=== PATIENT | female | born 1945 | race Caucasian/White ===

== ENCOUNTER 2017-11-19 12:15 | Outpatient (RCR) | payer MEDICARE, MEDICAID, SELFPAY ==
--- NOTE | 2017-08-05 11:47 | PT.OTN ---
Current Diagnoses Lumbago with sciatica, right side (08/05/17) Lumbago with sciatica, left side (08/05/17) Difficulty in walking, not elsewhere classified (08/05/17) Abnormal posture (08/05/17) Weakness (08/05/17) Transition note: On August 03, 2017 our therapy services consisting of Speech, Occupational, and Physical Therapy transitioned from the [employer] electronic documentation system to a new [employer] electronic documentation system.?? All documentation prior to August 03 can be found under [employer] saved data. From August 03 forward all medical record documentation will be in [employer] 6.1.
--- NOTE | 2017-08-05 16:24 | PT.OTN ---
Current Diagnoses Lumbago with sciatica, right side (08/05/17) Lumbago with sciatica, left side (08/05/17) Difficulty in walking, not elsewhere classified (08/05/17) Abnormal posture (08/05/17) Weakness (08/05/17) Physical Therapy Treatment Note PT-OP-A Visit Information Start: 08/05/17 08:12 Freq: Status: Active Protocol: Activity Type Activity Date Activity User E-Sign Co-Sign Detail Recorded Client Recorded Date Recorded By Document 08/05/17 13:52 [facility] [id number] 08/05/17 14:35 [facility] 08/05/17 13:52 Out-Patient Physical Therapy Visit Information [Visit Information] -Visit Note POC due 09/27/17 -Visit Start Time 13:45 -Visit Stop Time 14:30 -Total Visit Minutes 45 -Visit Number 3 PT-OP-C Subjective Start: 08/05/17 08:12 Freq: Status: Active Protocol: Activity Type Activity Date Activity User E-Sign Co-Sign Detail Recorded Client Recorded Date Recorded By Document 08/05/17 13:52 [facility] [id number] 08/05/17 14:35 [facility] 08/05/17 13:52 OP-PT Subjective [Patient Comments] -Patient Comments Pt reports felt pretty good after last session. R arm was the sorest. A little twinge in back. PT-OP-Q Treatments Start: 08/05/17 08:12 Freq: Status: Active Protocol: Activity Type Activity Date Activity User E-Sign Co-Sign Detail Recorded Client Recorded Date Recorded By Document 08/05/17 13:52 [facility] [id number] 08/05/17 14:35 [facility] 08/05/17 13:52 Gym Equipment [Shuttle Balance] 1 -Details red clips -Comments fwd & side NBOS & WBOS Therapeutic Exercises [Supine Exercises] 2 -Supine Exercise Name scissors -Reps/Minutes 30 1 -Supine Exercise Name bridge -Reps/Minutes 20 [Sidelying Exercises] 3 -Sidelying Exercise Name reverse clamshell -Resistance L1 -Reps/Minutes 20 2 -Sidelying Exercise Name clamshell -Resistance L1 -Reps/Minutes 20 1 -Sidelying Exercise Name s/l abd -Reps/Minutes 20 B Manual Therapy Treatment [Soft Tissue Mobilization] 1 -Body Location QL & glutes/ piriformis R -Mobilization Type Rolling -Intensity/Depth Moderate -Body Position Sidelying PT-OP-T Assessment and Plan Start: 08/05/17 08:12 Freq: Status: Active Protocol: Activity Type Activity Date Activity User E-Sign Co-Sign Detail Recorded Client Recorded Date Recorded By Document 08/05/17 13:52 [facility] [id number] 08/05/17 14:35 [facility] 08/05/17 13:52 Physical Therapy Assessment [Assessment Summary] -Assessment Pt had difficulty with NBOS on uneven surface. Pt did require cueing for exercises for core, neutral pelvis & form. Physical Therapy Plan [Next Visit Focus/Plan] -Next Visit Plan standing abd & ext with tband; fwd/back resisted walking
--- NOTE | 2017-08-09 14:31 | PT.OTN ---
Current Diagnoses Lumbago with sciatica, right side (08/09/17) Lumbago with sciatica, left side (08/09/17) Difficulty in walking, not elsewhere classified (08/09/17) Abnormal posture (08/09/17) Weakness (08/09/17) Physical Therapy Treatment Note PT-OP-A Visit Information Start: 08/05/17 08:12 Freq: Status: Active Protocol: Activity Type Activity Date Activity User E-Sign Co-Sign Detail Recorded Client Recorded Date Recorded By Document 08/09/17 13:53 [facility] [id number] 08/09/17 14:17 [facility] 08/09/17 13:53 Out-Patient Physical Therapy Visit Information [Visit Information] -Visit Type Treatment Note -Visit Note POC due 09/27/17 -Visit Start Time 13:45 -Visit Stop Time 14:30 -Total Visit Minutes 45 -Visit Number 4 -Number of TUBE STATION ATTENDANT Visits 0 PT-OP-C Subjective Start: 08/05/17 08:12 Freq: Status: Active Protocol: Activity Type Activity Date Activity User E-Sign Co-Sign Detail Recorded Client Recorded Date Recorded By Document 08/09/17 13:53 [facility] [id number] 08/09/17 14:17 [facility] 08/09/17 13:53 OP-PT Subjective [Patient Comments] -Patient Comments Pt reports she did some yard work, but only minor twinges PT-OP-Q Treatments Start: 08/05/17 08:12 Freq: Status: Active Protocol: Activity Type Activity Date Activity User E-Sign Co-Sign Detail Recorded Client Recorded Date Recorded By Document 08/09/17 13:53 [facility] [id number] 08/09/17 14:17 [facility] 08/09/17 13:53 Cardio Equipment [Recumbent Elliptical (Biodex)] -Duration (Minutes) 5 -Resistance 4 -Seat Position 6 Gym Equipment [Shuttle Balance] 1 -Details red clips -Comments fwd & side NBOS & WBOS & staggered stance Therapeutic Exercises [Standing Exercises] 3 -Standing Exercise Name hip abd w/lvl 1 band -Reps/Minutes 2x10 2 -Standing Exercise Name standing hip ext w/l1 band -Reps/Minutes 2x10 1 -Standing Exercise Name wall squat -Reps/Minutes 2x10 Manual Therapy Treatment [Soft Tissue Mobilization] 1 -Body Location QL & glutes/ piriformis R -Mobilization Type Rolling -Intensity/Depth Moderate -Body Position Sidelying PT-OP-T Assessment and Plan Start: 08/05/17 08:12 Freq: Status: Active Protocol: Activity Type Activity Date Activity User E-Sign Co-Sign Detail Recorded Client Recorded Date Recorded By Document 08/09/17 13:53 [facility] [id number] 08/09/17 14:17 [facility] 08/09/17 13:53 Physical Therapy Assessment [Assessment Summary] -Assessment Improved balance on balance board today. Difficulty reported with standing exercises. Physical Therapy Plan [Frequency and Duration] -Frequency of Treatment 2x/Week -Plan of Care End Date 09/28/17 [Next Visit Focus/Plan] -Next Visit Plan resisted fwd/ back & side walking
--- NOTE | 2017-08-12 14:30 | PT.OTN ---
Current Diagnoses Lumbago with sciatica, right side (08/12/17) Lumbago with sciatica, left side (08/12/17) Difficulty in walking, not elsewhere classified (08/12/17) Abnormal posture (08/12/17) Weakness (08/12/17) Physical Therapy Treatment Note PT-OP-A Visit Information Start: 08/05/17 08:12 Freq: Status: Active Protocol: Document 08/12/17 13:53 [facility] (Rec: 08/12/17 14:30 [facility] [id number]) Out-Patient Physical Therapy Visit Information Visit Information Visit Type Treatment Note Visit Note POC due 09/27/17 Visit Start Time 13:45 Visit Stop Time 14:30 Total Visit Minutes 45 Visit Number 5 Number of CUSTOM DRESSMAKER Visits 0 PT-OP-C Subjective Start: 08/05/17 08:12 Freq: Status: Active Protocol: Document 08/12/17 13:53 [facility] (Rec: 08/12/17 14:30 [facility] [id number]) OP-PT Subjective Patient Comments Patient Comments Compliance with HEP & reports she is more aware of her core. PT-OP-Q Treatments Start: 08/05/17 08:12 Freq: Status: Active Protocol: Document 08/12/17 13:53 [facility] (Rec: 08/12/17 14:30 [facility] [id number]) Cardio Equipment Recumbent Elliptical (Biodex) Duration (Minutes) 5 Resistance 4 Seat Position 6 Gym Equipment Shuttle Balance 1 Details red clips Comments fwd & side NBOS & WBOS & staggered stance Therapeutic Exercises Standing Exercises 1 Standing Exercise Name wall squat Reps/Minutes 2x10 Manual Therapy Treatment Soft Tissue Mobilization 1 Body Location QL & glutes/piriformis R Mobilization Type Rolling Intensity/Depth Moderate Body Position Sidelying Neuro Re-Education Treatment Balance Activities 4 Details tandem stance Reps/Duration bilat 3 Details sidestep Equipment yellow tband Reps/Duration 2x20 ft 2 Details fwd/back walk Equipment yellow band Reps/Duration 2x20 ft 1 Details tandem walk Reps/Duration 4x20 ft PT-OP-T Assessment and Plan Start: 08/05/17 08:12 Freq: Status: Active Protocol: Document 08/12/17 13:53 [facility] (Rec: 08/12/17 14:30 [facility] [id number]) Physical Therapy Assessment Assessment Summary Assessment Cont improvement on balance board. Challenge w/ side stepping. Physical Therapy Plan Frequency and Duration Frequency of Treatment 2x/Week Plan of Care End Date 09/28/17 Next Visit Focus/Plan Next Visit Plan Cont to advance glute strength & balance
--- NOTE | 2017-08-20 14:41 | PT.OTN ---
Current Diagnoses Lumbago with sciatica, right side (08/20/17) Lumbago with sciatica, left side (08/20/17) Difficulty in walking, not elsewhere classified (08/20/17) Abnormal posture (08/20/17) Weakness (08/20/17) Physical Therapy Treatment Note PT-OP-A Visit Information Start: 08/05/17 08:12 Freq: Status: Active Protocol: Document 08/20/17 13:52 [facility] (Rec: 08/20/17 14:40 [facility] [id number]) Out-Patient Physical Therapy Visit Information Visit Information Visit Type Treatment Note Visit Note POC due 09/27/17 Visit Start Time 13:45 Visit Stop Time 14:30 Total Visit Minutes 45 Visit Number 6 Number of INVISIBLE BRACES ORTHODONTIST Visits 0 PT-OP-C Subjective Start: 08/05/17 08:12 Freq: Status: Active Protocol: Document 08/20/17 13:52 [facility] (Rec: 08/20/17 14:40 [facility] [id number]) OP-PT Subjective Patient Comments Patient Comments Reports she had the stomach bug on mothers day. Reports she has been using cane less in home. PT-OP-Q Treatments Start: 08/05/17 08:12 Freq: Status: Active Protocol: Document 08/20/17 13:52 [facility] (Rec: 08/20/17 14:40 [facility] [id number]) Cardio Equipment Recumbent Elliptical (Biodex) Duration (Minutes) 5 Resistance 4 Seat Position 6 Gym Equipment Shuttle Balance 1 Details red clips Comments fwd & side NBOS & WBOS & staggered stance Therapeutic Exercises Supine Exercises 2 Supine Exercise Name scissors Reps/Minutes 10 Sidelying Exercises 3 Sidelying Exercise Name reverse clamshell Resistance L2 Reps/Minutes 12 2 Sidelying Exercise Name clamshell Resistance L2 Reps/Minutes 15 1 Sidelying Exercise Name s/l abd Reps/Minutes 20 B Gait Training Gait Activity 1 Description in mirror Device Used none Level of Assistance cueing Treatment Focus dec lat lean Neuro Re-Education Treatment Balance Activities 5 Details SLS Comments w/ neutral pelvis, counter prn 4 Details tandem stance Reps/Duration bilat 3 Details sidestep Equipment yellow tband Reps/Duration 2x20 ft 2 Details fwd/back walk Equipment yellow band Reps/Duration 2x20 ft 1 Details tandem walk Reps/Duration 4x20 ft PT-OP-T Assessment and Plan Start: 08/05/17 08:12 Freq: Status: Active Protocol: Document 08/20/17 13:52 [facility] (Rec: 08/20/17 14:40 [facility] [id number]) Physical Therapy Assessment Assessment Summary Assessment Improvement on balance board with less difficulty. Cont to have lat lean with gait and side stepping difficulty. Min adjustment and cueing required for HEP. Physical Therapy Plan Frequency and Duration Frequency of Treatment 2x/Week Plan of Care End Date 09/28/17 Next Visit Focus/Plan Next Visit Plan Cont to advance glute strength & balance
--- NOTE | 2017-08-23 14:32 | PT.OTN ---
Current Diagnoses Lumbago with sciatica, right side (08/23/17) Lumbago with sciatica, left side (08/23/17) Difficulty in walking, not elsewhere classified (08/23/17) Abnormal posture (08/23/17) Weakness (08/23/17) Physical Therapy Treatment Note PT-OP-A Visit Information Start: 08/05/17 08:12 Freq: Status: Active Protocol: Document 08/23/17 13:52 [facility] (Rec: 08/23/17 14:32 [facility] [id number]) Out-Patient Physical Therapy Visit Information Visit Information Visit Type Treatment Note Visit Note POC due 09/27/17 Visit Start Time 13:45 Visit Stop Time 14:30 Total Visit Minutes 45 Visit Number 7 Number of SAS ANALYST Visits 0 PT-OP-C Subjective Start: 08/05/17 08:12 Freq: Status: Active Protocol: Document 08/23/17 13:52 [facility] (Rec: 08/23/17 14:32 [facility] [id number]) OP-PT Subjective Patient Comments Patient Comments Reports she is using her cane less. PT-OP-Q Treatments Start: 08/05/17 08:12 Freq: Status: Active Protocol: Document 08/23/17 13:52 [facility] (Rec: 08/23/17 14:32 [facility] [id number]) Cardio Equipment Recumbent Elliptical (Biodex) Duration (Minutes) 5 Resistance 5 Seat Position 6 Gym Equipment Shuttle Balance 1 Details red clips Comments fwd & side NBOS & WBOS & staggered stance Therapeutic Exercises Standing Exercises 1 Standing Exercise Name wall squat Reps/Minutes 2x10 Manual Therapy Treatment Soft Tissue Mobilization 1 Body Location QL & glutes/piriformis R Mobilization Type Rolling Intensity/Depth Moderate Body Position Sidelying Joint Mobilizations 3 Joint innominate Direction caudal L FM 2 Joint sacrum Direction caudal FM Body Position Prone 1 Joint hip Direction Hip on axis ER Grade III Body Position Prone Neuro Re-Education Treatment Balance Activities 3 Details sidestep Equipment yellow tband Reps/Duration 2x20 ft 2 Details fwd/back walk Equipment yellow band Reps/Duration 2x20 ft 1 Details tandem walk Reps/Duration 4x20 ft PT-OP-T Assessment and Plan Start: 08/05/17 08:12 Freq: Status: Active Protocol: Document 08/23/17 13:52 [facility] (Rec: 08/23/17 14:32 [facility] [id number]) Physical Therapy Assessment Assessment Summary Assessment Improved gait at end of session. Some soft tissue tightness present on R side today. Physical Therapy Plan Frequency and Duration Frequency of Treatment 2x/Week Plan of Care End Date 09/28/17 Next Visit Focus/Plan Next Visit Plan Cont to advance glute strength & balance Please Sign and Return: I have reviewed this Plan of Care and certify that the skilled therapy services above are required to meet the patient???s needs. Physician Signature Date Printed Name and Credentials Clinical Instructor Signature Printed Name and Credentials
--- NOTE | 2017-08-26 14:31 | PT.OTN ---
Current Diagnoses Lumbago with sciatica, right side (08/26/17) Lumbago with sciatica, left side (08/26/17) Difficulty in walking, not elsewhere classified (08/26/17) Abnormal posture (08/26/17) Weakness (08/26/17) Physical Therapy Treatment Note PT-OP-A Visit Information Start: 08/05/17 08:12 Freq: Status: Active Protocol: Document 08/26/17 13:55 [facility] (Rec: 08/26/17 14:31 [facility] [id number]) Out-Patient Physical Therapy Visit Information Visit Information Visit Type Treatment Note Visit Note POC due 09/27/17 Visit Start Time 13:45 Visit Stop Time 14:30 Total Visit Minutes 45 Visit Number 8 Number of PAPER TESTING SUPERVISOR Visits 0 PT-OP-C Subjective Start: 08/05/17 08:12 Freq: Status: Active Protocol: Document 08/26/17 13:55 [facility] (Rec: 08/26/17 14:31 [facility] [id number]) OP-PT Subjective Patient Comments Patient Comments Notes did not have to take tylenol after last session. PT-OP-Q Treatments Start: 08/05/17 08:12 Freq: Status: Active Protocol: Document 08/26/17 13:55 [facility] (Rec: 08/26/17 14:31 [facility] [id number]) Gym Equipment Shuttle Balance 1 Details red clips Comments fwd & side NBOS & WBOS & staggered stance Manual Therapy Treatment Soft Tissue Mobilization 1 Body Location QL & glutes/piriformis R Mobilization Type Rolling Intensity/Depth Moderate Body Position Sidelying Joint Mobilizations 3 Joint innominate Direction caudal L FM 2 Joint sacrum Direction caudal FM Body Position Prone 1 Joint hip Direction Hip on axis ER Grade III Body Position Prone Neuro Re-Education Treatment Balance Activities 3 Details sidestep Equipment yellow tband Reps/Duration 2x20 ft 2 Details fwd/back walk Equipment yellow band Reps/Duration 2x20 ft 1 Details tandem walk Reps/Duration 5x20 ft PT-OP-T Assessment and Plan Start: 08/05/17 08:12 Freq: Status: Active Protocol: Document 08/26/17 13:55 [facility] (Rec: 08/26/17 14:31 [facility] [id number]) Physical Therapy Assessment Assessment Summary Assessment Improved balance on board & improving sidedtep to R, difficulty to L. Physical Therapy Plan Frequency and Duration Frequency of Treatment 2x/Week Plan of Care End Date 09/28/17 Next Visit Focus/Plan Next Visit Plan Cont to advance glute strength & balance Please Sign and Return: I have reviewed this Plan of Care and certify that the skilled therapy services above are required to meet the patient???s needs. Physician Signature Date Printed Name and Credentials Clinical Instructor Signature Printed Name and Credentials
--- NOTE | 2017-08-31 11:27 | PT.OTN ---
Current Diagnoses Lumbago with sciatica, right side (08/31/17) Lumbago with sciatica, left side (08/31/17) Difficulty in walking, not elsewhere classified (08/31/17) Abnormal posture (08/31/17) Weakness (08/31/17) Physical Therapy Treatment Note PT-OP-A Visit Information Start: 08/05/17 08:12 Freq: Status: Active Protocol: Document 08/31/17 10:40 [facility] (Rec: 08/31/17 11:27 [facility] [id number]) Out-Patient Physical Therapy Visit Information Visit Information Visit Type Treatment Note Visit Note POC due 09/27/17 Visit Start Time 10:35 Visit Stop Time 11:15 Total Visit Minutes 40 Visit Number 9 Number of INSPECTOR MACHINED PARTS Visits 0 PT-OP-C Subjective Start: 08/05/17 08:12 Freq: Status: Active Protocol: Document 08/31/17 10:40 [facility] (Rec: 08/31/17 11:27 [facility] [id number]) OP-PT Subjective Patient Comments Patient Comments Reports compliance w/ HEP. Reports R arm is bothering her . PT-OP-Q Treatments Start: 08/05/17 08:12 Freq: Status: Active Protocol: Document 08/31/17 10:40 [facility] (Rec: 08/31/17 11:27 [facility] [id number]) Cardio Equipment Recumbent Elliptical (Biodex) Duration (Minutes) 6 Resistance 5 Seat Position 6 Manual Therapy Treatment Soft Tissue Mobilization 1 Body Location QL & glutes/piriformis R Mobilization Type Rolling Intensity/Depth Moderate Body Position Sidelying Joint Mobilizations 3 Joint innominate Direction caudal L FM 2 Joint sacrum Direction caudal FM Body Position Prone Neuro Re-Education Treatment Balance Activities 5 Details SLS Comments w/ neutral pelvis, counter prn 3 Details sidestep Equipment yellow tband Reps/Duration 2x20 ft 2 Details fwd/back walk Equipment yellow band Reps/Duration 2x20 ft 1 Details tandem walk Reps/Duration 5x20 ft PT-OP-T Assessment and Plan Start: 08/05/17 08:12 Freq: Status: Active Protocol: Document 08/31/17 10:40 [facility] (Rec: 08/31/17 11:27 [facility] [id number]) Physical Therapy Assessment Assessment Summary Assessment Able to tolerate tossing balloon back and forth with aide. Improving with soft tissue mobility. Physical Therapy Plan Next Visit Focus/Plan Next Note Type Progress Note Next Visit Plan Cont to advance glute strength & balance Please Sign and Return: I have reviewed this Plan of Care and certify that the skilled therapy services above are required to meet the patient???s needs. Physician Signature Date Printed Name and Credentials Clinical Instructor Signature Printed Name and Credentials
--- NOTE | 2017-09-02 15:13 | PT.OTN ---
Current Diagnoses Lumbago with sciatica, right side (09/02/17) Lumbago with sciatica, left side (09/02/17) Difficulty in walking, not elsewhere classified (09/02/17) Abnormal posture (09/02/17) Weakness (09/02/17) Physical Therapy Treatment Note PT-OP-A Visit Information Start: 08/05/17 08:12 Freq: Status: Active Protocol: Document 09/02/17 13:50 [facility] (Rec: 09/02/17 15:13 [facility] [id number]) Out-Patient Physical Therapy Visit Information Visit Information Visit Type Progress Note Visit Note POC due total 10 visits Visit Start Time 13:50 Visit Stop Time 14:30 Total Visit Minutes 40 Visit Number 1 Number of GAS STATION SERVICE ATTENDANT Visits 0 PT-OP-C Subjective Start: 08/05/17 08:12 Freq: Status: Active Protocol: Document 09/02/17 13:50 [facility] (Rec: 09/02/17 15:13 [facility] [id number]) OP-PT Subjective Patient Comments Patient Comments She is still avoiding walking long distances. Patient Questionnaires Oswestry Low Back Index Oswestry Score 7 Oswestry Impairment 1 to 19% Impaired (Score 1-19) PT-OP-M Strength Start: 09/02/17 13:50 Freq: Status: Active Protocol: Document 09/02/17 13:50 [facility] (Rec: 09/02/17 15:13 [facility] [id number]) Hip Strength Hip Manual Muscle Testing Right Flexion (L2) 4+ Good+ Extension (S1) 4 Good Abduction 4- Good- External Rotation 4 Good Internal Rotation 4- Good- Left Flexion (L2) 4+ Good+ Extension (S1) 4 Good Abduction 4 Good External Rotation 4+ Good+ Internal Rotation 5 Normal Knee Strength Knee Manual Muscle Testing Right Flexion (S2) 5 Normal Extension (L3) 5 Normal Left Flexion (S2) 5 Normal Extension (L3) 5 Normal Ankle/Foot Strength Ankle and Foot Manual Muscle Testing Right Dorsiflexion (L4) 4 Good Plantarflexion (S1) 5 Normal Left Dorsiflexion (L4) 5 Normal Plantarflexion (S1) 5 Normal PT-OP-Q Treatments Start: 08/05/17 08:12 Freq: Status: Active Protocol: Document 09/02/17 13:50 [facility] (Rec: 09/02/17 15:13 [facility] [id number]) Cardio Equipment Recumbent Elliptical (Biodex) Duration (Minutes) 6 Resistance 5 Seat Position 6 Gym Equipment Shuttle Balance 1 Details red clips Comments fwd & side NBOS & WBOS & staggered stance w/head turns Therapeutic Exercises Sidelying Exercises 3 Sidelying Exercise Name s/l abd Reps/Minutes 10 Neuro Re-Education Treatment Balance Activities 5 Details SLS Comments w/ neutral pelvis, counter prn 4 Details over hurdles Reps/Duration 6 laps 3 Details sidestep Equipment yellow tband Reps/Duration 2x20 ft 2 Details fwd/back walk Equipment yellow band Reps/Duration 2x20 ft 1 Details tandem walk Reps/Duration 5x20 ft PT-OP-T Assessment and Plan Start: 08/05/17 08:12 Freq: Status: Active Protocol: Document 09/02/17 13:50 [facility] (Rec: 09/02/17 15:13 [facility] [id number]) Physical Therapy Assessment Impairments Impairments Balance Gait Pain Posture ROM Soft Tissue Mobility Strength Goals Five Impairment household activities Short Term Goal (STG) able to perform all household activities STG Duration achieved Group Home Goal (LTG) Able to walk typical distances LTG Duration 09/28/17 Four Impairment MICHAEL Short Term Goal (STG) 8 STG Duration achieved Group Home Goal (LTG) 0 LTG Duration 09/28/17 Three Impairment pain Short Term Goal (STG) 2/10 STG Duration by 09/12/17 Planning Intern Goal (LTG) 0/10 LTG Duration by 09/28/17 Two Impairment gait Group Home Goal (LTG) pattern abnormality to normal LTG Duration by 09/28/17 One Impairment MMT Group Home Goal (LTG) 5/5 LTG Duration by 09/28/17 Assessment Summary Assessment Pt is improving well with strength & overall with gait, but cont to be limited. She is making progress with balance & functional ability. Physical Therapy Plan Frequency and Duration Frequency of Treatment 2x/Week Plan of Care End Date 09/28/17 Therapeutic Interventions Therapeutic Interventions Balance Training Gait Training Home Exercise Program Joint Mobilizations Manual Therapy Self-Care/Home Management Soft Tissue Mobilization Taping Therapeutic Exercises Next Visit Focus/Plan Next Note Type Treatment Note Next Visit Plan Cont to advance glute strength & balance Please Sign and Return: I have reviewed this Plan of Care and certify that the skilled therapy services above are required to meet the patient?s needs. Physician Signature Date Printed Name and Credentials Clinical Instructor Signature Printed Name and Credentials
--- NOTE | 2017-09-07 14:27 | PT.OTN ---
Current Diagnoses Lumbago with sciatica, right side (09/07/17) Lumbago with sciatica, left side (09/07/17) Difficulty in walking, not elsewhere classified (09/07/17) Abnormal posture (09/07/17) Weakness (09/07/17) Physical Therapy Treatment Note PT-OP-A Visit Information Start: 08/05/17 08:12 Freq: Status: Active Protocol: Document 09/07/17 13:45 [facility] (Rec: 09/07/17 14:26 [facility] [id number]) Out-Patient Physical Therapy Visit Information Visit Information Visit Type Treatment Note Visit Note POC due 09/27/17 11 total visits Visit Start Time 10:35 Visit Stop Time 11:15 Total Visit Minutes 40 Visit Number 2 Number of MANAGER TRADE MARKETING Visits 0 PT-OP-C Subjective Start: 08/05/17 08:12 Freq: Status: Active Protocol: Document 09/07/17 13:45 [facility] (Rec: 09/07/17 14:26 [facility] [id number]) OP-PT Subjective Patient Comments Patient Comments Reports she did some yard work and chopped some wood and took some breaks for pain. PT-OP-M Strength Start: 09/02/17 13:50 Freq: Status: Active Protocol: Document 09/02/17 13:50 [facility] (Rec: 09/02/17 15:13 [facility] [id number]) Hip Strength Hip Manual Muscle Testing Right Flexion (L2) 4+ Good+ Extension (S1) 4 Good Abduction 4- Good- External Rotation 4 Good Internal Rotation 4- Good- Left Flexion (L2) 4+ Good+ Extension (S1) 4 Good Abduction 4 Good External Rotation 4+ Good+ Internal Rotation 5 Normal Knee Strength Knee Manual Muscle Testing Right Flexion (S2) 5 Normal Extension (L3) 5 Normal Left Flexion (S2) 5 Normal Extension (L3) 5 Normal Ankle/Foot Strength Ankle and Foot Manual Muscle Testing Right Dorsiflexion (L4) 4 Good Plantarflexion (S1) 5 Normal Left Dorsiflexion (L4) 5 Normal Plantarflexion (S1) 5 Normal PT-OP-Q Treatments Start: 08/05/17 08:12 Freq: Status: Active Protocol: Document 09/07/17 13:45 [facility] (Rec: 09/07/17 14:26 [facility] [id number]) Cardio Equipment Recumbent Elliptical (Biodex) Duration (Minutes) 6 Resistance 5 Seat Position 6 Gym Equipment Shuttle Balance 1 Details red clips Comments fwd & side NBOS & WBOS & staggered stance w/head turns Therapeutic Exercises Sidelying Exercises 3 Sidelying Exercise Name s/l abd Reps/Minutes 10 Manual Therapy Treatment Soft Tissue Mobilization 1 Body Location QL & glutes/piriformis R Mobilization Type Rolling Intensity/Depth Moderate Body Position Sidelying Neuro Re-Education Treatment Balance Activities 4 Details over hurdles Reps/Duration 6 laps 3 Details sidestep Equipment yellow tband Reps/Duration 2x20 ft 2 Details fwd/back walk Equipment yellow band Reps/Duration 2x20 ft 1 Details tandem walk Reps/Duration 5x20 ft PT-OP-T Assessment and Plan Start: 08/05/17 08:12 Freq: Status: Active Protocol: Document 09/07/17 13:45 [facility] (Rec: 09/07/17 14:26 [facility] [id number]) Physical Therapy Assessment Assessment Summary Assessment Pt did well with hudles & had inc endurance & form w/ side steps. Physical Therapy Plan Frequency and Duration Frequency of Treatment 2x/Week Plan of Care End Date 09/28/17 Next Visit Focus/Plan Next Note Type Treatment Note Next Visit Plan Cont to advance glute strength & balance Please Sign and Return: I have reviewed this Plan of Care and certify that the skilled therapy services above are required to meet the patient?s needs. Physician Signature Date Printed Name and Credentials Clinical Instructor Signature Printed Name and Credentials
--- NOTE | 2017-09-09 14:28 | PT.OTN ---
Current Diagnoses Lumbago with sciatica, right side (09/09/17) Lumbago with sciatica, left side (09/09/17) Difficulty in walking, not elsewhere classified (09/09/17) Abnormal posture (09/09/17) Weakness (09/09/17) Physical Therapy Treatment Note PT-OP-A Visit Information Start: 08/05/17 08:12 Freq: Status: Active Protocol: Document 09/09/17 13:49 [facility] (Rec: 09/09/17 14:28 [facility] [id number]) Out-Patient Physical Therapy Visit Information Visit Information Visit Type Treatment Note Visit Note POC due 09/27/17 11 total visits Visit Start Time 13:45 Visit Stop Time 14:25 Total Visit Minutes 40 Visit Number 3 Number of OVENS SUPERVISOR Visits 0 PT-OP-C Subjective Start: 08/05/17 08:12 Freq: Status: Active Protocol: Document 09/09/17 13:49 [facility] (Rec: 09/09/17 14:28 [facility] [id number]) OP-PT Subjective Patient Comments Patient Comments Pt reports she was sore after last session in [place] and it was gone after the next day. PT-OP-M Strength Start: 09/02/17 13:50 Freq: Status: Active Protocol: Document 09/02/17 13:50 [facility] (Rec: 09/02/17 15:13 [facility] [id number]) Hip Strength Hip Manual Muscle Testing Right Flexion (L2) 4+ Good+ Extension (S1) 4 Good Abduction 4- Good- External Rotation 4 Good Internal Rotation 4- Good- Left Flexion (L2) 4+ Good+ Extension (S1) 4 Good Abduction 4 Good External Rotation 4+ Good+ Internal Rotation 5 Normal Knee Strength Knee Manual Muscle Testing Right Flexion (S2) 5 Normal Extension (L3) 5 Normal Left Flexion (S2) 5 Normal Extension (L3) 5 Normal Ankle/Foot Strength Ankle and Foot Manual Muscle Testing Right Dorsiflexion (L4) 4 Good Plantarflexion (S1) 5 Normal Left Dorsiflexion (L4) 5 Normal Plantarflexion (S1) 5 Normal PT-OP-Q Treatments Start: 08/05/17 08:12 Freq: Status: Active Protocol: Document 09/09/17 13:49 [facility] (Rec: 09/09/17 14:28 [facility] [id number]) Cardio Equipment Recumbent Elliptical (Biodex) Duration (Minutes) 7 Resistance 5 Seat Position 6 Gym Equipment Shuttle Balance 1 Details red clips Comments fwd & side NBOS & WBOS & staggered stance w/head turns Manual Therapy Treatment Soft Tissue Mobilization 1 Body Location QL & glutes/piriformis R Mobilization Type Rolling Intensity/Depth Moderate Body Position Sidelying Joint Mobilizations 3 Joint innominate Direction caudal L FM 2 Joint sacrum Direction caudal FM Body Position Prone Neuro Re-Education Treatment Balance Activities 4 Details over hurdles Reps/Duration 6 laps 3 Details sidestep Equipment yellow tband Reps/Duration 2x20 ft 2 Details fwd/back walk Equipment yellow band Reps/Duration 2x20 ft 1 Details tandem walk Reps/Duration 4x20 ft PT-OP-T Assessment and Plan Start: 08/05/17 08:12 Freq: Status: Active Protocol: Document 09/09/17 13:49 [facility] (Rec: 09/09/17 14:28 [facility] [id number]) Physical Therapy Assessment Goals Five Impairment household activities Short Term Goal (STG) able to perform all household activities STG Duration achieved Data Compiler Goal (LTG) Able to walk typical distances LTG Duration 09/28/17 Four Impairment MICHAEL Short Term Goal (STG) 8 STG Duration achieved Data Compiler Goal (LTG) 0 LTG Duration 09/28/17 Three Impairment pain Short Term Goal (STG) 2/10 STG Duration by 09/12/17 Nursing Home Goal (LTG) 0/10 LTG Duration by 09/28/17 Two Impairment gait Data Compiler Goal (LTG) pattern abnormality to normal LTG Duration by 09/28/17 One Impairment MMT Data Compiler Goal (LTG) 5/5 LTG Duration by 09/28/17 Assessment Summary Assessment Pt cont to improve with her gait mechanics and is overall feeling like she can use her cane less. Physical Therapy Plan Frequency and Duration Frequency of Treatment 2x/Week Plan of Care End Date 09/28/17 Next Visit Focus/Plan Next Note Type Treatment Note Next Visit Plan Cont to advance glute strength & balance w/head turns Please Sign and Return: I have reviewed this Plan of Care and certify that the skilled therapy services above are required to meet the patient?s needs. Physician Signature Date Printed Name and Credentials Clinical Instructor Signature Printed Name and Credentials
--- NOTE | 2017-09-17 13:01 | PT.OTN ---
Current Diagnoses Lumbago with sciatica, right side (09/17/17) Lumbago with sciatica, left side (09/17/17) Difficulty in walking, not elsewhere classified (09/17/17) Abnormal posture (09/17/17) Weakness (09/17/17) Physical Therapy Treatment Note PT-OP-A Visit Information Start: 08/05/17 08:12 Freq: Status: Active Protocol: Document 09/17/17 12:19 [facility] (Rec: 09/17/17 13:01 [facility] [id number]) Out-Patient Physical Therapy Visit Information Visit Information Visit Type Treatment Note Visit Note POC due 09/27/17 11 total visits Visit Start Time 12:20 Visit Stop Time 12:58 Total Visit Minutes 38 Visit Number 4 Number of FOREIGN EXCHANGE POSITION CLERK Visits 0 PT-OP-C Subjective Start: 08/05/17 08:12 Freq: Status: Active Protocol: Document 09/17/17 12:19 [facility] (Rec: 09/17/17 13:01 [facility] [id number]) OP-PT Subjective Patient Comments Patient Comments Reports RLE has been hurting and glute has been sore since this weekend. Pt reports she was not been able to exercises sun, mon or tue d/t being sick. PT-OP-M Strength Start: 09/02/17 13:50 Freq: Status: Active Protocol: Document 09/02/17 13:50 [facility] (Rec: 09/02/17 15:13 [facility] [id number]) Hip Strength Hip Manual Muscle Testing Right Flexion (L2) 4+ Good+ Extension (S1) 4 Good Abduction 4- Good- External Rotation 4 Good Internal Rotation 4- Good- Left Flexion (L2) 4+ Good+ Extension (S1) 4 Good Abduction 4 Good External Rotation 4+ Good+ Internal Rotation 5 Normal Knee Strength Knee Manual Muscle Testing Right Flexion (S2) 5 Normal Extension (L3) 5 Normal Left Flexion (S2) 5 Normal Extension (L3) 5 Normal Ankle/Foot Strength Ankle and Foot Manual Muscle Testing Right Dorsiflexion (L4) 4 Good Plantarflexion (S1) 5 Normal Left Dorsiflexion (L4) 5 Normal Plantarflexion (S1) 5 Normal PT-OP-Q Treatments Start: 08/05/17 08:12 Freq: Status: Active Protocol: Document 09/17/17 12:19 [facility] (Rec: 09/17/17 13:01 [facility] [id number]) Cardio Equipment Recumbent Elliptical (Biodex) Duration (Minutes) 7 Resistance 5 Seat Position 6 Gym Equipment Shuttle Balance 1 Details red clips Comments fwd & side NBOS & WBOS & staggered stance w/head turns Therapeutic Exercises Standing Exercises 3 Standing Exercise Name squat Comments abd w/yellow tband Manual Therapy Treatment Soft Tissue Mobilization 1 Body Location QL & glutes/piriformis R Mobilization Type Rolling Intensity/Depth Moderate Body Position Sidelying Joint Mobilizations 2 Joint sacrum Direction caudal & PA FM Body Position Prone Neuro Re-Education Treatment Balance Activities 3 Details sidestep Equipment yellow tband Reps/Duration 2x20 ft 2 Details fwd/back walk Equipment yellow band Reps/Duration 2x20 ft 1 Details tandem walk Reps/Duration 4x20 ft PT-OP-T Assessment and Plan Start: 08/05/17 08:12 Freq: Status: Active Protocol: Document 09/17/17 12:19 [facility] (Rec: 09/17/17 13:01 [facility] [id number]) Physical Therapy Assessment Goals Five Impairment household activities Short Term Goal (STG) able to perform all household activities STG Duration achieved Director Emergency Services Goal (LTG) Able to walk typical distances LTG Duration 09/28/17 Four Impairment MICHAEL Short Term Goal (STG) 8 STG Duration achieved Fdc Goal (LTG) 0 LTG Duration 09/28/17 Three Impairment pain Short Term Goal (STG) 2/10 STG Duration by 09/12/17 Director Emergency Services Goal (LTG) 0/10 LTG Duration by 09/28/17 Two Impairment gait Director Emergency Services Goal (LTG) pattern abnormality to normal LTG Duration by 09/28/17 One Impairment MMT Director Emergency Services Goal (LTG) 5/5 LTG Duration by 09/28/17 Assessment Summary Assessment Pt is improving with overall balance. Difficulty with staggered stance on balance board. Pt had improved soft tissue mobility of glutes with STM Physical Therapy Plan Frequency and Duration Frequency of Treatment 2x/Week Plan of Care End Date 09/28/17 Next Visit Focus/Plan Next Note Type Treatment Note Next Visit Plan Cont to advance glute strength & balance w/head turns Please Sign and Return: I have reviewed this Plan of Care and certify that the skilled therapy services above are required to meet the patient?s needs. Physician Signature Date Printed Name and Credentials Clinical Instructor Signature Printed Name and Credentials
--- NOTE | 2017-09-20 14:36 | PT.OTN ---
Current Diagnoses Lumbago with sciatica, right side (09/20/17) Lumbago with sciatica, left side (09/20/17) Difficulty in walking, not elsewhere classified (09/20/17) Abnormal posture (09/20/17) Weakness (09/20/17) Physical Therapy Treatment Note PT-OP-A Visit Information Start: 08/05/17 08:12 Freq: Status: Active Protocol: Document 09/20/17 13:49 [facility] (Rec: 09/20/17 14:35 [facility] [id number]) Out-Patient Physical Therapy Visit Information Visit Information Visit Type Treatment Note Visit Note POC due 09/27/17 12 total visits Visit Start Time 13:45 Visit Stop Time 14:30 Total Visit Minutes 45 Visit Number 5 Number of SWITCHBOX ASSEMBLER Visits 0 PT-OP-C Subjective Start: 08/05/17 08:12 Freq: Status: Active Protocol: Document 09/20/17 13:49 [facility] (Rec: 09/20/17 14:35 [facility] [id number]) OP-PT Subjective Patient Comments Patient Comments She is inc in activity tolerance PT-OP-M Strength Start: 09/02/17 13:50 Freq: Status: Active Protocol: Document 09/02/17 13:50 [facility] (Rec: 09/02/17 15:13 [facility] [id number]) Hip Strength Hip Manual Muscle Testing Right Flexion (L2) 4+ Good+ Extension (S1) 4 Good Abduction 4- Good- External Rotation 4 Good Internal Rotation 4- Good- Left Flexion (L2) 4+ Good+ Extension (S1) 4 Good Abduction 4 Good External Rotation 4+ Good+ Internal Rotation 5 Normal Knee Strength Knee Manual Muscle Testing Right Flexion (S2) 5 Normal Extension (L3) 5 Normal Left Flexion (S2) 5 Normal Extension (L3) 5 Normal Ankle/Foot Strength Ankle and Foot Manual Muscle Testing Right Dorsiflexion (L4) 4 Good Plantarflexion (S1) 5 Normal Left Dorsiflexion (L4) 5 Normal Plantarflexion (S1) 5 Normal PT-OP-Q Treatments Start: 08/05/17 08:12 Freq: Status: Active Protocol: Document 09/20/17 13:49 [facility] (Rec: 09/20/17 14:35 [facility] [id number]) Cardio Equipment Recumbent Elliptical (LifeVantage) Duration (Minutes) 6 Resistance 6 Seat Position 6 Manual Therapy Treatment Soft Tissue Mobilization 1 Body Location QL & glutes/piriformis R Mobilization Type Rolling Intensity/Depth Moderate Body Position Sidelying Joint Mobilizations 3 Joint innominate Direction caudal L FM 2 Joint sacrum Direction caudal & PA FM Body Position Prone Neuro Re-Education Treatment Balance Activities 4 Details over hurdles Reps/Duration 6 laps 3 Details sidestep Equipment yellow tband Reps/Duration 2x20 ft 2 Details fwd/back walk Equipment yellow band Reps/Duration 2x20 ft 1 Details tandem walk Reps/Duration 4x20 ft PT-OP-T Assessment and Plan Start: 08/05/17 08:12 Freq: Status: Active Protocol: Document 09/20/17 13:49 [facility] (Rec: 09/20/17 14:35 [facility] [id number]) Physical Therapy Assessment Goals Five Impairment household activities Short Term Goal (STG) able to perform all household activities STG Duration achieved Group Home Goal (LTG) Able to walk typical distances LTG Duration 09/28/17 Four Impairment MICHAEL Short Term Goal (STG) 8 STG Duration achieved Group Home Goal (LTG) 0 LTG Duration 09/28/17 Three Impairment pain Short Term Goal (STG) 2/10 STG Duration by 09/12/17 Group Home Goal (LTG) 0/10 LTG Duration by 09/28/17 Two Impairment gait Youth Director Goal (LTG) pattern abnormality to normal LTG Duration by 09/28/17 One Impairment MMT Youth Director Goal (LTG) 5/5 LTG Duration by 09/28/17 Assessment Summary Assessment Pt was educated on how to set up side stepping at home with safety of use of counter & chair to sit in to set up. Pt improving with soft tissue mobility Physical Therapy Plan Frequency and Duration Frequency of Treatment 2x/Week Plan of Care End Date 09/28/17 Next Visit Focus/Plan Next Note Type Treatment Note Next Visit Plan Cont to advance glute strength & balance w/head turns
--- NOTE | 2017-09-23 14:32 | PT.OTN ---
Current Diagnoses Lumbago with sciatica, right side (09/23/17) Lumbago with sciatica, left side (09/23/17) Difficulty in walking, not elsewhere classified (09/23/17) Abnormal posture (09/23/17) Weakness (09/23/17) Physical Therapy Treatment Note PT-OP-A Visit Information Start: 08/05/17 08:12 Freq: Status: Active Protocol: Document 09/23/17 13:49 [facility] (Rec: 09/23/17 14:31 [facility] [id number]) Out-Patient Physical Therapy Visit Information Visit Information Visit Type Treatment Note Visit Note POC due 09/27/17 12 total visits Visit Start Time 13:45 Visit Stop Time 14:25 Total Visit Minutes 40 Visit Number 6 Number of FURNACE COMBUSTION ANALYST Visits 0 PT-OP-C Subjective Start: 08/05/17 08:12 Freq: Status: Active Protocol: Document 09/23/17 13:49 [facility] (Rec: 09/23/17 14:31 [facility] [id number]) OP-PT Subjective Patient Comments Patient Comments No distance walking yet. Today is the first day out of the house without the cane ( intentially) PT-OP-M Strength Start: 09/02/17 13:50 Freq: Status: Active Protocol: Document 09/02/17 13:50 [facility] (Rec: 09/02/17 15:13 [facility] [id number]) Hip Strength Hip Manual Muscle Testing Right Flexion (L2) 4+ Good+ Extension (S1) 4 Good Abduction 4- Good- External Rotation 4 Good Internal Rotation 4- Good- Left Flexion (L2) 4+ Good+ Extension (S1) 4 Good Abduction 4 Good External Rotation 4+ Good+ Internal Rotation 5 Normal Knee Strength Knee Manual Muscle Testing Right Flexion (S2) 5 Normal Extension (L3) 5 Normal Left Flexion (S2) 5 Normal Extension (L3) 5 Normal Ankle/Foot Strength Ankle and Foot Manual Muscle Testing Right Dorsiflexion (L4) 4 Good Plantarflexion (S1) 5 Normal Left Dorsiflexion (L4) 5 Normal Plantarflexion (S1) 5 Normal PT-OP-Q Treatments Start: 08/05/17 08:12 Freq: Status: Active Protocol: Document 09/23/17 13:49 [facility] (Rec: 09/23/17 14:31 [facility] [id number]) Cardio Equipment Recumbent Elliptical (Biodex) Duration (Minutes) 6 Resistance 6 Seat Position 6 Gym Equipment Shuttle Balance 1 Details red clips Comments fwd & side NBOS & WBOS & staggered stance w/head turns Manual Therapy Treatment Soft Tissue Mobilization 1 Body Location QL & glutes/piriformis R Mobilization Type Rolling Intensity/Depth Moderate Body Position Sidelying Joint Mobilizations 2 Joint sacrum Direction caudal & PA FM Body Position Prone 1 Joint hip on axis ER FM Neuro Re-Education Treatment Balance Activities 6 Details step ups onto bosu Reps/Duration 10 B Comments 1 rail 3 Details sidestep Equipment yellow tband Reps/Duration 2x20 ft 2 Details fwd/back walk Equipment yellow band Reps/Duration 2x20 ft 1 Details tandem walk Reps/Duration 4x20 ft PT-OP-T Assessment and Plan Start: 08/05/17 08:12 Freq: Status: Active Protocol: Document 09/23/17 13:49 [facility] (Rec: 09/23/17 14:31 [facility] [id number]) Physical Therapy Assessment Goals Five Impairment household activities Short Term Goal (STG) able to perform all household activities STG Duration achieved Potline Monitor Goal (LTG) Able to walk typical distances LTG Duration 09/28/17 Four Impairment MICHAEL Short Term Goal (STG) 8 STG Duration achieved Snf Goal (LTG) 0 LTG Duration 09/28/17 Three Impairment pain Short Term Goal (STG) 2/10 STG Duration by 09/12/17 Snf Goal (LTG) 0/10 LTG Duration by 09/28/17 One Impairment MMT Potline Monitor Goal (LTG) 5/5 LTG Duration by 09/28/17 Assessment Summary Assessment Pt is improving continually with gait mechanics without SPC. Pt able to do step ups onto bosu with 1 rail Physical Therapy Plan Frequency and Duration Frequency of Treatment 2x/Week Plan of Care End Date 09/28/17 Next Visit Focus/Plan Next Note Type Progress Note Next Visit Plan Cont to advance glute strength & balance w/head turns
--- NOTE | 2017-09-27 15:20 | PT.OTN ---
Current Diagnoses Lumbago with sciatica, right side (09/27/17) Lumbago with sciatica, left side (09/27/17) Difficulty in walking, not elsewhere classified (09/27/17) Abnormal posture (09/27/17) Weakness (09/27/17) Physical Therapy Treatment Note PT-OP-A Visit Information Start: 08/05/17 08:12 Freq: Status: Active Protocol: Document 09/27/17 15:11 [facility] (Rec: 09/27/17 15:20 [facility] [id number]) Out-Patient Physical Therapy Visit Information Visit Information Visit Type Treatment Note Visit Note POC due 09/27/17 14 total visits Visit Start Time 13:45 Visit Stop Time 14:25 Total Visit Minutes 40 Visit Number 7 Number of BUSINESS PARTNER Visits 0 PT-OP-C Subjective Start: 08/05/17 08:12 Freq: Status: Active Protocol: Document 09/27/17 15:11 [facility] (Rec: 09/27/17 15:20 [facility] [id number]) OP-PT Subjective Patient Comments Patient Comments Pt reports she was able to do gardening this weekend and has been trying to walk more without cane. PT-OP-M Strength Start: 09/02/17 13:50 Freq: Status: Active Protocol: Document 09/02/17 13:50 [facility] (Rec: 09/02/17 15:13 [facility] [id number]) Hip Strength Hip Manual Muscle Testing Right Flexion (L2) 4+ Good+ Extension (S1) 4 Good Abduction 4- Good- External Rotation 4 Good Internal Rotation 4- Good- Left Flexion (L2) 4+ Good+ Extension (S1) 4 Good Abduction 4 Good External Rotation 4+ Good+ Internal Rotation 5 Normal Knee Strength Knee Manual Muscle Testing Right Flexion (S2) 5 Normal Extension (L3) 5 Normal Left Flexion (S2) 5 Normal Extension (L3) 5 Normal Ankle/Foot Strength Ankle and Foot Manual Muscle Testing Right Dorsiflexion (L4) 4 Good Plantarflexion (S1) 5 Normal Left Dorsiflexion (L4) 5 Normal Plantarflexion (S1) 5 Normal PT-OP-Q Treatments Start: 08/05/17 08:12 Freq: Status: Active Protocol: Document 09/27/17 15:11 [facility] (Rec: 09/27/17 15:20 [facility] [id number]) Cardio Equipment Recumbent Elliptical (Biodex) Duration (Minutes) 6 Resistance 6 Seat Position 6 Gym Equipment Shuttle Balance 1 Details red clips Comments fwd & side NBOS & WBOS & staggered stance w/head turns Manual Therapy Treatment Soft Tissue Mobilization 1 Body Location QL & glutes/piriformis R Mobilization Type Rolling Intensity/Depth Moderate Body Position Sidelying Joint Mobilizations 3 Joint innominate Direction caudal L FM 2 Joint sacrum Direction caudal & PA FM Body Position Prone Neuro Re-Education Treatment Balance Activities 3 Details sidestep Equipment yellow tband Reps/Duration 2x20 ft 2 Details fwd/back walk Equipment yellow band Reps/Duration 2x20 ft PT-OP-T Assessment and Plan Start: 08/05/17 08:12 Freq: Status: Active Protocol: Document 09/27/17 15:11 [facility] (Rec: 09/27/17 15:20 [facility] [id number]) Physical Therapy Assessment Goals Five Impairment household activities Short Term Goal (STG) able to perform all household activities STG Duration achieved Fern Gatherer Goal (LTG) Able to walk typical distances LTG Duration 09/28/17 Four Impairment MICHAEL Short Term Goal (STG) 8 STG Duration achieved Fern Gatherer Goal (LTG) 0 LTG Duration 09/28/17 Three Impairment pain Short Term Goal (STG) 2/10 STG Duration by 09/12/17 Fern Gatherer Goal (LTG) 0/10 LTG Duration by 09/28/17 Two Impairment gait Jail Goal (LTG) pattern abnormality to normal LTG Duration by 09/28/17 One Impairment MMT Fern Gatherer Goal (LTG) 5/5 LTG Duration by 09/28/17 Assessment Summary Assessment Pt cont to improve with mechanics. She cont to have dec balance with single leg stance on RLE. SLowed down motions today to focus on balance during stepping motions & maintaining upright position. Physical Therapy Plan Frequency and Duration Frequency of Treatment 2x/Week Plan of Care End Date 09/28/17 Next Visit Focus/Plan Next Note Type Progress Note Next Visit Plan Cont to advance glute strength & balance w/head turns
--- NOTE | 2017-09-29 14:45 | PT.OTN ---
Current Diagnoses Lumbago with sciatica, right side (09/29/17) Lumbago with sciatica, left side (09/29/17) Difficulty in walking, not elsewhere classified (09/29/17) Abnormal posture (09/29/17) Weakness (09/29/17) Physical Therapy Treatment Note PT-OP-A Visit Information Start: 08/05/17 08:12 Freq: Status: Active Protocol: Document 09/29/17 13:51 [facility] (Rec: 09/29/17 14:42 [facility] [id number]) Out-Patient Physical Therapy Visit Information Visit Information Visit Type Progress Note Visit Note 15 total visits Visit Start Time 13:45 Visit Stop Time 14:25 Total Visit Minutes 40 Visit Number 1 Number of TICK INSPECTOR Visits 0 PT-OP-C Subjective Start: 08/05/17 08:12 Freq: Status: Active Protocol: Document 09/29/17 13:51 [facility] (Rec: 09/29/17 14:42 [facility] [id number]) OP-PT Subjective Patient Comments Patient Comments Pt reports she hasn't tried walking any distance yet. Patient Questionnaires Oswestry Low Back Index Oswestry Score 6 Oswestry Impairment 1 to 19% Impaired (Score 1-19) PT-OP-M Strength Start: 09/02/17 13:50 Freq: Status: Active Protocol: Document 09/29/17 13:51 [facility] (Rec: 09/29/17 14:45 [facility] [id number]) Hip Strength Hip Manual Muscle Testing Right Flexion (L2) 5 Normal Extension (S1) 4 Good Abduction 4 Good External Rotation 4+ Good+ Internal Rotation 5 Normal Left Flexion (L2) 5 Normal Extension (S1) 5 Normal Abduction 4 Good External Rotation 5 Normal Internal Rotation 5 Normal PT-OP-Q Treatments Start: 08/05/17 08:12 Freq: Status: Active Protocol: Document 09/29/17 13:51 [facility] (Rec: 09/29/17 14:42 [facility] [id number]) Cardio Equipment Recumbent Elliptical (Biodex) Duration (Minutes) 7 Resistance 6 Seat Position 6 Gym Equipment Shuttle Balance 1 Details red clips Comments fwd & side NBOS & WBOS & staggered stance w/head turns Manual Therapy Treatment Soft Tissue Mobilization 1 Body Location QL & glutes/piriformis R Mobilization Type Rolling Intensity/Depth Moderate Body Position Sidelying Joint Mobilizations 3 Joint innominate Direction caudal L FM 2 Joint sacrum Direction caudal & PA FM Body Position Prone 1 Joint hip on axis ER FM Neuro Re-Education Treatment Balance Activities 4 Details over hurdles Reps/Duration 6 laps 3 Details sidestep Equipment yellow tband Reps/Duration 2x20 ft 2 Details fwd/back walk Equipment yellow band Reps/Duration 2x20 ft PT-OP-T Assessment and Plan Start: 08/05/17 08:12 Freq: Status: Active Protocol: Document 09/29/17 13:51 [facility] (Rec: 09/29/17 14:42 [facility] [id number]) Physical Therapy Assessment Impairments Impairments Balance Gait ROM Soft Tissue Mobility Strength Goals Five Impairment household activities Short Term Goal (STG) able to perform all household activities STG Duration achieved Assisted Goal (LTG) Able to walk typical distances LTG Duration 10/28/17-hasn't done any long walking Four Impairment MICHAEL Short Term Goal (STG) 8 STG Duration achieved Longwall Foreman Goal (LTG) 0 LTG Duration 10/28/17 Three Impairment pain Short Term Goal (STG) 2/10 STG Duration by 09/12/17 Longwall Foreman Goal (LTG) 0/10 LTG Duration by 09/28/17 Two Impairment gait Longwall Foreman Goal (LTG) pattern abnormality to normal LTG Duration by 10/28/17- improving One Impairment MMT Longwall Foreman Goal (LTG) 5/5 LTG Duration by 10/28/17-improving Progress Towards Goals Progress Towards Goals Progressing Toward Goals Physical Therapy Plan Frequency and Duration Frequency of Treatment 1x/Week Duration of Treatment 1 month Plan of Care Start Date 09/29/17 Plan of Care End Date 10/29/17 Therapeutic Interventions Therapeutic Interventions Balance Training Gait Training Home Exercise Program Joint Mobilizations Manual Therapy Soft Tissue Mobilization Therapeutic Activities Therapeutic Exercises Next Visit Focus/Plan Next Note Type Progress Note Next Visit Plan Cont to advance glute strength & balance w/head turns
--- NOTE | 2017-09-29 14:45 | PT.OPPOC ---
Current Diagnoses Lumbago with sciatica, right side (09/29/17) Lumbago with sciatica, left side (09/29/17) Difficulty in walking, not elsewhere classified (09/29/17) Abnormal posture (09/29/17) Weakness (09/29/17) Provider Visit Care Team Role Provider Type Cristian Peña ND Family Provider Non-Staff Primary Care Provider Specialty: Naturopathy Address: [address] [place] [address], [id number] Email: Ishan Elliott DO Attending Provider Physician Specialty: Physiatry Pain Management Address: [address] [place] [address], [address] Email: Plan Of Care PT-OP-T Assessment and Plan Start: 08/05/17 08:12 Freq: Status: Active Protocol: Document 09/29/17 13:51 [facility] (Rec: 09/29/17 14:42 [facility] [id number]) Physical Therapy Assessment Impairments Impairments Balance Gait ROM Soft Tissue Mobility Strength Goals Five Impairment household activities Short Term Goal (STG) able to perform all household activities STG Duration achieved Supervisor Partial Denture Department Goal (LTG) Able to walk typical distances LTG Duration 10/28/17-hasn't done any long walking Four Impairment MICHAEL Short Term Goal (STG) 8 STG Duration achieved Supervisor Partial Denture Department Goal (LTG) 0 LTG Duration 10/28/17 Three Impairment pain Short Term Goal (STG) 2/10 STG Duration by 09/12/17 Assisted Goal (LTG) 0/10 LTG Duration by 09/28/17 Two Impairment gait Supervisor Partial Denture Department Goal (LTG) pattern abnormality to normal LTG Duration by 10/28/17- improving One Impairment MMT Assisted Goal (LTG) 5/5 LTG Duration by 10/28/17-improving Progress Towards Goals Progress Towards Goals Progressing Toward Goals Physical Therapy Plan Frequency and Duration Frequency of Treatment 1x/Week Duration of Treatment 1 month Plan of Care Start Date 09/29/17 Plan of Care End Date 10/29/17 Therapeutic Interventions Therapeutic Interventions Balance Training Gait Training Home Exercise Program Joint Mobilizations Manual Therapy Soft Tissue Mobilization Therapeutic Activities Therapeutic Exercises Next Visit Focus/Plan Next Note Type Progress Note Next Visit Plan Cont to advance glute strength & balance w/head turns Plan of Care Dates Plan of Care Start Date 09/29/17 Plan of Care End Date 10/29/17 Please Sign and Return: I have reviewed this Plan of Care and certify that the skilled therapy services above are required to meet the patient?s needs. Physician Signature Date Printed Name and Credentials Clinical Instructor Signature Printed Name and Credentials
--- NOTE | 2017-10-07 13:43 | PT.OTN ---
Current Diagnoses Lumbago with sciatica, right side (10/07/17) Lumbago with sciatica, left side (10/07/17) Difficulty in walking, not elsewhere classified (10/07/17) Abnormal posture (10/07/17) Weakness (10/07/17) Physical Therapy Treatment Note PT-OP-A Visit Information Start: 08/05/17 08:12 Freq: Status: Active Protocol: Document 10/07/17 13:02 [facility] (Rec: 10/07/17 13:40 [facility] [id number]) Out-Patient Physical Therapy Visit Information Visit Information Visit Type Progress Note Visit Note 16 total visits Visit Start Time 13:00 Visit Stop Time 13:40 Total Visit Minutes 40 Visit Number 2/10 Number of REFRIGERATOR CABINETMAKER Visits 0 PT-OP-C Subjective Start: 08/05/17 08:12 Freq: Status: Active Protocol: Document 10/07/17 13:02 [facility] (Rec: 10/07/17 13:40 [facility] [id number]) OP-PT Subjective Patient Comments Patient Comments Reports she did a good amount of walking for [place] yesterday and did well. PT-OP-M Strength Start: 09/02/17 13:50 Freq: Status: Active Protocol: Document 09/29/17 13:51 [facility] (Rec: 09/29/17 14:45 [facility] [id number]) Hip Strength Hip Manual Muscle Testing Right Flexion (L2) 5 Normal Extension (S1) 4 Good Abduction 4 Good External Rotation 4+ Good+ Internal Rotation 5 Normal Left Flexion (L2) 5 Normal Extension (S1) 5 Normal Abduction 4 Good External Rotation 5 Normal Internal Rotation 5 Normal PT-OP-Q Treatments Start: 08/05/17 08:12 Freq: Status: Active Protocol: Document 10/07/17 13:02 [facility] (Rec: 10/07/17 13:40 [facility] [id number]) Cardio Equipment Recumbent Elliptical (Biodex) Duration (Minutes) 7 Resistance 6 Seat Position 6 Gym Equipment Cable Column (Body Solid) Hip Adduction Resistance 30 Reps/Time 20 Hip Abduction Resistance 30# Reps/Time 20 Shuttle Recovery Bilateral Heel Raises Resistance 50 Shuttle Recovery Platform Stable Reps/Time 30 Bilateral Squats Resistance 100 Shuttle Recovery Platform Stable Reps/Time 30 Shuttle Balance 1 Details red clips Comments fwd & side NBOS & WBOS & staggered stance w/head turns Therapeutic Exercises Sidelying Exercises 3 Sidelying Exercise Name s/l abd Reps/Minutes 12 Neuro Re-Education Treatment Balance Activities 7 Details walking w/vertical & horizontal turns of head Reps/Duration 4 laps PT-OP-T Assessment and Plan Start: 08/05/17 08:12 Freq: Status: Active Protocol: Document 10/07/17 13:02 [facility] (Rec: 10/07/17 13:40 [facility] [id number]) Physical Therapy Assessment Goals Five Impairment household activities Short Term Goal (STG) able to perform all household activities STG Duration achieved Latin Dance Instructor Goal (LTG) Able to walk typical distances LTG Duration 10/28/17-hasn't done any long walking Four Impairment MICHAEL Short Term Goal (STG) 8 STG Duration achieved Fpc Goal (LTG) 0 LTG Duration 10/28/17 Three Impairment pain Short Term Goal (STG) 2/10 STG Duration by 09/12/17 Fpc Goal (LTG) 0/10 LTG Duration by 09/28/17 Two Impairment gait Latin Dance Instructor Goal (LTG) pattern abnormality to normal LTG Duration by 10/28/17- improving One Impairment MMT Latin Dance Instructor Goal (LTG) 5/5 LTG Duration by 10/28/17-improving Assessment Summary Assessment Pt able to tolerate new weights without inc pain. Cueing required for set up and form. Physical Therapy Plan Frequency and Duration Frequency of Treatment 1x/Week Duration of Treatment 1 month Plan of Care Start Date 09/29/17 Plan of Care End Date 10/29/17 Next Visit Focus/Plan Next Note Type Treatment Note Next Visit Plan Cont to advance glute strength & balance w/head turns
--- NOTE | 2017-10-20 14:34 | PT.OTN ---
Current Diagnoses Lumbago with sciatica, right side (10/20/17) Lumbago with sciatica, left side (10/20/17) Difficulty in walking, not elsewhere classified (10/20/17) Abnormal posture (10/20/17) Weakness (10/20/17) Physical Therapy Treatment Note PT-OP-A Visit Information Start: 08/05/17 08:12 Freq: Status: Active Protocol: Document 10/20/17 14:03 [facility] (Rec: 10/20/17 14:33 [facility] [id number]) Out-Patient Physical Therapy Visit Information Visit Information Visit Type Treatment Note Visit Note 17 total Visit Start Time 13:52 Visit Stop Time 14:00 Total Visit Minutes 38 Visit Number 3/ Number of USABILITY ARCHITECT Visits 0 PT-OP-C Subjective Start: 08/05/17 08:12 Freq: Status: Active Protocol: Document 10/20/17 14:03 [facility] (Rec: 10/20/17 14:33 [facility] [id number]) OP-PT Subjective Patient Comments Patient Comments Cramping in L calf last week. unsure why. PT-OP-M Strength Start: 09/02/17 13:50 Freq: Status: Active Protocol: Document 09/29/17 13:51 [facility] (Rec: 09/29/17 14:45 [facility] [id number]) Hip Strength Hip Manual Muscle Testing Right Flexion (L2) 5 Normal Extension (S1) 4 Good Abduction 4 Good External Rotation 4+ Good+ Internal Rotation 5 Normal Left Flexion (L2) 5 Normal Extension (S1) 5 Normal Abduction 4 Good External Rotation 5 Normal Internal Rotation 5 Normal PT-OP-Q Treatments Start: 08/05/17 08:12 Freq: Status: Active Protocol: Document 10/20/17 14:03 [facility] (Rec: 10/20/17 14:33 [facility] [id number]) Cardio Equipment Recumbent Elliptical (Biodex) Duration (Minutes) 7 Resistance 6 Seat Position 6 Gym Equipment Cable Column (Body Solid) Hip Abduction Resistance 30# Reps/Time 30 Shuttle Recovery Bilateral Heel Raises Resistance 50 Shuttle Recovery Platform Stable Reps/Time 30 Bilateral Squats Resistance 125 Shuttle Recovery Platform Stable Reps/Time 30 Shuttle Balance 1 Details red clips Comments fwd & side NBOS & WBOS & staggered stance w/head turns Manual Therapy Treatment Soft Tissue Mobilization 1 Body Location QL & glutes/piriformis R Mobilization Type Rolling Intensity/Depth Moderate Body Position Prone Joint Mobilizations 2 Joint sacrum Direction caudal & PA FM Body Position Prone Neuro Re-Education Treatment Balance Activities 3 Details sidestep Equipment yellow tband Reps/Duration 2x20 ft 2 Details fwd/back walk Equipment yellow band Reps/Duration 2x20 ft 1 Details tandem walk Reps/Duration 4x20 ft PT-OP-T Assessment and Plan Start: 08/05/17 08:12 Freq: Status: Active Protocol: Document 10/20/17 14:03 [facility] (Rec: 10/20/17 14:33 [facility] [id number]) Physical Therapy Assessment Goals Five Impairment household activities Short Term Goal (STG) able to perform all household activities STG Duration achieved Jail Goal (LTG) Able to walk typical distances LTG Duration 10/28/17-hasn't done any long walking Four Impairment MICHAEL Short Term Goal (STG) 8 STG Duration achieved Principal Clerk Goal (LTG) 0 LTG Duration 10/28/17 Three Impairment pain Short Term Goal (STG) 2/10 STG Duration by 09/12/17 Principal Clerk Goal (LTG) 0/10 LTG Duration by 09/28/17 Two Impairment gait Jail Goal (LTG) pattern abnormality to normal LTG Duration by 10/28/17- improving One Impairment MMT Jail Goal (LTG) 5/5 LTG Duration by 10/28/17-improving Assessment Summary Assessment Pt is improving with ability to set up weights with min cueing & is improving with balance on balance board & tandem. Improving gait pattern . Physical Therapy Plan Frequency and Duration Frequency of Treatment 1x/Week Duration of Treatment 1 month Plan of Care Start Date 09/29/17 Plan of Care End Date 10/29/17 Next Visit Focus/Plan Next Note Type Treatment Note Next Visit Plan Cont to advance glute strength & balance w/head turns
--- NOTE | 2017-10-27 14:48 | PT.OTN ---
Current Diagnoses Lumbago with sciatica, right side (10/27/17) Lumbago with sciatica, left side (10/27/17) Difficulty in walking, not elsewhere classified (10/27/17) Abnormal posture (10/27/17) Weakness (10/27/17) Physical Therapy Treatment Note PT-OP-A Visit Information Start: 08/05/17 08:12 Freq: Status: Active Protocol: Document 10/27/17 13:58 [facility] (Rec: 10/27/17 14:48 [facility] [id number]) Out-Patient Physical Therapy Visit Information Visit Information Visit Type Progress Note Visit Note 18 total Visit Start Time 13:55 Visit Stop Time 14:35 Total Visit Minutes 40 Visit Number 04/14 Number of RN INVASIVE Visits 0 PT-OP-C Subjective Start: 08/05/17 08:12 Freq: Status: Active Protocol: Document 10/27/17 13:58 [facility] (Rec: 10/27/17 14:48 [facility] [id number]) OP-PT Subjective Patient Comments Patient Comments Pt reports she was sitting with legs ext doing APs one night and next AM woke with pain down R leg she was able to resolve with tennis ball. PT-OP-M Strength Start: 09/02/17 13:50 Freq: Status: Active Protocol: Document 10/27/17 13:58 [facility] (Rec: 10/27/17 14:48 [facility] [id number]) Hip Strength Hip Manual Muscle Testing Right Flexion (L2) 5 Normal Extension (S1) 4+ Good+ Abduction 4 Good External Rotation 4+ Good+ Internal Rotation 5 Normal Comments 5/5 knee & ankle strength (B) Left Flexion (L2) 5 Normal Extension (S1) 5 Normal Abduction 4+ Good+ External Rotation 4+ Good+ Internal Rotation 4+ Good+ PT-OP-Q Treatments Start: 08/05/17 08:12 Freq: Status: Active Protocol: Document 10/27/17 13:58 [facility] (Rec: 10/27/17 14:48 [facility] [id number]) Cardio Equipment Recumbent Elliptical (Biodex) Duration (Minutes) 6 Resistance 6 Seat Position 6 Gym Equipment Cable Column (Body Solid) Leg Curl Resistance 3 Reps/Time 30 Leg Extension Resistance 3 Reps/Time 30 Hip Adduction Resistance 30 Reps/Time 30 Hip Abduction Resistance 30# Reps/Time 30 Shuttle Recovery Bilateral Heel Raises Resistance 75 Shuttle Recovery Platform Stable Reps/Time 30 Bilateral Squats Resistance 125 Shuttle Recovery Platform Stable Reps/Time 30 PT-OP-T Assessment and Plan Start: 08/05/17 08:12 Freq: Status: Active Protocol: Document 10/27/17 13:58 [facility] (Rec: 10/27/17 14:48 [facility] [id number]) Physical Therapy Assessment Impairments Impairments Balance Gait ROM Soft Tissue Mobility Strength Goals Five Impairment household activities Short Term Goal (STG) able to perform all household activities STG Duration achieved Tool Engineer Goal (LTG) Able to walk typical distances LTG Duration achieved Four Impairment MICHAEL Short Term Goal (STG) 8 STG Duration achieved Detention Goal (LTG) 0 LTG Duration 11/27/17 () Three Impairment pain Short Term Goal (STG) 2/10 STG Duration achieved Detention Goal (LTG) 0/10 LTG Duration by 11/27/17 Two Impairment gait Tool Engineer Goal (LTG) pattern abnormality to normal LTG Duration achieved One Impairment MMT Tool Engineer Goal (LTG) 5/5 LTG Duration by 11/28/27 improving Assessment Summary Assessment Pt cont to improve with gait and strength with minor cont limits. Plan to follow up again in order to assess pt's progress with gym & home programs. Physical Therapy Plan Frequency and Duration Frequency of Treatment 1x/Week Duration of Treatment 1 month Plan of Care Start Date 10/27/17 Plan of Care End Date 11/27/17 Therapeutic Interventions Therapeutic Interventions Balance Training Gait Training Home Exercise Program Joint Mobilizations Manual Therapy Soft Tissue Mobilization Therapeutic Activities Therapeutic Exercises Next Visit Focus/Plan Next Note Type Treatment Note Next Visit Plan Assess program for gym and home and adjust as needed
--- NOTE | 2017-10-27 14:49 | PT.OPPOC ---
Current Diagnoses Lumbago with sciatica, right side (10/27/17) Lumbago with sciatica, left side (10/27/17) Difficulty in walking, not elsewhere classified (10/27/17) Abnormal posture (10/27/17) Weakness (10/27/17) Provider Visit Care Team Role Provider Type Cristian Peña ND Family Provider Non-Staff Primary Care Provider Specialty: Naturopathy Address: [address] [place] [address], [id number] Email: Ishan Elliott DO Attending Provider Physician Specialty: Physiatry Pain Management Address: [address] [place] [address], [address] Email: Plan Of Care PT-OP-T Assessment and Plan Start: 08/05/17 08:12 Freq: Status: Active Protocol: Document 10/27/17 13:58 [facility] (Rec: 10/27/17 14:48 [facility] [id number]) Physical Therapy Assessment Impairments Impairments Balance Gait ROM Soft Tissue Mobility Strength Goals Five Impairment household activities Short Term Goal (STG) able to perform all household activities STG Duration achieved Jet Dyeing Machine Tender Goal (LTG) Able to walk typical distances LTG Duration achieved Four Impairment MICHAEL Short Term Goal (STG) 8 STG Duration achieved Care Home Goal (LTG) 0 LTG Duration 11/27/17 (150) Three Impairment pain Short Term Goal (STG) 2/10 STG Duration achieved Jet Dyeing Machine Tender Goal (LTG) 0/10 LTG Duration by 11/27/17 Two Impairment gait Care Home Goal (LTG) pattern abnormality to normal LTG Duration achieved One Impairment MMT Care Home Goal (LTG) 5/5 LTG Duration by 11/28/27 improving Assessment Summary Assessment Pt cont to improve with gait and strength with minor cont limits. Plan to follow up again in order to assess pt's progress with gym & home programs. Physical Therapy Plan Frequency and Duration Frequency of Treatment 1x/Week Duration of Treatment 1 month Plan of Care Start Date 10/27/17 Plan of Care End Date 11/27/17 Therapeutic Interventions Therapeutic Interventions Balance Training Gait Training Home Exercise Program Joint Mobilizations Manual Therapy Soft Tissue Mobilization Therapeutic Activities Therapeutic Exercises Next Visit Focus/Plan Next Note Type Treatment Note Next Visit Plan Assess program for gym and home and adjust as needed Plan of Care Dates Plan of Care Start Date 10/27/17 Plan of Care End Date 11/27/17 Please Sign and Return: I have reviewed this Plan of Care and certify that the skilled therapy services above are required to meet the patient?s needs. Physician Signature Date Printed Name and Credentials Clinical Instructor Signature Printed Name and Credentials
--- NOTE | 2017-11-19 12:56 | PT.OTN ---
Current Diagnoses Lumbago with sciatica, right side (11/19/17) Lumbago with sciatica, left side (11/19/17) Difficulty in walking, not elsewhere classified (11/19/17) Abnormal posture (11/19/17) Weakness (11/19/17) Physical Therapy Treatment Note PT-OP-A Visit Information Start: 08/05/17 08:12 Freq: Status: Active Protocol: Document 11/19/17 12:14 [facility] (Rec: 11/19/17 12:55 [facility] [id number]) Out-Patient Physical Therapy Visit Information Visit Information Visit Type Treatment Note Visit Note 19 total Visit Start Time 12:15 Visit Stop Time 13:00 Total Visit Minutes 45 Visit Number 4/10 Number of EDGING CATCHER Visits 0 PT-OP-C Subjective Start: 08/05/17 08:12 Freq: Status: Active Protocol: Document 11/19/17 12:14 [facility] (Rec: 11/19/17 12:55 [facility] [id number]) OP-PT Subjective Patient Comments Patient Comments Reports she sawed down a few saplings. Reports sometimes in the AM she is sometimes sore but most of the time once she gets going, she feels better. PT-OP-M Strength Start: 09/02/17 13:50 Freq: Status: Active Protocol: Document 11/19/17 12:14 [facility] (Rec: 11/19/17 12:55 [facility] [id number]) Hip Strength Hip Manual Muscle Testing Right Flexion (L2) 5 Normal Extension (S1) 5 Normal Abduction 4+ Good+ External Rotation 4+ Good+ Internal Rotation 5 Normal Left Flexion (L2) 5 Normal Extension (S1) 5 Normal Abduction 5 Normal External Rotation 5 Normal Internal Rotation 5 Normal PT-OP-Q Treatments Start: 08/05/17 08:12 Freq: Status: Active Protocol: Document 11/19/17 12:14 [facility] (Rec: 11/19/17 12:55 [facility] [id number]) Cardio Equipment Recumbent Elliptical (Biodex) Duration (Minutes) 6 Resistance 6 Seat Position 6 Gym Equipment Cable Column (Body Solid) Leg Curl Resistance 4 Reps/Time 30 Leg Extension Resistance 3 Reps/Time 30 Shuttle Balance 1 Details red clips Comments fwd & side NBOS & WBOS & staggered stance w/head turns Neuro Re-Education Treatment Balance Activities 3 Details sidestep Equipment yellow tband Reps/Duration 2x20 ft Self-Care/Home Management Treatment Activities Self-Care/Home Management Activities Review HEP PT-OP-T Assessment and Plan Start: 08/05/17 08:12 Freq: Status: Active Protocol: Document 11/19/17 12:14 [facility] (Rec: 11/19/17 12:55 [facility] [id number]) Physical Therapy Assessment Goals Four Impairment MICHAEL Short Term Goal (STG) 8 STG Duration achieved Detail Maker And Fitter Goal (LTG) 0 LTG Duration 11/27/17 excellent progress Three Impairment pain Short Term Goal (STG) 2/10 STG Duration achieved Detail Maker And Fitter Goal (LTG) 0/10 LTG Duration by 11/27/17-painfree most of day except first thing in AM Two Impairment gait Detail Maker And Fitter Goal (LTG) pattern abnormality to normal LTG Duration achieved One Impairment MMT Detention Goal (LTG) 5/5 LTG Duration by 11/28/27 improving- cont HEP Assessment Summary Assessment Pt is cont to improve with gait, strength and balance, but is still limited. She is going to cont to HEP, gym program and start gym classes. Physical Therapy Plan Discharge Physical Therapy Discharge Reasons Goals Met Discharge Comments Most goals met and plateau in progress. Pt is indep with HEP & gym program and has started doing classes at gym.
--- NOTE | 2017-11-19 12:56 | PT.OPDS ---
Current Diagnoses Lumbago with sciatica, right side (11/19/17) Lumbago with sciatica, left side (11/19/17) Difficulty in walking, not elsewhere classified (11/19/17) Abnormal posture (11/19/17) Weakness (11/19/17) Provider Visit Care Team Role Provider Type Cristian Peña ND Family Provider Non-Staff Primary Care Provider Specialty: Naturopathy Address: [address] [place] [address], [id number] Email: Ishan Elliott DO Attending Provider Physician Specialty: Physiatry Pain Management Address: [address] [place] [address], [id number] Email: Visit Number Visit Number 07/13 Discharge Summary PT-OP-C Subjective Start: 08/05/17 08:12 Freq: Status: Active Protocol: Document 11/19/17 12:14 [facility] (Rec: 11/19/17 12:55 [facility] [id number]) OP-PT Subjective Patient Comments Patient Comments Reports she sawed down a few saplings. Reports sometimes in the AM she is sometimes sore but most of the time once she gets going, she feels better. PT-OP-M Strength Start: 09/02/17 13:50 Freq: Status: Active Protocol: Document 11/19/17 12:14 [facility] (Rec: 11/19/17 12:55 [facility] [id number]) Hip Strength Hip Manual Muscle Testing Right Flexion (L2) 5 Normal Extension (S1) 5 Normal Abduction 4+ Good+ External Rotation 4+ Good+ Internal Rotation 5 Normal Left Flexion (L2) 5 Normal Extension (S1) 5 Normal Abduction 5 Normal External Rotation 5 Normal Internal Rotation 5 Normal PT-OP-T Assessment and Plan Start: 08/05/17 08:12 Freq: Status: Active Protocol: Document 11/19/17 12:14 [facility] (Rec: 11/19/17 12:55 [facility] [id number]) Physical Therapy Assessment Goals Four Impairment MICHAEL Short Term Goal (STG) 8 STG Duration achieved Alf Goal (LTG) 0 LTG Duration 11/27/17 excellent progress Three Impairment pain Short Term Goal (STG) 2/10 STG Duration achieved Alf Goal (LTG) 0/10 LTG Duration by 11/27/17-painfree most of day except first thing in AM Two Impairment gait Web Engineer Goal (LTG) pattern abnormality to normal LTG Duration achieved One Impairment MMT Alf Goal (LTG) 5/5 LTG Duration by 11/28/27 improving- cont HEP Assessment Summary Assessment Pt is cont to improve with gait, strength and balance, but is still limited. She is going to cont to HEP, gym program and start gym classes. Physical Therapy Plan Discharge Physical Therapy Discharge Reasons Goals Met Discharge Comments Most goals met and plateau in progress. Pt is indep with HEP & gym program and has started doing classes at gym.
== END 2017-12-22 13:02 ==
LOC: PHYS 12:15
PROVIDERS: Family Provider Registered Nurse; PCP Registered Nurse; Visit Provider Physical Medicine & Rehabilitation
DX: M54.41 Lumbago with sciatica, right side (principal); R29.3 Abnormal posture; M54.42 Lumbago with sciatica, left side; R53.1 Weakness; R26.2 Difficulty in walking, not elsewhere classified
CPT/HCPCS: 97110; 97112; 97140

== ENCOUNTER 2020-02-13 14:15 | Outpatient (RCR) | payer MEDICARE, MEDICAID, SELFPAY ==
--- NOTE | 2019-11-28 17:46 | PT.OIE ---
Current Diagnoses Other intervertebral disc disorders, lumbosacral region (11/28/19) Sciatica, unspecified side (11/28/19) Muscle weakness (generalized) (11/28/19) Pain in right arm (11/28/19) Visit Care Team Role Provider Type CADEN Lyon Attending Provider Non-Staff Family Provider Primary Care Provider Referring Provider Specialty: Naturopathy Address: [address] [place] [address], [id number] Email: Physical Therapy Initial Evaluation PT-OP-A Visit Information Start: 11/27/19 18:03 Freq: Status: Active Protocol: Document 11/28/19 13:30 [facility] (Rec: 11/28/19 14:22 [facility] [id number]) Out-Patient Physical Therapy Visit Information Visit Information Visit Type Initial Evaluation Visit Start Time 13:30 Visit Stop Time 14:21 Total Visit Minutes 51 Visit Number 1 Evaluation Information Evaluation Date 11/28/19 Precautions Precautions Arthritis most notable in R knee, Diabetes type II controlled by medication, umbilical hernia rpr 10 yrs ago. 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 PT-OP-B Current Condition Start: 11/27/19 18:03 Freq: Status: Active Protocol: Document 11/28/19 13:30 [facility] (Rec: 11/28/19 14:22 [facility] [id number]) Current Condition History of Current Condition Onset Date June 2019 Current Complaints Bilateral LBP and R brachium pain History of Current Condition Stopped going to the gym due to COVID 19; therefore the back started to slowly hurt again. The gyms now are getting ready to start up so she wants to be able to get into shape to go back to strengthening at [employer]. 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 Prior Treatments and Tests 1 yr ago was seen for Hemal Sciatic Pain with resolution and transferred onto an exercise gym. Treatment Goals Patient/Caregiver Goals Strengthen enough to go back to gym to be able to work her wood pile, and be able to walk to her neighbors (1 block away) without back pain. Prior Functional Status Baseline Function- ADL's Independent Baseline Function- Mobility Independent Baseline Function- Gait Was able to walk to her neighbors without onset of back pain. Baseline Function- Recreation/Hobbies Exercising in a gym 3x/week. ( Nustep, Leg press, hip AB/AD, knee ext/flex, lat pull down, row, fly was stopped because of R arm pain). Baseline Function- Other Was able to load and unload wood into wheel barrel, wheel it to back porch, and carry it into the house in a sling bag . Current Functional Impairments (Reported) Functional Limitations- Mobility/Gait LBP after walking to neighbors 1 block away. Functional Limitations- Recreation/ No longer exercising in a gym. Hobbies Sept will start moving wood again. Functional Limitations- Other Less mobility with walking due to a limping gait. 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 PT-OP-C Subjective Start: 11/27/19 18:03 Freq: Status: Active Protocol: Document 11/28/19 13:30 [facility] (Rec: 11/28/19 14:22 [facility] [id number]) Patient Questionnaires Oswestry Low Back Index Oswestry Score 38 Oswestry Impairment 20 to 39% Impaired (Score 20- 39) OP-PT Pain Assessment Pain Assessment Grid Paper Pain Assessment Grid Completed Yes Location R brachium Pain Location Details R Anterolateral Brachium Intensity 4 Scale Used Numeric (0 - 10) Description Aching,Sharp Frequency Intermittent Pain Aggravating Factors Changing Position,Lifting Pain Alleviating Factors Heat Other Pain Alleviating Factors Arnica Gel & Lidocaine Gel. LB Pain Location Details Across low back at sacral level & R anterolateral brachium Intensity 4 Scale Used Numeric (0 - 10) Description Aching,Dull Description- Other Toothache Frequency Intermittent Pain Aggravating Factors Activity Pain Alleviating Factors Cold,Heat Other Pain Alleviating Factors Arnica Gel & Lidocaine Gel. Comments Pain Comments L handed. PT-OP-E Functional Tests Start: 11/27/19 18:03 Freq: Status: Active Protocol: Document 11/28/19 13:30 [facility] (Rec: 11/28/19 17:00 [facility] [id number]) Functional Tests Apley's Scratch Test Action 1- Left Behind shoulders Action 1- Right Behind shoulders Action 2- Left T2 Action 2- Right T2 Action 3- Left T8 Action 3- Right T8 PT-OP-H Neuro Start: 11/27/19 18:03 Freq: Status: Active Protocol: Document 11/28/19 13:30 [facility] (Rec: 11/28/19 17:00 [facility] [id number]) Sensation Evaluation Comments Summary Comments Pt reports feeling of tightness and decreased sensation around the feet, bilaterally. PT-OP-J Posture/Palpation/Skin Start: 11/27/19 18:03 Freq: Status: Active Protocol: Document 11/28/19 13:30 [facility] (Rec: 11/28/19 17:00 [facility] [id number]) Posture Evaluation Position Standing Head/C-Spine Posture Forward Head T-Spine Posture Flattened L-Spine Posture Decreased Lordosis Comments Posture Comments Sway back with protruding abdomen. PT-OP-K Range of Motion Start: 11/27/19 18:03 Freq: Status: Active Protocol: Document 11/28/19 13:30 [facility] (Rec: 11/28/19 17:00 [facility] [id number]) Lumbar Spine Range of Motion Lumbar Spine Active Degrees Testing Position Standing Flexion 100 Extension 15 Rotation Left 30 Rotation Right 30 Lateral Flexion Left 10 Lateral Flexion Right 10 ROM Limitations Soft Tissue Tightness Shoulder Goniometric Range of Motion Shoulder Right Active Testing Position Sitting Flexion 150 Abduction 163 External Rotation at 0 degrees Abduction 50 Internal Rotation Behind Back (text) T8 Left Active Testing Position Sitting Flexion 150 Abduction 158 External Rotation at 0 degrees Abduction 55 Internal Rotation Behind Back (text) T8 PT-OP-L Special Tests Start: 11/27/19 18:03 Freq: Status: Active Protocol: Document 11/28/19 13:30 [facility] (Rec: 11/28/19 17:00 [facility] [id number]) Special Tests Lumbar Spine Special Tests Straight Leg Raise Test Results negative bilaterally Comments 90+ mobility PT-OP-M Strength Start: 11/27/19 18:03 Freq: Status: Active Protocol: Document 11/28/19 13:30 [facility] (Rec: 11/28/19 17:00 [facility] [id number]) Trunk Strength Trunk Manual Muscle Testing Testing Position Supine Core Stabilization Trunk ext - stable Trunk flex - unstable Pt unable to maintain stability when rotational stress applied during MMT. Shoulder Strength Shoulder Manual Muscle Testing Right Flexion 4 Good Extension 5 Normal Abduction (C5) 4 Good External Rotation 3- Fair- Internal Rotation 4+ Good+ Left Flexion 4 Good Extension 5 Normal Abduction (C5) 5 Normal External Rotation 3 Fair Internal Rotation 4+ Good+ Elbow/Forearm Strength Elbow and Forearm Manual Muscle Testing Right Flexion (C6) 5 Normal Extension (C7) 5 Normal Left Flexion (C6) 5 Normal Extension (C7) 5 Normal Hip Strength Hip Manual Muscle Testing Left Flexion (L2) 4 Good Extension (S1) 4- Good- Abduction 3 Fair Adduction 5 Normal External Rotation 4- Good- Internal Rotation 4 Good Right Flexion (L2) 4 Good Extension (S1) 4- Good- Abduction 3 Fair Adduction 5 Normal External Rotation 4 Good Internal Rotation 3 Fair PT-OP-Q Treatments Start: 11/27/19 18:03 Freq: Status: Active Protocol: Document 11/28/19 13:30 [facility] (Rec: 11/28/19 14:22 [facility] [id number]) Cardio Equipment Recumbent Elliptical (Biodex) Duration (Minutes) 6 Neuro Re-Education Treatment Balance Activities 2 Details fwd/back walk Equipment yellow band Reps/Duration 2x20 ft PT-OP-T Assessment and Plan Start: 11/27/19 18:03 Freq: Status: Active Protocol: Document 11/28/19 13:30 [facility] (Rec: 11/28/19 14:22 [facility] [id number]) Physical Therapy Assessment Rehab Potential Rehabilitation Potential Good Evaluation Complexity Number of Personal Factors/Comorbidities 1-2 Number of Body Systems Impaired 4 or More Clinical Presentation at Evaluation Stable Impairments Impairments Gait,Pain,Posture,Strength Goals Five Impairment Pt not on a self care ex program of gym exercises. Short Term Goal (STG) Pt will be independent in a self care HEP to address strength deficits of core, hips, and shoulders. STG Duration 12/19/19 Alf Goal (LTG) Return to exer prior function on ex machines. LTG Duration 02/26/20 Four Impairment MICHAEL score of 38 (20-39% impairment) Operations Support Analyst Goal (LTG) Improve function per MICHAEL score 19 or less (1-19% impairment) . LTG Duration 01/27/20 Three Impairment Pain due to poor posturing Short Term Goal (STG) Improve pt awareness of proper posturing with pt able to self assess and correct with visual assist. STG Duration 12/12/19 Two Impairment Low back pain with prolonged gait (pain after 1 block to neighbor's house) Operations Support Analyst Goal (LTG) Pt will be able to walk > a block without back pain. LTG Duration 01/27/20 One Impairment MMT (hip strength AB bilaterally & IR right is 3/5; shoulder ER 3/5 hemal) Short Term Goal (STG) Improve hip AB & shoulder ER strength no less than 1/2 grade STG Duration 01/12/20 Operations Support Analyst Goal (LTG) Pt will be able to tolerate ex on gym equipment for hip AB/ AD and rotator cuff (primarily ER) strengthening without pain. LTG Duration 01/27/20 Assessment Summary Assessment Pt presents with low back pain resulting from poor posture and decreased strength of her core and hips. She has chronic intermittent pain in her R shoulder for the past 25 yrs that has recently become more noticeable. She demonstrates rotator cuff dysfunction most notable with her external rotators and general weakness in all other muscle groups except extension . The pt's primary focus is to be able to return to an exercise program when the gyms open up from Covid-19 shutdown, which she is anticipating happening soon. Her poor posturing may hinder her somewhat in returning her to her prior function as well. The pt will benefit from skilled physical therapy to return her to her prior level of exercise tolerance, but she will need to be careful to not further injure her rotator cuff muscles with a return to exercise. Physical Therapy Plan Frequency and Duration Frequency of Treatment 2x/Week Plan of Care Start Date 11/28/19 Plan of Care End Date 02/26/20 Therapeutic Interventions Therapeutic Interventions Gait Training,Home Exercise Program,Joint Mobilizations, Manual Therapy,Neuromuscular Re-education,Patient/Caregiver Education,Self-Care/Home Management,Soft Tissue Mobilization,Therapeutic Exercises Modalities Cold Pack/Ice Massage,Electric Stimulation,Hot Packs Next Visit Focus/Plan Next Note Type Treatment Note Next Visit Plan Postural education training, exercise warm up (recumbent stepper) f/b progression onto a HEP of trunk, hip, shoulder strengthening ex's, and end with cryotherapy is needed. Gait training with proper posturing and eventual progression onto an exercise machine work out routine for discharge.
--- NOTE | 2019-11-28 17:46 | PT.OPPOC ---
Physical, Occupational & Speech Therapy At [facility] Current Diagnoses Other intervertebral disc disorders, lumbosacral region (11/28/19) Sciatica, unspecified side (11/28/19) Muscle weakness (generalized) (11/28/19) Pain in right arm (11/28/19) Visit Care Team Role Provider Type CADEN Lyon Attending Provider Non-Staff Family Provider Primary Care Provider Referring Provider Specialty: Naturopathy Address: [address] [place] [address], [phone] Email: Plan Of Care PT-OP-T Assessment and Plan Start: 11/27/19 18:03 Freq: Status: Active Protocol: Document 11/28/19 13:30 [facility] (Rec: 11/28/19 14:22 [facility] [id number]) Physical Therapy Assessment Rehab Potential Rehabilitation Potential Good Evaluation Complexity Number of Personal Factors/Comorbidities 1-2 Number of Body Systems Impaired 4 or More Clinical Presentation at Evaluation Stable Impairments Impairments Gait,Pain,Posture,Strength Goals Five Impairment Pt not on a self care ex program of gym exercises. Short Term Goal (STG) Pt will be independent in a self care HEP to address strength deficits of core, hips, and shoulders. STG Duration 12/19/19 Alf Goal (LTG) Return to exer prior function on ex machines. LTG Duration 02/26/20 Four Impairment MICHAEL score of 38 (20-39% impairment) Alf Goal (LTG) Improve function per MICHAEL score 19 or less (1-19% impairment) . LTG Duration 01/27/20 Three Impairment Pain due to poor posturing Short Term Goal (STG) Improve pt awareness of proper posturing with pt able to self assess and correct with visual assist. STG Duration 12/12/19 Two Impairment Low back pain with prolonged gait (pain after 1 block to neighbor's house) Alf Goal (LTG) Pt will be able to walk > a block without back pain. LTG Duration 01/27/20 One Impairment MMT (hip strength AB bilaterally & IR right is 3/5; shoulder ER 3/5 isaac) Short Term Goal (STG) Improve hip AB & shoulder ER strength no less than 1/2 grade STG Duration 01/12/20 Alf Goal (LTG) Pt will be able to tolerate ex on gym equipment for hip AB/ AD and rotator cuff (primarily ER) strengthening without pain. LTG Duration 01/27/20 Assessment Summary Assessment Pt presents with low back pain resulting from poor posture and decreased strength of her core and hips. She has chronic intermittent pain in her R shoulder for the past 25 yrs that has recently become more noticeable. She demonstrates rotator cuff dysfunction most notable with her external rotators and general weakness in all other muscle groups except extension . The pt's primary focus is to be able to return to an exercise program when the gyms open up from Covid-19 shutdown, which she is anticipating happening soon. Her poor posturing may hinder her somewhat in returning her to her prior function as well. The pt will benefit from skilled physical therapy to return her to her prior level of exercise tolerance, but she will need to be careful to not further injure her rotator cuff muscles with a return to exercise. Physical Therapy Plan Frequency and Duration Frequency of Treatment 2x/Week Plan of Care Start Date 11/28/19 Plan of Care End Date 02/26/20 Therapeutic Interventions Therapeutic Interventions Gait Training,Home Exercise Program,Joint Mobilizations, Manual Therapy,Neuromuscular Re-education,Patient/Caregiver Education,Self-Care/Home Management,Soft Tissue Mobilization,Therapeutic Exercises Modalities Cold Pack/Ice Massage,Electric Stimulation,Hot Packs Next Visit Focus/Plan Next Note Type Treatment Note Next Visit Plan Postural education training, exercise warm up (recumbent stepper) f/b progression onto a HEP of trunk, hip, shoulder strengthening ex's, and end with cryotherapy is needed. Gait training with proper posturing and eventual progression onto an exercise machine work out routine for discharge. Plan of Care Dates Plan of Care Start Date 11/28/19 Plan of Care End Date 02/26/20 Electronically Signed by: Maira Anthony, PT 11/28/19 [id number] Please Sign and Return: I have reviewed this Plan of Care and certify that the skilled therapy services above are required to meet the patient?s needs. Physician Signature Date Printed Name and Credentials Clinical Instructor Signature Printed Name and Credentials
--- NOTE | 2019-11-30 14:35 | PT.OTN ---
Current Diagnoses Other intervertebral disc disorders, lumbosacral region (11/30/19) Sciatica, unspecified side (11/30/19) Muscle weakness (generalized) (11/30/19) Pain in right arm (11/30/19) Physical Therapy Treatment Note PT-OP-A Visit Information Start: 11/27/19 18:03 Freq: Status: Active Protocol: Document 11/30/19 13:38 LRN (Rec: 11/30/19 14:20 LRN [id number]) Out-Patient Physical Therapy Visit Information Visit Information Visit Type Treatment Note Visit Start Time 13:38 Visit Stop Time 14:18 Total Visit Minutes 40 Visit Number 1 Evaluation Information Evaluation Date 11/28/19 Precautions Precautions Arthritis most notable in R knee, Diabetes type II controlled by medication, umbilical hernia rpr 10 yrs ago. 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 PT-OP-B Current Condition Start: 11/27/19 18:03 Freq: Status: Active Protocol: Document 11/28/19 13:30 LRN (Rec: 11/28/19 14:22 LRN [id number]) Current Condition History of Current Condition Onset Date June 2019 Current Complaints Bilateral LBP and R brachium pain History of Current Condition Stopped going to the gym due to COVID 19; therefore the back started to slowly hurt again. The gyms now are getting ready to start up so she wants to be able to get into shape to go back to strengthening at [employer]. 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 Prior Treatments and Tests 1 yr ago was seen for Hemal Sciatic Pain with resolution and transferred onto an exercise gym. Treatment Goals Patient/Caregiver Goals Strengthen enough to go back to gym to be able to work her wood pile, and be able to walk to her neighbors (1 block away) without back pain. Prior Functional Status Baseline Function- ADL's Independent Baseline Function- Mobility Independent Baseline Function- Gait Was able to walk to her neighbors without onset of back pain. Baseline Function- Recreation/Hobbies Exercising in a gym 3x/week. ( Nustep, Leg press, hip AB/AD, knee ext/flex, lat pull down, row, fly was stopped because of R arm pain). Baseline Function- Other Was able to load and unload wood into wheel barrel, wheel it to back porch, and carry it into the house in a sling bag . Current Functional Impairments (Reported) Functional Limitations- Mobility/Gait LBP after walking to neighbors 1 block away. Functional Limitations- Recreation/ No longer exercising in a gym. Hobbies Sept will start moving wood again. Functional Limitations- Other Less mobility with walking due to a limping gait. 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 PT-OP-C Subjective Start: 11/27/19 18:03 Freq: Status: Active Protocol: Document 11/30/19 13:38 LRN (Rec: 11/30/19 14:20 LRN [id number]) OP-PT Subjective Patient Comments Patient Comments States no change. Having ms spasms in legs and arms. States the Nustep at the gym is easier to move with the same resistance. PT-OP-E Functional Tests Start: 11/27/19 18:03 Freq: Status: Active Protocol: Document 11/28/19 13:30 LRN (Rec: 11/28/19 17:00 LRN [id number]) Functional Tests Apley's Scratch Test Action 1- Left Behind shoulders Action 1- Right Behind shoulders Action 2- Left T2 Action 2- Right T2 Action 3- Left T8 Action 3- Right T8 PT-OP-H Neuro Start: 11/27/19 18:03 Freq: Status: Active Protocol: Document 11/28/19 13:30 LRN (Rec: 11/28/19 17:00 LRN [id number]) Sensation Evaluation Comments Summary Comments Pt reports feeling of tightness and decreased sensation around the feet, bilaterally. PT-OP-J Posture/Palpation/Skin Start: 11/27/19 18:03 Freq: Status: Active Protocol: Document 11/28/19 13:30 LRN (Rec: 11/28/19 17:00 LRN [id number]) Posture Evaluation Position Standing Head/C-Spine Posture Forward Head T-Spine Posture Flattened L-Spine Posture Decreased Lordosis Comments Posture Comments Sway back with protruding abdomen. PT-OP-K Range of Motion Start: 11/27/19 18:03 Freq: Status: Active Protocol: Document 11/28/19 13:30 LRN (Rec: 11/28/19 17:00 LRN [id number]) Lumbar Spine Range of Motion Lumbar Spine Active Degrees Testing Position Standing Flexion 100 Extension 15 Rotation Left 30 Rotation Right 30 Lateral Flexion Left 10 Lateral Flexion Right 10 ROM Limitations Soft Tissue Tightness Shoulder Goniometric Range of Motion Shoulder Right Active Testing Position Sitting Flexion 150 Abduction 163 External Rotation at 0 degrees Abduction 50 Internal Rotation Behind Back (text) T8 Left Active Testing Position Sitting Flexion 150 Abduction 158 External Rotation at 0 degrees Abduction 55 Internal Rotation Behind Back (text) T8 PT-OP-L Special Tests Start: 11/27/19 18:03 Freq: Status: Active Protocol: Document 11/28/19 13:30 LRN (Rec: 11/28/19 17:00 LRN [id number]) Special Tests Lumbar Spine Special Tests Straight Leg Raise Test Results negative bilaterally Comments 90+ mobility PT-OP-M Strength Start: 11/27/19 18:03 Freq: Status: Active Protocol: Document 11/28/19 13:30 LRN (Rec: 11/28/19 17:00 LRN [id number]) Trunk Strength Trunk Manual Muscle Testing Testing Position Supine Core Stabilization Trunk ext - stable Trunk flex - unstable Pt unable to maintain stability when rotational stress applied during MMT. Shoulder Strength Shoulder Manual Muscle Testing Right Flexion 4 Good Extension 5 Normal Abduction (C5) 4 Good External Rotation 3- Fair- Internal Rotation 4+ Good+ Left Flexion 4 Good Extension 5 Normal Abduction (C5) 5 Normal External Rotation 3 Fair Internal Rotation 4+ Good+ Elbow/Forearm Strength Elbow and Forearm Manual Muscle Testing Right Flexion (C6) 5 Normal Extension (C7) 5 Normal Left Flexion (C6) 5 Normal Extension (C7) 5 Normal Hip Strength Hip Manual Muscle Testing Left Flexion (L2) 4 Good Extension (S1) 4- Good- Abduction 3 Fair Adduction 5 Normal External Rotation 4- Good- Internal Rotation 4 Good Right Flexion (L2) 4 Good Extension (S1) 4- Good- Abduction 3 Fair Adduction 5 Normal External Rotation 4 Good Internal Rotation 3 Fair PT-OP-Q Treatments Start: 11/27/19 18:03 Freq: Status: Active Protocol: Document 11/30/19 13:38 LRN (Rec: 11/30/19 14:20 LRN [id number]) Cardio Equipment Recumbent Elliptical ([employer]) Duration (Minutes) 6 Resistance 3 Seat Position 7 Therapeutic Exercises Supine Exercises Bridging w/TA Supine Exercise Name Bridging w/TA Reps/Minutes 10 x 2 Comments Phys & much v. cuing and training to maintain TA with bridge Sidelying Exercises Clamshell w/TA Sidelying Exercise Name Clamshell w/TA Side bilateral Comments Much phy & v cuing and trainig to lift leg w/o rolling backwards. TA tightening Sidelying Exercise Name TA tightening Side bilateral Reps/Minutes 8 hold x 10 hemal Comments Pt needed much phys & v cuing for proper contraction w/o holding breath Self-Care/Home Management Treatment Education Patient Education Posture Other Education Pt educated in proper standing and walking posture. Needed several repositioning ex's of shoulders to not elevate and to keep shoulders retracted. Pt education in proper log roll transfer sit<->supine<-> sit. Activities Self-Care/Home Management Activities Issued & reviewed HEP: TA tightening, Bridge & Clamshell w/TA tightening. PT-OP-T Assessment and Plan Start: 11/27/19 18:03 Freq: Status: Active Protocol: Document 11/30/19 13:38 LRN (Rec: 11/30/19 14:20 LRN [id number]) Physical Therapy Assessment Goals Five Impairment Pt not on a self care ex program of gym exercises. Short Term Goal (STG) Pt will be independent in a self care HEP to address strength deficits of core, hips, and shoulders. STG Duration 12/19/19 (11/30/19: Progressing ) Jail Goal (LTG) Return to exer prior function on ex machines. LTG Duration 02/26/20 Four Impairment MICHAEL score of 38 (20-39% impairment) Jail Goal (LTG) Improve function per MICHAEL score 19 or less (1-19% impairment) . LTG Duration 01/27/20 Three Impairment Pain due to poor posturing Short Term Goal (STG) Improve pt awareness of proper posturing with pt able to self assess and correct with visual assist. (11/30/19: Initiated awareness training) STG Duration 12/12/19 (11/30/19: Initiated training) Two Impairment Low back pain with prolonged gait (pain after 1 block to neighbor's house) Jail Goal (LTG) Pt will be able to walk > a block without back pain. LTG Duration 01/27/20 One Impairment MMT (hip strength AB bilaterally & IR right is 3/5; shoulder ER 3/5 hemal) Short Term Goal (STG) Improve hip AB & shoulder ER strength no less than 1/2 grade STG Duration 01/12/20 Jail Goal (LTG) Pt will be able to tolerate ex on gym equipment for hip AB/ AD and rotator cuff (primarily ER) strengthening without pain. LTG Duration 01/27/20 Assessment Summary Assessment Pt appears to have strong trunk extensors with bridge ex but displays instability due to no TA activation with bridging. Pt needs much abdominal strengthening. Pt did not need cryotherapy to end. Physical Therapy Plan Frequency and Duration Frequency of Treatment 2x/Week Plan of Care Start Date 11/28/19 Plan of Care End Date 02/26/20 Next Visit Focus/Plan Next Note Type Treatment Note Next Visit Plan Review Postural awareness training, exercise warm up ( recumbent stepper) f/b cont'd progression onto a HEP of trunk, hip, shoulder strengthening ex's, and end with cryotherapy as needed. Gait training with proper posturing and eventual progression onto an exercise machine work-out routine for discharge.
--- NOTE | 2019-12-05 16:01 | PT.OTN ---
Current Diagnoses Other intervertebral disc disorders, lumbosacral region (12/05/19) Sciatica, unspecified side (12/05/19) Muscle weakness (generalized) (12/05/19) Pain in right arm (12/05/19) Physical Therapy Treatment Note PT-OP-A Visit Information Start: 11/27/19 18:03 Freq: Status: Active Protocol: Document 12/05/19 13:34 LRN (Rec: 12/05/19 14:23 LRN [id number]) Out-Patient Physical Therapy Visit Information Visit Information Visit Type Treatment Note Visit Start Time 13:34 Visit Stop Time 14:13 Total Visit Minutes 39 Visit Number 3 Evaluation Information Evaluation Date 11/28/19 Precautions Precautions Arthritis most notable in R knee, Diabetes type II controlled by medication, umbilical hernia rpr 10 yrs ago. 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 PT-OP-B Current Condition Start: 11/27/19 18:03 Freq: Status: Active Protocol: Document 11/28/19 13:30 LRN (Rec: 11/28/19 14:22 LRN [id number]) Current Condition History of Current Condition Onset Date June 2019 Current Complaints Bilateral LBP and R brachium pain History of Current Condition Stopped going to the gym due to COVID 19; therefore the back started to slowly hurt again. The gyms now are getting ready to start up so she wants to be able to get into shape to go back to strengthening at [employer]. 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 Prior Treatments and Tests 1 yr ago was seen for Hemal Sciatic Pain with resolution and transferred onto an exercise gym. Treatment Goals Patient/Caregiver Goals Strengthen enough to go back to gym to be able to work her wood pile, and be able to walk to her neighbors (1 block away) without back pain. Prior Functional Status Baseline Function- ADL's Independent Baseline Function- Mobility Independent Baseline Function- Gait Was able to walk to her neighbors without onset of back pain. Baseline Function- Recreation/Hobbies Exercising in a gym 3x/week. ( Nustep, Leg press, hip AB/AD, knee ext/flex, lat pull down, row, fly was stopped because of R arm pain). Baseline Function- Other Was able to load and unload wood into wheel barrel, wheel it to back porch, and carry it into the house in a sling bag . Current Functional Impairments (Reported) Functional Limitations- Mobility/Gait LBP after walking to neighbors 1 block away. Functional Limitations- Recreation/ No longer exercising in a gym. Hobbies Sept will start moving wood again. Functional Limitations- Other Less mobility with walking due to a limping gait. 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 PT-OP-C Subjective Start: 11/27/19 18:03 Freq: Status: Active Protocol: Document 12/05/19 13:34 LRN (Rec: 12/05/19 14:23 LRN [id number]) OP-PT Subjective Patient Comments Patient Comments States she has her old HEP from therapy and from the Center. PT-OP-E Functional Tests Start: 11/27/19 18:03 Freq: Status: Active Protocol: Document 11/28/19 13:30 LRN (Rec: 11/28/19 17:00 LRN [id number]) Functional Tests Apley's Scratch Test Action 1- Left Behind shoulders Action 1- Right Behind shoulders Action 2- Left T2 Action 2- Right T2 Action 3- Left T8 Action 3- Right T8 PT-OP-H Neuro Start: 11/27/19 18:03 Freq: Status: Active Protocol: Document 11/28/19 13:30 LRN (Rec: 11/28/19 17:00 LRN [id number]) Sensation Evaluation Comments Summary Comments Pt reports feeling of tightness and decreased sensation around the feet, bilaterally. PT-OP-J Posture/Palpation/Skin Start: 11/27/19 18:03 Freq: Status: Active Protocol: Document 11/28/19 13:30 LRN (Rec: 11/28/19 17:00 LRN [id number]) Posture Evaluation Position Standing Head/C-Spine Posture Forward Head T-Spine Posture Flattened L-Spine Posture Decreased Lordosis Comments Posture Comments Sway back with protruding abdomen. PT-OP-K Range of Motion Start: 11/27/19 18:03 Freq: Status: Active Protocol: Document 11/28/19 13:30 LRN (Rec: 11/28/19 17:00 LRN [id number]) Lumbar Spine Range of Motion Lumbar Spine Active Degrees Testing Position Standing Flexion 100 Extension 15 Rotation Left 30 Rotation Right 30 Lateral Flexion Left 10 Lateral Flexion Right 10 ROM Limitations Soft Tissue Tightness Shoulder Goniometric Range of Motion Shoulder Right Active Testing Position Sitting Flexion 150 Abduction 163 External Rotation at 0 degrees Abduction 50 Internal Rotation Behind Back (text) T8 Left Active Testing Position Sitting Flexion 150 Abduction 158 External Rotation at 0 degrees Abduction 55 Internal Rotation Behind Back (text) T8 PT-OP-L Special Tests Start: 11/27/19 18:03 Freq: Status: Active Protocol: Document 11/28/19 13:30 LRN (Rec: 11/28/19 17:00 LRN [id number]) Special Tests Lumbar Spine Special Tests Straight Leg Raise Test Results negative bilaterally Comments 90+ mobility PT-OP-M Strength Start: 11/27/19 18:03 Freq: Status: Active Protocol: Document 11/28/19 13:30 LRN (Rec: 11/28/19 17:00 LRN [id number]) Trunk Strength Trunk Manual Muscle Testing Testing Position Supine Core Stabilization Trunk ext - stable Trunk flex - unstable Pt unable to maintain stability when rotational stress applied during MMT. Shoulder Strength Shoulder Manual Muscle Testing Right Flexion 4 Good Extension 5 Normal Abduction (C5) 4 Good External Rotation 3- Fair- Internal Rotation 4+ Good+ Left Flexion 4 Good Extension 5 Normal Abduction (C5) 5 Normal External Rotation 3 Fair Internal Rotation 4+ Good+ Elbow/Forearm Strength Elbow and Forearm Manual Muscle Testing Right Flexion (C6) 5 Normal Extension (C7) 5 Normal Left Flexion (C6) 5 Normal Extension (C7) 5 Normal Hip Strength Hip Manual Muscle Testing Left Flexion (L2) 4 Good Extension (S1) 4- Good- Abduction 3 Fair Adduction 5 Normal External Rotation 4- Good- Internal Rotation 4 Good Right Flexion (L2) 4 Good Extension (S1) 4- Good- Abduction 3 Fair Adduction 5 Normal External Rotation 4 Good Internal Rotation 3 Fair PT-OP-Q Treatments Start: 11/27/19 18:03 Freq: Status: Active Protocol: Document 12/05/19 13:34 LRN (Rec: 12/05/19 14:23 LRN [id number]) Cardio Equipment Recumbent Elliptical ([employer]) Duration (Minutes) 8 Resistance 3 Seat Position 7 Therapeutic Exercises Sidelying Exercises Clamshell w/TA Sidelying Exercise Name Clamshell w/TA Side bilateral Reps/Minutes 20' Comments Major extensive training bilaterally to lift leg w/o rolling backwards. TA tightening Sidelying Exercise Name TA tightening Side bilateral Reps/Minutes 10 hold x 10 hemal Comments Pt needed some phys & v cuing for proper contraction w/o holding breath Self-Care/Home Management Treatment Education Patient Education Posture Other Education Reviewed proper sitting, standing posture. Pt needed physical cuing at adomen and top of head. Activities Self-Care/Home Management Activities Reviewed pt's previously existing HEP and I/S pt to continue ex's that are duplicates of current HEP but to focus on core stability with clamshell, and contraction of abdominals with bridge. Pt to increase hold of TA to 10 secs. PT-OP-T Assessment and Plan Start: 11/27/19 18:03 Freq: Status: Active Protocol: Document 12/05/19 13:34 LRN (Rec: 12/05/19 14:23 LRN [id number]) Physical Therapy Assessment Goals Five Impairment Pt not on a self care ex program of gym exercises. Short Term Goal (STG) Pt will be independent in a self care HEP to address strength deficits of core, hips, and shoulders. STG Duration 12/19/19 (11/30/19: Progressing ) Senior Care Goal (LTG) Return to exer prior function on ex machines. LTG Duration 02/26/20 Four Impairment MICHAEL score of 38 (20-39% impairment) Legal File Clerk Goal (LTG) Improve function per MICHAEL score 19 or less (1-19% impairment) . LTG Duration 01/27/20 Three Impairment Pain due to poor posturing Short Term Goal (STG) Improve pt awareness of proper posturing with pt able to self assess and correct with visual assist. (11/30/19: Initiated awareness training) STG Duration 12/12/19 (11/30/19: Initiated training) Two Impairment Low back pain with prolonged gait (pain after 1 block to neighbor's house) Senior Care Goal (LTG) Pt will be able to walk > a block without back pain. LTG Duration 01/27/20 One Impairment MMT (hip strength AB bilaterally & IR right is 3/5; shoulder ER 3/5 hemal) Short Term Goal (STG) Improve hip AB & shoulder ER strength no less than 1/2 grade STG Duration 01/12/20 Senior Care Goal (LTG) Pt will be able to tolerate ex on gym equipment for hip AB/ AD and rotator cuff (primarily ER) strengthening without pain. LTG Duration 01/27/20 Progress Towards Goals Progress Comments Improved awareness of TA by end of session. Pt had no complaints of LBP with transfers during therapy, and when leaving. Assessment Summary Assessment Pt needed extensive training to gain awareness of using her trunk rotators and TA to maintain core stability with movement of hips into rotation . By end of treatment pt appeared to have a much better understanding of core stabilization with clamshell, and was able to maintain stability with physical cuing. Pt was having no pain with transfers. Physical Therapy Plan Frequency and Duration Frequency of Treatment 2x/Week Plan of Care Start Date 11/28/19 Plan of Care End Date 02/26/20 Next Visit Focus/Plan Next Note Type Treatment Note Next Visit Plan Review core stabilization with clamshell, exercise warm up ( recumbent stepper) f/b addition of previous original home ex's that are now appropriate, and cont'd progression onto a HEP of trunk (flexors & rotators), hip (ER's & Flexors, and L AB) , shoulder strengthening ex's (rot, & RC ex's), and end with cryotherapy as needed. Gait training with proper posturing and eventual progression onto an exercise machine work-out routine for discharge.
--- NOTE | 2019-12-08 19:19 | PT.OTN ---
Current Diagnoses Other intervertebral disc disorders, lumbosacral region (12/08/19) Sciatica, unspecified side (12/08/19) Muscle weakness (generalized) (12/08/19) Pain in right arm (12/08/19) Physical Therapy Treatment Note PT-OP-A Visit Information Start: 11/27/19 18:03 Freq: Status: Active Protocol: Document 12/08/19 13:35 LRN (Rec: 12/08/19 14:22 LRN [id number]) Out-Patient Physical Therapy Visit Information Visit Information Visit Type Treatment Note Visit Start Time 13:35 Visit Stop Time 14:22 Total Visit Minutes 47 Visit Number 4 Evaluation Information Evaluation Date 11/28/19 Precautions Precautions Arthritis most notable in R knee, Diabetes type II controlled by medication, umbilical hernia rpr 10 yrs ago. 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 PT-OP-B Current Condition Start: 11/27/19 18:03 Freq: Status: Active Protocol: Document 11/28/19 13:30 LRN (Rec: 11/28/19 14:22 LRN [id number]) Current Condition History of Current Condition Onset Date June 2019 Current Complaints Bilateral LBP and R brachium pain History of Current Condition Stopped going to the gym due to COVID 19; therefore the back started to slowly hurt again. The gyms now are getting ready to start up so she wants to be able to get into shape to go back to strengthening at [employer]. 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 Prior Treatments and Tests 1 yr ago was seen for Hemal Sciatic Pain with resolution and transferred onto an exercise gym. Treatment Goals Patient/Caregiver Goals Strengthen enough to go back to gym to be able to work her wood pile, and be able to walk to her neighbors (1 block away) without back pain. Prior Functional Status Baseline Function- ADL's Independent Baseline Function- Mobility Independent Baseline Function- Gait Was able to walk to her neighbors without onset of back pain. Baseline Function- Recreation/Hobbies Exercising in a gym 3x/week. ( Nustep, Leg press, hip AB/AD, knee ext/flex, lat pull down, row, fly was stopped because of R arm pain). Baseline Function- Other Was able to load and unload wood into wheel barrel, wheel it to back porch, and carry it into the house in a sling bag . Current Functional Impairments (Reported) Functional Limitations- Mobility/Gait LBP after walking to neighbors 1 block away. Functional Limitations- Recreation/ No longer exercising in a gym. Hobbies Sept will start moving wood again. Functional Limitations- Other Less mobility with walking due to a limping gait. 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 PT-OP-C Subjective Start: 11/27/19 18:03 Freq: Status: Active Protocol: Document 12/08/19 13:35 LRN (Rec: 12/08/19 19:05 LRN [id number]) OP-PT Subjective Patient Comments Patient Comments Better overall. PT-OP-E Functional Tests Start: 11/27/19 18:03 Freq: Status: Active Protocol: Document 11/28/19 13:30 LRN (Rec: 11/28/19 17:00 LRN [id number]) Functional Tests Apley's Scratch Test Action 1- Left Behind shoulders Action 1- Right Behind shoulders Action 2- Left T2 Action 2- Right T2 Action 3- Left T8 Action 3- Right T8 PT-OP-H Neuro Start: 11/27/19 18:03 Freq: Status: Active Protocol: Document 11/28/19 13:30 LRN (Rec: 11/28/19 17:00 LRN [id number]) Sensation Evaluation Comments Summary Comments Pt reports feeling of tightness and decreased sensation around the feet, bilaterally. PT-OP-J Posture/Palpation/Skin Start: 11/27/19 18:03 Freq: Status: Active Protocol: Document 11/28/19 13:30 LRN (Rec: 11/28/19 17:00 LRN [id number]) Posture Evaluation Position Standing Head/C-Spine Posture Forward Head T-Spine Posture Flattened L-Spine Posture Decreased Lordosis Comments Posture Comments Sway back with protruding abdomen. PT-OP-K Range of Motion Start: 11/27/19 18:03 Freq: Status: Active Protocol: Document 11/28/19 13:30 LRN (Rec: 11/28/19 17:00 LRN [id number]) Lumbar Spine Range of Motion Lumbar Spine Active Degrees Testing Position Standing Flexion 100 Extension 15 Rotation Left 30 Rotation Right 30 Lateral Flexion Left 10 Lateral Flexion Right 10 ROM Limitations Soft Tissue Tightness Shoulder Goniometric Range of Motion Shoulder Right Active Testing Position Sitting Flexion 150 Abduction 163 External Rotation at 0 degrees Abduction 50 Internal Rotation Behind Back (text) T8 Left Active Testing Position Sitting Flexion 150 Abduction 158 External Rotation at 0 degrees Abduction 55 Internal Rotation Behind Back (text) T8 PT-OP-L Special Tests Start: 11/27/19 18:03 Freq: Status: Active Protocol: Document 11/28/19 13:30 LRN (Rec: 11/28/19 17:00 LRN [id number]) Special Tests Lumbar Spine Special Tests Straight Leg Raise Test Results negative bilaterally Comments 90+ mobility PT-OP-M Strength Start: 11/27/19 18:03 Freq: Status: Active Protocol: Document 11/28/19 13:30 LRN (Rec: 11/28/19 17:00 LRN [id number]) Trunk Strength Trunk Manual Muscle Testing Testing Position Supine Core Stabilization Trunk ext - stable Trunk flex - unstable Pt unable to maintain stability when rotational stress applied during MMT. Shoulder Strength Shoulder Manual Muscle Testing Right Flexion 4 Good Extension 5 Normal Abduction (C5) 4 Good External Rotation 3- Fair- Internal Rotation 4+ Good+ Left Flexion 4 Good Extension 5 Normal Abduction (C5) 5 Normal External Rotation 3 Fair Internal Rotation 4+ Good+ Elbow/Forearm Strength Elbow and Forearm Manual Muscle Testing Right Flexion (C6) 5 Normal Extension (C7) 5 Normal Left Flexion (C6) 5 Normal Extension (C7) 5 Normal Hip Strength Hip Manual Muscle Testing Left Flexion (L2) 4 Good Extension (S1) 4- Good- Abduction 3 Fair Adduction 5 Normal External Rotation 4- Good- Internal Rotation 4 Good Right Flexion (L2) 4 Good Extension (S1) 4- Good- Abduction 3 Fair Adduction 5 Normal External Rotation 4 Good Internal Rotation 3 Fair PT-OP-Q Treatments Start: 11/27/19 18:03 Freq: Status: Active Protocol: Document 12/08/19 13:35 LRN (Rec: 12/08/19 14:22 LRN [id number]) Cardio Equipment Recumbent Elliptical ([employer]) Duration (Minutes) 9 Resistance 3 Seat Position 7 Therapeutic Exercises Supine Exercises Hip AB Supine Exercise Name Hip AB Side left Reps/Minutes 15x Comments Foot sliding on pillowcase Sidelying Exercises Clamshell w/TA Sidelying Exercise Name Clamshell w/TA Side bilateral Reps/Minutes 15' Comments Extensive training bilaterally to lift leg w/o rolling backwards. TA tightening Sidelying Exercise Name TA tightening Side bilateral Reps/Minutes 10 hold x 10 hemal Comments Pt needed phys & v cuing to get tummy lift with TA contraction Standing Exercises Shoulder ER Standing Exercise Name ER strengthening Side bilateral Equipment Used Lev 1 T-Band Reps/Minutes 10 x 2 Comments Training needed for keeping elbows at sides Shoulder IR Standing Exercise Name IR Strengthening Side bilateral Equipment Used Lev 1 T-Band Reps/Minutes 10x 2 Comments Training needed for keeping elbows at sides Self-Care/Home Management Treatment Education Patient Education Home Exercise Program Other Education Discussed progressive increase in a walking program. Pt to begin walking 50-100' daily. Activities Self-Care/Home Management Activities Issued & reviewed HEP of shoulder ER/IR stengthening with issuance of Lev 1 TBand; and supine/standing hip AB strengthening to start with LLE only. PT-OP-T Assessment and Plan Start: 11/27/19 18:03 Freq: Status: Active Protocol: Document 12/08/19 13:35 LRN (Rec: 12/08/19 14:22 LRN [id number]) Physical Therapy Assessment Goals Five Impairment Pt not on a self care ex program of gym exercises. Short Term Goal (STG) Pt will be independent in a self care HEP to address strength deficits of core, hips, and shoulders. STG Duration 12/19/19 (12/08/19: Progressing) [facility] Goal (LTG) Return to exer prior function on ex machines. LTG Duration 02/26/20 Four Impairment MICHAEL score of 38 (20-39% impairment) [facility] Goal (LTG) Improve function per MICHAEL score 19 or less (1-19% impairment) . LTG Duration 01/27/20 Three Impairment Pain due to poor posturing Short Term Goal (STG) Improve pt awareness of proper posturing with pt able to self assess and correct with visual assist. (11/30/19: Initiated awareness training) STG Duration 12/12/19 (11/30/19: Initiated training) Two Impairment Low back pain with prolonged gait (pain after 1 block to neighbor's house) [employer] Goal (LTG) Pt will be able to walk > a block without back pain. LTG Duration 01/27/20 (12/08/19: Initiated walk program) One Impairment MMT (hip strength AB bilaterally & IR right is 3/5; shoulder ER 3/5 hemal) Short Term Goal (STG) Improve hip AB & shoulder ER strength no less than 1/2 grade STG Duration 01/12/20 [employer] Goal (LTG) Pt will be able to tolerate ex on gym equipment for hip AB/ AD and rotator cuff (primarily ER) strengthening without pain. LTG Duration 01/27/20 Progress Towards Goals Progress Comments Pt increased her aerobic tolerance on recumbent stepper to 9' at a level of fairly light to somewhat hard. Assessment Summary Assessment Pt needs further training for core stab with clamshell, she is not able to maintain stability with ex. Shoulder strengthening for rotators was without complaints of pain. Physical Therapy Plan Frequency and Duration Frequency of Treatment 2x/Week Plan of Care Start Date 11/28/19 Plan of Care End Date 02/26/20 Next Visit Focus/Plan Next Note Type Treatment Note Next Visit Plan Review again core stabilization with clamshell, exercise warm up (recumbent stepper), progression onto a HEP of trunk (flexors & rotators), hip (hemal Flexors), shoulder strengthening ex's ( RC ex's), and end with cryotherapy as needed. Gait training with proper posturing , progress onto exercise machine work-out routine for discharge.
--- NOTE | 2019-12-12 16:51 | PT.OTN ---
Current Diagnoses Other intervertebral disc disorders, lumbosacral region (12/12/19) Sciatica, unspecified side (12/12/19) Muscle weakness (generalized) (12/12/19) Pain in right arm (12/12/19) Physical Therapy Treatment Note PT-OP-A Visit Information Start: 11/27/19 18:03 Freq: Status: Active Protocol: Document 12/12/19 13:44 LRN (Rec: 12/12/19 14:20 LRN [id number]) Out-Patient Physical Therapy Visit Information Visit Information Visit Type Treatment Note Visit Start Time 13:44 Visit Stop Time 14:28 Total Visit Minutes 44 Visit Number 5 Evaluation Information Evaluation Date 11/28/19 Precautions Precautions Arthritis most notable in R knee, Diabetes type II controlled by medication, umbilical hernia rpr 10 yrs ago. 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 PT-OP-B Current Condition Start: 11/27/19 18:03 Freq: Status: Active Protocol: Document 11/28/19 13:30 LRN (Rec: 11/28/19 14:22 LRN [id number]) Current Condition History of Current Condition Onset Date June 2019 Current Complaints Bilateral LBP and R brachium pain History of Current Condition Stopped going to the gym due to COVID 19; therefore the back started to slowly hurt again. The gyms now are getting ready to start up so she wants to be able to get into shape to go back to strengthening at [employer]. 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 Prior Treatments and Tests 1 yr ago was seen for Hemal Sciatic Pain with resolution and transferred onto an exercise gym. Treatment Goals Patient/Caregiver Goals Strengthen enough to go back to gym to be able to work her wood pile, and be able to walk to her neighbors (1 block away) without back pain. Prior Functional Status Baseline Function- ADL's Independent Baseline Function- Mobility Independent Baseline Function- Gait Was able to walk to her neighbors without onset of back pain. Baseline Function- Recreation/Hobbies Exercising in a gym 3x/week. ( Nustep, Leg press, hip AB/AD, knee ext/flex, lat pull down, row, fly was stopped because of R arm pain). Baseline Function- Other Was able to load and unload wood into wheel barrel, wheel it to back porch, and carry it into the house in a sling bag . Current Functional Impairments (Reported) Functional Limitations- Mobility/Gait LBP after walking to neighbors 1 block away. Functional Limitations- Recreation/ No longer exercising in a gym. Hobbies Sept will start moving wood again. Functional Limitations- Other Less mobility with walking due to a limping gait. 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 PT-OP-C Subjective Start: 11/27/19 18:03 Freq: Status: Active Protocol: Document 12/12/19 13:44 LRN (Rec: 12/12/19 14:20 LRN [id number]) OP-PT Subjective Patient Comments Patient Comments Pain in R arm is now and ache vs sharp pain. PT-OP-E Functional Tests Start: 11/27/19 18:03 Freq: Status: Active Protocol: Document 11/28/19 13:30 LRN (Rec: 11/28/19 17:00 LRN [id number]) Functional Tests Apley's Scratch Test Action 1- Left Behind shoulders Action 1- Right Behind shoulders Action 2- Left T2 Action 2- Right T2 Action 3- Left T8 Action 3- Right T8 PT-OP-H Neuro Start: 11/27/19 18:03 Freq: Status: Active Protocol: Document 11/28/19 13:30 LRN (Rec: 11/28/19 17:00 LRN [id number]) Sensation Evaluation Comments Summary Comments Pt reports feeling of tightness and decreased sensation around the feet, bilaterally. PT-OP-J Posture/Palpation/Skin Start: 11/27/19 18:03 Freq: Status: Active Protocol: Document 11/28/19 13:30 LRN (Rec: 11/28/19 17:00 LRN [id number]) Posture Evaluation Position Standing Head/C-Spine Posture Forward Head T-Spine Posture Flattened L-Spine Posture Decreased Lordosis Comments Posture Comments Sway back with protruding abdomen. PT-OP-K Range of Motion Start: 11/27/19 18:03 Freq: Status: Active Protocol: Document 11/28/19 13:30 LRN (Rec: 11/28/19 17:00 LRN [id number]) Lumbar Spine Range of Motion Lumbar Spine Active Degrees Testing Position Standing Flexion 100 Extension 15 Rotation Left 30 Rotation Right 30 Lateral Flexion Left 10 Lateral Flexion Right 10 ROM Limitations Soft Tissue Tightness Shoulder Goniometric Range of Motion Shoulder Right Active Testing Position Sitting Flexion 150 Abduction 163 External Rotation at 0 degrees Abduction 50 Internal Rotation Behind Back (text) T8 Left Active Testing Position Sitting Flexion 150 Abduction 158 External Rotation at 0 degrees Abduction 55 Internal Rotation Behind Back (text) T8 PT-OP-L Special Tests Start: 11/27/19 18:03 Freq: Status: Active Protocol: Document 11/28/19 13:30 LRN (Rec: 11/28/19 17:00 LRN [id number]) Special Tests Lumbar Spine Special Tests Straight Leg Raise Test Results negative bilaterally Comments 90+ mobility PT-OP-M Strength Start: 11/27/19 18:03 Freq: Status: Active Protocol: Document 11/28/19 13:30 LRN (Rec: 11/28/19 17:00 LRN [id number]) Trunk Strength Trunk Manual Muscle Testing Testing Position Supine Core Stabilization Trunk ext - stable Trunk flex - unstable Pt unable to maintain stability when rotational stress applied during MMT. Shoulder Strength Shoulder Manual Muscle Testing Right Flexion 4 Good Extension 5 Normal Abduction (C5) 4 Good External Rotation 3- Fair- Internal Rotation 4+ Good+ Left Flexion 4 Good Extension 5 Normal Abduction (C5) 5 Normal External Rotation 3 Fair Internal Rotation 4+ Good+ Elbow/Forearm Strength Elbow and Forearm Manual Muscle Testing Right Flexion (C6) 5 Normal Extension (C7) 5 Normal Left Flexion (C6) 5 Normal Extension (C7) 5 Normal Hip Strength Hip Manual Muscle Testing Left Flexion (L2) 4 Good Extension (S1) 4- Good- Abduction 3 Fair Adduction 5 Normal External Rotation 4- Good- Internal Rotation 4 Good Right Flexion (L2) 4 Good Extension (S1) 4- Good- Abduction 3 Fair Adduction 5 Normal External Rotation 4 Good Internal Rotation 3 Fair PT-OP-Q Treatments Start: 11/27/19 18:03 Freq: Status: Active Protocol: Document 12/12/19 13:44 LRN (Rec: 12/12/19 14:20 LRN [id number]) Cardio Equipment Recumbent Elliptical ([employer]) Duration (Minutes) 10 Resistance 3 Seat Position 7 Therapeutic Exercises Supine Exercises Hip AB Supine Exercise Name Hip AB Side bilateral Reps/Minutes 15x Comments Foot sliding on pillowcase Bridging w/TA Supine Exercise Name Bridging w/TA Reps/Minutes 10 x 2 Comments Extra time for training and determining max movement position Sidelying Exercises Clamshell w/TA Sidelying Exercise Name Clamshell w/TA Side bilateral Reps/Minutes 15' Comments More training bilaterally to lift leg w/o rolling backwards . TA tightening Sidelying Exercise Name TA tightening Side bilateral Reps/Minutes 10 hold Comments Pt needed phys & v cuing to get tummy lift with TA contraction Sitting Exercises Hip AB Sitting Exercise Name Hip AB Reps/Minutes 10x Comments Assist and phy/v. cuing to keep core stable. PT-OP-T Assessment and Plan Start: 11/27/19 18:03 Freq: Status: Active Protocol: Document 12/12/19 13:44 LRN (Rec: 12/12/19 14:20 LRN [id number]) Physical Therapy Assessment Goals Five Impairment Pt not on a self care ex program of gym exercises. Short Term Goal (STG) Pt will be independent in a self care HEP to address strength deficits of core, hips, and shoulders. STG Duration 12/19/19 (12/08/19: Progressing) [employer] Goal (LTG) Return to exer prior function on ex machines. LTG Duration 02/26/20 Four Impairment MICHAEL score of 38 (20-39% impairment) [facility] Goal (LTG) Improve function per MICHAEL score 19 or less (1-19% impairment) . LTG Duration 01/27/20 Three Impairment Pain due to poor posturing Short Term Goal (STG) Improve pt awareness of proper posturing with pt able to self assess and correct with visual assist. (11/30/19: Initiated awareness training) STG Duration 12/12/19 (11/30/19: Initiated training) Two Impairment Low back pain with prolonged gait (pain after 1 block to neighbor's house) [facility] Goal (LTG) Pt will be able to walk > a block without back pain. LTG Duration 01/27/20 (12/08/19: Initiated walk program) One Impairment MMT (hip strength AB bilaterally & IR right is 3/5; shoulder ER 3/5 hemal) Short Term Goal (STG) Improve hip AB & shoulder ER strength no less than 1/2 grade STG Duration 01/12/20 [facility] Goal (LTG) Pt will be able to tolerate ex on gym equipment for hip AB/ AD and rotator cuff (primarily ER) strengthening without pain. LTG Duration 01/27/20 Progress Towards Goals Progress Comments L hip AB mobility appears equal to R; therefore strength appears to be becoming more symmetrical, able to perform sidelie hip AB with cuing and assist to maintain core stability. Pt able to tolerate 10' on recumbent stepper. Assessment Summary Assessment Pt did not try walking towards neighbors house over the holiday due to hot weather. Pt improved, but still having some trouble with core stability during clamshells and needs further training. Today she shows improved awareness of the involvement of her trunk rotators to help maintain stability. Physical Therapy Plan Frequency and Duration Frequency of Treatment 2x/Week Plan of Care Start Date 11/28/19 Plan of Care End Date 02/26/20 Next Visit Focus/Plan Next Note Type Treatment Note Next Visit Plan Assess progress towards goal 3 . Review again core stabilization with clamshell, progress onto exercise machine work-out routine for discharge, exercise warm up ( recumbent stepper), progression onto a HEP of trunk (flexors & rotators), hip (hemal Flexors), shoulder strengthening ex's (RC ex's), and end with cryotherapy as needed. Gait training with proper posturing.
--- NOTE | 2019-12-15 14:20 | PT.OTN ---
Current Diagnoses Other intervertebral disc disorders, lumbosacral region (12/15/19) Sciatica, unspecified side (12/15/19) Muscle weakness (generalized) (12/15/19) Pain in right arm (12/15/19) Physical Therapy Treatment Note PT-OP-A Visit Information Start: 11/27/19 18:03 Freq: Status: Active Protocol: Document 12/15/19 13:40 LRN (Rec: 12/15/19 14:20 LRN [id number]) Out-Patient Physical Therapy Visit Information Visit Information Visit Type Treatment Note Visit Start Time 13:40 Visit Stop Time 14:23 Total Visit Minutes 43 Visit Number 6 Evaluation Information Evaluation Date 11/28/19 Precautions Precautions Arthritis most notable in R knee, Diabetes type II controlled by medication, umbilical hernia rpr 10 yrs ago. 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 PT-OP-B Current Condition Start: 11/27/19 18:03 Freq: Status: Active Protocol: Document 11/28/19 13:30 LRN (Rec: 11/28/19 14:22 LRN [id number]) Current Condition History of Current Condition Onset Date June 2019 Current Complaints Bilateral LBP and R brachium pain History of Current Condition Stopped going to the gym due to COVID 19; therefore the back started to slowly hurt again. The gyms now are getting ready to start up so she wants to be able to get into shape to go back to strengthening at [employer]. 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 Prior Treatments and Tests 1 yr ago was seen for Isaac Sciatic Pain with resolution and transferred onto an exercise gym. Treatment Goals Patient/Caregiver Goals Strengthen enough to go back to gym to be able to work her wood pile, and be able to walk to her neighbors (1 block away) without back pain. Prior Functional Status Baseline Function- ADL's Independent Baseline Function- Mobility Independent Baseline Function- Gait Was able to walk to her neighbors without onset of back pain. Baseline Function- Recreation/Hobbies Exercising in a gym 3x/week. ( Nustep, Leg press, hip AB/AD, knee ext/flex, lat pull down, row, fly was stopped because of R arm pain). Baseline Function- Other Was able to load and unload wood into wheel barrel, wheel it to back porch, and carry it into the house in a sling bag . Current Functional Impairments (Reported) Functional Limitations- Mobility/Gait LBP after walking to neighbors 1 block away. Functional Limitations- Recreation/ No longer exercising in a gym. Hobbies Sept will start moving wood again. Functional Limitations- Other Less mobility with walking due to a limping gait. 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 PT-OP-C Subjective Start: 11/27/19 18:03 Freq: Status: Active Protocol: Document 12/15/19 13:40 LRN (Rec: 12/15/19 14:20 LRN [id number]) OP-PT Subjective Patient Comments Patient Comments States she walked to neighbor' s house (2 days in a row), with walking stick. No back pain PT-OP-E Functional Tests Start: 11/27/19 18:03 Freq: Status: Active Protocol: Document 11/28/19 13:30 LRN (Rec: 11/28/19 17:00 LRN [id number]) Functional Tests Apley's Scratch Test Action 1- Left Behind shoulders Action 1- Right Behind shoulders Action 2- Left T2 Action 2- Right T2 Action 3- Left T8 Action 3- Right T8 PT-OP-H Neuro Start: 11/27/19 18:03 Freq: Status: Active Protocol: Document 11/28/19 13:30 LRN (Rec: 11/28/19 17:00 LRN [id number]) Sensation Evaluation Comments Summary Comments Pt reports feeling of tightness and decreased sensation around the feet, bilaterally. PT-OP-J Posture/Palpation/Skin Start: 11/27/19 18:03 Freq: Status: Active Protocol: Document 11/28/19 13:30 LRN (Rec: 11/28/19 17:00 LRN [id number]) Posture Evaluation Position Standing Head/C-Spine Posture Forward Head T-Spine Posture Flattened L-Spine Posture Decreased Lordosis Comments Posture Comments Sway back with protruding abdomen. PT-OP-K Range of Motion Start: 11/27/19 18:03 Freq: Status: Active Protocol: Document 11/28/19 13:30 LRN (Rec: 11/28/19 17:00 LRN [id number]) Lumbar Spine Range of Motion Lumbar Spine Active Degrees Testing Position Standing Flexion 100 Extension 15 Rotation Left 30 Rotation Right 30 Lateral Flexion Left 10 Lateral Flexion Right 10 ROM Limitations Soft Tissue Tightness Shoulder Goniometric Range of Motion Shoulder Right Active Testing Position Sitting Flexion 150 Abduction 163 External Rotation at 0 degrees Abduction 50 Internal Rotation Behind Back (text) T8 Left Active Testing Position Sitting Flexion 150 Abduction 158 External Rotation at 0 degrees Abduction 55 Internal Rotation Behind Back (text) T8 PT-OP-L Special Tests Start: 11/27/19 18:03 Freq: Status: Active Protocol: Document 11/28/19 13:30 LRN (Rec: 11/28/19 17:00 LRN [id number]) Special Tests Lumbar Spine Special Tests Straight Leg Raise Test Results negative bilaterally Comments 90+ mobility PT-OP-M Strength Start: 11/27/19 18:03 Freq: Status: Active Protocol: Document 11/28/19 13:30 LRN (Rec: 11/28/19 17:00 LRN [id number]) Trunk Strength Trunk Manual Muscle Testing Testing Position Supine Core Stabilization Trunk ext - stable Trunk flex - unstable Pt unable to maintain stability when rotational stress applied during MMT. Shoulder Strength Shoulder Manual Muscle Testing Right Flexion 4 Good Extension 5 Normal Abduction (C5) 4 Good External Rotation 3- Fair- Internal Rotation 4+ Good+ Left Flexion 4 Good Extension 5 Normal Abduction (C5) 5 Normal External Rotation 3 Fair Internal Rotation 4+ Good+ Elbow/Forearm Strength Elbow and Forearm Manual Muscle Testing Right Flexion (C6) 5 Normal Extension (C7) 5 Normal Left Flexion (C6) 5 Normal Extension (C7) 5 Normal Hip Strength Hip Manual Muscle Testing Left Flexion (L2) 4 Good Extension (S1) 4- Good- Abduction 3 Fair Adduction 5 Normal External Rotation 4- Good- Internal Rotation 4 Good Right Flexion (L2) 4 Good Extension (S1) 4- Good- Abduction 3 Fair Adduction 5 Normal External Rotation 4 Good Internal Rotation 3 Fair PT-OP-Q Treatments Start: 11/27/19 18:03 Freq: Status: Active Protocol: Document 12/15/19 13:40 LRN (Rec: 12/15/19 14:20 LRN [id number]) Cardio Equipment Recumbent Elliptical ([employer]) Duration (Minutes) 10 Resistance 3 Seat Position 7 Other Working somewhat hard on FILIPE scale Gym Equipment Cable Column (Body Solid) Hip Adduction Details Hip AD w/TA tight Resistance 10 Hip Abduction Details Hip AB w/TA tight Resistance 10 Reps/Time 10x Therapeutic Exercises Supine Exercises Bridging w/TA Supine Exercise Name Bridging w/TA Reps/Minutes 10 x 2 Comments Extra time for training and determining max movement position Sidelying Exercises Clamshell w/TA Sidelying Exercise Name Clamshell w/TA Side bilateral Reps/Minutes 10' (10x each) Comments More training bilaterally to lift leg w/o rolling backwards . TA tightening Sidelying Exercise Name TA tightening and with SAN Reps/Minutes 5 holds and 10x SAN Comments Extra time for training to pull in TA vs bulging out Sitting Exercises Hip AB Sitting Exercise Name Hip AB Resistance Lev 1 TBand Reps/Minutes 10x Comments Assist and phy/v. cuing to keep core stable. Standing Exercises Shoulder ER Standing Exercise Name ER strengthening Side bilateral Equipment Used Lev 1 T-Band Reps/Minutes 10 x 2 Comments Assist needed for R side Shoulder IR Standing Exercise Name IR Strengthening Side bilateral Equipment Used Lev 1 T-Band Reps/Minutes 10x 2 Comments Training needed for keeping elbows at sides PT-OP-T Assessment and Plan Start: 11/27/19 18:03 Freq: Status: Active Protocol: Document 12/15/19 13:40 LRN (Rec: 12/15/19 14:20 LRN [id number]) Physical Therapy Assessment Goals Five Impairment Pt not on a self care ex program of gym exercises. Short Term Goal (STG) Pt will be independent in a self care HEP to address strength deficits of core, hips, and shoulders. STG Duration 12/19/19 (12/08/19: Progressing) Group Home Goal (LTG) Return to exer prior function on ex machines. LTG Duration 02/26/20 Four Impairment MICHAEL score of 38 (20-39% impairment) Price Analyst Goal (LTG) Improve function per MICHAEL score 19 or less (1-19% impairment) . LTG Duration 01/27/20 Three Impairment Pain due to poor posturing Short Term Goal (STG) Improve pt awareness of proper posturing with pt able to self assess and correct with visual assist. (12/15/19: 30% aware of posture) STG Duration 12/12/19 (12/15/19: Aware 30% of time) Two Impairment Low back pain with prolonged gait (pain after 1 block to neighbor's house) Price Analyst Goal (LTG) Pt will be able to walk > a block without back pain. LTG Duration 01/27/20 (12/15/19: MET GOAL) One Impairment MMT (hip strength AB bilaterally & IR right is 3/5; shoulder ER 3/5 isaac) Short Term Goal (STG) Improve hip AB & shoulder ER strength no less than 1/2 grade STG Duration 01/12/20 Price Analyst Goal (LTG) Pt will be able to tolerate ex on gym equipment for hip AB/ AD and rotator cuff (primarily ER) strengthening without pain. LTG Duration 01/27/20 Progress Towards Goals Progress Comments Goal #2 MET. Pt monitoring proper posture ~ 30%. Assessment Summary Assessment Pt demonstrates greater awareness of core stabilization with tightening of TA with SAN and on command tightening. She is able to maintain core stability with Clamshell 90% of time. Physical Therapy Plan Frequency and Duration Frequency of Treatment 2x/Week Plan of Care Start Date 11/28/19 Plan of Care End Date 02/26/20 Next Visit Focus/Plan Next Note Type Treatment Note Next Visit Plan Monitor progress towards goal 3. Add hands/knees push for Abdominal strengthening. Progress onto exercise machine work-out routine for discharge, exercise warm up ( recumbent stepper), progression onto a HEP of trunk (flexors & rotators), hip (isaac Flexors), shoulder strengthening ex's (RC ex's), and end with cryotherapy as needed. Gait training with proper posturing.
--- NOTE | 2019-12-25 14:30 | PT.OTN ---
Current Diagnoses Other intervertebral disc disorders, lumbosacral region (12/25/19) Sciatica, unspecified side (12/25/19) Muscle weakness (generalized) (12/25/19) Pain in right arm (12/25/19) Physical Therapy Treatment Note PT-OP-A Visit Information Start: 11/27/19 18:03 Freq: Status: Active Protocol: Document 12/25/19 13:49 SP (Rec: 12/25/19 15:54 SP [id number]) Out-Patient Physical Therapy Visit Information Visit Information Visit Type Treatment Note Visit Start Time 13:49 Visit Stop Time 14:30 Total Visit Minutes 41 Visit Number 7 Number of DATA SECURITY ANALYST Visits 1 PT-OP-B Current Condition Start: 11/27/19 18:03 Freq: Status: Active Protocol: Document 11/28/19 13:30 LRN (Rec: 11/28/19 14:22 LRN [id number]) Current Condition History of Current Condition Onset Date June 2019 Current Complaints Bilateral LBP and R brachium pain History of Current Condition Stopped going to the gym due to COVID 19; therefore the back started to slowly hurt again. The gyms now are getting ready to start up so she wants to be able to get into shape to go back to strengthening at [employer]. 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 Prior Treatments and Tests 1 yr ago was seen for Hemal Sciatic Pain with resolution and transferred onto an exercise gym. Treatment Goals Patient/Caregiver Goals Strengthen enough to go back to gym to be able to work her wood pile, and be able to walk to her neighbors (1 block away) without back pain. Prior Functional Status Baseline Function- ADL's Independent Baseline Function- Mobility Independent Baseline Function- Gait Was able to walk to her neighbors without onset of back pain. Baseline Function- Recreation/Hobbies Exercising in a gym 3x/week. ( Nustep, Leg press, hip AB/AD, knee ext/flex, lat pull down, row, fly was stopped because of R arm pain). Baseline Function- Other Was able to load and unload wood into wheel barrel, wheel it to back porch, and carry it into the house in a sling bag . Current Functional Impairments (Reported) Functional Limitations- Mobility/Gait LBP after walking to neighbors 1 block away. Functional Limitations- Recreation/ No longer exercising in a gym. Hobbies Sept will start moving wood again. Functional Limitations- Other Less mobility with walking due to a limping gait. 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 PT-OP-C Subjective Start: 11/27/19 18:03 Freq: Status: Active Protocol: Document 12/25/19 13:49 SP (Rec: 12/25/19 15:54 SP [id number]) OP-PT Subjective Patient Comments Patient Comments Pt stated has been little doing of every exercises since last visit can remember. I believe I am being more aware as can. PT-OP-E Functional Tests Start: 11/27/19 18:03 Freq: Status: Active Protocol: Document 11/28/19 13:30 LRN (Rec: 11/28/19 17:00 LRN [id number]) Functional Tests Apley's Scratch Test Action 1- Left Behind shoulders Action 1- Right Behind shoulders Action 2- Left T2 Action 2- Right T2 Action 3- Left T8 Action 3- Right T8 PT-OP-H Neuro Start: 11/27/19 18:03 Freq: Status: Active Protocol: Document 11/28/19 13:30 LRN (Rec: 11/28/19 17:00 LRN [id number]) Sensation Evaluation Comments Summary Comments Pt reports feeling of tightness and decreased sensation around the feet, bilaterally. PT-OP-J Posture/Palpation/Skin Start: 11/27/19 18:03 Freq: Status: Active Protocol: Document 11/28/19 13:30 LRN (Rec: 11/28/19 17:00 LRN [id number]) Posture Evaluation Position Standing Head/C-Spine Posture Forward Head T-Spine Posture Flattened L-Spine Posture Decreased Lordosis Comments Posture Comments Sway back with protruding abdomen. PT-OP-K Range of Motion Start: 11/27/19 18:03 Freq: Status: Active Protocol: Document 11/28/19 13:30 LRN (Rec: 11/28/19 17:00 LRN [id number]) Lumbar Spine Range of Motion Lumbar Spine Active Degrees Testing Position Standing Flexion 100 Extension 15 Rotation Left 30 Rotation Right 30 Lateral Flexion Left 10 Lateral Flexion Right 10 ROM Limitations Soft Tissue Tightness Shoulder Goniometric Range of Motion Shoulder Right Active Testing Position Sitting Flexion 150 Abduction 163 External Rotation at 0 degrees Abduction 50 Internal Rotation Behind Back (text) T8 Left Active Testing Position Sitting Flexion 150 Abduction 158 External Rotation at 0 degrees Abduction 55 Internal Rotation Behind Back (text) T8 PT-OP-L Special Tests Start: 11/27/19 18:03 Freq: Status: Active Protocol: Document 11/28/19 13:30 LRN (Rec: 11/28/19 17:00 LRN [id number]) Special Tests Lumbar Spine Special Tests Straight Leg Raise Test Results negative bilaterally Comments 90+ mobility PT-OP-M Strength Start: 11/27/19 18:03 Freq: Status: Active Protocol: Document 11/28/19 13:30 LRN (Rec: 11/28/19 17:00 LRN [id number]) Trunk Strength Trunk Manual Muscle Testing Testing Position Supine Core Stabilization Trunk ext - stable Trunk flex - unstable Pt unable to maintain stability when rotational stress applied during MMT. Shoulder Strength Shoulder Manual Muscle Testing Right Flexion 4 Good Extension 5 Normal Abduction (C5) 4 Good External Rotation 3- Fair- Internal Rotation 4+ Good+ Left Flexion 4 Good Extension 5 Normal Abduction (C5) 5 Normal External Rotation 3 Fair Internal Rotation 4+ Good+ Elbow/Forearm Strength Elbow and Forearm Manual Muscle Testing Right Flexion (C6) 5 Normal Extension (C7) 5 Normal Left Flexion (C6) 5 Normal Extension (C7) 5 Normal Hip Strength Hip Manual Muscle Testing Left Flexion (L2) 4 Good Extension (S1) 4- Good- Abduction 3 Fair Adduction 5 Normal External Rotation 4- Good- Internal Rotation 4 Good Right Flexion (L2) 4 Good Extension (S1) 4- Good- Abduction 3 Fair Adduction 5 Normal External Rotation 4 Good Internal Rotation 3 Fair PT-OP-Q Treatments Start: 11/27/19 18:03 Freq: Status: Active Protocol: Document 12/25/19 13:49 SP (Rec: 12/25/19 15:54 SP [id number]) Cardio Equipment Recumbent Elliptical ([employer]) Duration (Minutes) 6 Resistance 3 Seat Position 7 Other Working somewhat hard on FILIPE scale Recumbent Stepper ([employer]) Duration (Minutes) 4 Resistance 3>4 Seat Position 8 Gym Equipment Cable Column (Body Solid) Leg Curl Details Pins: #3 thigh, #14 lower leg, #5 back Resistance 20 Reps/Time x15 Leg Extension Details Pins: #1 thighs, #3 ankles, #5 back Resistance 20 Reps/Time x10 Hip Adduction Details Hip AD w/TA tight (leg pin #3, back see 3 holes) Resistance 20 Reps/Time 2x10 Hip Abduction Details Hip AB w/TA tight (leg pin #5 , back see 3 holes ) Resistance 20 Reps/Time 10x Therapeutic Exercises Sidelying Exercises Clamshell w/TA Sidelying Exercise Name Clamshell w/TA Side bilateral Reps/Minutes 5' (x10 each LE review) Comments improvement in TA facilitation , no roll back and slow eccentric control TA tightening Sidelying Exercise Name TA tightening and with SAN Reps/Minutes 5 holds and 2x SAN review Comments Extra time for training to pull in TA vs bulging out PT-OP-T Assessment and Plan Start: 11/27/19 18:03 Freq: Status: Active Protocol: Document 12/25/19 13:49 SP (Rec: 12/25/19 15:54 SP [id number]) Physical Therapy Assessment Goals Five Impairment Pt not on a self care ex program of gym exercises. Short Term Goal (STG) Pt will be independent in a self care HEP to address strength deficits of core, hips, and shoulders. STG Duration 12/19/19 (12/08/19: Progressing) Skilled Nursing Goal (LTG) Return to exer prior function on ex machines. LTG Duration 02/26/20 Four Impairment MICHAEL score of 38 (20-39% impairment) Skilled Nursing Goal (LTG) Improve function per MICHAEL score 19 or less (1-19% impairment) . LTG Duration 01/27/20 Three Impairment Pain due to poor posturing Short Term Goal (STG) Improve pt awareness of proper posturing with pt able to self assess and correct with visual assist. (12/15/19: 30% aware of posture) STG Duration 12/12/19 (12/15/19: Aware 30% of time) Two Impairment Low back pain with prolonged gait (pain after 1 block to neighbor's house) Skilled Nursing Goal (LTG) Pt will be able to walk > a block without back pain. LTG Duration 01/27/20 (12/15/19: MET GOAL) One Impairment MMT (hip strength AB bilaterally & IR right is 3/5; shoulder ER 3/5 hemal) Short Term Goal (STG) Improve hip AB & shoulder ER strength no less than 1/2 grade STG Duration 01/12/20 Skilled Nursing Goal (LTG) Pt will be able to tolerate ex on gym equipment for hip AB/ AD and rotator cuff (primarily ER) strengthening without pain. LTG Duration 01/27/20 Assessment Summary Assessment Pt able to increase resistance on AB/ADD machine with TA facilitation. Initiated LE curl/ext today with no adverse affect. Pt improving on proper form and TA facilitation with neurtral pelvis during clamshell and HAHA for 7 sec. Next tx focus TA and shld ER strengthening and see plan suggestions. Physical Therapy Plan Frequency and Duration Frequency of Treatment 2x/Week Plan of Care Start Date 11/28/19 Plan of Care End Date 02/26/20 Therapeutic Interventions Therapeutic Interventions Gait Training,Home Exercise Program,Joint Mobilizations, Manual Therapy,Neuromuscular Re-education,Patient/Caregiver Education,Self-Care/Home Management,Soft Tissue Mobilization,Therapeutic Exercises Modalities Cold Pack/Ice Massage,Electric Stimulation,Hot Packs Next Visit Focus/Plan Next Note Type Treatment Note Next Visit Plan Monitor progress towards goal 3. Next tx Add hands/knees push for Abdominal strengthening. Progress onto exercise machine work-out routine for discharge, exercise warm up (recumbent stepper), progression onto a HEP of trunk (flexors & rotators), hip (hemal Flexors), shoulder strengthening ex's ( RC ex's), and end with cryotherapy as needed. Gait training with proper posturing .
--- NOTE | 2019-12-29 14:37 | PT.OTN ---
Addendum entered and electronically signed by Rena Wood, REGULATORY PRODUCT MANAGER 12/29/19 15:48: Assessed stair mgt and patient stated did so well along time ago when left rehab. Her children want her to live in their basement appt but there are stairs to get down to that level and doesn't feel confident. Stair mgt LOB Min A recover no rail, SBA 1 rail. Gave step ups with 1 rail contact for HEP to assist progress COG over LORI and strengthening with good safe demonstration to add at home. Response to tx: I feel so much better about lifting and doing stairs with what worked on today. Original Note: Current Diagnoses Other intervertebral disc disorders, lumbosacral region (12/29/19) Sciatica, unspecified side (12/29/19) Muscle weakness (generalized) (12/29/19) Pain in right arm (12/29/19) Physical Therapy Treatment Note PT-OP-A Visit Information Start: 11/27/19 18:03 Freq: Status: Active Protocol: Document 12/29/19 13:50 SP (Rec: 12/29/19 15:47 SP [id number]) Out-Patient Physical Therapy Visit Information Visit Information Visit Type Treatment Note Visit Start Time 13:50 Visit Stop Time 14:37 Total Visit Minutes 47 Visit Number 8 Number of REGULATORY PRODUCT MANAGER Visits 1 PT-OP-B Current Condition Start: 11/27/19 18:03 Freq: Status: Active Protocol: Document 11/28/19 13:30 LRN (Rec: 11/28/19 14:22 LRN [id number]) Current Condition History of Current Condition Onset Date June 2019 Current Complaints Bilateral LBP and R brachium pain History of Current Condition Stopped going to the gym due to COVID 19; therefore the back started to slowly hurt again. The gyms now are getting ready to start up so she wants to be able to get into shape to go back to strengthening at [employer]. 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 Prior Treatments and Tests 1 yr ago was seen for Isaac Sciatic Pain with resolution and transferred onto an exercise gym. Treatment Goals Patient/Caregiver Goals Strengthen enough to go back to gym to be able to work her wood pile, and be able to walk to her neighbors (1 block away) without back pain. Prior Functional Status Baseline Function- ADL's Independent Baseline Function- Mobility Independent Baseline Function- Gait Was able to walk to her neighbors without onset of back pain. Baseline Function- Recreation/Hobbies Exercising in a gym 3x/week. ( Nustep, Leg press, hip AB/AD, knee ext/flex, lat pull down, row, fly was stopped because of R arm pain). Baseline Function- Other Was able to load and unload wood into wheel barrel, wheel it to back porch, and carry it into the house in a sling bag . Current Functional Impairments (Reported) Functional Limitations- Mobility/Gait LBP after walking to neighbors 1 block away. Functional Limitations- Recreation/ No longer exercising in a gym. Hobbies Sept will start moving wood again. Functional Limitations- Other Less mobility with walking due to a limping gait. 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 PT-OP-C Subjective Start: 11/27/19 18:03 Freq: Status: Active Protocol: Document 12/29/19 13:50 SP (Rec: 12/29/19 15:47 SP [id number]) OP-PT Subjective Patient Comments Patient Comments Pt reported her low back very tight and going to be restacking her wood pile this weekend and hoping her back holds up. Pt stated feels therapy is helping. Patient Reported Progress Improving PT-OP-E Functional Tests Start: 11/27/19 18:03 Freq: Status: Active Protocol: Document 11/28/19 13:30 LRN (Rec: 11/28/19 17:00 LRN [id number]) Functional Tests Apley's Scratch Test Action 1- Left Behind shoulders Action 1- Right Behind shoulders Action 2- Left T2 Action 2- Right T2 Action 3- Left T8 Action 3- Right T8 PT-OP-H Neuro Start: 11/27/19 18:03 Freq: Status: Active Protocol: Document 11/28/19 13:30 LRN (Rec: 11/28/19 17:00 LRN [id number]) Sensation Evaluation Comments Summary Comments Pt reports feeling of tightness and decreased sensation around the feet, bilaterally. PT-OP-J Posture/Palpation/Skin Start: 11/27/19 18:03 Freq: Status: Active Protocol: Document 11/28/19 13:30 LRN (Rec: 11/28/19 17:00 LRN [id number]) Posture Evaluation Position Standing Head/C-Spine Posture Forward Head T-Spine Posture Flattened L-Spine Posture Decreased Lordosis Comments Posture Comments Sway back with protruding abdomen. PT-OP-K Range of Motion Start: 11/27/19 18:03 Freq: Status: Active Protocol: Document 11/28/19 13:30 LRN (Rec: 11/28/19 17:00 LRN [id number]) Lumbar Spine Range of Motion Lumbar Spine Active Degrees Testing Position Standing Flexion 100 Extension 15 Rotation Left 30 Rotation Right 30 Lateral Flexion Left 10 Lateral Flexion Right 10 ROM Limitations Soft Tissue Tightness Shoulder Goniometric Range of Motion Shoulder Right Active Testing Position Sitting Flexion 150 Abduction 163 External Rotation at 0 degrees Abduction 50 Internal Rotation Behind Back (text) T8 Left Active Testing Position Sitting Flexion 150 Abduction 158 External Rotation at 0 degrees Abduction 55 Internal Rotation Behind Back (text) T8 PT-OP-L Special Tests Start: 11/27/19 18:03 Freq: Status: Active Protocol: Document 11/28/19 13:30 LRN (Rec: 11/28/19 17:00 LRN [id number]) Special Tests Lumbar Spine Special Tests Straight Leg Raise Test Results negative bilaterally Comments 90+ mobility PT-OP-M Strength Start: 11/27/19 18:03 Freq: Status: Active Protocol: Document 11/28/19 13:30 LRN (Rec: 11/28/19 17:00 LRN [id number]) Trunk Strength Trunk Manual Muscle Testing Testing Position Supine Core Stabilization Trunk ext - stable Trunk flex - unstable Pt unable to maintain stability when rotational stress applied during MMT. Shoulder Strength Shoulder Manual Muscle Testing Right Flexion 4 Good Extension 5 Normal Abduction (C5) 4 Good External Rotation 3- Fair- Internal Rotation 4+ Good+ Left Flexion 4 Good Extension 5 Normal Abduction (C5) 5 Normal External Rotation 3 Fair Internal Rotation 4+ Good+ Elbow/Forearm Strength Elbow and Forearm Manual Muscle Testing Right Flexion (C6) 5 Normal Extension (C7) 5 Normal Left Flexion (C6) 5 Normal Extension (C7) 5 Normal Hip Strength Hip Manual Muscle Testing Left Flexion (L2) 4 Good Extension (S1) 4- Good- Abduction 3 Fair Adduction 5 Normal External Rotation 4- Good- Internal Rotation 4 Good Right Flexion (L2) 4 Good Extension (S1) 4- Good- Abduction 3 Fair Adduction 5 Normal External Rotation 4 Good Internal Rotation 3 Fair PT-OP-Q Treatments Start: 11/27/19 18:03 Freq: Status: Active Protocol: Document 12/29/19 13:50 SP (Rec: 12/29/19 15:47 SP [id number]) Cardio Equipment Recumbent Elliptical (Biodex) Duration (Minutes) 6 Resistance 3 Seat Position 7 Other Working somewhat hard on FILIPE scale Gym Equipment Cable Column (Body Solid) Leg Curl Details Pins: #3 thigh, #14 lower leg, #4 back Resistance 40 Reps/Time 2 x15 Leg Extension Details Pins: #1 thighs, #3 ankles, #5 back Resistance 20 Reps/Time 2x15 Hip Adduction Details Hip AD w/TA tight (leg pin #3, back see 3 holes) Resistance 20 Reps/Time 2x15 Hip Abduction Details Hip AB w/TA tight (leg pin #5 , back see 3 holes ) Resistance 20 Reps/Time 2x15 Therapeutic Exercises Sitting Exercises sit to stands Resistance arom Equipment Used 18 step Reps/Minutes 2x5 Comments hip hinge to assist squat for restacking wood pile Standing Exercises step up/down Standing Exercise Name focus COG over LORI mechanics Equipment Used 6 step Reps/Minutes x5 Lead R and L each Comments cued light contact rail for balance safety. lifting body mechanics Resistance 5-10# Reps/Minutes 3 min Comments off floor, bench, pivot turn lifting to assimultate restacking wook pile PT-OP-T Assessment and Plan Start: 11/27/19 18:03 Freq: Status: Active Protocol: Document 12/29/19 13:50 SP (Rec: 12/29/19 15:47 SP [id number]) Physical Therapy Assessment Rehab Potential Rehabilitation Potential Good Evaluation Complexity Number of Personal Factors/Comorbidities 1-2 Number of Body Systems Impaired 4 or More Clinical Presentation at Evaluation Stable Impairments Impairments Gait,Pain,Posture,Strength Goals Five Impairment Pt not on a self care ex program of gym exercises. Short Term Goal (STG) Pt will be independent in a self care HEP to address strength deficits of core, hips, and shoulders. STG Duration 12/19/19 (12/08/19: Progressing) Care Home Goal (LTG) Return to exer prior function on ex machines. LTG Duration 02/26/20 Four Impairment MICHAEL score of 38 (20-39% impairment) Deputy Sheriff K9 Handler Goal (LTG) Improve function per MICHAEL score 19 or less (1-19% impairment) . LTG Duration 01/27/20 Three Impairment Pain due to poor posturing Short Term Goal (STG) Improve pt awareness of proper posturing with pt able to self assess and correct with visual assist. (12/15/19: 30% aware of posture) STG Duration 12/12/19 (12/15/19: Aware 30% of time) Two Impairment Low back pain with prolonged gait (pain after 1 block to neighbor's house) Deputy Sheriff K9 Handler Goal (LTG) Pt will be able to walk > a block without back pain. LTG Duration 01/27/20 (12/15/19: MET GOAL) One Impairment MMT (hip strength AB bilaterally & IR right is 3/5; shoulder ER 3/5 isaac) Short Term Goal (STG) Improve hip AB & shoulder ER strength no less than 1/2 grade STG Duration 01/12/20 Care Home Goal (LTG) Pt will be able to tolerate ex on gym equipment for hip AB/ AD and rotator cuff (primarily ER) strengthening without pain. LTG Duration 01/27/20 Progress Towards Goals Progress Comments Goal #2 MET. Pt monitoring proper posture ~ 30%. Assessment Summary Assessment Pt able to tolerated increase resistance with HS curl body column today, cued slow muscular control. Rest of tx focused on hip hinge squat and lifting body mechanics to support restacking her wood pile this weekend and back safety, to progress goal #3. Pt improved in decreased knee and back discomfort with education today. It is easier , doesn't hurt. Pt is feeling more confident in machine program last 3 treatments. next tx work toward other suggestions in plan. Physical Therapy Plan Frequency and Duration Frequency of Treatment 2x/Week Plan of Care Start Date 11/28/19 Plan of Care End Date 02/26/20 Therapeutic Interventions Therapeutic Interventions Gait Training,Home Exercise Program,Joint Mobilizations, Manual Therapy,Neuromuscular Re-education,Patient/Caregiver Education,Self-Care/Home Management,Soft Tissue Mobilization,Therapeutic Exercises Modalities Cold Pack/Ice Massage,Electric Stimulation,Hot Packs Next Visit Focus/Plan Next Note Type Treatment Note Next Visit Plan Monitor progress towards goal 3. Didn't add-Next tx: Add hands/knees push for Abdominal strengthening. Progress exercise warm up (recumbent stepper), progression onto a HEP of trunk (flexors & rotators), hip (isaca Flexors), shoulder strengthening ex's ( RC ex's), and end with cryotherapy as needed. Gait training with proper posturing .
--- NOTE | 2020-01-01 14:38 | PT.OTN ---
Current Diagnoses Other intervertebral disc disorders, lumbosacral region (01/01/20) Sciatica, unspecified side (01/01/20) Muscle weakness (generalized) (01/01/20) Pain in right arm (01/01/20) Physical Therapy Treatment Note PT-OP-A Visit Information Start: 11/27/19 18:03 Freq: Status: Active Protocol: Document 01/01/20 13:53 SP (Rec: 01/01/20 16:30 SP [id number]) Out-Patient Physical Therapy Visit Information Visit Information Visit Type Treatment Note Visit Start Time 13:53 Visit Stop Time 14:38 Total Visit Minutes 45 Visit Number 9 Number of BRANCH OFFICE MANAGER Visits 2 PT-OP-B Current Condition Start: 11/27/19 18:03 Freq: Status: Active Protocol: Document 11/28/19 13:30 LRN (Rec: 11/28/19 14:22 LRN [id number]) Current Condition History of Current Condition Onset Date June 2019 Current Complaints Bilateral LBP and R brachium pain History of Current Condition Stopped going to the gym due to COVID 19; therefore the back started to slowly hurt again. The gyms now are getting ready to start up so she wants to be able to get into shape to go back to strengthening at [employer]. 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 Prior Treatments and Tests 1 yr ago was seen for Hemal Sciatic Pain with resolution and transferred onto an exercise gym. Treatment Goals Patient/Caregiver Goals Strengthen enough to go back to gym to be able to work her wood pile, and be able to walk to her neighbors (1 block away) without back pain. Prior Functional Status Baseline Function- ADL's Independent Baseline Function- Mobility Independent Baseline Function- Gait Was able to walk to her neighbors without onset of back pain. Baseline Function- Recreation/Hobbies Exercising in a gym 3x/week. ( Nustep, Leg press, hip AB/AD, knee ext/flex, lat pull down, row, fly was stopped because of R arm pain). Baseline Function- Other Was able to load and unload wood into wheel barrel, wheel it to back porch, and carry it into the house in a sling bag . Current Functional Impairments (Reported) Functional Limitations- Mobility/Gait LBP after walking to neighbors 1 block away. Functional Limitations- Recreation/ No longer exercising in a gym. Hobbies Sept will start moving wood again. Functional Limitations- Other Less mobility with walking due to a limping gait. 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 PT-OP-C Subjective Start: 11/27/19 18:03 Freq: Status: Active Protocol: Document 01/01/20 13:53 SP (Rec: 01/01/20 16:30 SP [id number]) OP-PT Subjective Patient Comments Patient Comments Pt reported restacked wood pile and didn't have much pain in LB with all the helpful squat and lifting did last tx. Pt demonstrated lateral and retro wt shift deviations during conversation walking into clinic today, provided SBA for safety. Pt reported doing clamshells exercises at home. PT-OP-E Functional Tests Start: 11/27/19 18:03 Freq: Status: Active Protocol: Document 11/28/19 13:30 LRN (Rec: 11/28/19 17:00 LRN [id number]) Functional Tests Apley's Scratch Test Action 1- Left Behind shoulders Action 1- Right Behind shoulders Action 2- Left T2 Action 2- Right T2 Action 3- Left T8 Action 3- Right T8 PT-OP-H Neuro Start: 11/27/19 18:03 Freq: Status: Active Protocol: Document 11/28/19 13:30 LRN (Rec: 11/28/19 17:00 LRN [id number]) Sensation Evaluation Comments Summary Comments Pt reports feeling of tightness and decreased sensation around the feet, bilaterally. PT-OP-J Posture/Palpation/Skin Start: 11/27/19 18:03 Freq: Status: Active Protocol: Document 11/28/19 13:30 LRN (Rec: 11/28/19 17:00 LRN [id number]) Posture Evaluation Position Standing Head/C-Spine Posture Forward Head T-Spine Posture Flattened L-Spine Posture Decreased Lordosis Comments Posture Comments Sway back with protruding abdomen. PT-OP-K Range of Motion Start: 11/27/19 18:03 Freq: Status: Active Protocol: Document 11/28/19 13:30 LRN (Rec: 11/28/19 17:00 LRN [id number]) Lumbar Spine Range of Motion Lumbar Spine Active Degrees Testing Position Standing Flexion 100 Extension 15 Rotation Left 30 Rotation Right 30 Lateral Flexion Left 10 Lateral Flexion Right 10 ROM Limitations Soft Tissue Tightness Shoulder Goniometric Range of Motion Shoulder Right Active Testing Position Sitting Flexion 150 Abduction 163 External Rotation at 0 degrees Abduction 50 Internal Rotation Behind Back (text) T8 Left Active Testing Position Sitting Flexion 150 Abduction 158 External Rotation at 0 degrees Abduction 55 Internal Rotation Behind Back (text) T8 PT-OP-L Special Tests Start: 11/27/19 18:03 Freq: Status: Active Protocol: Document 11/28/19 13:30 LRN (Rec: 11/28/19 17:00 LRN [id number]) Special Tests Lumbar Spine Special Tests Straight Leg Raise Test Results negative bilaterally Comments 90+ mobility PT-OP-M Strength Start: 11/27/19 18:03 Freq: Status: Active Protocol: Document 11/28/19 13:30 LRN (Rec: 11/28/19 17:00 LRN [id number]) Trunk Strength Trunk Manual Muscle Testing Testing Position Supine Core Stabilization Trunk ext - stable Trunk flex - unstable Pt unable to maintain stability when rotational stress applied during MMT. Shoulder Strength Shoulder Manual Muscle Testing Right Flexion 4 Good Extension 5 Normal Abduction (C5) 4 Good External Rotation 3- Fair- Internal Rotation 4+ Good+ Left Flexion 4 Good Extension 5 Normal Abduction (C5) 5 Normal External Rotation 3 Fair Internal Rotation 4+ Good+ Elbow/Forearm Strength Elbow and Forearm Manual Muscle Testing Right Flexion (C6) 5 Normal Extension (C7) 5 Normal Left Flexion (C6) 5 Normal Extension (C7) 5 Normal Hip Strength Hip Manual Muscle Testing Left Flexion (L2) 4 Good Extension (S1) 4- Good- Abduction 3 Fair Adduction 5 Normal External Rotation 4- Good- Internal Rotation 4 Good Right Flexion (L2) 4 Good Extension (S1) 4- Good- Abduction 3 Fair Adduction 5 Normal External Rotation 4 Good Internal Rotation 3 Fair PT-OP-Q Treatments Start: 11/27/19 18:03 Freq: Status: Active Protocol: Document 01/01/20 13:53 SP (Rec: 01/01/20 16:30 SP [id number]) Cardio Equipment Recumbent Stepper (Sci-Fit) Duration (Minutes) 6 Resistance 3 Seat Position 9 Other 1.2 miles RPM 23-53 Gym Equipment Cable Column (Body Solid) Leg Curl Details Pins: #3 thigh, #14 lower leg, #4 back Resistance 40 Reps/Time 2 x20 Leg Extension Details Pins: #1 thighs, #3 ankles, #5 back Resistance 20 Reps/Time 2x20 Therapeutic Exercises Supine Exercises LTR Side bilateral Reps/Minutes 30 SKTC Side bilateral Reps/Minutes 30 x2 Bridging w/TA Supine Exercise Name Bridging w/TA Reps/Minutes X10 HEP revie Comments cued PPT core stabilization Sidelying Exercises TA tightening Sidelying Exercise Name TA tightening and with SAN Reps/Minutes 5 holds and 2x SAN review Comments Extra time for training to pull in TA vs bulging out Sitting Exercises piriformis Side bilateral Reps/Minutes 30 x2 PT-OP-T Assessment and Plan Start: 11/27/19 18:03 Freq: Status: Active Protocol: Document 01/01/20 13:53 SP (Rec: 01/01/20 16:30 SP [id number]) Physical Therapy Assessment Goals Five Impairment Pt not on a self care ex program of gym exercises. Short Term Goal (STG) Pt will be independent in a self care HEP to address strength deficits of core, hips, and shoulders. STG Duration 12/19/19 (12/08/19: Progressing) Bead Trimmer Goal (LTG) Return to exer prior function on ex machines. LTG Duration 02/26/20 Four Impairment MICHAEL score of 38 (20-39% impairment) Nursing Home Goal (LTG) Improve function per MICHAEL score 19 or less (1-19% impairment) . LTG Duration 01/27/20 Three Impairment Pain due to poor posturing Short Term Goal (STG) Improve pt awareness of proper posturing with pt able to self assess and correct with visual assist. (12/15/19: 30% aware of posture) STG Duration 12/12/19 (12/15/19: Aware 30% of time) Two Impairment Low back pain with prolonged gait (pain after 1 block to neighbor's house) Nursing Home Goal (LTG) Pt will be able to walk > a block without back pain. LTG Duration 01/27/20 (12/15/19: MET GOAL) One Impairment MMT (hip strength AB bilaterally & IR right is 3/5; shoulder ER 3/5 hemal) Short Term Goal (STG) Improve hip AB & shoulder ER strength no less than 1/2 grade STG Duration 01/12/20 Nursing Home Goal (LTG) Pt will be able to tolerate ex on gym equipment for hip AB/ AD and rotator cuff (primarily ER) strengthening without pain. LTG Duration 01/27/20 Assessment Summary Assessment Pt unsteady upon arrival today , unusual compared to last tx durign conversation and walking to gym area, provided close SBA for safety and educated focus on balance to task where going to decrease risk for falling, verbal agreement. Tx focused on LB stretching / flexibility due to tightness reported when arrived. Reviewed TA and continues cuing for set up and proper performance. Will progress TA standing and eventually balance when safe. Pt improved balance and steady gait when leaving and stated my back feels alot looser, very helpful. Physical Therapy Plan Frequency and Duration Frequency of Treatment 2x/Week Plan of Care Start Date 11/28/19 Plan of Care End Date 02/26/20 Therapeutic Interventions Therapeutic Interventions Gait Training,Home Exercise Program,Joint Mobilizations, Manual Therapy,Neuromuscular Re-education,Patient/Caregiver Education,Self-Care/Home Management,Soft Tissue Mobilization,Therapeutic Exercises Modalities Cold Pack/Ice Massage,Electric Stimulation,Hot Packs Next Visit Focus/Plan Next Note Type Treatment Note Next Visit Plan Assess walking balance upon arrival due to unsteady last tx. Monitor progress towards goal 3. Didn't add-Next tx: Add hands/knees push for Abdominal strengthening!! Progress exercise warm up ( recumbent stepper), progression onto a HEP of trunk (flexors & rotators), hip (hemal Flexors), shoulder strengthening ex's (RC ex's), and end with cryotherapy as needed. Gait training with proper posturing.
--- NOTE | 2020-01-05 14:30 | PT.OTN ---
Current Diagnoses Other intervertebral disc disorders, lumbosacral region (01/05/20) Sciatica, unspecified side (01/05/20) Muscle weakness (generalized) (01/05/20) Pain in right arm (01/05/20) Physical Therapy Treatment Note PT-OP-A Visit Information Start: 11/27/19 18:03 Freq: Status: Active Protocol: Document 01/05/20 13:45 DCW (Rec: 01/05/20 14:30 DCW [id number]) Out-Patient Physical Therapy Visit Information Visit Information Visit Type Treatment Note Visit Start Time 13:45 Visit Stop Time 14:30 Total Visit Minutes 45 Visit Number 10 Number of KNOT TIER Visits 0 PT-OP-B Current Condition Start: 11/27/19 18:03 Freq: Status: Active Protocol: Document 11/28/19 13:30 LRN (Rec: 11/28/19 14:22 LRN [id number]) Current Condition History of Current Condition Onset Date June 2019 Current Complaints Bilateral LBP and R brachium pain History of Current Condition Stopped going to the gym due to COVID 19; therefore the back started to slowly hurt again. The gyms now are getting ready to start up so she wants to be able to get into shape to go back to strengthening at [employer]. 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 Prior Treatments and Tests 1 yr ago was seen for Hemal Sciatic Pain with resolution and transferred onto an exercise gym. Treatment Goals Patient/Caregiver Goals Strengthen enough to go back to gym to be able to work her wood pile, and be able to walk to her neighbors (1 block away) without back pain. Prior Functional Status Baseline Function- ADL's Independent Baseline Function- Mobility Independent Baseline Function- Gait Was able to walk to her neighbors without onset of back pain. Baseline Function- Recreation/Hobbies Exercising in a gym 3x/week. ( Nustep, Leg press, hip AB/AD, knee ext/flex, lat pull down, row, fly was stopped because of R arm pain). Baseline Function- Other Was able to load and unload wood into wheel barrel, wheel it to back porch, and carry it into the house in a sling bag . Current Functional Impairments (Reported) Functional Limitations- Mobility/Gait LBP after walking to neighbors 1 block away. Functional Limitations- Recreation/ No longer exercising in a gym. Hobbies Sept will start moving wood again. Functional Limitations- Other Less mobility with walking due to a limping gait. 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 PT-OP-C Subjective Start: 11/27/19 18:03 Freq: Status: Active Protocol: Document 01/05/20 13:45 DCW (Rec: 01/05/20 14:30 DCW [id number]) OP-PT Subjective Patient Comments Patient Comments Pt notes she is feeling pretty good today. PT-OP-E Functional Tests Start: 11/27/19 18:03 Freq: Status: Active Protocol: Document 11/28/19 13:30 LRN (Rec: 11/28/19 17:00 LRN [id number]) Functional Tests Apley's Scratch Test Action 1- Left Behind shoulders Action 1- Right Behind shoulders Action 2- Left T2 Action 2- Right T2 Action 3- Left T8 Action 3- Right T8 PT-OP-H Neuro Start: 11/27/19 18:03 Freq: Status: Active Protocol: Document 11/28/19 13:30 LRN (Rec: 11/28/19 17:00 LRN [id number]) Sensation Evaluation Comments Summary Comments Pt reports feeling of tightness and decreased sensation around the feet, bilaterally. PT-OP-J Posture/Palpation/Skin Start: 11/27/19 18:03 Freq: Status: Active Protocol: Document 11/28/19 13:30 LRN (Rec: 11/28/19 17:00 LRN [id number]) Posture Evaluation Position Standing Head/C-Spine Posture Forward Head T-Spine Posture Flattened L-Spine Posture Decreased Lordosis Comments Posture Comments Sway back with protruding abdomen. PT-OP-K Range of Motion Start: 11/27/19 18:03 Freq: Status: Active Protocol: Document 11/28/19 13:30 LRN (Rec: 11/28/19 17:00 LRN [id number]) Lumbar Spine Range of Motion Lumbar Spine Active Degrees Testing Position Standing Flexion 100 Extension 15 Rotation Left 30 Rotation Right 30 Lateral Flexion Left 10 Lateral Flexion Right 10 ROM Limitations Soft Tissue Tightness Shoulder Goniometric Range of Motion Shoulder Right Active Testing Position Sitting Flexion 150 Abduction 163 External Rotation at 0 degrees Abduction 50 Internal Rotation Behind Back (text) T8 Left Active Testing Position Sitting Flexion 150 Abduction 158 External Rotation at 0 degrees Abduction 55 Internal Rotation Behind Back (text) T8 PT-OP-L Special Tests Start: 11/27/19 18:03 Freq: Status: Active Protocol: Document 11/28/19 13:30 LRN (Rec: 11/28/19 17:00 LRN [id number]) Special Tests Lumbar Spine Special Tests Straight Leg Raise Test Results negative bilaterally Comments 90+ mobility PT-OP-M Strength Start: 11/27/19 18:03 Freq: Status: Active Protocol: Document 11/28/19 13:30 LRN (Rec: 11/28/19 17:00 LRN [id number]) Trunk Strength Trunk Manual Muscle Testing Testing Position Supine Core Stabilization Trunk ext - stable Trunk flex - unstable Pt unable to maintain stability when rotational stress applied during MMT. Shoulder Strength Shoulder Manual Muscle Testing Right Flexion 4 Good Extension 5 Normal Abduction (C5) 4 Good External Rotation 3- Fair- Internal Rotation 4+ Good+ Left Flexion 4 Good Extension 5 Normal Abduction (C5) 5 Normal External Rotation 3 Fair Internal Rotation 4+ Good+ Elbow/Forearm Strength Elbow and Forearm Manual Muscle Testing Right Flexion (C6) 5 Normal Extension (C7) 5 Normal Left Flexion (C6) 5 Normal Extension (C7) 5 Normal Hip Strength Hip Manual Muscle Testing Left Flexion (L2) 4 Good Extension (S1) 4- Good- Abduction 3 Fair Adduction 5 Normal External Rotation 4- Good- Internal Rotation 4 Good Right Flexion (L2) 4 Good Extension (S1) 4- Good- Abduction 3 Fair Adduction 5 Normal External Rotation 4 Good Internal Rotation 3 Fair PT-OP-Q Treatments Start: 11/27/19 18:03 Freq: Status: Active Protocol: Document 01/05/20 13:45 DCW (Rec: 01/05/20 14:30 DCW [id number]) Cardio Equipment Recumbent Elliptical (Biodex) Duration (Minutes) 6 Resistance 4 Seat Position 7 Other Working somewhat hard on FILIPE scale Gym Equipment Cable Column (Body Solid) Leg Curl Details Pins: #3 thigh, #14 lower leg, #4 back Resistance 40 Reps/Time 2 x15 Leg Extension Details Pins: #1 thighs, #3 ankles, #5 back Resistance 20 Reps/Time 2x15 Hip Adduction Details Hip AD w/TA tight (leg pin #3, back see 3 holes) Resistance 20 Reps/Time 2x15 Hip Abduction Details Hip AB w/TA tight (leg pin #5 , back see 3 holes ) Resistance 20 Reps/Time 2x15 Therapeutic Exercises Supine Exercises Piriformis stretch Supine Exercise Name Figure-4 LTR Side bilateral Reps/Minutes 30 SKTC Side bilateral Reps/Minutes 30 x2 Sitting Exercises Retro lean Sitting Exercise Name Retro fall into wall PT-OP-T Assessment and Plan Start: 11/27/19 18:03 Freq: Status: Active Protocol: Document 01/05/20 13:45 DCW (Rec: 01/05/20 14:30 DCW [id number]) Physical Therapy Assessment Impairments Impairments Gait,Pain,Posture,Strength Goals Five Impairment Pt not on a self care ex program of gym exercises. Short Term Goal (STG) Pt will be independent in a self care HEP to address strength deficits of core, hips, and shoulders. STG Duration 12/19/19 (12/08/19: Progressing) Ad Copy Writer Goal (LTG) Return to exer prior function on ex machines. LTG Duration 02/26/20 Four Impairment MICHAEL score of 38 (20-39% impairment) Ad Copy Writer Goal (LTG) Improve function per MICHAEL score 19 or less (1-19% impairment) . LTG Duration 01/27/20 Three Impairment Pain due to poor posturing Short Term Goal (STG) Improve pt awareness of proper posturing with pt able to self assess and correct with visual assist. (12/15/19: 30% aware of posture) STG Duration 12/12/19 (12/15/19: Aware 30% of time) Two Impairment Low back pain with prolonged gait (pain after 1 block to neighbor's house) Ad Copy Writer Goal (LTG) Pt will be able to walk > a block without back pain. LTG Duration 01/27/20 (12/15/19: MET GOAL) One Impairment MMT (hip strength AB bilaterally & IR right is 3/5; shoulder ER 3/5 hemal) Short Term Goal (STG) Improve hip AB & shoulder ER strength no less than 1/2 grade STG Duration 01/12/20 Ad Copy Writer Goal (LTG) Pt will be able to tolerate ex on gym equipment for hip AB/ AD and rotator cuff (primarily ER) strengthening without pain. LTG Duration 01/27/20 Assessment Summary Assessment Pt walking better today, tolerated new core exercise and piriformis stretch very well. Pt feeling like she has improved overall since starting therapy, less feeling of tightness through back and hips. Physical Therapy Plan Frequency and Duration Frequency of Treatment 2x/Week Plan of Care Start Date 11/28/19 Plan of Care End Date 02/26/20 Therapeutic Interventions Therapeutic Interventions Gait Training,Home Exercise Program,Joint Mobilizations, Manual Therapy,Neuromuscular Re-education,Patient/Caregiver Education,Self-Care/Home Management,Soft Tissue Mobilization,Therapeutic Exercises Modalities Cold Pack/Ice Massage,Electric Stimulation,Hot Packs Next Visit Focus/Plan Next Note Type Treatment Note Next Visit Plan Monitor progress towards goal 3. Didn't add-Next tx: Add hands/knees push for Abdominal strengthening!! Progress exercise warm up (recumbent stepper), progression onto a HEP of trunk (flexors & rotators), hip (hemal Flexors), shoulder strengthening ex's ( RC ex's), and end with cryotherapy as needed. Gait training with proper posturing .
--- NOTE | 2020-01-09 17:10 | PT.OTN ---
Current Diagnoses Other intervertebral disc disorders, lumbosacral region (01/09/20) Sciatica, unspecified side (01/09/20) Muscle weakness (generalized) (01/09/20) Pain in right arm (01/09/20) Physical Therapy Treatment Note PT-OP-A Visit Information Start: 11/27/19 18:03 Freq: Status: Active Protocol: Document 01/09/20 12:50 LRN (Rec: 01/09/20 13:34 LRN [id number]) Out-Patient Physical Therapy Visit Information Visit Information Visit Type Treatment Note Visit Start Time 12:50 Visit Stop Time 13:32 Total Visit Minutes 42 Visit Number 11 PT-OP-B Current Condition Start: 11/27/19 18:03 Freq: Status: Active Protocol: Document 11/28/19 13:30 LRN (Rec: 11/28/19 14:22 LRN [id number]) Current Condition History of Current Condition Onset Date June 2019 Current Complaints Bilateral LBP and R brachium pain History of Current Condition Stopped going to the gym due to COVID 19; therefore the back started to slowly hurt again. The gyms now are getting ready to start up so she wants to be able to get into shape to go back to strengthening at [employer]. 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 Prior Treatments and Tests 1 yr ago was seen for Hemal Sciatic Pain with resolution and transferred onto an exercise gym. Treatment Goals Patient/Caregiver Goals Strengthen enough to go back to gym to be able to work her wood pile, and be able to walk to her neighbors (1 block away) without back pain. Prior Functional Status Baseline Function- ADL's Independent Baseline Function- Mobility Independent Baseline Function- Gait Was able to walk to her neighbors without onset of back pain. Baseline Function- Recreation/Hobbies Exercising in a gym 3x/week. ( Nustep, Leg press, hip AB/AD, knee ext/flex, lat pull down, row, fly was stopped because of R arm pain). Baseline Function- Other Was able to load and unload wood into wheel barrel, wheel it to back porch, and carry it into the house in a sling bag . Current Functional Impairments (Reported) Functional Limitations- Mobility/Gait LBP after walking to neighbors 1 block away. Functional Limitations- Recreation/ No longer exercising in a gym. Hobbies Sept will start moving wood again. Functional Limitations- Other Less mobility with walking due to a limping gait. 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 PT-OP-C Subjective Start: 11/27/19 18:03 Freq: Status: Active Protocol: Document 01/09/20 12:50 LRN (Rec: 01/09/20 13:34 LRN [id number]) OP-PT Subjective Patient Comments Patient Comments States therapy is working and she worked her wood pile and got some sciatic pain and did the stretches (lateral hip, pirifromis, KTC, trunk rot). States she is not consistent with HEP but is happy because she could work the woodpile and do the home stretches to manage the back pain. PT-OP-E Functional Tests Start: 11/27/19 18:03 Freq: Status: Active Protocol: Document 11/28/19 13:30 LRN (Rec: 11/28/19 17:00 LRN [id number]) Functional Tests Apley's Scratch Test Action 1- Left Behind shoulders Action 1- Right Behind shoulders Action 2- Left T2 Action 2- Right T2 Action 3- Left T8 Action 3- Right T8 PT-OP-H Neuro Start: 11/27/19 18:03 Freq: Status: Active Protocol: Document 11/28/19 13:30 LRN (Rec: 11/28/19 17:00 LRN [id number]) Sensation Evaluation Comments Summary Comments Pt reports feeling of tightness and decreased sensation around the feet, bilaterally. PT-OP-J Posture/Palpation/Skin Start: 11/27/19 18:03 Freq: Status: Active Protocol: Document 11/28/19 13:30 LRN (Rec: 11/28/19 17:00 LRN [id number]) Posture Evaluation Position Standing Head/C-Spine Posture Forward Head T-Spine Posture Flattened L-Spine Posture Decreased Lordosis Comments Posture Comments Sway back with protruding abdomen. PT-OP-K Range of Motion Start: 11/27/19 18:03 Freq: Status: Active Protocol: Document 11/28/19 13:30 LRN (Rec: 11/28/19 17:00 LRN [id number]) Lumbar Spine Range of Motion Lumbar Spine Active Degrees Testing Position Standing Flexion 100 Extension 15 Rotation Left 30 Rotation Right 30 Lateral Flexion Left 10 Lateral Flexion Right 10 ROM Limitations Soft Tissue Tightness Shoulder Goniometric Range of Motion Shoulder Right Active Testing Position Sitting Flexion 150 Abduction 163 External Rotation at 0 degrees Abduction 50 Internal Rotation Behind Back (text) T8 Left Active Testing Position Sitting Flexion 150 Abduction 158 External Rotation at 0 degrees Abduction 55 Internal Rotation Behind Back (text) T8 PT-OP-L Special Tests Start: 11/27/19 18:03 Freq: Status: Active Protocol: Document 11/28/19 13:30 LRN (Rec: 11/28/19 17:00 LRN [id number]) Special Tests Lumbar Spine Special Tests Straight Leg Raise Test Results negative bilaterally Comments 90+ mobility PT-OP-M Strength Start: 11/27/19 18:03 Freq: Status: Active Protocol: Document 01/09/20 12:50 LRN (Rec: 01/09/20 17:08 LRN [id number]) Shoulder Strength Shoulder Manual Muscle Testing Right Flexion 3- Fair- Abduction (C5) 3- Fair- External Rotation 3 Fair Internal Rotation 3 Fair Left Flexion 3 Fair Abduction (C5) 3+ Fair+ External Rotation 3+ Fair+ Internal Rotation 3 Fair Hip Strength Hip Manual Muscle Testing Left Abduction 4 Good Adduction 3+ Fair+ Right Abduction 3 Fair Adduction 2+ Poor+ PT-OP-Q Treatments Start: 11/27/19 18:03 Freq: Status: Active Protocol: Document 01/09/20 12:50 LRN (Rec: 01/09/20 13:34 LRN [id number]) Therapeutic Exercises Supine Exercises Piriformis stretch Supine Exercise Name Figure-4 LTR Side bilateral Reps/Minutes 30 SKTC Side bilateral Reps/Minutes 30 x2 Sidelying Exercises Hip AD w/TA Sidelying Exercise Name Hip AB w/TA tightening Hip AB w/TA Sidelying Exercise Name Hip AB w/TA tightening Side bilateral Clamshell w/TA Sidelying Exercise Name Clamshell w/TA Side bilateral Comments Training needed to prevent roll back Sitting Exercises Horiz AB/AD Sitting Exercise Name Elbows 90 deg's flex Side bilateral Reps/Minutes 4' Shoulder horz AB/AD Sitting Exercise Name Shoulder ER 90/elbow 90/90 for horiz AB/AD Side bilateral Reps/Minutes 7' Comments With and without support Standing Exercises Shoulder ER Standing Exercise Name ER strengthening Side bilateral Equipment Used Lev 1 T-Band Reps/Minutes 10 x 2 Comments Assist needed for R side Shoulder IR Standing Exercise Name IR Strengthening Side bilateral Equipment Used Lev 1 T-Band Reps/Minutes 10x 2 Comments Training needed for keeping elbows at sides Self-Care/Home Management Treatment Education Patient Education Home Exercise Program Activities Self-Care/Home Management Activities Reissued and reviewed HEP: Shoulder ER/IR strengthening with T-Band, R>L. PT-OP-T Assessment and Plan Start: 11/27/19 18:03 Freq: Status: Active Protocol: Document 01/09/20 12:50 LRN (Rec: 01/09/20 13:34 LRN [id number]) Physical Therapy Assessment Rehab Potential Rehabilitation Potential Good Evaluation Complexity Number of Personal Factors/Comorbidities 1-2 Number of Body Systems Impaired 4 or More Clinical Presentation at Evaluation Stable Impairments Impairments Gait,Pain,Posture,Strength Goals Five Impairment Pt not on a self care ex program of gym exercises. Short Term Goal (STG) Pt will be independent in a self care HEP to address strength deficits of core, hips, and shoulders. STG Duration 02/02/20 (12/08/19: Progressing ) Senior Living Goal (LTG) Return to exer prior function on ex machines. LTG Duration 02/26/20 (01/09/20: On LE ex's) Four Impairment MICHAEL score of 38 (20-39% impairment) Senior Living Goal (LTG) Improve function per MICHAEL score 19 or less (1-19% impairment) . (01/09/20: Improved, MICHAEL score is 28) LTG Duration 02/26/20 (01/09/20: Improving) Three Impairment Pain due to poor posturing Short Term Goal (STG) Improve pt awareness of proper posturing with pt able to self assess and correct with visual assist. (01/09/20: Pt feels she is able to self correct posture if she see's herself) STG Duration 12/12/19 (01/09/20: MET GOAL) Two Impairment Low back pain with prolonged gait (pain after 1 block to neighbor's house) Senior Living Goal (LTG) Pt will be able to walk > a block without back pain. LTG Duration 01/27/20 (12/15/19: MET GOAL) One Impairment MMT (hip strength AB bilaterally & IR right is 3/5; shoulder ER 3/5 hemal) Short Term Goal (STG) Improve hip AB & shoulder ER strength no less than 1/2 grade. (01/09/20: Hip AB and Shoulder ER: Met Goal on left, no change right - 3/5; Shoulder ER no change right - 3/5). STG Duration 02/02/20 (01/09/20: Progressing, met for L side) Brazing Furnace Operator Goal (LTG) Pt will be able to tolerate ex on gym equipment for hip AB/ AD and rotator cuff (primarily ER) strengthening without pain. LTG Duration 02/26/20 (01/09/20: Progressing, needs progression onto RC strengthening) Assessment Summary Assessment Pt has made good improvement in strength and function with strengthening of her core, hips and shoulders (see goals) . Her function has improved per subjective report and per MICHAEL score (from 38 to 28) although rating is the same at 20-39% impairment. The pt will benefit from continuation of therapy to improve her R shoulder/hip strength and further core strengthening and to progress her back to an exercise program at the local [employer]. Physical Therapy Plan Frequency and Duration Frequency of Treatment 2x/Week Plan of Care Start Date 11/28/19 Plan of Care End Date 02/26/20 Therapeutic Interventions Therapeutic Interventions Gait Training,Home Exercise Program,Joint Mobilizations, Manual Therapy,Neuromuscular Re-education,Patient/Caregiver Education,Self-Care/Home Management,Soft Tissue Mobilization,Therapeutic Exercises Modalities Cold Pack/Ice Massage,Electric Stimulation,Hot Packs Next Visit Focus/Plan Next Note Type Treatment Note Next Visit Plan Next tx: Add UE ex equipment equivalent strengthening for progression onto [employer] ex program. Add: hands/knees push for Abdominal strengthening!! Progress exercise warm up ( recumbent stepper), Progression onto a HEP of trunk (flexors & rotators), hip (hemal Flexors), shoulder strengthening ex's (RC ex's), Gait training with proper posturing, End with cryotherapy as needed .
--- NOTE | 2020-01-09 17:11 | PT.OPPOC ---
Physical, Occupational & Speech Therapy At [facility] Current Diagnoses Other intervertebral disc disorders, lumbosacral region (01/09/20) Sciatica, unspecified side (01/09/20) Muscle weakness (generalized) (01/09/20) Pain in right arm (01/09/20) Visit Care Team Role Provider Type CADEN Lyon Attending Provider Non-Staff Family Provider Primary Care Provider Referring Provider Specialty: Naturopathy Address: [address] [place] [address], [id number] Email: Plan Of Care PT-OP-T Assessment and Plan Start: 11/27/19 18:03 Freq: Status: Active Protocol: Document 01/09/20 12:50 LRN (Rec: 01/09/20 13:34 LRN [id number]) Physical Therapy Assessment Rehab Potential Rehabilitation Potential Good Evaluation Complexity Number of Personal Factors/Comorbidities 1-2 Number of Body Systems Impaired 4 or More Clinical Presentation at Evaluation Stable Impairments Impairments Gait,Pain,Posture,Strength Goals Five Impairment Pt not on a self care ex program of gym exercises. Short Term Goal (STG) Pt will be independent in a self care HEP to address strength deficits of core, hips, and shoulders. STG Duration 02/02/20 (12/08/19: Progressing ) Retirement Goal (LTG) Return to exer prior function on ex machines. LTG Duration 02/26/20 (01/09/20: On LE ex's) Four Impairment MICHAEL score of 38 (20-39% impairment) Stonecutter Goal (LTG) Improve function per MICHAEL score 19 or less (1-19% impairment) . (01/09/20: Improved, MICHAEL score is 28) LTG Duration 02/26/20 (01/09/20: Improving) Three Impairment Pain due to poor posturing Short Term Goal (STG) Improve pt awareness of proper posturing with pt able to self assess and correct with visual assist. (01/09/20: Pt feels she is able to self correct posture if she see's herself) STG Duration 12/12/19 (01/09/20: MET GOAL) Two Impairment Low back pain with prolonged gait (pain after 1 block to neighbor's house) Retirement Goal (LTG) Pt will be able to walk > a block without back pain. LTG Duration 01/27/20 (12/15/19: MET GOAL) One Impairment MMT (hip strength AB bilaterally & IR right is 3/5; shoulder ER 3/5 isaac) Short Term Goal (STG) Improve hip AB & shoulder ER strength no less than 1/2 grade. (01/09/20: Hip AB and Shoulder ER: Met Goal on left, no change right - 3/5; Shoulder ER no change right - 3/5). STG Duration 02/02/20 (01/09/20: Progressing, met for L side) Retirement Goal (LTG) Pt will be able to tolerate ex on gym equipment for hip AB/ AD and rotator cuff (primarily ER) strengthening without pain. LTG Duration 02/26/20 (01/09/20: Progressing, needs progression onto RC strengthening) Assessment Summary Assessment Pt has made good improvement in strength and function with strengthening of her core, hips and shoulders (see goals) . Her function has improved per subjective report and per MICHAEL score (from 38 to 28) although rating is the same at 20-39% impairment. The pt will benefit from continuation of therapy to improve her R shoulder/hip strength and further core strengthening and to progress her back to an exercise program at the local [facility]. Physical Therapy Plan Frequency and Duration Frequency of Treatment 2x/Week Plan of Care Start Date 11/28/19 Plan of Care End Date 02/26/20 Therapeutic Interventions Therapeutic Interventions Gait Training,Home Exercise Program,Joint Mobilizations, Manual Therapy,Neuromuscular Re-education,Patient/Caregiver Education,Self-Care/Home Management,Soft Tissue Mobilization,Therapeutic Exercises Modalities Cold Pack/Ice Massage,Electric Stimulation,Hot Packs Next Visit Focus/Plan Next Note Type Treatment Note Next Visit Plan Next tx: Add UE ex equipment equivalent strengthening for progression onto [employer] [facility] ex program. Add: hands/knees push for Abdominal strengthening!! Progress exercise warm up ( recumbent stepper), Progression onto a HEP of trunk (flexors & rotators), hip (isaac Flexors), shoulder strengthening ex's (RC ex's), Gait training with proper posturing, End with cryotherapy as needed . Plan of Care Dates Plan of Care Start Date 11/28/19 Plan of Care End Date 02/26/20 Electronically Signed by: Maira Anthony, PT 01/09/20 2322 Please Sign and Return: I have reviewed this Plan of Care and certify that the skilled therapy services above are required to meet the patient?s needs. Physician Signature Date Printed Name and Credentials Clinical Instructor Signature Printed Name and Credentials
--- NOTE | 2020-01-11 17:16 | PT.OTN ---
Current Diagnoses Other intervertebral disc disorders, lumbosacral region (01/11/20) Sciatica, unspecified side (01/11/20) Muscle weakness (generalized) (01/11/20) Pain in right arm (01/11/20) Physical Therapy Treatment Note PT-OP-A Visit Information Start: 11/27/19 18:03 Freq: Status: Active Protocol: Document 01/11/20 12:48 LRN (Rec: 01/11/20 13:33 LRN [id number]) Out-Patient Physical Therapy Visit Information Visit Information Visit Type Treatment Note Visit Start Time 12:48 Visit Stop Time 13:30 Total Visit Minutes 42 Visit Number 12 Evaluation Information Evaluation Date 11/28/19 Precautions Precautions Arthritis most notable in R knee, Diabetes type II controlled by medication, umbilical hernia rpr 10 yrs ago. 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 PT-OP-B Current Condition Start: 11/27/19 18:03 Freq: Status: Active Protocol: Document 11/28/19 13:30 LRN (Rec: 11/28/19 14:22 LRN [id number]) Current Condition History of Current Condition Onset Date June 2019 Current Complaints Bilateral LBP and R brachium pain History of Current Condition Stopped going to the gym due to COVID 19; therefore the back started to slowly hurt again. The gyms now are getting ready to start up so she wants to be able to get into shape to go back to strengthening at [facility]. 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 Prior Treatments and Tests 1 yr ago was seen for Isaac Sciatic Pain with resolution and transferred onto an exercise gym. Treatment Goals Patient/Caregiver Goals Strengthen enough to go back to gym to be able to work her wood pile, and be able to walk to her neighbors (1 block away) without back pain. Prior Functional Status Baseline Function- ADL's Independent Baseline Function- Mobility Independent Baseline Function- Gait Was able to walk to her neighbors without onset of back pain. Baseline Function- Recreation/Hobbies Exercising in a gym 3x/week. ( Nustep, Leg press, hip AB/AD, knee ext/flex, lat pull down, row, fly was stopped because of R arm pain). Baseline Function- Other Was able to load and unload wood into wheel barrel, wheel it to back porch, and carry it into the house in a sling bag . Current Functional Impairments (Reported) Functional Limitations- Mobility/Gait LBP after walking to neighbors 1 block away. Functional Limitations- Recreation/ No longer exercising in a gym. Hobbies Sept will start moving wood again. Functional Limitations- Other Less mobility with walking due to a limping gait. 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 PT-OP-C Subjective Start: 11/27/19 18:03 Freq: Status: Active Protocol: Document 01/11/20 12:48 LRN (Rec: 01/11/20 13:33 LRN [id number]) OP-PT Subjective Patient Comments Patient Comments States she went to the ex gym and has pictures that she would like to review to try and transition onto. Patient Questionnaires Oswestry Low Back Index Oswestry Score 28 (Late entry, completed 01/08) Oswestry Impairment 20 to 39% Impaired (Score 20- 39) OP-PT Pain Assessment Pain Assessment Grid Paper Pain Assessment Grid Completed Yes: Late entry, completed 01/09/20 Location R brachium Pain Location Details R Anterolateral Brachium Intensity 4 Scale Used Numeric (0 - 10) LB Pain Location Details Low back Intensity 6 Scale Used Numeric (0 - 10) PT-OP-E Functional Tests Start: 11/27/19 18:03 Freq: Status: Active Protocol: Document 11/28/19 13:30 LRN (Rec: 11/28/19 17:00 LRN [id number]) Functional Tests Apley's Scratch Test Action 1- Left Behind shoulders Action 1- Right Behind shoulders Action 2- Left T2 Action 2- Right T2 Action 3- Left T8 Action 3- Right T8 PT-OP-H Neuro Start: 11/27/19 18:03 Freq: Status: Active Protocol: Document 11/28/19 13:30 LRN (Rec: 11/28/19 17:00 LRN [id number]) Sensation Evaluation Comments Summary Comments Pt reports feeling of tightness and decreased sensation around the feet, bilaterally. PT-OP-J Posture/Palpation/Skin Start: 11/27/19 18:03 Freq: Status: Active Protocol: Document 11/28/19 13:30 LRN (Rec: 11/28/19 17:00 LRN [id number]) Posture Evaluation Position Standing Head/C-Spine Posture Forward Head T-Spine Posture Flattened L-Spine Posture Decreased Lordosis Comments Posture Comments Sway back with protruding abdomen. PT-OP-K Range of Motion Start: 11/27/19 18:03 Freq: Status: Active Protocol: Document 11/28/19 13:30 LRN (Rec: 11/28/19 17:00 LRN [id number]) Lumbar Spine Range of Motion Lumbar Spine Active Degrees Testing Position Standing Flexion 100 Extension 15 Rotation Left 30 Rotation Right 30 Lateral Flexion Left 10 Lateral Flexion Right 10 ROM Limitations Soft Tissue Tightness Shoulder Goniometric Range of Motion Shoulder Right Active Testing Position Sitting Flexion 150 Abduction 163 External Rotation at 0 degrees Abduction 50 Internal Rotation Behind Back (text) T8 Left Active Testing Position Sitting Flexion 150 Abduction 158 External Rotation at 0 degrees Abduction 55 Internal Rotation Behind Back (text) T8 PT-OP-L Special Tests Start: 11/27/19 18:03 Freq: Status: Active Protocol: Document 11/28/19 13:30 LRN (Rec: 11/28/19 17:00 LRN [id number]) Special Tests Lumbar Spine Special Tests Straight Leg Raise Test Results negative bilaterally Comments 90+ mobility PT-OP-M Strength Start: 11/27/19 18:03 Freq: Status: Active Protocol: Document 01/09/20 12:50 LRN (Rec: 01/09/20 17:08 LRN [id number]) Shoulder Strength Shoulder Manual Muscle Testing Right Flexion 3- Fair- Abduction (C5) 3- Fair- External Rotation 3 Fair Internal Rotation 3 Fair Left Flexion 3 Fair Abduction (C5) 3+ Fair+ External Rotation 3+ Fair+ Internal Rotation 3 Fair Hip Strength Hip Manual Muscle Testing Left Abduction 4 Good Adduction 3+ Fair+ Right Abduction 3 Fair Adduction 2+ Poor+ PT-OP-Q Treatments Start: 11/27/19 18:03 Freq: Status: Active Protocol: Document 01/11/20 12:48 LRN (Rec: 01/11/20 13:33 LRN [id number]) Cardio Equipment Recumbent Elliptical ([employer]) Duration (Minutes) 7 Resistance 4 Seat Position 7 Other Working somewhat hard on FILIPE scale Gym Equipment Cable Column (Body Solid) Lat Pull Down Details Lat Pull Down Resistance 10# 10x 3 Leg Curl Details Wheel Pin #14, Seat 4 holes showing Resistance 40# Reps/Time 10x Leg Extension Details Wheel Pin #2, Seat 4 holes showing Resistance 20# Reps/Time 8x Hip Adduction Details Hip AD w/TA tight (leg pin #3, back see 3 holes) Resistance 30# Reps/Time 10x 3 Hip Abduction Details Hip AB w/TA tight (leg pin #5 , back see 3 holes ) Resistance 20#, 30# Reps/Time 10x 2, 10x respectively Shuttle Recovery Bilateral Squats Details Isaac squats Resistance 50# Shuttle Recovery Platform Stable Reps/Time 10x 3 Therapeutic Exercises Standing Exercises Shoulder Horiz AB Standing Exercise Name Horiz AB w/arm resting on table Side bilateral Resistance Lev 1 Tband Self-Care/Home Management Treatment Education Patient Education Home Exercise Program Other Education Reviewed pt's pictures of the ex gym equipment she will be going to s/p therapy. Discussed appropriateness of the exercise. PT-OP-T Assessment and Plan Start: 11/27/19 18:03 Freq: Status: Active Protocol: Document 01/11/20 12:48 LRN (Rec: 01/11/20 13:33 LRN [id number]) Physical Therapy Assessment Goals Five Impairment Pt not on a self care ex program of gym exercises. Short Term Goal (STG) Pt will be independent in a self care HEP to address strength deficits of core, hips, and shoulders. STG Duration 02/02/20 (12/08/19: Progressing ) Showroom Executive Director Goal (LTG) Return to exer prior function on ex machines. LTG Duration 02/26/20 (01/09/20: On LE ex's) Four Impairment MICHAEL score of 38 (20-39% impairment) Assisted Goal (LTG) Improve function per MICHAEL score 19 or less (1-19% impairment) . (01/09/20: Improved, MICHAEL score is 28) LTG Duration 02/26/20 (01/09/20: Improving) Three Impairment Pain due to poor posturing Short Term Goal (STG) Improve pt awareness of proper posturing with pt able to self assess and correct with visual assist. (01/09/20: Pt feels she is able to self correct posture if she see's herself) STG Duration 12/12/19 (01/09/20: MET GOAL) Two Impairment Low back pain with prolonged gait (pain after 1 block to neighbor's house) Assisted Goal (LTG) Pt will be able to walk > a block without back pain. LTG Duration 01/27/20 (12/15/19: MET GOAL) One Impairment MMT (hip strength AB bilaterally & IR right is 3/5; shoulder ER 3/5 isaac) Short Term Goal (STG) Improve hip AB & shoulder ER strength no less than 1/2 grade. (01/09/20: Hip AB and Shoulder ER: Met Goal on left, no change right - 3/5; Shoulder ER no change right - 3/5). STG Duration 02/02/20 (01/09/20: Progressing, met for L side) Showroom Executive Director Goal (LTG) Pt will be able to tolerate ex on gym equipment for hip AB/ AD and rotator cuff (primarily ER) strengthening without pain. LTG Duration 02/26/20 (01/09/20: Progressing, needs progression onto RC strengthening) Progress Towards Goals Progress Comments Goal #5: Progressing onto exercise equipment. Assessment Summary Assessment Pt was able to progress onto a LE and partial UE ex program similiar to her prior program without complaints of back pain. Pt has poor core awareness and needs phys & verbal cuing during the exercises today. Physical Therapy Plan Frequency and Duration Frequency of Treatment 2x/Week Plan of Care Start Date 11/28/19 Plan of Care End Date 02/26/20 Next Visit Focus/Plan Next Note Type Treatment Note Next Visit Plan Next tx: Progress aerobic conditioning & complete adding UE ex equipment equivalent strengthening for progression onto [facility] [facility] ex program. Add: hands/knees push for Abdominal strengthening!! Progression onto a HEP of trunk (flexors & rotators), hip (isaac Flexors), shoulder strengthening ex's (RC ex's), Gait training with proper posturing, End with cryotherapy as needed .
--- NOTE | 2020-01-16 13:39 | PT.OTN ---
Current Diagnoses Other intervertebral disc disorders, lumbosacral region (01/16/20) Sciatica, unspecified side (01/16/20) Muscle weakness (generalized) (01/16/20) Pain in right arm (01/16/20) Physical Therapy Treatment Note PT-OP-A Visit Information Start: 11/27/19 18:03 Freq: Status: Active Protocol: Document 01/16/20 12:52 LRN (Rec: 01/16/20 13:35 LRN [id number]) Out-Patient Physical Therapy Visit Information Visit Information Visit Type Treatment Note Visit Start Time 12:52 Visit Stop Time 13:32 Total Visit Minutes 40 Visit Number 13 Evaluation Information Evaluation Date 11/28/19 Precautions Precautions Arthritis most notable in R knee, Diabetes type II controlled by medication, umbilical hernia rpr 10 yrs ago. 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 PT-OP-B Current Condition Start: 11/27/19 18:03 Freq: Status: Active Protocol: Document 11/28/19 13:30 LRN (Rec: 11/28/19 14:22 LRN [id number]) Current Condition History of Current Condition Onset Date June 2019 Current Complaints Bilateral LBP and R brachium pain History of Current Condition Stopped going to the gym due to COVID 19; therefore the back started to slowly hurt again. The gyms now are getting ready to start up so she wants to be able to get into shape to go back to strengthening at [facility]. 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 Prior Treatments and Tests 1 yr ago was seen for Isaac Sciatic Pain with resolution and transferred onto an exercise gym. Treatment Goals Patient/Caregiver Goals Strengthen enough to go back to gym to be able to work her wood pile, and be able to walk to her neighbors (1 block away) without back pain. Prior Functional Status Baseline Function- ADL's Independent Baseline Function- Mobility Independent Baseline Function- Gait Was able to walk to her neighbors without onset of back pain. Baseline Function- Recreation/Hobbies Exercising in a gym 3x/week. ( Nustep, Leg press, hip AB/AD, knee ext/flex, lat pull down, row, fly was stopped because of R arm pain). Baseline Function- Other Was able to load and unload wood into wheel barrel, wheel it to back porch, and carry it into the house in a sling bag . Current Functional Impairments (Reported) Functional Limitations- Mobility/Gait LBP after walking to neighbors 1 block away. Functional Limitations- Recreation/ No longer exercising in a gym. Hobbies Sept will start moving wood again. Functional Limitations- Other Less mobility with walking due to a limping gait. 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 PT-OP-C Subjective Start: 11/27/19 18:03 Freq: Status: Active Protocol: Document 01/16/20 12:52 LRN (Rec: 01/16/20 13:35 LRN [id number]) OP-PT Subjective Patient Comments Patient Comments Twinges of pain in the back. Limiting yardwork based on when back starts to bother her . PT-OP-E Functional Tests Start: 11/27/19 18:03 Freq: Status: Active Protocol: Document 11/28/19 13:30 LRN (Rec: 11/28/19 17:00 LRN [id number]) Functional Tests Apley's Scratch Test Action 1- Left Behind shoulders Action 1- Right Behind shoulders Action 2- Left T2 Action 2- Right T2 Action 3- Left T8 Action 3- Right T8 PT-OP-H Neuro Start: 11/27/19 18:03 Freq: Status: Active Protocol: Document 11/28/19 13:30 LRN (Rec: 11/28/19 17:00 LRN [id number]) Sensation Evaluation Comments Summary Comments Pt reports feeling of tightness and decreased sensation around the feet, bilaterally. PT-OP-J Posture/Palpation/Skin Start: 11/27/19 18:03 Freq: Status: Active Protocol: Document 11/28/19 13:30 LRN (Rec: 11/28/19 17:00 LRN [id number]) Posture Evaluation Position Standing Head/C-Spine Posture Forward Head T-Spine Posture Flattened L-Spine Posture Decreased Lordosis Comments Posture Comments Sway back with protruding abdomen. PT-OP-K Range of Motion Start: 11/27/19 18:03 Freq: Status: Active Protocol: Document 11/28/19 13:30 LRN (Rec: 11/28/19 17:00 LRN [id number]) Lumbar Spine Range of Motion Lumbar Spine Active Degrees Testing Position Standing Flexion 100 Extension 15 Rotation Left 30 Rotation Right 30 Lateral Flexion Left 10 Lateral Flexion Right 10 ROM Limitations Soft Tissue Tightness Shoulder Goniometric Range of Motion Shoulder Right Active Testing Position Sitting Flexion 150 Abduction 163 External Rotation at 0 degrees Abduction 50 Internal Rotation Behind Back (text) T8 Left Active Testing Position Sitting Flexion 150 Abduction 158 External Rotation at 0 degrees Abduction 55 Internal Rotation Behind Back (text) T8 PT-OP-L Special Tests Start: 11/27/19 18:03 Freq: Status: Active Protocol: Document 11/28/19 13:30 LRN (Rec: 11/28/19 17:00 LRN [id number]) Special Tests Lumbar Spine Special Tests Straight Leg Raise Test Results negative bilaterally Comments 90+ mobility PT-OP-M Strength Start: 11/27/19 18:03 Freq: Status: Active Protocol: Document 01/09/20 12:50 LRN (Rec: 01/09/20 17:08 LRN [id number]) Shoulder Strength Shoulder Manual Muscle Testing Right Flexion 3- Fair- Abduction (C5) 3- Fair- External Rotation 3 Fair Internal Rotation 3 Fair Left Flexion 3 Fair Abduction (C5) 3+ Fair+ External Rotation 3+ Fair+ Internal Rotation 3 Fair Hip Strength Hip Manual Muscle Testing Left Abduction 4 Good Adduction 3+ Fair+ Right Abduction 3 Fair Adduction 2+ Poor+ PT-OP-Q Treatments Start: 11/27/19 18:03 Freq: Status: Active Protocol: Document 01/16/20 12:52 LRN (Rec: 01/16/20 13:35 LRN [id number]) Cardio Equipment Recumbent Elliptical ([employer]) Duration (Minutes) 8 Resistance 4 Seat Position 7 Other Working somewhat hard on FILIPE scale Gym Equipment Cable Column (Body Solid) Rows Details Biceps row Resistance 15# Reps/Time 10x Lat Pull Down Details Lat Pull Down Resistance 15# Reps/Time 10x Leg Curl Details Wheel Pin #14, Seat 4 holes showing Resistance 40# Reps/Time 20x, 5x Leg Extension Details Wheel Pin #2, Seat 4 holes showing Resistance 20# Reps/Time 10x, 5x Hip Adduction Details Hip AD w/TA tight (leg pin #2, back see 3 holes) Resistance 30# Reps/Time 10x 3 Hip Abduction Details Hip AB w/TA tight (leg pin #5 , back see 3 holes ) Resistance 20#, 30# Reps/Time 10x 1, 10x and 8x respectively Shuttle Recovery Bilateral Squats Details Isaac squats Resistance 62# Shuttle Recovery Platform Stable Reps/Time 10x 3 Self-Care/Home Management Treatment Activities Self-Care/Home Management Activities Reviewed pt's gym program and discussed other ex's of UE for her to do as HEP vs at the gym (shoulder horiz AB/AD). Reviewed shoulder ER/IR with T -Band verbally. PT-OP-T Assessment and Plan Start: 11/27/19 18:03 Freq: Status: Active Protocol: Document 01/16/20 12:52 LRN (Rec: 01/16/20 13:35 LRN [id number]) Physical Therapy Assessment Goals Five Impairment Pt not on a self care ex program of gym exercises. Short Term Goal (STG) Pt will be independent in a self care HEP to address strength deficits of core, hips, and shoulders. STG Duration 02/02/20 (12/08/19: Progressing ) Acid Recovery Operator Goal (LTG) Return to exer prior function on ex machines. LTG Duration 02/26/20 (01/09/20: On LE ex's) Four Impairment MICHAEL score of 38 (20-39% impairment) Acid Recovery Operator Goal (LTG) Improve function per MICHAEL score 19 or less (1-19% impairment) . (01/09/20: Improved, MICHAEL score is 28) LTG Duration 02/26/20 (01/09/20: Improving) Three Impairment Pain due to poor posturing Short Term Goal (STG) Improve pt awareness of proper posturing with pt able to self assess and correct with visual assist. (01/09/20: Pt feels she is able to self correct posture if she see's herself) STG Duration 12/12/19 (01/09/20: MET GOAL) Two Impairment Low back pain with prolonged gait (pain after 1 block to neighbor's house) Prison Goal (LTG) Pt will be able to walk > a block without back pain. LTG Duration 01/27/20 (12/15/19: MET GOAL) One Impairment MMT (hip strength AB bilaterally & IR right is 3/5; shoulder ER 3/5 isaac) Short Term Goal (STG) Improve hip AB & shoulder ER strength no less than 1/2 grade. (01/09/20: Hip AB and Shoulder ER: Met Goal on left, no change right - 3/5; Shoulder ER no change right - 3/5). STG Duration 02/02/20 (01/09/20: Progressing, met for L side) Acid Recovery Operator Goal (LTG) Pt will be able to tolerate ex on gym equipment for hip AB/ AD and rotator cuff (primarily ER) strengthening without pain. LTG Duration 02/26/20 (01/09/20: Progressing, needs progression onto RC strengthening) Assessment Summary Assessment Pt has no complaints of discomfort with increased resistance. R Lateral arm discomfort with new wgt (15#) with Lat Pull Down; therefore hold wgt at 10#. Physical Therapy Plan Frequency and Duration Frequency of Treatment 2x/Week Plan of Care Start Date 11/28/19 Plan of Care End Date 02/26/20 Next Visit Focus/Plan Next Note Type Treatment Note Next Visit Plan Next tx: Progress aerobic conditioning to 9' & add to HEP T-Band UE chest press and review ER/IR. Progress pt onto strengthening for progression onto [employer] ex program. Review: hands/knees push for Abdominal strengthening. Progression onto a HEP of trunk (flexors & rotators), hip (isaac Flexors). Gait training with proper posturing, End with cryotherapy as needed .
--- NOTE | 2020-01-19 15:42 | PT.OTN ---
Current Diagnoses Other intervertebral disc disorders, lumbosacral region (01/19/20) Sciatica, unspecified side (01/19/20) Muscle weakness (generalized) (01/19/20) Pain in right arm (01/19/20) Physical Therapy Treatment Note PT-OP-A Visit Information Start: 11/27/19 18:03 Freq: Status: Active Protocol: Document 01/19/20 12:46 LRN (Rec: 01/19/20 13:36 LRN [id number]) Out-Patient Physical Therapy Visit Information Visit Information Visit Type Treatment Note Visit Start Time 10:46 Visit Stop Time 13:36 Total Visit Minutes 50 Visit Number 14 Evaluation Information Evaluation Date 11/28/19 Precautions Precautions Arthritis most notable in R knee, Diabetes type II controlled by medication, umbilical hernia rpr 10 yrs ago. 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 PT-OP-B Current Condition Start: 11/27/19 18:03 Freq: Status: Active Protocol: Document 11/28/19 13:30 LRN (Rec: 11/28/19 14:22 LRN [id number]) Current Condition History of Current Condition Onset Date June 2019 Current Complaints Bilateral LBP and R brachium pain History of Current Condition Stopped going to the gym due to COVID 19; therefore the back started to slowly hurt again. The gyms now are getting ready to start up so she wants to be able to get into shape to go back to strengthening at [employer]. 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 Prior Treatments and Tests 1 yr ago was seen for Isaac Sciatic Pain with resolution and transferred onto an exercise gym. Treatment Goals Patient/Caregiver Goals Strengthen enough to go back to gym to be able to work her wood pile, and be able to walk to her neighbors (1 block away) without back pain. Prior Functional Status Baseline Function- ADL's Independent Baseline Function- Mobility Independent Baseline Function- Gait Was able to walk to her neighbors without onset of back pain. Baseline Function- Recreation/Hobbies Exercising in a gym 3x/week. ( Nustep, Leg press, hip AB/AD, knee ext/flex, lat pull down, row, fly was stopped because of R arm pain). Baseline Function- Other Was able to load and unload wood into wheel barrel, wheel it to back porch, and carry it into the house in a sling bag . Current Functional Impairments (Reported) Functional Limitations- Mobility/Gait LBP after walking to neighbors 1 block away. Functional Limitations- Recreation/ No longer exercising in a gym. Hobbies Sept will start moving wood again. Functional Limitations- Other Less mobility with walking due to a limping gait. 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 PT-OP-C Subjective Start: 11/27/19 18:03 Freq: Status: Active Protocol: Document 01/19/20 12:46 LRN (Rec: 01/19/20 13:36 LRN [id number]) OP-PT Subjective Patient Comments Patient Comments No significant complaints. PT-OP-E Functional Tests Start: 11/27/19 18:03 Freq: Status: Active Protocol: Document 11/28/19 13:30 LRN (Rec: 11/28/19 17:00 LRN [id number]) Functional Tests Apley's Scratch Test Action 1- Left Behind shoulders Action 1- Right Behind shoulders Action 2- Left T2 Action 2- Right T2 Action 3- Left T8 Action 3- Right T8 PT-OP-H Neuro Start: 11/27/19 18:03 Freq: Status: Active Protocol: Document 11/28/19 13:30 LRN (Rec: 11/28/19 17:00 LRN [id number]) Sensation Evaluation Comments Summary Comments Pt reports feeling of tightness and decreased sensation around the feet, bilaterally. PT-OP-J Posture/Palpation/Skin Start: 11/27/19 18:03 Freq: Status: Active Protocol: Document 11/28/19 13:30 LRN (Rec: 11/28/19 17:00 LRN [id number]) Posture Evaluation Position Standing Head/C-Spine Posture Forward Head T-Spine Posture Flattened L-Spine Posture Decreased Lordosis Comments Posture Comments Sway back with protruding abdomen. PT-OP-K Range of Motion Start: 11/27/19 18:03 Freq: Status: Active Protocol: Document 11/28/19 13:30 LRN (Rec: 11/28/19 17:00 LRN [id number]) Lumbar Spine Range of Motion Lumbar Spine Active Degrees Testing Position Standing Flexion 100 Extension 15 Rotation Left 30 Rotation Right 30 Lateral Flexion Left 10 Lateral Flexion Right 10 ROM Limitations Soft Tissue Tightness Shoulder Goniometric Range of Motion Shoulder Right Active Testing Position Sitting Flexion 150 Abduction 163 External Rotation at 0 degrees Abduction 50 Internal Rotation Behind Back (text) T8 Left Active Testing Position Sitting Flexion 150 Abduction 158 External Rotation at 0 degrees Abduction 55 Internal Rotation Behind Back (text) T8 PT-OP-L Special Tests Start: 11/27/19 18:03 Freq: Status: Active Protocol: Document 11/28/19 13:30 LRN (Rec: 11/28/19 17:00 LRN [id number]) Special Tests Lumbar Spine Special Tests Straight Leg Raise Test Results negative bilaterally Comments 90+ mobility PT-OP-M Strength Start: 11/27/19 18:03 Freq: Status: Active Protocol: Document 01/09/20 12:50 LRN (Rec: 01/09/20 17:08 LRN [id number]) Shoulder Strength Shoulder Manual Muscle Testing Right Flexion 3- Fair- Abduction (C5) 3- Fair- External Rotation 3 Fair Internal Rotation 3 Fair Left Flexion 3 Fair Abduction (C5) 3+ Fair+ External Rotation 3+ Fair+ Internal Rotation 3 Fair Hip Strength Hip Manual Muscle Testing Left Abduction 4 Good Adduction 3+ Fair+ Right Abduction 3 Fair Adduction 2+ Poor+ PT-OP-Q Treatments Start: 11/27/19 18:03 Freq: Status: Active Protocol: Document 01/19/20 12:46 LRN (Rec: 01/19/20 13:36 LRN [id number]) Cardio Equipment Recumbent Elliptical (B[employer]) Duration (Minutes) 9 Resistance 4 Seat Position 7 Other Working somewhat hard on FILIPE scale Gym Equipment Cable Column (Body Solid) Leg Curl Details Wheel Pin #14, Seat 4 holes showing Resistance 40# Reps/Time 20x, 5x Leg Extension Details Wheel Pin #2, Seat 4 holes showing Resistance 20# Reps/Time 10x, 5x Hip Adduction Details Hip AD w/TA tight (leg pin #2, back see 3 holes) Resistance 30# Reps/Time 10x 3 Hip Abduction Details Hip AB w/TA tight (leg pin #5 , back see 3 holes ) Resistance 20#, 30# Reps/Time 10x 1, 10x and 8x respectively Shuttle Recovery Bilateral Squats Details Isaac squats Resistance 62# Shuttle Recovery Platform Stable Reps/Time 10x 3 PT-OP-T Assessment and Plan Start: 11/27/19 18:03 Freq: Status: Active Protocol: Document 01/19/20 12:46 LRN (Rec: 01/19/20 13:36 LRN [id number]) Physical Therapy Assessment Goals Five Impairment Pt not on a self care ex program of gym exercises. Short Term Goal (STG) Pt will be independent in a self care HEP to address strength deficits of core, hips, and shoulders. STG Duration 02/02/20 (12/08/19: Progressing ) Pre Sales Network Engineer Goal (LTG) Return to exer prior function on ex machines. LTG Duration 02/26/20 (01/09/20: On LE ex's) Four Impairment MICHAEL score of 38 (20-39% impairment) Care Home Goal (LTG) Improve function per MICHAEL score 19 or less (1-19% impairment) . (01/09/20: Improved, MICHAEL score is 28) LTG Duration 02/26/20 (01/09/20: Improving) Three Impairment Pain due to poor posturing Short Term Goal (STG) Improve pt awareness of proper posturing with pt able to self assess and correct with visual assist. (01/09/20: Pt feels she is able to self correct posture if she see's herself) STG Duration 12/12/19 (01/09/20: MET GOAL) Two Impairment Low back pain with prolonged gait (pain after 1 block to neighbor's house) Pre Sales Network Engineer Goal (LTG) Pt will be able to walk > a block without back pain. LTG Duration 01/27/20 (12/15/19: MET GOAL) One Impairment MMT (hip strength AB bilaterally & IR right is 3/5; shoulder ER 3/5 isaac) Short Term Goal (STG) Improve hip AB & shoulder ER strength no less than 1/2 grade. (01/09/20: Hip AB and Shoulder ER: Met Goal on left, no change right - 3/5; Shoulder ER no change right - 3/5). STG Duration 02/02/20 (01/09/20: Progressing, met for L side) Care Home Goal (LTG) Pt will be able to tolerate ex on gym equipment for hip AB/ AD and rotator cuff (primarily ER) strengthening without pain. LTG Duration 02/26/20 (01/09/20: Progressing, needs progression onto RC strengthening) Assessment Summary Assessment Pt able to increase LE strengthening, appears to have a good understanding of LE ex 's. More review is needed for UE and core strengthening for transition to HEP. Physical Therapy Plan Frequency and Duration Frequency of Treatment 2x/Week Plan of Care Start Date 11/28/19 Plan of Care End Date 02/26/20 Next Visit Focus/Plan Next Note Type Treatment Note Next Visit Plan Progress R shoulder T-Band ER strengthening. Progress aerobic conditioning to 10' & add to HEP T-Band UE chest press & core progression program, and review ER>IR strengthening. Progress pt onto [employer] ex program. Review: hands/knees push for Abdominal strengthening. Progression onto a HEP of trunk (flexors & rotators), hip (isaac Flexors). Gait training with proper posturing, End with cryotherapy as needed .
--- NOTE | 2020-01-23 13:51 | PT.OTN ---
Current Diagnoses Other intervertebral disc disorders, lumbosacral region (01/23/20) Sciatica, unspecified side (01/23/20) Muscle weakness (generalized) (01/23/20) Pain in right arm (01/23/20) Physical Therapy Treatment Note PT-OP-A Visit Information Start: 11/27/19 18:03 Freq: Status: Active Protocol: Document 01/23/20 12:47 LRN (Rec: 01/23/20 13:37 LRN [id number]) Out-Patient Physical Therapy Visit Information Visit Information Visit Type Treatment Note Visit Start Time 12:47 Visit Stop Time 13:35 Total Visit Minutes 48 Visit Number 15 Evaluation Information Evaluation Date 11/28/19 Precautions Precautions Arthritis most notable in R knee, Diabetes type II controlled by medication, umbilical hernia rpr 10 yrs ago. 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 PT-OP-B Current Condition Start: 11/27/19 18:03 Freq: Status: Active Protocol: Document 11/28/19 13:30 LRN (Rec: 11/28/19 14:22 LRN [id number]) Current Condition History of Current Condition Onset Date June 2019 Current Complaints Bilateral LBP and R brachium pain History of Current Condition Stopped going to the gym due to COVID 19; therefore the back started to slowly hurt again. The gyms now are getting ready to start up so she wants to be able to get into shape to go back to strengthening at [employer]. 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 Prior Treatments and Tests 1 yr ago was seen for Isaac Sciatic Pain with resolution and transferred onto an exercise gym. Treatment Goals Patient/Caregiver Goals Strengthen enough to go back to gym to be able to work her wood pile, and be able to walk to her neighbors (1 block away) without back pain. Prior Functional Status Baseline Function- ADL's Independent Baseline Function- Mobility Independent Baseline Function- Gait Was able to walk to her neighbors without onset of back pain. Baseline Function- Recreation/Hobbies Exercising in a gym 3x/week. ( Nustep, Leg press, hip AB/AD, knee ext/flex, lat pull down, row, fly was stopped because of R arm pain). Baseline Function- Other Was able to load and unload wood into wheel barrel, wheel it to back porch, and carry it into the house in a sling bag . Current Functional Impairments (Reported) Functional Limitations- Mobility/Gait LBP after walking to neighbors 1 block away. Functional Limitations- Recreation/ No longer exercising in a gym. Hobbies Sept will start moving wood again. Functional Limitations- Other Less mobility with walking due to a limping gait. 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 PT-OP-C Subjective Start: 11/27/19 18:03 Freq: Status: Active Protocol: Document 01/23/20 12:47 LRN (Rec: 01/23/20 13:37 LRN [id number]) OP-PT Subjective Patient Comments Patient Comments No complaints, back is fine. PT-OP-E Functional Tests Start: 11/27/19 18:03 Freq: Status: Active Protocol: Document 11/28/19 13:30 LRN (Rec: 11/28/19 17:00 LRN [id number]) Functional Tests Apley's Scratch Test Action 1- Left Behind shoulders Action 1- Right Behind shoulders Action 2- Left T2 Action 2- Right T2 Action 3- Left T8 Action 3- Right T8 PT-OP-H Neuro Start: 11/27/19 18:03 Freq: Status: Active Protocol: Document 11/28/19 13:30 LRN (Rec: 11/28/19 17:00 LRN [id number]) Sensation Evaluation Comments Summary Comments Pt reports feeling of tightness and decreased sensation around the feet, bilaterally. PT-OP-J Posture/Palpation/Skin Start: 11/27/19 18:03 Freq: Status: Active Protocol: Document 11/28/19 13:30 LRN (Rec: 11/28/19 17:00 LRN [id number]) Posture Evaluation Position Standing Head/C-Spine Posture Forward Head T-Spine Posture Flattened L-Spine Posture Decreased Lordosis Comments Posture Comments Sway back with protruding abdomen. PT-OP-K Range of Motion Start: 11/27/19 18:03 Freq: Status: Active Protocol: Document 11/28/19 13:30 LRN (Rec: 11/28/19 17:00 LRN [id number]) Lumbar Spine Range of Motion Lumbar Spine Active Degrees Testing Position Standing Flexion 100 Extension 15 Rotation Left 30 Rotation Right 30 Lateral Flexion Left 10 Lateral Flexion Right 10 ROM Limitations Soft Tissue Tightness Shoulder Goniometric Range of Motion Shoulder Right Active Testing Position Sitting Flexion 150 Abduction 163 External Rotation at 0 degrees Abduction 50 Internal Rotation Behind Back (text) T8 Left Active Testing Position Sitting Flexion 150 Abduction 158 External Rotation at 0 degrees Abduction 55 Internal Rotation Behind Back (text) T8 PT-OP-L Special Tests Start: 11/27/19 18:03 Freq: Status: Active Protocol: Document 11/28/19 13:30 LRN (Rec: 11/28/19 17:00 LRN [id number]) Special Tests Lumbar Spine Special Tests Straight Leg Raise Test Results negative bilaterally Comments 90+ mobility PT-OP-M Strength Start: 11/27/19 18:03 Freq: Status: Active Protocol: Document 01/09/20 12:50 LRN (Rec: 01/09/20 17:08 LRN [id number]) Shoulder Strength Shoulder Manual Muscle Testing Right Flexion 3- Fair- Abduction (C5) 3- Fair- External Rotation 3 Fair Internal Rotation 3 Fair Left Flexion 3 Fair Abduction (C5) 3+ Fair+ External Rotation 3+ Fair+ Internal Rotation 3 Fair Hip Strength Hip Manual Muscle Testing Left Abduction 4 Good Adduction 3+ Fair+ Right Abduction 3 Fair Adduction 2+ Poor+ PT-OP-Q Treatments Start: 11/27/19 18:03 Freq: Status: Active Protocol: Document 01/23/20 12:47 LRN (Rec: 01/23/20 13:37 LRN [id number]) Cardio Equipment Recumbent Elliptical (BiodGravity) Duration (Minutes) 10 Resistance 4 Seat Position 7 Other Working somewhat hard on FILIPE scale Gym Equipment Cable Column (Body Solid) Leg Curl Details Wheel Pin #14, Seat 4 holes showing Resistance 40# Reps/Time 10x 3 Leg Extension Details Wheel Pin #2, Seat 4 holes showing Resistance 20# Reps/Time 10x 2 Hip Adduction Details Hip AD w/TA tight (leg pin #2, back see 3 holes) Resistance 30# Reps/Time 10x 3 Hip Abduction Details Hip AB w/TA tight (leg pin #5 , back see 3 holes ) Resistance 30# Reps/Time 10x 3 Shuttle Recovery Bilateral Squats Details Isaac squats Resistance 62# Shuttle Recovery Platform Stable Reps/Time 10x 3 Therapeutic Exercises Standing Exercises Chest press Standing Exercise Name Single side Chest Press Side bilateral Equipment Used Lev 1 TB Reps/Minutes 10x Comments Extra time for proper performance of exercise. Shoulder ER Standing Exercise Name ER strengthening Side bilateral Equipment Used Lev 1 TB Reps/Minutes 10 x 2 Comments Extra time to determine proper positioning and max movement Shoulder IR Standing Exercise Name IR strengthening Side bilateral Equipment Used Lev 1 TB Reps/Minutes 10x 2 Self-Care/Home Management Treatment Education Patient Education Home Exercise Program Activities Self-Care/Home Management Activities Issued & reviewed HEP of T- Band exercises: Elbow curls, shoulder ER/IR, chest press ( stand/supine). PT-OP-T Assessment and Plan Start: 11/27/19 18:03 Freq: Status: Active Protocol: Document 01/23/20 12:47 LRN (Rec: 01/23/20 13:37 LRN [id number]) Physical Therapy Assessment Goals Five Impairment Pt not on a self care ex program of gym exercises. Short Term Goal (STG) Pt will be independent in a self care HEP to address strength deficits of core, hips, and shoulders. STG Duration 02/02/20 (12/08/19: Progressing ) Administration Professional Goal (LTG) Return to exer prior function on ex machines. LTG Duration 02/26/20 (01/09/20: On LE ex's) Four Impairment MICHAEL score of 38 (20-39% impairment) Care Home Goal (LTG) Improve function per MICHAEL score 19 or less (1-19% impairment) . (01/09/20: Improved, MICHAEL score is 28) LTG Duration 02/26/20 (01/09/20: Improving) Three Impairment Pain due to poor posturing Short Term Goal (STG) Improve pt awareness of proper posturing with pt able to self assess and correct with visual assist. (01/09/20: Pt feels she is able to self correct posture if she see's herself) STG Duration 12/12/19 (01/09/20: MET GOAL) Two Impairment Low back pain with prolonged gait (pain after 1 block to neighbor's house) Administration Professional Goal (LTG) Pt will be able to walk > a block without back pain. LTG Duration 01/27/20 (12/15/19: MET GOAL) One Impairment MMT (hip strength AB bilaterally & IR right is 3/5; shoulder ER 3/5 isaac) Short Term Goal (STG) Improve hip AB & shoulder ER strength no less than 1/2 grade. (01/09/20: Hip AB and Shoulder ER: Met Goal on left, no change right - 3/5; Shoulder ER no change right - 3/5). STG Duration 02/02/20 (01/09/20: Progressing, met for L side) Administration Professional Goal (LTG) Pt will be able to tolerate ex on gym equipment for hip AB/ AD and rotator cuff (primarily ER) strengthening without pain. LTG Duration 02/26/20 (01/09/20: Progressing, needs progression onto RC strengthening) Assessment Summary Assessment Pt's R shoulder ER is weak compared to L side. She is able to ER ~25 deg's with elbows in without resistance, with resistance ROM is ~0 deg' s. Physical Therapy Plan Frequency and Duration Frequency of Treatment 2x/Week Plan of Care Start Date 11/28/19 Plan of Care End Date 02/26/20 Next Visit Focus/Plan Next Note Type Treatment Note Next Visit Plan Review T-Band ex's and reinforce R>L ER strengthening . ADD HEP: core progressive strengthening. Advance aerobic conditioning to working somewhat hard during entire ex 10' & add to HEP core progression program. Progress pt onto [employer] [facility] ex program. Review: hands/knees push for Abdominal strengthening. Progression onto a HEP of trunk (flexors & rotators), hip (isaac Flexors). Gait training with proper posturing, End with cryotherapy as needed .
--- NOTE | 2020-01-30 16:15 | PT.OTN ---
Current Diagnoses Other intervertebral disc disorders, lumbosacral region (01/30/20) Sciatica, unspecified side (01/30/20) Muscle weakness (generalized) (01/30/20) Pain in right arm (01/30/20) Physical Therapy Treatment Note PT-OP-A Visit Information Start: 11/27/19 18:03 Freq: Status: Active Protocol: Document 01/30/20 12:48 LRN (Rec: 01/30/20 13:34 LRN [id number]) Out-Patient Physical Therapy Visit Information Visit Information Visit Type Treatment Note Visit Start Time 12:48 Visit Stop Time 13:33 Total Visit Minutes 45 Visit Number 16 Evaluation Information Evaluation Date 11/28/19 Precautions Precautions Arthritis most notable in R knee, Diabetes type II controlled by medication, umbilical hernia rpr 10 yrs ago. 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 PT-OP-B Current Condition Start: 11/27/19 18:03 Freq: Status: Active Protocol: Document 11/28/19 13:30 LRN (Rec: 11/28/19 14:22 LRN [id number]) Current Condition History of Current Condition Onset Date June 2019 Current Complaints Bilateral LBP and R brachium pain History of Current Condition Stopped going to the gym due to COVID 19; therefore the back started to slowly hurt again. The gyms now are getting ready to start up so she wants to be able to get into shape to go back to strengthening at [employer]. 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 Prior Treatments and Tests 1 yr ago was seen for Isaac Sciatic Pain with resolution and transferred onto an exercise gym. Treatment Goals Patient/Caregiver Goals Strengthen enough to go back to gym to be able to work her wood pile, and be able to walk to her neighbors (1 block away) without back pain. Prior Functional Status Baseline Function- ADL's Independent Baseline Function- Mobility Independent Baseline Function- Gait Was able to walk to her neighbors without onset of back pain. Baseline Function- Recreation/Hobbies Exercising in a gym 3x/week. ( Nustep, Leg press, hip AB/AD, knee ext/flex, lat pull down, row, fly was stopped because of R arm pain). Baseline Function- Other Was able to load and unload wood into wheel barrel, wheel it to back porch, and carry it into the house in a sling bag . Current Functional Impairments (Reported) Functional Limitations- Mobility/Gait LBP after walking to neighbors 1 block away. Functional Limitations- Recreation/ No longer exercising in a gym. Hobbies Sept will start moving wood again. Functional Limitations- Other Less mobility with walking due to a limping gait. 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 PT-OP-C Subjective Start: 11/27/19 18:03 Freq: Status: Active Protocol: Document 01/30/20 12:48 LRN (Rec: 01/30/20 13:34 LRN [id number]) OP-PT Subjective Patient Comments Patient Comments Worked the woodpile and was only sore in neck/shouders/ arms but no back pain. PT-OP-E Functional Tests Start: 11/27/19 18:03 Freq: Status: Active Protocol: Document 11/28/19 13:30 LRN (Rec: 11/28/19 17:00 LRN [id number]) Functional Tests Apley's Scratch Test Action 1- Left Behind shoulders Action 1- Right Behind shoulders Action 2- Left T2 Action 2- Right T2 Action 3- Left T8 Action 3- Right T8 PT-OP-H Neuro Start: 11/27/19 18:03 Freq: Status: Active Protocol: Document 11/28/19 13:30 LRN (Rec: 11/28/19 17:00 LRN [id number]) Sensation Evaluation Comments Summary Comments Pt reports feeling of tightness and decreased sensation around the feet, bilaterally. PT-OP-J Posture/Palpation/Skin Start: 11/27/19 18:03 Freq: Status: Active Protocol: Document 11/28/19 13:30 LRN (Rec: 11/28/19 17:00 LRN [id number]) Posture Evaluation Position Standing Head/C-Spine Posture Forward Head T-Spine Posture Flattened L-Spine Posture Decreased Lordosis Comments Posture Comments Sway back with protruding abdomen. PT-OP-K Range of Motion Start: 11/27/19 18:03 Freq: Status: Active Protocol: Document 11/28/19 13:30 LRN (Rec: 11/28/19 17:00 LRN [id number]) Lumbar Spine Range of Motion Lumbar Spine Active Degrees Testing Position Standing Flexion 100 Extension 15 Rotation Left 30 Rotation Right 30 Lateral Flexion Left 10 Lateral Flexion Right 10 ROM Limitations Soft Tissue Tightness Shoulder Goniometric Range of Motion Shoulder Right Active Testing Position Sitting Flexion 150 Abduction 163 External Rotation at 0 degrees Abduction 50 Internal Rotation Behind Back (text) T8 Left Active Testing Position Sitting Flexion 150 Abduction 158 External Rotation at 0 degrees Abduction 55 Internal Rotation Behind Back (text) T8 PT-OP-L Special Tests Start: 11/27/19 18:03 Freq: Status: Active Protocol: Document 11/28/19 13:30 LRN (Rec: 11/28/19 17:00 LRN [id number]) Special Tests Lumbar Spine Special Tests Straight Leg Raise Test Results negative bilaterally Comments 90+ mobility PT-OP-M Strength Start: 11/27/19 18:03 Freq: Status: Active Protocol: Document 01/09/20 12:50 LRN (Rec: 01/09/20 17:08 LRN [id number]) Shoulder Strength Shoulder Manual Muscle Testing Right Flexion 3- Fair- Abduction (C5) 3- Fair- External Rotation 3 Fair Internal Rotation 3 Fair Left Flexion 3 Fair Abduction (C5) 3+ Fair+ External Rotation 3+ Fair+ Internal Rotation 3 Fair Hip Strength Hip Manual Muscle Testing Left Abduction 4 Good Adduction 3+ Fair+ Right Abduction 3 Fair Adduction 2+ Poor+ PT-OP-Q Treatments Start: 11/27/19 18:03 Freq: Status: Active Protocol: Document 01/30/20 12:48 LRN (Rec: 01/30/20 13:34 LRN [id number]) Cardio Equipment Recumbent Elliptical (Biodex) Duration (Minutes) 10 Resistance 4 Seat Position 7 Other Working somewhat hard on FILIPE scale Gym Equipment Cable Column (Body Solid) Rows Details Biceps Row Resistance 15# Reps/Time 10x 2, plus 5x Lat Pull Down Details Lat Pull Down Resistance 15# Reps/Time 10x 2 Leg Curl Details Wheel Pin #14, Seat 4 holes showing Resistance 40# Reps/Time 10x 3 Leg Extension Details Wheel Pin #2, Seat 4 holes showing Resistance 20# Reps/Time 10x 3 Hip Adduction Details Hip AD w/TA tight (leg pin #2, back see 3 holes) Resistance 30# Reps/Time 10x 3 Hip Abduction Details Hip AB w/TA tight (leg pin #5 , back see 3 holes ) Resistance 25# Reps/Time 10x 3 Shuttle Recovery Bilateral Squats Details Isaac squats Resistance 62# Shuttle Recovery Platform Stable Reps/Time 10x 3 PT-OP-T Assessment and Plan Start: 11/27/19 18:03 Freq: Status: Active Protocol: Document 01/30/20 12:48 LRN (Rec: 01/30/20 13:34 LRN [id number]) Physical Therapy Assessment Goals Five Impairment Pt not on a self care ex program of gym exercises. Short Term Goal (STG) Pt will be independent in a self care HEP to address strength deficits of core, hips, and shoulders. STG Duration 02/02/20 (12/08/19: Progressing ) Care Home Goal (LTG) Return to exer prior function on ex machines. LTG Duration 02/26/20 (01/30/20: MET GOAL) Four Impairment MICHAEL score of 38 (20-39% impairment) Intermediate Card Tender Goal (LTG) Improve function per MICHAEL score 19 or less (1-19% impairment) . (01/09/20: Improved, MICHAEL score is 28) LTG Duration 02/26/20 (01/09/20: Improving) Three Impairment Pain due to poor posturing Short Term Goal (STG) Improve pt awareness of proper posturing with pt able to self assess and correct with visual assist. (01/09/20: Pt feels she is able to self correct posture if she see's herself) STG Duration 12/12/19 (01/09/20: MET GOAL) Two Impairment Low back pain with prolonged gait (pain after 1 block to neighbor's house) Care Home Goal (LTG) Pt will be able to walk > a block without back pain. LTG Duration 01/27/20 (12/15/19: MET GOAL) One Impairment MMT (hip strength AB bilaterally & IR right is 3/5; shoulder ER 3/5 isaac) Short Term Goal (STG) Improve hip AB & shoulder ER strength no less than 1/2 grade. (01/09/20: Hip AB and Shoulder ER: Met Goal on left, no change right - 3/5; Shoulder ER no change right - 3/5). STG Duration 02/02/20 (01/09/20: Progressing, met for L side) Care Home Goal (LTG) Pt will be able to tolerate ex on gym equipment for hip AB/ AD and rotator cuff (primarily ER) strengthening without pain. LTG Duration 02/26/20 (01/09/20: Progressing, needs progression onto RC strengthening) Progress Towards Goals Progress Comments LTG #5 MET for LE strengthening. Assessment Summary Assessment Pt is now comfortable on ex equipment as compared to previous program except for rotator cuff (primarily ER) strengthening. She needs progression onto a core and shoulder strengthening program . Physical Therapy Plan Frequency and Duration Frequency of Treatment 2x/Week Plan of Care Start Date 11/28/19 Plan of Care End Date 02/26/20 Next Visit Focus/Plan Next Note Type Treatment Note Next Visit Plan Review T-Band ex's and reinforce R>L ER strengthening . Review: hands/knees push for Abdominal strengthening. ADD HEP: core progressive strengthening (trunk flexors & rotators), shoulder strengthening and hip (isaac Flexors). Pt awareness training for gait with proper posturing. Advance aerobic conditioning to working somewhat hard during entire ex 10'. Progress pt onto [employer] ex program.
--- NOTE | 2020-02-05 16:44 | PT.OTN ---
Current Diagnoses Other intervertebral disc disorders, lumbosacral region (02/05/20) Sciatica, unspecified side (02/05/20) Muscle weakness (generalized) (02/05/20) Pain in right arm (02/05/20) Physical Therapy Treatment Note PT-OP-A Visit Information Start: 11/27/19 18:03 Freq: Status: Active Protocol: Document 02/05/20 11:19 LRN (Rec: 02/05/20 12:07 LRN [id number]) Out-Patient Physical Therapy Visit Information Visit Information Visit Type Treatment Note Visit Start Time 11: Visit Stop Time 12:05 Total Visit Minutes 46 Visit Number 17 Evaluation Information Evaluation Date 11/28/19 Precautions Precautions Arthritis most notable in R knee, Diabetes type II controlled by medication, umbilical hernia rpr 10 yrs ago. 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 PT-OP-B Current Condition Start: 11/27/19 18:03 Freq: Status: Active Protocol: Document 11/28/19 13:30 LRN (Rec: 11/28/19 14:22 LRN [id number]) Current Condition History of Current Condition Onset Date June 2019 Current Complaints Bilateral LBP and R brachium pain History of Current Condition Stopped going to the gym due to COVID 19; therefore the back started to slowly hurt again. The gyms now are getting ready to start up so she wants to be able to get into shape to go back to strengthening at [facility]. 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 Prior Treatments and Tests 1 yr ago was seen for Isaac Sciatic Pain with resolution and transferred onto an exercise gym. Treatment Goals Patient/Caregiver Goals Strengthen enough to go back to gym to be able to work her wood pile, and be able to walk to her neighbors (1 block away) without back pain. Prior Functional Status Baseline Function- ADL's Independent Baseline Function- Mobility Independent Baseline Function- Gait Was able to walk to her neighbors without onset of back pain. Baseline Function- Recreation/Hobbies Exercising in a gym 3x/week. ( Nustep, Leg press, hip AB/AD, knee ext/flex, lat pull down, row, fly was stopped because of R arm pain). Baseline Function- Other Was able to load and unload wood into wheel barrel, wheel it to back porch, and carry it into the house in a sling bag . Current Functional Impairments (Reported) Functional Limitations- Mobility/Gait LBP after walking to neighbors 1 block away. Functional Limitations- Recreation/ No longer exercising in a gym. Hobbies Sept will start moving wood again. Functional Limitations- Other Less mobility with walking due to a limping gait. 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 PT-OP-C Subjective Start: 11/27/19 18:03 Freq: Status: Active Protocol: Document 02/05/20 11:19 LRN (Rec: 02/05/20 12:07 LRN [id number]) OP-PT Subjective Patient Comments Patient Comments States she worked the [employer], no back pain. States today her R shoulder is a little sore. PT-OP-E Functional Tests Start: 11/27/19 18:03 Freq: Status: Active Protocol: Document 11/28/19 13:30 LRN (Rec: 11/28/19 17:00 LRN [id number]) Functional Tests Apley's Scratch Test Action 1- Left Behind shoulders Action 1- Right Behind shoulders Action 2- Left T2 Action 2- Right T2 Action 3- Left T8 Action 3- Right T8 PT-OP-H Neuro Start: 11/27/19 18:03 Freq: Status: Active Protocol: Document 11/28/19 13:30 LRN (Rec: 11/28/19 17:00 LRN [id number]) Sensation Evaluation Comments Summary Comments Pt reports feeling of tightness and decreased sensation around the feet, bilaterally. PT-OP-J Posture/Palpation/Skin Start: 11/27/19 18:03 Freq: Status: Active Protocol: Document 11/28/19 13:30 LRN (Rec: 11/28/19 17:00 LRN [id number]) Posture Evaluation Position Standing Head/C-Spine Posture Forward Head T-Spine Posture Flattened L-Spine Posture Decreased Lordosis Comments Posture Comments Sway back with protruding abdomen. PT-OP-K Range of Motion Start: 11/27/19 18:03 Freq: Status: Active Protocol: Document 11/28/19 13:30 LRN (Rec: 11/28/19 17:00 LRN [id number]) Lumbar Spine Range of Motion Lumbar Spine Active Degrees Testing Position Standing Flexion 100 Extension 15 Rotation Left 30 Rotation Right 30 Lateral Flexion Left 10 Lateral Flexion Right 10 ROM Limitations Soft Tissue Tightness Shoulder Goniometric Range of Motion Shoulder Right Active Testing Position Sitting Flexion 150 Abduction 163 External Rotation at 0 degrees Abduction 50 Internal Rotation Behind Back (text) T8 Left Active Testing Position Sitting Flexion 150 Abduction 158 External Rotation at 0 degrees Abduction 55 Internal Rotation Behind Back (text) T8 PT-OP-L Special Tests Start: 11/27/19 18:03 Freq: Status: Active Protocol: Document 11/28/19 13:30 LRN (Rec: 11/28/19 17:00 LRN [id number]) Special Tests Lumbar Spine Special Tests Straight Leg Raise Test Results negative bilaterally Comments 90+ mobility PT-OP-M Strength Start: 11/27/19 18:03 Freq: Status: Active Protocol: Document 01/09/20 12:50 LRN (Rec: 01/09/20 17:08 LRN [id number]) Shoulder Strength Shoulder Manual Muscle Testing Right Flexion 3- Fair- Abduction (C5) 3- Fair- External Rotation 3 Fair Internal Rotation 3 Fair Left Flexion 3 Fair Abduction (C5) 3+ Fair+ External Rotation 3+ Fair+ Internal Rotation 3 Fair Hip Strength Hip Manual Muscle Testing Left Abduction 4 Good Adduction 3+ Fair+ Right Abduction 3 Fair Adduction 2+ Poor+ PT-OP-Q Treatments Start: 11/27/19 18:03 Freq: Status: Active Protocol: Document 02/05/20 11:19 LRN (Rec: 02/05/20 12:07 LRN [id number]) Cardio Equipment Recumbent Elliptical (Biodex) Duration (Minutes) 10 Resistance 4 Seat Position 7 Other Last 3' working somewhat hard on FILIPE scale Gym Equipment Cable Column (Body Solid) Rows Details Biceps Row Resistance 15# Reps/Time 15x Lat Pull Down Details Lat Pull Down Resistance 15# Reps/Time 15x Leg Curl Details Wheel Pin #14, Seat 4 holes showing Resistance 40# Reps/Time 15x Leg Extension Details Wheel Pin #2, Seat 4 holes showing Resistance 20# Reps/Time 15x Hip Adduction Details Hip AD w/TA tight (leg pin #2, back see 3 holes) Resistance 30# Reps/Time 15x Hip Abduction Details Hip AB w/TA tight (leg pin #5 , back see 3 holes ) Resistance 25# Reps/Time 15x Therapeutic Exercises Sitting Exercises Trunk rotation strengthening Sitting Exercise Name Trunk rot Side bilateral Equipment Used Lev 2 TB Reps/Minutes 15x each Standing Exercises Hip Flex strengthening Standing Exercise Name Marching Side bilateral Reps/Minutes 15x each Trunk Flex strengthening Standing Exercise Name Trunk Flex Equipment Used Lev2 TB Reps/Minutes 15x Comments Extra time for teaching proper mechanics to avoid hip flex Chest press Standing Exercise Name Chest press Side bilateral Equipment Used Lev1 Reps/Minutes 15x Shoulder ER Standing Exercise Name Shoulder ER Side bilateral Reps/Minutes 15x Comments Hold max ER 2 seconds Shoulder IR Standing Exercise Name Shoulder IR Side bilateral Reps/Minutes 15x PT-OP-T Assessment and Plan Start: 11/27/19 18:03 Freq: Status: Active Protocol: Document 02/05/20 11:19 LRN (Rec: 02/05/20 12:07 LRN [id number]) Physical Therapy Assessment Goals Five Impairment Pt not on a self care ex program of gym exercises. Short Term Goal (STG) Pt will be independent in a self care HEP to address strength deficits of core, hips, and shoulders. STG Duration 02/02/20 (02/05/20: Partially MET GOAL, ex's issued) Care Home Goal (LTG) Return to exer prior function on ex machines. LTG Duration 02/26/20 (01/30/20: MET GOAL) Four Impairment MICHAEL score of 38 (20-39% impairment) Tile Ditcher Goal (LTG) Improve function per MICHAEL score 19 or less (1-19% impairment) . (01/09/20: Improved, MICHAEL score is 28) LTG Duration 02/26/20 (01/09/20: Improving) One Impairment MMT (hip strength AB bilaterally & IR right is 3/5; shoulder ER 3/5 isaac) Short Term Goal (STG) Improve hip AB & shoulder ER strength no less than 1/2 grade. (01/09/20: Hip AB and Shoulder ER: Met Goal on left, no change right - 3/5; Shoulder ER no change right - 3/5). STG Duration 02/02/20 (01/09/20: Progressing, met for L side) Care Home Goal (LTG) Pt will be able to tolerate ex on gym equipment for hip AB/ AD and rotator cuff (primarily ER) strengthening without pain. LTG Duration 02/26/20 (01/09/20: Progressing, needs progression onto RC strengthening) Progress Towards Goals Progress Comments Added to HEP: core progressive strengthening (trunk flexors & rotators), shoulder strengthening and hip (isaac Flexors). Assessment Summary Assessment Pt has fair understanding of her new HEP's issued, needs a review the next visit. She appears to have a good understanding of her ex program at the local gym and should do well on transition back to independent program. Physical Therapy Plan Frequency and Duration Frequency of Treatment 2x/Week Plan of Care Start Date 11/28/19 Plan of Care End Date 02/26/20 Next Visit Focus/Plan Next Note Type Treatment Note Next Visit Plan Assess MICHAEL. Review HEP issued and reinforce R>L ER T-Band strengthening. Review: hands/knees push for Abdominal strengthening. Assess where pt is on the progressive core strengthening program. Pt awareness training for gait with proper posturing. Advance aerobic conditioning to working somewhat hard during entire ex 10'. Progress ptin 1-2 visits onto [facility] [employer] [facility] ex program.
--- NOTE | 2020-02-13 16:37 | PT.OTN ---
Current Diagnoses Other intervertebral disc disorders, lumbosacral region (02/13/20) Sciatica, unspecified side (02/13/20) Muscle weakness (generalized) (02/13/20) Pain in right arm (02/13/20) Physical Therapy Treatment Note PT-OP-A Visit Information Start: 11/27/19 18:03 Freq: Status: Active Protocol: Document 02/13/20 14:19 LRN (Rec: 02/13/20 15:08 LRN [id number]) Out-Patient Physical Therapy Visit Information Visit Information Visit Type Treatment Note Visit Start Time 14:19 Visit Stop Time 13:04 Total Visit Minutes 45 Visit Number 18 Evaluation Information Evaluation Date 11/28/19 Precautions Precautions Arthritis most notable in R knee, Diabetes type II controlled by medication, umbilical hernia rpr 10 yrs ago. 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 PT-OP-B Current Condition Start: 11/27/19 18:03 Freq: Status: Active Protocol: Document 11/28/19 13:30 LRN (Rec: 11/28/19 14:22 LRN [id number]) Current Condition History of Current Condition Onset Date June 2019 Current Complaints Bilateral LBP and R brachium pain History of Current Condition Stopped going to the gym due to COVID 19; therefore the back started to slowly hurt again. The gyms now are getting ready to start up so she wants to be able to get into shape to go back to strengthening at [facility]. 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 Prior Treatments and Tests 1 yr ago was seen for Isaac Sciatic Pain with resolution and transferred onto an exercise gym. Treatment Goals Patient/Caregiver Goals Strengthen enough to go back to gym to be able to work her wood pile, and be able to walk to her neighbors (1 block away) without back pain. Prior Functional Status Baseline Function- ADL's Independent Baseline Function- Mobility Independent Baseline Function- Gait Was able to walk to her neighbors without onset of back pain. Baseline Function- Recreation/Hobbies Exercising in a gym 3x/week. ( Nustep, Leg press, hip AB/AD, knee ext/flex, lat pull down, row, fly was stopped because of R arm pain). Baseline Function- Other Was able to load and unload wood into wheel barrel, wheel it to back porch, and carry it into the house in a sling bag . Current Functional Impairments (Reported) Functional Limitations- Mobility/Gait LBP after walking to neighbors 1 block away. Functional Limitations- Recreation/ No longer exercising in a gym. Hobbies Sept will start moving wood again. Functional Limitations- Other Less mobility with walking due to a limping gait. 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 PT-OP-C Subjective Start: 11/27/19 18:03 Freq: Status: Active Protocol: Document 02/13/20 14:19 LRN (Rec: 02/13/20 15:08 LRN [id number]) OP-PT Subjective Patient Comments Patient Comments Requests review of T-Band UE ex's I have the machines down . Worked the woodpile and the anterior shoulders are sore. Patient Questionnaires Oswestry Low Back Index Oswestry Score 30 Oswestry Impairment 20 to 39% Impaired (Score 20- 39) PT-OP-E Functional Tests Start: 11/27/19 18:03 Freq: Status: Active Protocol: Document 11/28/19 13:30 LRN (Rec: 11/28/19 17:00 LRN [id number]) Functional Tests Apley's Scratch Test Action 1- Left Behind shoulders Action 1- Right Behind shoulders Action 2- Left T2 Action 2- Right T2 Action 3- Left T8 Action 3- Right T8 PT-OP-H Neuro Start: 11/27/19 18:03 Freq: Status: Active Protocol: Document 11/28/19 13:30 LRN (Rec: 11/28/19 17:00 LRN [id number]) Sensation Evaluation Comments Summary Comments Pt reports feeling of tightness and decreased sensation around the feet, bilaterally. PT-OP-J Posture/Palpation/Skin Start: 11/27/19 18:03 Freq: Status: Active Protocol: Document 11/28/19 13:30 LRN (Rec: 11/28/19 17:00 LRN [id number]) Posture Evaluation Position Standing Head/C-Spine Posture Forward Head T-Spine Posture Flattened L-Spine Posture Decreased Lordosis Comments Posture Comments Sway back with protruding abdomen. PT-OP-K Range of Motion Start: 11/27/19 18:03 Freq: Status: Active Protocol: Document 11/28/19 13:30 LRN (Rec: 11/28/19 17:00 LRN [id number]) Lumbar Spine Range of Motion Lumbar Spine Active Degrees Testing Position Standing Flexion 100 Extension 15 Rotation Left 30 Rotation Right 30 Lateral Flexion Left 10 Lateral Flexion Right 10 ROM Limitations Soft Tissue Tightness Shoulder Goniometric Range of Motion Shoulder Right Active Testing Position Sitting Flexion 150 Abduction 163 External Rotation at 0 degrees Abduction 50 Internal Rotation Behind Back (text) T8 Left Active Testing Position Sitting Flexion 150 Abduction 158 External Rotation at 0 degrees Abduction 55 Internal Rotation Behind Back (text) T8 PT-OP-L Special Tests Start: 11/27/19 18:03 Freq: Status: Active Protocol: Document 11/28/19 13:30 LRN (Rec: 11/28/19 17:00 LRN [id number]) Special Tests Lumbar Spine Special Tests Straight Leg Raise Test Results negative bilaterally Comments 90+ mobility PT-OP-M Strength Start: 11/27/19 18:03 Freq: Status: Active Protocol: Document 01/09/20 12:50 LRN (Rec: 01/09/20 17:08 LRN [id number]) Shoulder Strength Shoulder Manual Muscle Testing Right Flexion 3- Fair- Abduction (C5) 3- Fair- External Rotation 3 Fair Internal Rotation 3 Fair Left Flexion 3 Fair Abduction (C5) 3+ Fair+ External Rotation 3+ Fair+ Internal Rotation 3 Fair Hip Strength Hip Manual Muscle Testing Left Abduction 4 Good Adduction 3+ Fair+ Right Abduction 3 Fair Adduction 2+ Poor+ PT-OP-Q Treatments Start: 11/27/19 18:03 Freq: Status: Active Protocol: Document 02/13/20 14:19 LRN (Rec: 02/13/20 15:08 LRN [id number]) Cardio Equipment Recumbent Elliptical (Biodex) Duration (Minutes) 10 Resistance 4 Seat Position 7 Other Last 3' working somewhat hard on FILIPE scale Therapeutic Exercises Standing Exercises Trunk Rot Standing Exercise Name Trunk Rot Side bilateral Reps/Minutes 15x Hip Flex strengthening Standing Exercise Name Marching Side bilateral Reps/Minutes 15x working strengthening, then 15x balancing Comments Extra time for review Trunk Flex strengthening Standing Exercise Name Trunk Flex Equipment Used Lev2 TB Reps/Minutes 15x 2 Comments Extra time for teaching proper mechanics to avoid hip flex Chest press Standing Exercise Name Chest press Side bilateral Equipment Used Lev1 Reps/Minutes 15x 2 Comments Extra time for review Shoulder ER Standing Exercise Name Shoulder ER - Hold max ER 2 seconds Side bilateral Resistance Lev 1 TB Reps/Minutes 15x Comments Extra time for determining max resistance for max ER ROM right primarily. Shoulder IR Standing Exercise Name Shoulder IR Side bilateral Resistance Lev 1 TB Reps/Minutes 15x PT-OP-T Assessment and Plan Start: 11/27/19 18:03 Freq: Status: Active Protocol: Document 02/13/20 14:19 LRN (Rec: 02/13/20 15:08 LRN [id number]) Physical Therapy Assessment Goals Five Impairment Pt not on a self care ex program of gym exercises. Short Term Goal (STG) Pt will be independent in a self care HEP to address strength deficits of core, hips, and shoulders. STG Duration 02/02/20 (02/05/20: MET GOAL) Usp Goal (LTG) Return to exer prior function on ex machines. LTG Duration 02/26/20 (01/30/20: MET GOAL) Four Impairment MICHAEL score of 38 (20-39% impairment) Company Laborer Goal (LTG) Improve function per MICHAEL score 19 or less (1-19% impairment) . (02/13/20: Improved, MICHAEL score 30) LTG Duration 02/26/20 (02/13/20: NOT MET) Three Impairment Pain due to poor posturing Short Term Goal (STG) Improve pt awareness of proper posturing with pt able to self assess and correct with visual assist. (01/09/20: Pt feels she is able to self correct posture if she see's herself) STG Duration 12/12/19 (01/09/20: MET GOAL) Two Impairment Low back pain with prolonged gait (pain after 1 block to neighbor's house) Usp Goal (LTG) Pt will be able to walk > a block without back pain. LTG Duration 01/27/20 (12/15/19: MET GOAL) One Impairment MMT (hip strength AB bilaterally & IR right is 3/5; shoulder ER 3/5 isaac) Short Term Goal (STG) Improve hip AB & shoulder ER strength no less than 1/2 grade. (01/09/20: Hip AB and Shoulder ER: Met Goal on left, no change right - 3/5; Shoulder ER no change right - 3/5). STG Duration 02/02/20 (01/09/20: GOAL PARTIALLY MET, Met for L side) Usp Goal (LTG) Pt will be able to tolerate ex on gym equipment for hip AB/ AD and rotator cuff (primarily ER) strengthening without pain. (02/13/20: MET GOAL for hip strengthening. Rotator cuff strengthening is only tolerated for T-Band strengthening). LTG Duration 02/26/20 (02/13/20: MET GOAL for hip strengthening) Assessment Summary Assessment Pt had difficulty with resisted ER on right due to weakness. Left side also has discomfort in the lateral arm today since working her woodpile yesterday. The pt appears familiar with her HEP and is ready to transition to the pool for exercise on the machines and for her UE's use of theraband for strengthening . Physical Therapy Plan Discharge Physical Therapy Discharge Comments Pt is ready to be transitioned to the local gym at the [facility] with a combination of LE machine use and home theraband exercises. The pt demonstrates weakness of her rotator cuff resulting from injury; therefore the pt may need therapy in the future if she is not able to continue her rotator cuff maintenance program resulting in return of pain in the lateral brachium. The pt is aware that she will need to seek a new referral to return to therapy. Thank you for your referral.
== END 2020-02-16 13:15 | disposition home or self-care (01) ==
LOC: PHYS 14:15
PROVIDERS: Family Provider Registered Nurse; PCP Registered Nurse; Referring Provider Registered Nurse; Visit Provider Registered Nurse
DX: M54.30 Sciatica, unspecified side (principal); M79.601 Pain in right arm; M51.87 Other intervertebral disc disorders, lumbosacral region; M62.81 Muscle weakness (generalized)
CPT/HCPCS: 97110; 97161; 97530; 97535

== ENCOUNTER → 2020-02-23 12:47 | Outpatient (CLI) | payer MEDICARE, MEDICAID, SELFPAY ==
--- NOTE | 2020-02-23 | DI.US.S_ITS ---
PROCEDURE: US CAROTID DOPPLER BI INDICATIONS: Disorientation, unspecified TECHNIQUE: Color and pulse Doppler interrogation was performed of both carotid systems, with image documentation and velocity measurements. COMPARISON: None. FINDINGS: Stenosis calculations are based on SRU (Society of Radiologists in Ultrasound) criteria. The flow velocities and the arterial waveforms are normal within both carotid arterial systems. Atherosclerotic plaque is seen on both sides. The estimated degree of internal carotid artery stenosis is less than 50%. Antegrade flow is confirmed within both vertebral arteries. IMPRESSION: No hemodynamically significant stenosis is seen. Atherosclerotic plaque is noted bilaterally. Dictated by: Max Jalloh M.D. on 02/23/2020 at 13:12 Approved by: Max Jalloh M.D. on 02/23/2020 at 13:15
== END ==
PROVIDERS: Family Provider Registered Nurse; PCP Registered Nurse; Referring Provider Registered Nurse; Visit Provider Registered Nurse
DX: I65.23 Occlusion and stenosis of bilateral carotid arteries (principal)
CPT/HCPCS: 93880

== ENCOUNTER → 2023-05-18 14:37 | Outpatient (CLI) | payer MEDICARE, MEDICAID, SELFPAY ==
--- NOTE | 2023-05-18 | DI.US.S_ITS ---
PROCEDURE: US ARTERIAL DUPLEX LE BI INDICATIONS: Non-pressure chronic ulcer of skin of other sites with unspe TECHNIQUE: Color and pulse Doppler interrogation was performed of both lower extremity arterial systems, with image documentation. COMPARISON: [facility], , ARTERIAL LOW.EXTREMITY UNILAT., 12/19/2013, 13:12. FINDINGS: Right lower extremity: Common femoral artery: 83 cm/sec, with triphasic flow. Deep femoral artery: 71 cm/sec, with triphasic flow. Proximal superficial femoral artery: 95 cm/sec, with triphasic flow. Mid superficial femoral artery: 105 cm/sec, with triphasic flow. Distal superficial femoral artery: 86 cm/sec, with triphasic flow. Popliteal artery: 52 cm/sec, with triphasic flow. Posterior tibial artery: 39 cm/sec, with triphasic flow. Anterior tibial artery/dorsalis pedis: 63 cm/sec, with triphasic flow. Cordova-scale imaging description: Mild scattered plaque Left lower extremity: Common femoral artery: 115 cm/sec, with triphasic flow. Deep femoral artery: 74 cm/sec, with triphasic flow. Proximal superficial femoral artery: 107 cm/sec, with triphasic flow. Mid superficial femoral artery: 142 cm/sec, with triphasic flow. Distal superficial femoral artery: 95 cm/sec, with 37 flow. Popliteal artery: 37 cm/sec, with triphasic flow. Posterior tibial artery: 57 cm/sec, with triphasic flow. Anterior tibial artery/dorsalis pedis: 50 cm/sec, with triphasic flow. Cordova-scale imaging description: Mild scattered plaque IMPRESSION: No hemodynamically significant arterial stenosis or occlusion seen in either lower extremities Dictated by: Amado Sanchez M.D. on 05/18/2023 at 16:59 Approved by: Amado Sanchez M.D. on 05/18/2023 at 17:04
== END ==
LOC: US 14:38
PROVIDERS: PCP Registered Nurse; Referring Provider Podiatrist; Visit Provider Podiatrist
DX: L97.929 Non-pressure chronic ulcer of unspecified part of left lower leg with unspecified severity (principal); L97.919 Non-pressure chronic ulcer of unspecified part of right lower leg with unspecified severity
CPT/HCPCS: 93925

== ENCOUNTER → 2023-08-18 09:42 | Outpatient (CLI) | payer MEDICARE, MEDICAID, SELFPAY ==
[2023-08-18 11:00] LABS: Hemoglobin A1C% w Est Avg Glu 6.8 % (4.0-6.0)
[2023-08-18 11:24] LABS: BUN Creatinine Ratio 28.2 (6-22); Blood Urea Nitrogen 22 mg/dL (7-17); Calcium 10.2 mg/dL (8.4-10.2); Carbon Dioxide 24 mmol/L (22-32); Chloride 103 mmol/L (98-107); Cholesterol 170 mg/dL (140-199); Estimated Glomerular Filt Rate > 60 mL/min (>60); Glucose 112 mg/dL (80-110); HDL Cholesterol 50 mg/dL (40-60); HEMOLYSIS < 15 (0-50); LDL Cholesterol Calculated 83 mg/dL (<100); Potassium 4.5 mmol/L (3.4-5.1); Sodium 135 mmol/L (137-145); Triglycerides 185 mg/dL (35-150)
== END ==
LOC: LAB 09:44
PROVIDERS: PCP Registered Nurse; Referring Provider Registered Nurse; Visit Provider Registered Nurse
DX: I10 Essential (primary) hypertension (principal)
CPT/HCPCS: 36415; 80048; 80061; 83036

== ENCOUNTER → 2023-12-13 10:20 | Outpatient (CLI) | payer OTHER, MEDICAID, SELFPAY ==
[2023-12-13 12:08] LABS: Creatinine Urine Random 52.74 mg/dL
[2023-12-13 12:12] LABS: Microalbumin Urine Random 5.4 mg/dL (0-1.6)
[2023-12-13 12:59] LABS: BUN Creatinine Ratio 32.9 (6-22); Blood Urea Nitrogen 26 mg/dL (7-17); Calcium 10.7 mg/dL (8.4-10.2); Carbon Dioxide 24 mmol/L (22-32); Chloride 101 mmol/L (98-107); Cholesterol 168 mg/dL (140-199); Estimated Glomerular Filt Rate > 60 mL/min (>60); Glucose 117 mg/dL (80-110); HDL Cholesterol 43 mg/dL (40-60); HEMOLYSIS < 15 (0-50); LDL Cholesterol Calculated 88 mg/dL (<100); Potassium 4.8 mmol/L (3.4-5.1); Sodium 135 mmol/L (137-145); Triglycerides 184 mg/dL (35-150)
[2023-12-13 13:15] LABS: Hemoglobin A1C% w Est Avg Glu 6.2 % (4.0-6.0)
== END ==
LOC: LAB 10:24
PROVIDERS: PCP Registered Nurse; Referring Provider Registered Nurse; Visit Provider Registered Nurse
DX: E11.21 Type 2 diabetes mellitus with diabetic nephropathy (principal); E11.3293 Type 2 diabetes mellitus with mild nonproliferative diabetic retinopathy without macular edema, bilateral; E78.2 Mixed hyperlipidemia
CPT/HCPCS: 36415; 80048; 80061; 82043; 82570; 83036

== ENCOUNTER → 2024-03-13 10:31 | Outpatient (CLI) | payer OTHER, MEDICAID, SELFPAY ==
[2024-03-13 11:46] LABS: Calcium 10.3 mg/dL (8.4-10.2); Carbon Dioxide 26 mmol/L (22-32); Chloride 101 mmol/L (98-107); Cholesterol 163 mg/dL (140-199); Glucose 116 mg/dL (80-110); HDL Cholesterol 50 mg/dL (40-60); HEMOLYSIS < 15 (0-50); LDL Cholesterol Calculated 77 mg/dL (<100); Potassium 4.6 mmol/L (3.4-5.1); Sodium 133 mmol/L (137-145); Triglycerides 179 mg/dL (35-150)
[2024-03-13 11:50] LABS: BUN Creatinine Ratio 38.6 (6-22); Blood Urea Nitrogen 32 mg/dL (7-17); Estimated Glomerular Filt Rate > 60 mL/min (>60)
[2024-03-13 14:29] LABS: Hemoglobin A1C% w Est Avg Glu 6.2 % (4.0-6.0)
== END ==
PROVIDERS: PCP Registered Nurse; Referring Provider Registered Nurse; Visit Provider Registered Nurse
DX: E11.42 Type 2 diabetes mellitus with diabetic polyneuropathy (principal); E78.00 Pure hypercholesterolemia, unspecified; E11.21 Type 2 diabetes mellitus with diabetic nephropathy; E11.3293 Type 2 diabetes mellitus with mild nonproliferative diabetic retinopathy without macular edema, bilateral; I10 Essential (primary) hypertension
CPT/HCPCS: 36415; 80048; 80061; 83036

== ENCOUNTER → 2024-03-14 13:26 | Outpatient (CLI) | payer OTHER, MEDICAID, SELFPAY ==
[2024-03-14 14:17] LABS: Creatinine Urine Random 78.96 mg/dL
[2024-03-14 14:25] LABS: Microalbumin Urine Random 13.9 mg/dL (0-1.6)
== END ==
PROVIDERS: PCP Registered Nurse; Referring Provider Registered Nurse; Visit Provider Registered Nurse
DX: E11.42 Type 2 diabetes mellitus with diabetic polyneuropathy (principal); E11.21 Type 2 diabetes mellitus with diabetic nephropathy
CPT/HCPCS: 82043; 82570

== ENCOUNTER → 2024-08-10 13:12 | Outpatient (CLI) | payer OTHER, MEDICAID, SELFPAY ==
--- NOTE | 2024-08-10 13:13 | DI.MRI.S_ITS ---
PROCEDURE: MR LUMBAR SPINE WO CON INDICATIONS: WORSENING BACK PAIN WITH SCIATICA TECHNIQUE: Noncontrast sagittal T1 spin echo and T2 fast echo, sagittal STIR, and T2 fast spin echo through the lumbar spine. In cases with scoliosis, additional coronal T2 fast spin echo may be performed. COMPARISON: [facility], [place], XR LUMBAR SPINE WITH OBLIQUES, 05/19/2017, 9:50. (Additional prior imaging is not available for review from the archive at the time of this dictation.) FINDINGS: Image quality: This examination is limited by involuntary motion artifact. Alignment and Curvature: There is minimal retrolisthesis at T12-L1, with mild retrolisthesis at L1-L2. There is minimal anterolisthesis at L3-L4. Mild grade 1 anterolisthesis is seen at L4-L5 and at L5-S1. Bone Marrow: Marrow is of normal overall signal. No acute vertebral body compression fractures. Spinal Cord: Conus medullaris terminates at the L1-L2 level. Visualized cord demonstrates normal signal and size. Paraspinous Soft Tissues: No paravertebral masses. T12-L1: Moderate loss of disc height is seen. Loss of disc signal is seen. Mild to moderate disc bulge is seen, which is eccentric to the right. There is a superimposed mild central disc extrusion. Mild facet joint hypertrophy is seen. There is moderate right-sided and mild left-sided neural foraminal narrowing. No significant central canal narrowing is seen. L1-L2: At least moderate loss of disc height and disc signal can be seen. Reactive marrow endplate changes are seen, which demonstrate mixed T1 weighted and T2-weighted signal, and are attributed to a combination of edema and fatty metaplasia (Modic type I and Modic type II changes). Moderate generalized disc bulge is seen. There is a superimposed central disc osteophyte protrusion. Mild facet joint hypertrophy is seen. Moderate bilateral neural foraminal narrowing is seen. Mild central canal narrowing is seen. L2-L3: [id number] loss of disc height and disc signal can be seen. Mild generalized disc bulge is seen. There is a superimposed central disc protrusion. Moderate facet joint hypertrophy is seen. Mild central canal narrowing is seen. L3-L4: The disc height is well-preserved. Loss of disc signal is seen at this level. Moderate generalized disc bulge is seen. There is a mild central disc extrusion. At least moderate facet hypertrophy is seen. Associated hypertrophy of the ligamentum flavum can be seen. Fluid is seen within the facet joints themselves. There is at least moderate bilateral neural foraminal narrowing seen. There is a degree of compression seen upon the exiting nerve roots. At least moderate central canal narrowing is seen. L4-L5: Mild loss of disc height is seen. Loss of disc signal is seen. Moderate generalized disc bulge is seen. There is a mild central disc extrusion, with mild superior migration of the disc material. At least moderate facet hypertrophy can be seen. There is moderate to severe bilateral neural foraminal narrowing seen, with an associated degree of compression seen upon the exiting nerve roots. At least moderate central canal narrowing is seen at this level. L5-S1: Mild loss of disc height is seen. Loss of disc signal is seen. A mild degree of generalized disc osteophyte complex is seen. There is a mild central disc protrusion. At least moderate facet hypertrophy can be seen. At least moderate bilateral neural foraminal narrowing is seen. There is a degree of compression seen upon the exiting nerve roots. Moderate central canal narrowing is seen. IMPRESSION: Multiple levels of significant lumbar spine degenerative change can be seen, which are worst inferiorly. Dictated by: Max Jalloh M.D. on 08/10/2024 at 16:19 Transcribed by: TAMMY on 08/10/2024 at 16:21 Approved by: Max Jalloh M.D. on 08/10/2024 at 17:25
== END ==
LOC: MRI 13:13
PROVIDERS: Family Provider Registered Nurse; PCP Registered Nurse; Referring Provider Registered Nurse; Visit Provider Registered Nurse
DX: M47.27 Other spondylosis with radiculopathy, lumbosacral region (principal); M47.26 Other spondylosis with radiculopathy, lumbar region
CPT/HCPCS: 72148

== ENCOUNTER 2024-08-31 13:45 | Outpatient (RCR) | payer OTHER, MEDICAID, SELFPAY ==
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
--- NOTE | 2024-09-04 14:01 | PT-OP ANOTE ---
Phoned patient regarding no show, left message with [employer]front director phone number. Patient made aware of no show policy ie fees and discharge from PT with 2 no shows.
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
== END 2024-09-25 10:30 | disposition home or self-care (01) ==
LOC: PHYS 13:45
PROVIDERS: Family Provider Registered Nurse; PCP Registered Nurse; Referring Provider Registered Nurse; Visit Provider Registered Nurse
DX: M25.552 Pain in left hip (principal); M25.561 Pain in right knee; M25.511 Pain in right shoulder; G89.29 Other chronic pain
CPT/HCPCS: 97110; 97116; 97140; 97162; 97530; 97535

== ENCOUNTER 2024-09-05 10:00 | Inpatient (IN) | payer OTHER, MEDICAID, SELFPAY ==
[2024-09-05] VITALS (19 sets, daily range): BP systolic 96–194; BP diastolic 50–93; PULSE 100–124; RESP 15–29; TEMP 36.2–38.5; O2SAT 88–97; BMI 28.7
--- NOTE | 2024-09-05 | DI.RAD.S_ITS ---
PROCEDURE: XR ABDOMEN 1V INDICATIONS: STENT PLACEMENT TECHNIQUE: Fluoroscopic intraoperative views, Two views COMPARISON: None. IMPRESSION: There is a right nephroureteral stent, there is moderate right hydronephrosis. Dictated by: Michael Reyna M.D. on 09/05/2024 at 19:11 Approved by: Michael Reyna M.D. on 09/05/2024 at 19:12
--- NOTE | 2024-09-05 10:15 | EKG_ITS ---
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
--- NOTE | 2024-09-05 10:41 | ED_ITS ---
HPI - Abdominal Pain General Chief Complaint: Abdominal Pain Stated Complaint: stomach pain, intestinal pain x 2 days Time Seen by Provider: 09/05/24 10:33 Source: patient and family Mode of arrival: Wheelchair History of Present Illness HPI narrative: Patient is a female with a history of type 2 diabetes who presents with abdominal pain localized to the right lower and mid-epigastric regions, beginning Wednesday night. The pain was the initial symptom, followed by episodes of vomiting and diarrhea. The diarrhea is described as runny, dark, and containing mucus. The patient reports dehydration and has not taken her diabetes medications, including metformin. She denies urinary symptoms and has not measured her temperature but is unsure about fevers or chills. There is no known sick contact. She denies any abdominal surgeries. No nausea medications have been taken today. Pertinent ROS: Positive for abdominal pain, vomiting, diarrhea, and dehydration. Negative for urinary symptoms, sick contacts, and known fever or chills. Related Data Home Medications ?Medication ?Instructions ?Recorded ?Confirmed lorazepam 0.5 mg tablet 0.5 mg PO QPM ##0 05/09/17 losartan 25 mg tablet 25 mg PO QDAY ##0 05/09/17 metformin 850 mg tablet 850 mg PO BIDCC ##0 05/09/17 (Glucophage) promethazine 25 mg tablet 25 mg PO QPM ##0 05/09/17 Previous Rx's ?Medication ?Instructions ?Recorded ondansetron 4 mg disintegrating 4 mg sublingual Q6HP P RN ##5 05/09/17 tablet (Zofran ODT) tramadol 50 mg tablet 1 - 2 tab PO Q4HP PRN #15 ta bs 05/09/17 Allergies Allergy/AdvReac Type Severity Reaction Status Date / Time codeine (CODEINE) Allergy Intermediate NAUSEA / Verified 09/05/24 10:50 HIVES cortisone (CORTISONE) Allergy Intermediate LIGHT / Verified 09/05/24 10:50 SOUND SENSITIVITY Review of Systems Review of Systems ROS Unobtainable: All systems reviewed & are unremarkable except as noted in HPI and below Patient History Social History household members: none Smoking Status: Former smoker alcohol intake: never Smoking Status: Former smoker Exam Narrative Exam Narrative: General: Appears uncomfortable Skin: Good turgor, no rash, unusual bruising or prominent lesions Head: Normocephalic, atraumatic HEENT: Conjunctiva clear, EOM intact, PERRL, Mucous membranes moist. Neck: Supple, normal ROM Heart: Regular rate and rhythm, no murmur or gallop or rubs Lungs: Clear to auscultation. No rales rhonchi or wheezes. Abdomen: Tenderness in the mid-epigastric region and right upper quadrant. Back: Spine normal without deformity or tenderness, no CVA tenderness Extremities: No significant edema to lower extremities. No deformities, peripheral pulses intact Neurologic: CN 2-12 normal. Normal sensation and motor exam. Psychiatric: Oriented X3. normal mood and affect. Initial Vital Signs Initial Vital Signs: Vital Signs Temperature 97.2 F L 09/05/24 10:06 Pulse Rate 117 H 09/05/24 10:06 Respiratory Rate 22 09/05/24 10:06 Blood Pressure 181/90 H 09/05/24 10:06 Pulse Oximetry 93 09/05/24 10:06 Oxygen Delivery Method Room Air 09/05/24 10:06 Course Orders Ordered: ED Orders 09/05/24 11:34 CT abdomen pelvis w con Stat 09/05/24 11:40 Comprehensive Metabolic Panel Stat Ketones (Beta-Hydroxybutyrate) Stat Lipase Stat Troponin & CK Cardiac Panel Stat 09/05/24 13:35 VBG [Venous Blood Gas] STAT 09/05/24 13:50 Venous Blood Gas Routine Fentanyl (Fentanyl 100 Mcg/2 Ml Inj) 0 mcg IV Q5MIN PRN PRN Reason: Pain, Severe (7-10) Hydromorphone HCl (Hydromorphone 1 Mg Inj) 1 mg IV Q2H PRN PRN Reason: Pain, Severe (7-10) Hydromorphone HCl (Hydromorphone 1 Mg Inj) 0 mg IV Q5MIN PRN PRN Reason: Pain, Mild (1-3) Hydroxyzine HCl (Hydroxyzine 50 Mg/Ml Inj) 25 mg IM NOW PRN PRN Reason: Pain, Mild (1-3) Sodium Chloride (Normal Saline 0.9%) 1,000 mls @ 100 mls/hr IV CONT CORINNE Ceftriaxone Sodium 2,000 mg/ (Sodium Chloride) 100 mls @ 200 mls/hr IV Q24H CORINNE Dextrose (D10w) 100 mls @ 1,200 mls/hr IV PRN PRN PRN Reason: Hypoglycemia Insulin Human Lispro (Insulin Lispro 100 Unit/Ml 3ml Vial) 0 unit SUBCUT Q6H [facility]; Protocol Last Admin: 09/05/24 16:36 Dose: 12 unit Documented By: DAT Co-signed By: NASRA Naloxone HCl (Naloxone 0.4 Mg/Ml Vial) 0.2 mg IV Q2MIN PRN PRN Reason: Opiate Reversal Ondansetron HCl (Ondansetron 4 Mg/2 Ml Inj) 4 mg IV Q4HR PRN PRN Reason: Nausea And Vomiting Oxycodone HCl (Oxycodone Ir 5 Mg Tablet) 5 mg PO PACUNOW PRN PRN Reason: Mild or moderate pain Discontinued Medications Hydromorphone HCl (Hydromorphone 0.5 Mg Inj) 1 mg IV Q2H PRN PRN Reason: Pain, Severe (7-10) Sodium Chloride (Normal Saline 0.9%) 1,000 mls @ 1,000 mls/hr IV BOLUS ONE Stop: 09/05/24 11:13 Last Admin: 09/05/24 17:21 Dose: 1,000 mls/hr Documented By: Admin: 09/05/24 12:37 Dose: Not Given Documented By: Lactated Ringer's (Lactated Ringers) 1,000 mls @ 1,000 mls/hr IV BOLUS ONE Stop: 09/05/24 11:39 Last Infusion: 09/05/24 12:36 Dose: Infused Documented By: Admin: 09/05/24 11:35 Dose: 1,000 mls/hr Documented By: Ceftriaxone Sodium 2,000 mg/ (Sodium Chloride) 100 mls @ 200 mls/hr IV NOW ONE Stop: 09/05/24 11:22 Last Infusion: 09/05/24 12:39 Dose: Infused Documented By: Admin: 09/05/24 11:36 Dose: 200 mls/hr Documented By: Metronidazole (Flagyl) 500 mg in 100 mls @ 100 mls/hr IV NOW ONE Stop: 09/05/24 12:20 Last Admin: 09/05/24 13:18 Dose: 100 mls/hr Documented By: Lactated Ringer's (Lactated Ringers) 1,000 mls @ 1,000 mls/hr IV BOLUS ONE Stop: 09/05/24 16:42 Last Infusion: 09/05/24 17:13 Dose: Infused Documented By: Admin: 09/05/24 16:27 Dose: 1,000 mls/hr Documented By: DAT Acetaminophen (Ofirmev) 1,000 mg in 100 mls @ 400 mls/hr IV NOW ONE Stop: 09/05/24 17:16 Last Infusion: 09/05/24 17:12 Dose: Infused Documented By: Admin: 09/05/24 17:05 Dose: 400 mls/hr Documented By: JILLIAN Iopamidol (Iopamidol 30 Ml Vial) 30 ml INJ NOW ONE Stop: 09/05/24 18:06 Last Admin: 09/05/24 17:55 Dose: 6 ml Documented By: CONSTANTINE Morphine Sulfate (Morphine 2 Mg/Ml Inj) 2 mg IV NOW ONE Stop: 09/05/24 10:44 Last Admin: 09/05/24 10:50 Dose: 2 mg Documented By: Morphine Sulfate (Morphine 4 Mg/Ml Inj) 4 mg IV NOW ONE Stop: 09/05/24 11:41 Last Admin: 09/05/24 11:46 Dose: 4 mg Documented By: Morphine Sulfate (Morphine 2 Mg/Ml Inj) 2 mg IV NOW ONE Stop: 09/05/24 13:51 Last Admin: 09/05/24 14:02 Dose: 2 mg Documented By: Ondansetron HCl (Ondansetron 4 Mg/2 Ml Inj) 4 mg IV NOW ONE Stop: 09/05/24 10:41 Last Admin: 09/05/24 10:50 Dose: 4 mg Documented By: Ondansetron HCl (Ondansetron 4 Mg/2 Ml Inj) 4 mg IV NOW ONE Stop: 09/05/24 11:25 Last Admin: 09/05/24 11:35 Dose: 4 mg Documented By: Vital Signs Vital signs: Vital Signs - 8 hr 09/05/24 12:46 09/05/24 12:56 09/05/24 12:56 Pulse Rate 119 H 113 H Respiratory Rate 29 H 19 Blood Pressure 188/85 H Pulse Oximetry 92 92 Oxygen Delivery Method Oxygen Flow Rate 09/05/24 13:00 09/05/24 13:00 09/05/24 13:30 Pulse Rate 111 H Respiratory Rate 22 Blood Pressure 182/85 H 194/93 H Pulse Oximetry 92 Oxygen Delivery Method Nasal Cannula Oxygen Flow Rate 1 09/05/24 13:30 Pulse Rate 114 H Respiratory Rate 24 Blood Pressure Pulse Oximetry 94 Oxygen Delivery Method Oxygen Flow Rate MDM - Abdominal Pain Lab Data Lab results narrative: I reviewed patient's labs which included a white blood cell count of 20.1, platelet count of 326, hemoglobin of 14.1 Patient has mildly elevated lactate at 2.5, she has evidence of mild MARLENE and elevated ketones. Urinalysis does not show infection however with white count and stranding still concerned about potential infection 09/05/24 10:40 09/05/24 11:40 Labs: Lab Results 09/05/24 09/05/24 09/05/24 Range/Units 10:40 10:45 11:40 WBC 20.1 H (4.5-11.0) X10^3/uL RBC 4.40 (4.0-5.2) X10^6/uL Hgb 14.1 (12.0-16.0) g/dL Hct 42.0 (36-46) % MCV 95.6 (80-100) fL MCH 32.0 (26-34) PG MCHC 33.5 (30-36) % RDW 13.2 (11.6-14.8) % Plt Count 326 (150-400) X10^3/uL Neut % (Auto) 92.0 H (50-75) % Lymph % (Auto) 1.5 L (25-40) % [place] % (Auto) 5.9 (3-14) % Eos % (Auto) 0.3 L (2-4) % Baso % (Auto) 0.3 (0-2) % Neut # (Auto) 48165 H (7589-2768) /uL Lymph # (Auto) 300 L (5535-1353) /uL [place] # (Auto) 1200 H (0-900) /uL Eos # (Auto) 100 (0-450) /uL Baso # (Auto) 100 (0-100) /uL VBG pH (7.33-7.43) VBG pCO2 (45-50) mmHg VBG pO2 (35-45) mmHg VBG HCO3 (24-28) mmol/L VBG Total CO2 (24-29) mmol/L VBG O2 Saturation (70-75) % VBG Base Excess (0-4) mmol/L Sodium 135 L (137-145) mmol/L Potassium 4.3 (3.4-5.1) mmol/L Chloride 93 L (98-107) mmol/L Carbon Dioxide 26 (22-32) mmol/L BUN 37 H (7-17) mg/dL Creatinine 1.40 H (0.52-1.04) mg/dL Estimated GFR 38 L (>60) mL/min BUN/Creatinine Ratio 26.4 H (6-22) Glucose 409 H (70-99) mg/dL Lactate 2.5 H (0.7-2.1) mmol/L Calcium 9.8 (8.4-10.2) mg/dL Total Bilirubin 1.2 (0.2-1.3) mg/dL AST 33 (14-36) IU/L ALT 22 (<35) IU/L Alkaline Phosphatase 73 (38-126) U/L Total Creatine Kinase 60 (30-135) U/L Troponin I 0.014 (0.01-0.034) ng/mL Total Protein 7.3 (6.3-8.2) g/dL Albumin 4.3 (3.5-5.0) g/dL Globulin 3.0 (1.7-4.1) g/dL Albumin/Globulin Ratio 1.4 (1.0-2.8) Lipase 34 (23-300) U/L Ketones 3.66 H (<0.27) mmol/L // Range/Units 13:50 WBC (4.5-11.0) X10^3/uL RBC (4.0-5.2) X10^6/uL Hgb (12.0-16.0) g/dL Hct (36-46) % MCV (80-100) fL MCH (26-34) PG MCHC (30-36) % RDW (11.6-14.8) % Plt Count (150-400) X10^3/uL Neut % (Auto) (50-75) % Lymph % (Auto) (25-40) % [place] % (Auto) (3-14) % Eos % (Auto) (2-4) % Baso % (Auto) (0-2) % Neut # (Auto) (5302-4004) /uL Lymph # (Auto) (8586-2338) /uL [place] # (Auto) (0-900) /uL Eos # (Auto) (0-450) /uL Baso # (Auto) (0-100) /uL VBG pH 7.38 (7.33-7.43) VBG pCO2 50.9 H (45-50) mmHg VBG pO2 30 L (35-45) mmHg VBG HCO3 30 H (24-28) mmol/L VBG Total CO2 29 (24-29) mmol/L VBG O2 Saturation 55 L (70-75) % VBG Base Excess 3.8 (0-4) mmol/L Sodium (137-145) mmol/L Potassium (3.4-5.1) mmol/L Chloride (98-107) mmol/L Carbon Dioxide (22-32) mmol/L BUN (7-17) mg/dL Creatinine (0.52-1.04) mg/dL Estimated GFR (>60) mL/min BUN/Creatinine Ratio (6-22) Glucose (70-99) mg/dL Lactate (0.7-2.1) mmol/L Calcium (8.4-10.2) mg/dL Total Bilirubin (0.2-1.3) mg/dL AST (14-36) IU/L ALT (<35) IU/L Alkaline Phosphatase (38-126) U/L Total Creatine Kinase (30-135) U/L Troponin I (0.01-0.034) ng/mL Total Protein (6.3-8.2) g/dL Albumin (3.5-5.0) g/dL Globulin (1.7-4.1) g/dL Albumin/Globulin Ratio (1.0-2.8) Lipase (23-300) U/L Ketones (<0.27) mmol/L Point of care testing: Point of Care Testing Glucose POC 381 Urine Dip Bedside Urine Glucose 1000 mg/dl Bedside Urine Bilirubin - Negative Bedside Urine Ketone +++ 80 Urine Specific [place] 1.020 Bedside Urine Occult Blood + Bedside Urine pH 6.0 Bedside Urine Protein +++ 300 Bedside Urine Urobilinogen - Negative Bedside Urine Nitrite - Negative Bedside Urine Leukocytes - Negative Esterase Imaging Data CT scan - abdomen/pelvis: Radiologist's Impression: PROCEDURE: CT ABDOMEN PELVIS W CON INDICATIONS: abd pain TECHNIQUE: After the administration of intravenous contrast, axial sections acquired from the lung bases to the pubic symphysis. Coronal and sagittal reformats were performed. For radiation dose reduction, the following was used: automated exposure control, adjustment of mA and/or kV according to patient size. COMPARISON: None. FINDINGS: Image quality: Diagnostic. Lower Chest: No significant findings. ABDOMEN: Liver: No solid mass. Gallbladder: No radiopaque gallstones or wall thickening. Probable focal adenomyomatosis at the gallbladder fundus. Biliary ducts: No biliary dilation. Pancreas: No ductal dilation. Spleen: Size is within normal limits. Adrenal Glands: No adrenal nodules. Kidneys and Ureters: Multiple small bilateral nonobstructing renal calculi. A 10 mm nonobstructing calculus is seen at the inferior pole the right kidney (1380 Hounsfield units). There is a 8 mm calculus (1330 Hounsfield units) in the right proximal ureter at the ureteropelvic junction with moderate right hydronephrosis and perinephric stranding. Left extrarenal pelvis without significant left hydronephrosis. No solid mass. No complex renal cystic lesion which requires follow up. Stomach and Bowel: Colonic diverticulosis without signs of acute diverticulitis. Small bowel loops are nondistended. Normal appendix. Peritoneum: No abnormal intraperitoneal fluid. No free air. Ventral Wall: No significant ventral hernia. Abdominal Nodes: No retroperitoneal or mesenteric adenopathy by size criteria. Vessels: Aorta and inferior vena cava are normal in size. PELVIS: Pelvic Organs: Calcified degenerated uterine fibroid. Bladder: No bladder wall thickening, accounting for underdistention. Pelvic Nodes: No enlarged lymph nodes. Miscellaneous: No inguinal hernias are seen. Bones: Multilevel degenerative changes are seen in the included spine. IMPRESSION: 1. Right proximal ureteral 8 mm calculus at the ureteropelvic junction with moderate right hydronephrosis and perinephric fat stranding. 2. Bilateral nonobstructing renal calculi. 3. Colonic diverticulosis. ECG Data Interpretation: on independent evaluation of patient's EKG I see a rate of 110, appears to be sinus, VT interval is 158, QTC is 504, patient appears to have evidence of right bundle/left anterior fascicular block, no previous EKG for comparison, no findings meeting STEMI criteria MDM Narrative Medical decision making narrative: INITIAL EVALUATION AND PLAN: - Differential includes bowel obstruction, appendicitis, and other causes of abdominal pain - Plan: - Administer antiemetics - Initiate IV fluids - Obtain laboratory studies - Order abdominal CT scan - Obtain urine sample ED Course: The patient, a female with a history of type 2 diabetes, presented to the ED with abdominal pain localized to the right lower and mid-epigastric regions, accompanied by vomiting, diarrhea, and signs of dehydration. Initial evaluation included a differential diagnosis of bowel obstruction, appendicitis, and other causes of abdominal pain. Therapeutic interventions included the administration of antiemetics and initiation of IV fluids to address dehydration and symptomatic relief. Diagnostic workup involved obtaining laboratory studies, ordering an abdominal CT scan, and collecting a urine sample. Additional evaluations were planned to rule out pneumonia and cardiac causes of abdominal pain. The patient was closely monitored for changes in clinical status during her stay in the ED. Differential Diagnoses: Bowel obstruction, Appendicitis, Cholecystitis, Diabetic ketoacidosis (DKA), Gastroenteritis,ACS Complexity of Problems Addressed: The patient presents with abdominal pain localized to the right lower and mid- epigastric regions, accompanied by vomiting, diarrhea with mucus, and dehydration. Differential diagnoses include bowel obstruction and appendicitis, both of which are undiagnosed new problems with uncertain prognosis and pose a significant threat to life if untreated. The patient's history of type 2 diabetes and unrepaired hernia further complicates the clinical picture, increasing the risk of morbidity. Patient presents tachycardic with right-sided pain and vomiting found to have an obstructed right-sided urinary stone with concerns for infection given white count of 20. Patient given early antibiotics in the emergency department and consultation with Dr. Fonseca of the urology group. He requests admission for this patient will need to put a stent to decompress. Patient has elevated glucose in the context of not taking her medications, elevated ketones suspect potential DKA however patient also has no significant acidosis on her VBG, we will administer fluids recheck glucose and administer insulin as needed. Patient's repeat glucose elevated at 388, will speak with inpatient team about insulin, will likely need on inpatient unit. Patient admitted to hospitalist service for ongoing management of infection with urological services to come aide and stenting. Discharge Plan Departure Patient Disposition: Admitted As Inpatient Clinical Impression: Obstruction of right ureteropelvic junction (UPJ) due to stone Admit Date/Time: 09/05/24 15:14 Admit Provider: Yuriy Horton
--- NOTE | 2024-09-05 10:43 | DI.RAD.S_ITS ---
PROCEDURE: XR CHEST 1V INDICATIONS: CP TECHNIQUE: One view of the chest was acquired. COMPARISON: None. FINDINGS: Surgical changes and devices: None. Lungs and pleura: Lungs are clear. No pleural effusions or pneumothorax. Mediastinum: Mediastinal contours appear normal. Heart size is normal. Bones and chest wall: No suspicious bony lesions. Overlying soft tissues appear unremarkable. IMPRESSION: No acute cardiopulmonary abnormality is seen. Dictated by: Tomas Fischer M.D. on 09/05/2024 at 11:06 Approved by: Tomas Fischer M.D. on 09/05/2024 at 11:07
[2024-09-05] MEDS: ONDANSETRON 4 MG/2 ML INJ IV ×2 (10:50→11:35)
[2024-09-05] MEDS: MORPHINE 2 MG/ML INJ IV ×2 (10:50→14:02)
[2024-09-05 10:57] LABS: Add Manual Diff / Slide Review NO; Basophils Absolute Auto 100 /uL (0-100); Basophils Percent Auto 0.3 % (0-2); Eosinophils Absolute Auto 100 /uL (0-450); Eosinophils Percent Auto 0.3 % (2-4); Hemoglobin 14.1 g/dL (12.0-16.0); Lymphocytes Absolute Auto 300 /uL (1100-4500); Lymphocytes Percent Auto 1.5 % (25-40); Mean Corpuscular HGB Conc 33.5 % (30-36); Mean Corpuscular Volume 95.6 fL (80-100); Monocytes Absolute Auto 1200 /uL (0-900); Monocytes Percent Auto 5.9 % (3-14); Neutrophils Absolute Auto 18500 /uL (1500-7000); Platelet Count 326 X10^3/uL (150-400); Red Cell Distribution Width 13.2 % (11.6-14.8); White Blood Cell Count 20.1 X10^3/uL (4.5-11.0)
[2024-09-05 11:22] LABS: Lactate (Lactic Acid) 2.5 mmol/L (0.7-2.1)
--- NOTE | 2024-09-05 11:34 | DI.CT.S_ITS ---
PROCEDURE: CT ABDOMEN PELVIS W CON INDICATIONS: abd pain TECHNIQUE: After the administration of intravenous contrast, axial sections acquired from the lung bases to the pubic symphysis. Coronal and sagittal reformats were performed. For radiation dose reduction, the following was used: automated exposure control, adjustment of mA and/or kV according to patient size. COMPARISON: None. FINDINGS: Image quality: Diagnostic. Lower Chest: No significant findings. ABDOMEN: Liver: No solid mass. Gallbladder: No radiopaque gallstones or wall thickening. Probable focal adenomyomatosis at the gallbladder fundus. Biliary ducts: No biliary dilation. Pancreas: No ductal dilation. Spleen: Size is within normal limits. Adrenal Glands: No adrenal nodules. Kidneys and Ureters: Multiple small bilateral nonobstructing renal calculi. A 10 mm nonobstructing calculus is seen at the inferior pole the right kidney (1380 Hounsfield units). There is a 8 mm calculus (1330 Hounsfield units) in the right proximal ureter at the ureteropelvic junction with moderate right hydronephrosis and perinephric stranding. Left extrarenal pelvis without significant left hydronephrosis. No solid mass. No complex renal cystic lesion which requires follow up. Stomach and Bowel: Colonic diverticulosis without signs of acute diverticulitis. Small bowel loops are nondistended. Normal appendix. Peritoneum: No abnormal intraperitoneal fluid. No free air. Ventral Wall: No significant ventral hernia. Abdominal Nodes: No retroperitoneal or mesenteric adenopathy by size criteria. Vessels: Aorta and inferior vena cava are normal in size. PELVIS: Pelvic Organs: Calcified degenerated uterine fibroid. Bladder: No bladder wall thickening, accounting for underdistention. Pelvic Nodes: No enlarged lymph nodes. Miscellaneous: No inguinal hernias are seen. Bones: Multilevel degenerative changes are seen in the included spine. IMPRESSION: 1. Right proximal ureteral 8 mm calculus at the ureteropelvic junction with moderate right hydronephrosis and perinephric fat stranding. 2. Bilateral nonobstructing renal calculi. 3. Colonic diverticulosis. Approved by: Parviz Wiley M.D. on 09/05/2024 at 13:13
[2024-09-05] MEDS: LACTATED RINGERS 1,000 ML 1000 ML IV ×2 (11:35→16:27)
[2024-09-05] MEDS: cefTRIAXone 2,000 MG in SODIUM CHLORIDE 0.9% 100 ML 200 MG IV (11:36)
--- NOTE | 2024-09-05 11:45 | PC.NURSE ---
Pt reports that she is still having severe abdominal pain. Dr Parada notified. New orders received.
[2024-09-05] MEDS: MORPHINE 4 MG/ML INJ IV (11:46)
[2024-09-05 12:06] LABS: Alanine Aminotransferase 22 IU/L (<35); Albumin 4.3 g/dL (3.5-5.0); Albumin Globulin Ratio 1.4 (1.0-2.8); Alkaline Phosphatase 73 U/L (38-126); Aspartate Aminotransferase 33 IU/L (14-36); BUN Creatinine Ratio 26.4 (6-22); Bilirubin Total 1.2 mg/dL (0.2-1.3); Blood Urea Nitrogen 37 mg/dL (7-17); Calcium 9.8 mg/dL (8.4-10.2); Carbon Dioxide 26 mmol/L (22-32); Chloride 93 mmol/L (98-107); Estimated Glomerular Filt Rate 38 mL/min (>60); Glucose 409 mg/dL (70-99); HEMOLYSIS 45 (0-50); Lipase 34 U/L (23-300); Potassium 4.3 mmol/L (3.4-5.1); Sodium 135 mmol/L (137-145); Total Protein 7.3 g/dL (6.3-8.2)
[2024-09-05 12:07] LABS: Creatine Kinase 60 U/L (30-135)
[2024-09-05 12:13] LABS: Ketones (Beta-Hydroxybutyrate) 3.66 mmol/L (<0.27)
[2024-09-05 12:20] LABS: Troponin I 0.014 ng/mL (0.01-0.034)
[2024-09-05] MEDS: metroNIDAZOLE 500 MG/100 ML PIGGYBACK 100 MG IV (13:18)
[2024-09-05 13:53] LABS: Base Excess VBG 3.8 mmol/L (0-4); HCO3 VBG 30 mmol/L (24-28); Oxygen Saturation VBG 55 % (70-75); PCO2 VBG 50.9 mmHg (45-50); PO2 VBG 30 mmHg (35-45); Total CO2 VBG 29 mmol/L (24-29); pH VBG 7.38 (7.33-7.43)
--- NOTE | 2024-09-05 15:44 | PM.HP.1 ---
History of Present Illness History of Present Illness Date Patient Seen: 09/05/24 Chief complaint: Right sided abdominal pain, dysuria Narrative: Chief complaint: Flank pain and leukocytosis with lactic acidosis hyperglycemia secondary to obstructing kidney stone History of present illness: Patient is a female with a history of type 2 diabetes who presents with abdominal pain localized to the right lower and mid-epigastric regions, beginning Wednesday night. The pain was the initial symptom, followed by episodes of vomiting and diarrhea. The diarrhea is described as runny, dark, and containing mucus. The patient reports dehydration and has not taken her diabetes medications, including metformin. She denies urinary symptoms and has not measured her temperature but is unsure about fevers or chills. There is no known sick contact. She denies any abdominal surgeries. No nausea medications have been taken today. Findings in the emergency department : White blood cell count 13199 with 92% neutrophils Venous blood gas 7.38 pCO2 51 PO2 30 Sodium 137 potassium 4.3 BUN 37 creatinine 1.4 carbon dioxide 26 glucose [address] abdomen and pelvis: IMPRESSION: 1. Right proximal ureteral 8 mm calculus at the ureteropelvic junction with moderate right hydronephrosis and perinephric fat stranding. 2. Bilateral nonobstructing renal calculi. 3. Colonic diverticulosis. Review of systems: No unusual weight loss or weight gain loss of consciousness dizziness headache diplopia No difficulty swallowing No chest pain palpitation wheezing or shortness a breath Physical exam: Elderly female no acute distress at the time of my examination HEENT unremarkable Neck no JVD Heart rate and rhythm regular Lungs clear Abdomen nondistended bowel sounds present nontender Extremities no edema Alert and oriented nonfocal neurologic exam Assessment and plan: Sepsis as evidenced by neutrophilia leukocytosis fever lactic acidosis secondary to pyelonephritis hydronephrosis from obstructing ureteral stone in the right proximal ureteropelvic junction Blood urine cultures IV fluid resuscitation and IV antibiotic Emergent cystoscopy and stent planned for this evening with Dr. Tapia urology Correction of hyperglycemia with high dose exogenous insulin subcutaneous DVT prophylaxis with SCDs only due to ureteral procedure plan Full Code [facility] Social History household members: none Smoking Status: Former smoker alcohol intake: never Meds Home Medications and Allergies Home Medications ?Medication ?Instructions ?Recorded ?Confirmed ?Type lorazepam 0.5 mg tablet 0.5 mg PO QPM ##0 05/09/17 History losartan 25 mg tablet 25 mg PO QDAY ##0 05/09/17 History metformin 850 mg tablet 850 mg PO BIDCC ##0 05/09/17 History (Glucophage) ondansetron 4 mg disintegrating 4 mg sublingual Q6HP PRN ##5 05/09/17 Rx tablet (Zofran ODT) promethazine 25 mg tablet 25 mg PO QPM ##0 05/09/17 History tramadol 50 mg tablet 1 - 2 tab PO Q4HP PRN #15 tabs 05/09/17 Rx Allergies Allergy/AdvReac Type Severity Reaction Status Date / Time codeine (CODEINE) Allergy Intermediate NAUSEA / Verified 09/05/24 10:50 HIVES cortisone (CORTISONE) Allergy Intermediate LIGHT / Verified 09/05/24 10:50 SOUND SENSITIVITY Exam Vital Signs (past 8 hours): - 09/05/24 10:06 09/05/24 10:23 09/05/24 10:30 Temperature 97.2 F L Pulse Rate 117 H 116 H Respiratory Rate 22 Blood Pressure 181/90 H 183/86 H Pulse Oximetry 93 96 Oxygen Delivery Method Room Air Oxygen Flow Rate 09/05/24 10:30 09/05/24 11:00 09/05/24 11:00 Temperature Pulse Rate 113 H 110 H Respiratory Rate 25 H 18 Blood Pressure 169/79 H Pulse Oximetry 91 Oxygen Delivery Method Nasal Cannula Oxygen Flow Rate 1 09/05/24 11:30 09/05/24 11:30 09/05/24 12:00 Temperature Pulse Rate 122 H Respiratory Rate 17 Blood Pressure 177/91 H 187/81 H Pulse Oximetry 97 Oxygen Delivery Method Nasal Cannula Oxygen Flow Rate 1 09/05/24 12:00 09/05/24 12:46 09/05/24 12:56 Temperature Pulse Rate 108 H 119 H 113 H Respiratory Rate 23 29 H 19 Blood Pressure Pulse Oximetry 97 92 92 Oxygen Delivery Method Oxygen Flow Rate 09/05/24 12:56 09/05/24 13:00 09/05/24 13:00 Temperature Pulse Rate 111 H Respiratory Rate 22 Blood Pressure 188/85 H 182/85 H Pulse Oximetry 92 Oxygen Delivery Method Nasal Cannula Oxygen Flow Rate 1 09/05/24 13:30 09/05/24 13:30 Temperature Pulse Rate 114 H Respiratory Rate 24 Blood Pressure 194/93 H Pulse Oximetry 94 Oxygen Delivery Method Oxygen Flow Rate Oxygen Delivery Method Nasal Cannula Oxygen Flow Rate 1 Objective Labs 09/05/24 10:40 09/05/24 11:40 Labs: Laboratory Results - last 24 hr 09/05/24 09/05/24 09/05/24 10:40 10:45 11:40 WBC 20.1 H RBC 4.40 Hgb 14.1 Hct 42.0 MCV 95.6 MCH 32.0 MCHC 33.5 RDW 13.2 Plt Count 326 Neut % (Auto) 92.0 H Lymph % (Auto) 1.5 L [place] % (Auto) 5.9 Eos % (Auto) 0.3 L Baso % (Auto) 0.3 Neut # (Auto) 12213 H Lymph # (Auto) 300 L [place] # (Auto) 1200 H Eos # (Auto) 100 Baso # (Auto) 100 VBG pH VBG pCO2 VBG pO2 VBG HCO3 VBG Total CO2 VBG O2 Saturation VBG Base Excess Sodium 135 L Potassium 4.3 Chloride 93 L Carbon Dioxide 26 BUN 37 H Creatinine 1.40 H Estimated GFR 38 L BUN/Creatinine Ratio 26.4 H Glucose 409 H Lactate 2.5 H Calcium 9.8 Total Bilirubin 1.2 AST 33 ALT 22 Alkaline Phosphatase 73 Total Creatine Kinase 60 Troponin I 0.014 Total Protein 7.3 Albumin 4.3 Globulin 3.0 Albumin/Globulin Ratio 1.4 Lipase 34 Ketones 3.66 H 09/05/24 13:50 WBC RBC Hgb Hct MCV MCH MCHC RDW Plt Count Neut % (Auto) Lymph % (Auto) [place] % (Auto) Eos % (Auto) Baso % (Auto) Neut # (Auto) Lymph # (Auto) [place] # (Auto) Eos # (Auto) Baso # (Auto) VBG pH 7.38 VBG pCO2 50.9 H VBG pO2 30 L VBG HCO3 30 H VBG Total CO2 29 VBG O2 Saturation 55 L VBG Base Excess 3.8 Sodium Potassium Chloride Carbon Dioxide BUN Creatinine Estimated GFR BUN/Creatinine Ratio Glucose Lactate Calcium Total Bilirubin AST ALT Alkaline Phosphatase Total Creatine Kinase Troponin I Total Protein Albumin Globulin Albumin/Globulin Ratio Lipase Ketones Assessment & Plan Time-Based Coding :: 55 minutes spent with patient and on the chart (including review of chart, obtaining history, exam, reviewing outside data, placing orders, documenting exam and treatment plan, and counseling patient). Quality MIPS - Admit I confirm the patient?s Advance Care Plan is present, Code status is documented, Surrogate decision maker is in patient?s record [If Yes, STOP here]: Yes [facility] - Meds 'Current medications' to include all prescriptions, [id number] products, herbals, cannabis/cannabidiol products, and vitamin/mineral/dietary (nutritional) supplements. I have utilized all available resources to obtain, update, or review the patient?s current medications. [If Yes, STOP here]: Yes
[2024-09-05] MEDS: INSULIN LISPRO 100 UNIT/ML 3ML VIAL SUBCUT (16:36)
[2024-09-05] MEDS: ACETAMINOPHEN IV 1,000 MG/100 ML VIAL 400 MG IV (17:05)
[2024-09-05] MEDS: SODIUM CHLORIDE 0.9% 1,000 ML 1000 ML IV (17:21)
--- NOTE | 2024-09-05 17:22 | PM.CN.IH.1 ---
History of Present Illness Consult details Date Patient Seen: 09/05/24 Time Patient Seen: 17:00 Chief complaint: Right sided abdominal pain, dysuria Narrative: 79 y/o F presents to ER for evaluation of severe right sided abdominal pain, dysuria and nausea with vomiting. Of note, she has no h/o nephrolithiasis or prior UTI's. Her evaluation was notable for a WBC of 20.1, sCr of 1.4 (baseline ~0.8) and an infected appearing UA. She has also been tachycardic since arrival and recently spiked a fever to 101.3F. Her CT Abd/Pel was notable for an 8mm right UPJ calculus with resultant upstream moderate hydroureteronephrosis, significant perinephric fat stranding and an additionl 10mm right lower pole calculus. She was started on antibiotics and Urology was consulted for further management. Meds Home Medications and Allergies Home Medications ?Medication ?Instructions ?Recorded ?Confirmed ?Type lorazepam 0.5 mg tablet 0.5 mg PO QPM ##0 05/09/17 History losartan 25 mg tablet 25 mg PO QDAY ##0 05/09/17 History metformin 850 mg tablet 850 mg PO BIDCC ##0 05/09/17 History (Glucophage) ondansetron 4 mg disintegrating 4 mg sublingual Q6HP PRN ##5 05/09/17 Rx tablet (Zofran ODT) promethazine 25 mg tablet 25 mg PO QPM ##0 05/09/17 History tramadol 50 mg tablet 1 - 2 tab PO Q4HP PRN #15 tabs 05/09/17 Rx Allergies Allergy/AdvReac Type Severity Reaction Status Date / Time codeine (CODEINE) Allergy Intermediate NAUSEA / Verified 09/05/24 10:50 HIVES cortisone (CORTISONE) Allergy Intermediate LIGHT / Verified 09/05/24 10:50 SOUND SENSITIVITY Review of Systems Review of Systems Narrative: CONSTITUTIONAL: Denies weight loss, fevers, chills. HEENT: Denies change in vision, hearing. RESP: Denies SOB, cough. CV: Denies palpations, CP. : Denies hematuria, inability to void. MSK: Denies myalgia, joint pain. SKIN: Denies rash, pruritus. NEURO: Denies headache, syncope. PSYCH: Denies recent change in mood, anxiety, depression. Exam Vital Signs (past 8 hours): - 09/05/24 10:06 09/05/24 10:23 09/05/24 10:30 Temperature 97.2 F L Pulse Rate 117 H 116 H Respiratory Rate 22 Blood Pressure 181/90 H 183/86 H Pulse Oximetry 93 96 Oxygen Delivery Method Room Air Oxygen Flow Rate 09/05/24 10:30 09/05/24 11:00 09/05/24 11:00 Temperature Pulse Rate 113 H 110 H Respiratory Rate 25 H 18 Blood Pressure 169/79 H Pulse Oximetry 91 Oxygen Delivery Method Nasal Cannula Oxygen Flow Rate 1 09/05/24 11:30 09/05/24 11:30 09/05/24 12:00 Temperature Pulse Rate 122 H Respiratory Rate 17 Blood Pressure 177/91 H 187/81 H Pulse Oximetry 97 Oxygen Delivery Method Nasal Cannula Oxygen Flow Rate 1 09/05/24 12:00 09/05/24 12:46 09/05/24 12:56 Temperature Pulse Rate 108 H 119 H 113 H Respiratory Rate 23 29 H 19 Blood Pressure Pulse Oximetry 97 92 92 Oxygen Delivery Method Oxygen Flow Rate 09/05/24 12:56 09/05/24 13:00 09/05/24 13:00 Temperature Pulse Rate 111 H Respiratory Rate 22 Blood Pressure 188/85 H 182/85 H Pulse Oximetry 92 Oxygen Delivery Method Nasal Cannula Oxygen Flow Rate 1 09/05/24 13:30 09/05/24 13:30 09/05/24 16:09 Temperature 100.3 F H Pulse Rate 114 H 124 H Respiratory Rate 24 25 H Blood Pressure 194/93 H 171/75 H Pulse Oximetry 94 91 Oxygen Delivery Method Oxygen Flow Rate 2 09/05/24 17:05 Temperature 101.3 F H Pulse Rate 122 H Respiratory Rate 24 Blood Pressure 143/73 H Pulse Oximetry 88 L Oxygen Delivery Method Room Air Oxygen Flow Rate Oxygen Delivery Method Room Air Oxygen Flow Rate 2 Narrative Exam Narrative: GEN: Alert and oriented X3. No acute distress. Well-nourished. EYES: PERRLA, EOMI. HENT: Moist mucus membranes, no scleral icterus, normal neck ROM. RESP: Unlabored breathing, equal rise and fall of chest bilaterally, no cyanosis appreciated. CV: No peripheral edema, unremarkable heart rate. ABD: Soft, non-tender, non-distended, no palpable masses. EXT: No edema, clubbing or cyanosis. SKIN: No rashes or lesions. NEURO: No focal neurologic deficits, CN II-XII grossly intact. PSYCH: Cooperative, appropriate mood and affect. Objective Labs 09/05/24 10:40 09/05/24 11:40 Labs: Laboratory Results - last 24 hr 09/05/24 09/05/24 09/05/24 10:40 10:45 11:40 WBC 20.1 H RBC 4.40 Hgb 14.1 Hct 42.0 MCV 95.6 MCH 32.0 MCHC 33.5 RDW 13.2 Plt Count 326 Neut % (Auto) 92.0 H Lymph % (Auto) 1.5 L [place] % (Auto) 5.9 Eos % (Auto) 0.3 L Baso % (Auto) 0.3 Neut # (Auto) 72350 H Lymph # (Auto) 300 L [place] # (Auto) 1200 H Eos # (Auto) 100 Baso # (Auto) 100 VBG pH VBG pCO2 VBG pO2 VBG HCO3 VBG Total CO2 VBG O2 Saturation VBG Base Excess Sodium 135 L Potassium 4.3 Chloride 93 L Carbon Dioxide 26 BUN 37 H Creatinine 1.40 H Estimated GFR 38 L BUN/Creatinine Ratio 26.4 H Glucose 409 H Lactate 2.5 H Calcium 9.8 Total Bilirubin 1.2 AST 33 ALT 22 Alkaline Phosphatase 73 Total Creatine Kinase 60 Troponin I 0.014 Total Protein 7.3 Albumin 4.3 Globulin 3.0 Albumin/Globulin Ratio 1.4 Lipase 34 Ketones 3.66 H 09/05/24 13:50 WBC RBC Hgb Hct MCV MCH MCHC RDW Plt Count Neut % (Auto) Lymph % (Auto) [place] % (Auto) Eos % (Auto) Baso % (Auto) Neut # (Auto) Lymph # (Auto) [place] # (Auto) Eos # (Auto) Baso # (Auto) VBG pH 7.38 VBG pCO2 50.9 H VBG pO2 30 L VBG HCO3 30 H VBG Total CO2 29 VBG O2 Saturation 55 L VBG Base Excess 3.8 Sodium Potassium Chloride Carbon Dioxide BUN Creatinine Estimated GFR BUN/Creatinine Ratio Glucose Lactate Calcium Total Bilirubin AST ALT Alkaline Phosphatase Total Creatine Kinase Troponin I Total Protein Albumin Globulin Albumin/Globulin Ratio Lipase Ketones PFSH Social History household members: none Tobacco & Substance Use Smoking Status: Former smoker alcohol intake: never Assessment & Plan Assessment and plan (1) Right ureteral calculus: Status: Acute Plan: 79 y/o F noted to have an 8mm right UPJ calculus with resultant upstream moderate hydroureteronephrosis, a large right lower pole calculus, an infected appearing UA, WBC of 20.1, sCr of 1.4 and tachycardia with a Tmax of 101.3F. Discussed treatment options to include continued medical expulsion therapy (not recommended as she appears septic) vs cystoscopy with right ureteral stent placement. Discussed risks of the procedure to include but not limited to pain, bleeding, infection, injury to urethra/bladder/ureter, inability to access the ureter requiring discussion with Interventional Radiology regarding a possible ureteral stent placement in an antegrade fashion vs a possible nephroureteral stent and/or percutaneous nephrostomy tube, urinary tract infection, need for emergent open repair of bladder and/or ureter. She indicated understanding and informed consent was obtained. (2) Urinary tract infection: Qualifiers: Urinary tract infection type: site unspecified Hematuria presence: without hematuria Qualified Code(s): N39.0 - Urinary tract infection, site not specified Status: Acute Plan: Please see plan above. - Appreciate molding line assistant of hospitalist team - Will need definitive stone management in the future via a cystoscopy, right ureteroscopy, laser lithotripsy and right ureteral stent placement Time-Based Coding :: [TOTAL MINUTES] spent with patient and on the chart (including review of chart, obtaining history, exam, reviewing outside data, placing orders, documenting exam and treatment plan, and counseling patient) on [DATE]. PROFEE Charge Codes Inpatient or Observation consultation: [id number]
[2024-09-05] MEDS: iopamidoL 30 ML VIAL INJ (17:55)
--- NOTE | 2024-09-05 17:56 | SUR.OPER ---
Lithotomy on padded OR bed, head on pillow, arms secured on padded arm boards at <90 degrees abduction. Legs secured in padded yellow fins stirrups.
--- NOTE | 2024-09-05 18:21 | PM.OP.1 ---
Operative Date/Time/Diagnoses Date of procedure: 09/05/24 Time of procedure: 17:50 Pre-op diagnosis: Right ureteral stone, urinary tract infection Post-op diagnosis: same Procedure & Clinicians Procedure: Cystoscopy Right retrograde ureteropyelogram Right ureteral stent placement Intraoperative interpretation of fluoroscopic images, total time < 1 hour Same procedure as scheduled: Yes Indications: 79 y/o F noted to have an 8mm right UPJ calculus with resultant upstream moderate hydroureteronephrosis, a large right lower pole calculus, an infected appearing UA, WBC of 20.1, sCr of 1.4 and tachycardia with a Tmax of 101.3F. Discussed treatment options to include continued medical expulsion therapy (not recommended as she appears septic) vs cystoscopy with right ureteral stent placement. Surgeon: Nain Tapia Click Yes if Unassisted: Yes Anesthesia Type: General Operative Notes Findings: Large right proximal ureterolith, severe upstream hydroureteronephrosis Closure Type: not applicable Specimen(s): none sent Estimated Blood Loss (mL): 2 Blood products transfused: none Procedure in detail: Patient was identified in the preoperative holding area and consent confirmed. She was then brought to the operating room where general anesthesia was induced.? She was then placed in the low lithotomy position. She was then prepped and draped in the usual sterile fashion. A surgical timeout was conducted and all were in agreement. Access to the bladder was obtained via a 21Fr cystoscope.? Cloudy urine was immediately noted within the bladder.? The right ureteral orifice was easily visualized and a 0.035 sensor tip ureteral guidewire was advanced through the 5Fr ureteral catheter and into the right renal collecting system.? The ureteral guidewire was removed and a retrograde pyelogram was performed which noted severe right hydronephrosis.? The ureteral guidewire was readvanced through the ureteral catheter and into the right renal pelvis.? The ureteral catheter was then removed.? A 6Fr multi-length JJ ureteral stent without strings was then advanced over the ureteral guidewire and into the right renal collecting system.? Upon removal of the ureteral guidewire, a good curl was appreciated within the right renal pelvis upon fluoroscopy and visually within the bladder.? The bladder was then drained and the cystoscope was removed.? Anesthesia was reversed, she was extubated in the OR and transferred to the PACU in stable condition for recovery. Complications: none Post-operative Condition: stable Disposition: Acute Care Plan for aftercare: Transfer back to the [facility] under the care of the hospitalist. Will need definitive stone management in the future via a cystoscopy, right ureteroscopy, laser lithotripsy and right ureteral stent placement.
[2024-09-05] MEDS: SODIUM CHLORIDE 0.9% 1,000 ML 100 ML IV (20:33)
[2024-09-06] MEDS: INSULIN LISPRO 100 UNIT/ML 3ML VIAL SUBCUT ×3 (04:04→20:15)
[2024-09-06 04:27] VITALS: BP 108/53; PULSE 88; RESP 16; O2SAT 96
[2024-09-06] MEDS: SODIUM CHLORIDE 0.9% 1,000 ML 100 ML IV ×2 (05:51→14:52)
--- NOTE | 2024-09-06 05:59 | PC.WOUNDPHOT ---
Scabs to right knee. Abrasion to lower ext.
[2024-09-06 06:14] LABS: Add Manual Diff / Slide Review NO; Basophils Absolute Auto 100 /uL (0-100); Basophils Percent Auto 0.3 % (0-2); Eosinophils Absolute Auto 0 /uL (0-450); Eosinophils Percent Auto 0.3 % (2-4); Hematocrit 37.2 % (36-46); Hemoglobin 12.5 g/dL (12.0-16.0); Lymphocytes Absolute Auto 400 /uL (1100-4500); Lymphocytes Percent Auto 2.3 % (25-40); Mean Corpuscular HGB Conc 33.5 % (30-36); Mean Corpuscular Volume 95.4 fL (80-100); Monocytes Absolute Auto 900 /uL (0-900); Monocytes Percent Auto 5.3 % (3-14); Neutrophils Absolute Auto 14900 /uL (1500-7000); Neutrophils Percent Auto 91.8 % (50-75); Platelet Count 270 X10^3/uL (150-400); Red Cell Distribution Width 13.4 % (11.6-14.8); White Blood Cell Count 16.2 X10^3/uL (4.5-11.0)
[2024-09-06 06:25] LABS: Alanine Aminotransferase 18 IU/L (<35); Albumin 3.2 g/dL (3.5-5.0); Albumin Globulin Ratio 1.2 (1.0-2.8); Alkaline Phosphatase 55 U/L (38-126); Aspartate Aminotransferase 24 IU/L (14-36); BUN Creatinine Ratio 28.2 (6-22); Bilirubin Total 0.4 mg/dL (0.2-1.3); Blood Urea Nitrogen 33 mg/dL (7-17); Calcium 8.5 mg/dL (8.4-10.2); Carbon Dioxide 27 mmol/L (22-32); Chloride 104 mmol/L (98-107); Estimated Glomerular Filt Rate 47 mL/min (>60); Globulin 2.6 g/dL (1.7-4.1); Glucose 202 mg/dL (70-99); HEMOLYSIS 19 (0-50); Potassium 3.6 mmol/L (3.4-5.1); Sodium 140 mmol/L (137-145); Total Protein 5.8 g/dL (6.3-8.2)
[2024-09-06 08:00] VITALS: BP 152/70; PULSE 92; RESP 17; TEMP 36.5; O2SAT 95
[2024-09-06 12:00] VITALS: BP 145/74; PULSE 93; RESP 17; TEMP 36.8; O2SAT 91
--- NOTE | 2024-09-06 12:39 | P.PN_ITS ---
Subjective Subjective Date Patient Seen: 09/06/24 Interval history: Chief complaint: Flank pain and leukocytosis with lactic acidosis hyperglycemia secondary to obstructing kidney stone History of present illness: Patient is a female with a history of type 2 diabetes who presents with abdominal pain localized to the right lower and mid-epigastric regions, beginning Wednesday night. The pain was the initial symptom, followed by episodes of vomiting and diarrhea. The diarrhea is described as runny, dark, and containing mucus. The patient reports dehydration and has not taken her diabetes medications, including metformin. She denies urinary symptoms and has not measured her temperature but is unsure about fevers or chills. There is no known sick contact. She denies any abdominal surgeries. No nausea medications have been taken today. Findings in the emergency department : White blood cell count 86034 with 92% neutrophils Venous blood gas 7.38 pCO2 51 PO2 30 Sodium 137 potassium 4.3 BUN 37 creatinine 1.4 carbon dioxide 26 glucose [address] abdomen and pelvis: IMPRESSION: 1. Right proximal ureteral 8 mm calculus at the ureteropelvic junction with moderate right hydronephrosis and perinephric fat stranding. 2. Bilateral nonobstructing renal calculi. 3. Colonic diverticulosis. Hospital course: Cystoscopy 09/05: Right retrograde ureteropyelogram Right ureteral stent placement Intraoperative interpretation of fluoroscopic images, total time < 1 hour Same procedure as scheduled: Yes Indications: 79 y/o F noted to have an 8mm right UPJ calculus with resultant upstream moderate hydroureteronephrosis, a large right lower pole calculus, an infected appearing UA, WBC of 20.1, sCr of 1.4 and tachycardia with a Tmax of 101.3F. Discussed treatment options to include continued medical expulsion therapy (not recommended as she appears septic) vs cystoscopy with right ureteral stent placement. Surgeon: Nain Tapia Click Yes if Unassisted: Yes Anesthesia Type: General Operative Notes Findings: Large right proximal ureterolith, severe upstream hydroureteronephrosis 09/06: Patient is lethargic this morning does not recall any sweats or chills overnight but feeling very fatigued achy tired all over and nauseated [place] [id number] basic metabolic unremarkable BUN and creatinine 33/1.17 slightly improved glucoses responding to subcutaneous insulin Review of systems: No unusual weight loss or weight gain loss of consciousness dizziness headache diplopia No difficulty swallowing No chest pain palpitation wheezing or shortness a breath Physical exam: Elderly female no acute distress at the time of my examination HEENT unremarkable Neck no JVD Heart rate and rhythm regular Lungs clear Abdomen nondistended bowel sounds present nontender Extremities no edema Alert and oriented nonfocal neurologic exam Assessment and plan: Sepsis as evidenced by neutrophilia leukocytosis fever lactic acidosis secondary to pyelonephritis hydronephrosis from obstructing ureteral stone in the right proximal ureteropelvic junction postop day 1 status post stents placement * Blood urine cultures IV fluid resuscitation and IV antibiotic * Emergent cystoscopy and stent without complication Dr. Tapia urology * Correction of hyperglycemia with high dose exogenous insulin subcutaneous DVT prophylaxis with SCDs only due to ureteral procedure plan Full Code Blue Time-Based Coding :: 35 minutes spent with patient and on the chart (including review of chart, obtaining history, exam, reviewing outside data, placing orders, documenting exam and treatment plan, and counseling patient). Exam Vital Signs (past 8 hours): - 09/06/24 08:00 09/06/24 12:00 Temperature 97.7 F 98.2 F Pulse Rate 92 H 93 H Respiratory Rate 17 17 Blood Pressure 152/70 H 145/74 H Pulse Oximetry 95 91 Oxygen Flow Rate 0 0 Oxygen Delivery Method Room Air Oxygen Flow Rate 0 Objective Labs 09/06/24 05:44 09/06/24 05:44 Labs: Laboratory Results - last 24 hr 09/05/24 09/06/24 13:50 05:44 WBC 16.2 H RBC 3.90 L Hgb 12.5 Hct 37.2 MCV 95.4 MCH 32.0 MCHC 33.5 RDW 13.4 Plt Count 270 Neut % (Auto) 91.8 H Lymph % (Auto) 2.3 L [place] % (Auto) 5.3 Eos % (Auto) 0.3 L Baso % (Auto) 0.3 Neut # (Auto) 10605 H Lymph # (Auto) 400 L [place] # (Auto) 900 Eos # (Auto) 0 Baso # (Auto) 100 VBG pH 7.38 VBG pCO2 50.9 H VBG pO2 30 L VBG HCO3 30 H VBG Total CO2 29 VBG O2 Saturation 55 L VBG Base Excess 3.8 Sodium 140 Potassium 3.6 Chloride 104 Carbon Dioxide 27 BUN 33 H Creatinine 1.17 H Estimated GFR 47 L BUN/Creatinine Ratio 28.2 H Glucose 202 H D Calcium 8.5 Total Bilirubin 0.4 AST 24 ALT 18 Alkaline Phosphatase 55 Total Protein 5.8 L Albumin 3.2 L Globulin 2.6 Albumin/Globulin Ratio 1.2 PFSH Social History household members: none Smoking Status: Former smoker alcohol intake: never Assessment & Plan Time-Based Coding :: [TOTAL MINUTES] spent with patient and on the chart (including review of chart, obtaining history, exam, reviewing outside data, placing orders, documenting exam and treatment plan, and counseling patient) on [DATE]. Quality VTE Deep Vein Thrombosis/Pulmonary Embolism Present on Admission: No
[2024-09-06] MEDS: HYDROMORPHONE 1 MG INJ IV ×2 (14:48→20:05)
[2024-09-06] MEDS: ONDANSETRON 4 MG/2 ML INJ IV ×2 (14:48→20:04)
--- NOTE | 2024-09-06 15:08 | CM.DANOTE ---
DCP Assessment Note Brief Pt is an 79yo F admitted with sepsis/ureteral stone. Emergency stent placed yesterday. PCP Cristian Peña Payer [facility] Medicare and Medicaid VENEER CLIPPER HELPER reviewed EMR. per chart, pt lives alone in [place]. Per provider in morning rounds, [facility] Wednesday after a few days of IV abx. per RN, pt 1PA with nursing. this is below her baseline of using a walker at home. VENEER CLIPPER HELPER placed PT orders per providers approval, will work with PT tomorrow. VENEER CLIPPER HELPER unable to meet with pt today due to triaging needs. P: [facility] Wednesday, anticipate return home with dtr support pending PT safety recs. likely a good HH candidate pending pt preference/interest. CM team will continue to follow closely for DCP coordination SANDER Collins Discharge Planning/Care Management CM Discharge Assessment Start: 09/05/24 15:44 Freq: Status: Active Protocol: Document 09/06/24 15:07 SL (Rec: 09/06/24 15:08 SL Desktop) Discharge Planning Assessment Assigned Discharge SANDER Marquez [employer] Elastic Operator DPOA/Assigned Ora, dtr/DPOA Designee Name Advance Directives? No History Provided By Patient Prior Living House Arrangements Comment states has supportive daughter Household Members none Independent with ADL Yes 's Is patient alert and Yes oriented? DME Already Rented / Cane Owned Whiteboard Updated No in Patient Room with name and ext. # of Community Arts Officer Review Status In Process Please Provide Date 09/06/24 Initial DC Assessment Was Performed Next Review Type Continued Stay Review
[2024-09-06 16:00] VITALS: BP 147/73; PULSE 91; RESP 18; TEMP 36.6; O2SAT 93
--- NOTE | 2024-09-06 17:48 | PC.NURSE ---
Pt resting at intervals T/O day. Med x 1 for discomfort w/good relief. 1PS to BSC NS at 100cc/hr as per MD orders. Call light w/in reach, bed alarm on for pt safety Continue w/plan of care.
[2024-09-06 19:36] VITALS: BP 151/79; PULSE 91; RESP 18; TEMP 36.7; O2SAT 96
[2024-09-06] MEDS: INSULIN GLARGINE 100 UNIT/ML 3ML PEN 10 UNIT SUBCUT (20:14)
[2024-09-07] VITALS (8 sets, daily range): BP systolic 149–179; BP diastolic 78–99; PULSE 73–91; RESP 12–18; TEMP 36.4–36.7; O2SAT 91–96
[2024-09-07] MEDS: SODIUM CHLORIDE 0.9% 1,000 ML 100 ML IV ×3 (00:04→23:57)
[2024-09-07] MEDS: ONDANSETRON 4 MG/2 ML INJ IV ×4 (00:53→16:45)
[2024-09-07] MEDS: HYDROMORPHONE 1 MG INJ IV ×4 (00:54→23:28)
--- NOTE | 2024-09-07 02:17 | PC.NURSE ---
Addendum entered by Leatha Matta R.N. 09/07/24 02:50: Dr. Vasquez responded, no new orders at this time. Original Note: Noted IV in right arm infiltrated, fluids stopped immediately. Right forearm is pretty swollen. Denies pain, no warmth, good radial pulse, Elevated on pillows and applied ice pack. Dr. Vasquez notified.
[2024-09-07] MEDS: SODIUM CHLORIDE 0.9% FLUSH 10 ML IV ×2 (04:47→20:29)
[2024-09-07 05:01] LABS: Add Manual Diff / Slide Review NO; Basophils Absolute Auto 100 /uL (0-100); Basophils Percent Auto 0.4 % (0-2); Eosinophils Absolute Auto 100 /uL (0-450); Eosinophils Percent Auto 0.4 % (2-4); Hematocrit 37.6 % (36-46); Hemoglobin 12.5 g/dL (12.0-16.0); Lymphocytes Absolute Auto 800 /uL (1100-4500); Lymphocytes Percent Auto 4.2 % (25-40); Mean Corpuscular HGB Conc 33.3 % (30-36); Mean Corpuscular Hemoglobin 31.6 PG (26-34); Monocytes Absolute Auto 1000 /uL (0-900); Monocytes Percent Auto 5.5 % (3-14); Neutrophils Absolute Auto 16100 /uL (1500-7000); Neutrophils Percent Auto 89.5 % (50-75); Platelet Count 274 X10^3/uL (150-400); Red Blood Cell Count 3.95 X10^6/uL (4.0-5.2); Red Cell Distribution Width 13.6 % (11.6-14.8)
[2024-09-07 05:17] LABS: Alanine Aminotransferase 17 IU/L (<35); Albumin 3.3 g/dL (3.5-5.0); Albumin Globulin Ratio 1.2 (1.0-2.8); Alkaline Phosphatase 79 U/L (38-126); Aspartate Aminotransferase 21 IU/L (14-36); Bilirubin Total 0.5 mg/dL (0.2-1.3); Blood Urea Nitrogen 31 mg/dL (7-17); Carbon Dioxide 20 mmol/L (22-32); Chloride 109 mmol/L (98-107); Estimated Glomerular Filt Rate 59 mL/min (>60); Globulin 2.7 g/dL (1.7-4.1); Glucose 190 mg/dL (70-99); HEMOLYSIS < 15 (0-50); Potassium 3.4 mmol/L (3.4-5.1); Sodium 143 mmol/L (137-145)
[2024-09-07 05:18] LABS: Hemoglobin A1C% w Est Avg Glu 6.5 % (4.0-6.0)
[2024-09-07] MEDS: PROCHLORPERAZINE 10 MG/2 ML VIAL IV (07:02)
[2024-09-07] MEDS: KETOROLAC 30 MG/ML VIAL 15 MG IV (07:03)
--- NOTE | 2024-09-07 07:21 | P.PN_ITS ---
Subjective Subjective Interval history: Chief complaint: Flank pain and leukocytosis with lactic acidosis hyperglycemia secondary to obstructing kidney stone History of present illness: Patient is a female with a history of type 2 diabetes who presents with abdominal pain localized to the right lower and mid-epigastric regions, beginning Wednesday night. The pain was the initial symptom, followed by episodes of vomiting and diarrhea. The diarrhea is described as runny, dark, and containing mucus. The patient reports dehydration and has not taken her diabetes medications, including metformin. She denies urinary symptoms and has not measured her temperature but is unsure about fevers or chills. There is no known sick contact. She denies any abdominal surgeries. No nausea medications have been taken today. Findings in the emergency department : White blood cell count 10523 with 92% neutrophils Venous blood gas 7.38 pCO2 51 PO2 30 Sodium 137 potassium 4.3 BUN 37 creatinine 1.4 carbon dioxide 26 glucose [address] abdomen and pelvis: IMPRESSION: 1. Right proximal ureteral 8 mm calculus at the ureteropelvic junction with moderate right hydronephrosis and perinephric fat stranding. 2. Bilateral nonobstructing renal calculi. 3. Colonic diverticulosis. Hospital course: Cystoscopy 09/05: Right retrograde ureteropyelogram Right ureteral stent placement Intraoperative interpretation of fluoroscopic images, total time < 1 hour Same procedure as scheduled: Yes Indications: 79 y/o F noted to have an 8mm right UPJ calculus with resultant upstream moderate hydroureteronephrosis, a large right lower pole calculus, an infected appearing UA, WBC of 20.1, sCr of 1.4 and tachycardia with a Tmax of 101.3F. Discussed treatment options to include continued medical expulsion therapy (not recommended as she appears septic) vs cystoscopy with right ureteral stent placement. Surgeon: Nain Tapia Click Yes if Unassisted: Yes Anesthesia Type: General Operative Notes Findings: Large right proximal ureterolith, severe upstream hydroureteronephrosis 09/06: Patient is lethargic this morning does not recall any sweats or chills overnight but feeling very fatigued achy tired all over and nauseated [place] [id number] basic metabolic unremarkable BUN and creatinine 33/1.17 slightly improved glucoses responding to subcutaneous insulin S: She was feeling nauseated, weak, and having abdominal discomfort today. No fevers, or chills. Exam Vital Signs (past 8 hours): - 09/07/24 00:52 09/07/24 05:39 09/07/24 06:18 Temperature 98.1 F 97.6 F Pulse Rate 73 87 84 Respiratory Rate 15 18 Blood Pressure 165/79 H 179/99 H 160/78 H Pulse Oximetry 94 91 Oxygen Flow Rate 0 0 09/07/24 07:02 Temperature Pulse Rate 84 Respiratory Rate Blood Pressure 160/78 H Pulse Oximetry Oxygen Flow Rate Oxygen Delivery Method Room Air Oxygen Flow Rate 0 Narrative Exam Narrative: NAD, alert and oriented. Fluent speech. She remains lethargic. She appears nontoxic. Lungs are clear, normal rate and effort. Heart is regular, no murmur gallop or rub. Abdomen is soft, non distended. Extremities are free of edema. Objective Labs 09/07/24 04:49 09/07/24 04:49 Labs: Laboratory Results - last 24 hr 09/07/24 04:49 WBC 18.0 H RBC 3.95 L Hgb 12.5 Hct 37.6 MCV 95.0 MCH 31.6 MCHC 33.3 RDW 13.6 Plt Count 274 Neut % (Auto) 89.5 H Lymph % (Auto) 4.2 L [place] % (Auto) 5.5 Eos % (Auto) 0.4 L Baso % (Auto) 0.4 Neut # (Auto) 32928 H Lymph # (Auto) 800 L [place] # (Auto) 1000 H Eos # (Auto) 100 Baso # (Auto) 100 Sodium 143 Potassium 3.4 Chloride 109 H Carbon Dioxide 20 L BUN 31 H Creatinine 0.97 Estimated GFR 59 L BUN/Creatinine Ratio 32.0 H Glucose 190 H Hemoglobin A1c 6.5 H Calcium 9.0 Total Bilirubin 0.5 AST 21 ALT 17 Alkaline Phosphatase 79 Total Protein 6.0 L Albumin 3.3 L Globulin 2.7 Albumin/Globulin Ratio 1.2 PFSH Social History household members: none Smoking Status: Former smoker alcohol intake: never Assessment & Plan Assessment & Plan narrative: Sepsis as evidenced by neutrophilia leukocytosis fever lactic acidosis secondary to pyelonephritis hydronephrosis from obstructing ureteral stone in the right proximal ureteropelvic junction postop day 1 status post stents placement * Blood urine cultures IV fluid resuscitation and IV antibiotic * Emergent cystoscopy and stent without complication Dr. Tapia urology * Correction of hyperglycemia with high dose exogenous insulin subcutaneous * Her white count is higher today, no urinary blood cultures appeared to have been obtained. * We will expand her to broader spectrum antibiotic coverage for the next 24 hours, given her increased WBC. DM 2, stable. DVT prophylaxis with SCDs only due to ureteral procedure plan Full Code Blue Time-Based Coding :: [TOTAL MINUTES] spent with patient and on the chart (including review of chart, obtaining history, exam, reviewing outside data, placing orders, documenting exam and treatment plan, and counseling patient) on [DATE]. Quality VTE Deep Vein Thrombosis/Pulmonary Embolism Present on Admission: No
[2024-09-07] MEDS: INSULIN LISPRO 100 UNIT/ML 3ML VIAL SUBCUT ×6 (08:10→16:47)
[2024-09-07] MEDS: cefTRIAXone 2,000 MG in SODIUM CHLORIDE 0.9% 100 ML 200 MG IV (10:43)
[2024-09-07] MEDS: POTASSIUM CHLORIDE IN WATER 10 MEQ/100 ML PIGGYBACK 100 MEQ IV ×2 (11:22→12:42)
[2024-09-07] MEDS: LORazepam 0.5 MG TABLET PO (12:26)
--- NOTE | 2024-09-07 15:08 | PT.IIE ---
Current Diagnoses Calculus of ureter (09/05/24) Urinary tract infection, site not specified (09/05/24) Surgery Performed Operation Date: 09/05/24 18:30 Actual Procedures p Cystoscopy w/ Ureteral Procedure Placement of Ureteral Stent(Right) - Nain Tapia, Physical Therapy Inpatient Evaluation/Re-Eval M1 PT/OT-IP Prior Functional Status Start: 09/07/24 17:35 Freq: NEEDED Status: Active Protocol: Document 09/07/24 15:08 DLM (Rec: 09/07/24 17:54 DLM Desktop) Medical Review Prior Functional Status Medical History Yes Reviewed Diet/Fluid Regular Consistency Communication WFL Mobility and Gait Independent with cane. She reports keeping a FWW in her car. She has been attending out-pt PT for left hip pain. Activities of Daily Independent with equipment. Living and IADL's Prior Functional she exercises at the [facility] Level (Other details ) Social History Household Members none Living Arrangements Apartment/Condo Home Environment High Toilet,Tub/Shower Home Equipment Front Wheel Walker,Straight Cane,Grab Bars In Shower Employment Status Retired Additional Social she plans to stay with family at discharge, their house History Comment is 2-story but she can stay on main level, shower is on second floor, 1/2 bath on main level close to her bedroom, they have a low/standard height toilet M2 PT-IP Current Condition Start: 09/07/24 17:35 Freq: NEEDED Status: Active Protocol: Document 09/07/24 15:08 DLM (Rec: 09/07/24 17:54 DLM Desktop) Physical Therapy Current Condition Current Condition Evaluation Date 09/07/24 Treatment Diagnosis kidney stones, impaired gait Onset Date 09/05/24 M3 PT-IP Subjective Start: 09/07/24 17:35 Freq: NEEDED Status: Active Protocol: Document 09/07/24 15:08 DLM (Rec: 09/07/24 17:54 DLM Desktop) Subjective Physical Therapy Visit Type Type Initial Evaluation Visit Start Time 14:30 Visit Stop Time 15:08 Notes 38 min Number of FLOOR COVERER Visits 0 Physical Therapy Visit Comments Patient Comments She is tired today; did not sleep well last night Patient Goals wants to discharge home with family assist Therapy Pain Assessment Location Right Lower Abdomen Intensity 4 Scale Used Numeric (0 - 10) Description Aching,Tender,With Movement Pain Management Modification of Treatment Techniques M4 PT-IP Mobility and Gait Start: 09/07/24 17:35 Freq: NEEDED Status: Active Protocol: Document 09/07/24 15:08 DLM (Rec: 09/07/24 17:54 DLM Desktop) PT-Bed Mobility Assessment Rolling Type of Rolling Bilateral Level of Assist Independent Supine to Sit Supine to Sit Standby Assistance Sit to Supine Sit to Supine Standby Assistance Scooting Scooting to Edge of Standby Assistance Bed PT-Transfer Assessment Sit to and From Stand Sit to and from Standby Assistance,Contact Guard Assistance Stand Equipment Transfer Assistive Gait Belt,Front Wheeled Walker Device Transfers Transfer Destination Bed,Bedside Commode Transfer Technique Stand Step Pivot Transfer Ability Level of Assist Standby Assistance,Use of Upper Extremities Comments Mobility Comments pt incontinent of urine and needed assist to change into dry gown and depends, pt used bedside commode to urinate this visit Gait Assessment Gait Gait Assistance Contact Guard Assist Required: Distance (Feet) 85 Assistive Devices Assistive Device Gait Belt,Front Wheeled Walker Gait Deviations General Gait Pattern Antalgic,Flexed Trunk Factors Limiting Gait Function Factors Limiting Decreased Activity Tolerance,Decreased Strength,Poor Gait Function Balance Comments Gait Comments she has trendelenburg on left LE causing functional hip instability in stance with every step, unable to correct with UE support on FWW Stair Climbing Assessment Comments Stair Climbing two steps to enter the house she will be staying at for Comments discharge PT-Balance Assessment Sitting Balance and Reactions Static Sitting Good Balance Ability Dynamic Sitting Good Balance Ability Standing Balance and Reactions Static Standing Fair Balance Ability Dynamic Standing Fair Balance Ability Device Used FWW M5 PT-IP Objective Assessments Start: 09/07/24 17:35 Freq: NEEDED Status: Active Protocol: Document 09/07/24 15:08 DLM (Rec: 09/07/24 17:54 DLM Desktop) Orientation Orientation/Cognition Level of Alertness Alert Orientation Name,Age,Birthday,Month,Date,Year,Day of Week,Place, Situation Language Function No Deficits Noted Ability Safety Awareness Understands Safety Issues Memory Description No Deficits Noted Gross Range of Motion Upper Extremity ROM Assessment Right Impaired Impairments right shoulder impairments from prior injury Lower Extremity ROM Assessment Within Functional Limits Strength Upper Extremity Strength Assessment Right Impaired Shoulder flexion 2+/5 Lower Extremity Strength Assessment Left Impaired Hip functional instability with weight bearing Coordination Assessment Gross Coordination Gross Coordination WNL Sensation Assessment Sensation Gross Sensation Right LE Impaired,Left LE Impaired Sensation Numbness Description Comments Sensation Comments chronic numbness in feet Muscle Tone Muscle Tone WNL Yes M6 PT-IP Treatment Start: 09/07/24 17:35 Freq: NEEDED Status: Active Protocol: Document 09/07/24 15:08 DLM (Rec: 09/07/24 17:54 DLM Desktop) Physical Therapy Treatment Exercises Exercises Ankle Pumps Education Education Provided Safety M7 PT-IP Assessment and Plan Start: 09/07/24 17:35 Freq: NEEDED Status: Active Protocol: Document 09/07/24 15:08 DLM (Rec: 09/07/24 17:54 DLM Desktop) PT Summary Assessment and Plan Potential Rehabilitation Good Potential Status of Condition Evolving at Evaluation Summary Impairments Pain,Strength,Balance,Sensation,Bed Mobility,Transfers, Gait,Activity Tolerance Assessment Summary Isabella is alert and resting in bed today. She presents with decreased activity tolerance after surgery this hospitalization. She has chronic right shoulder impairment that limits its functional use. She also has left hip weakness that interferes with safe gait. Gait training performed with the FWW this visit. She was able to progress to gait in the painting with one person assist. Pt plans to stay with family at discharge. She agrees she is not ready to be home alone yet. She reports her family will be able to assist as needed. Her family has a two story house and she will stay on the main level but will not have access to a shower. The showers are on the second floor of the house. Recommend pt have home health Physical Therapy at discharge to assist with her functional recovery. She ambulates with a cane at baseline and is independent at home alone. Goals Bed Mobility Goal Independent Transfer Goal Independent,Front Wheeled Walker Gait Goal Standby Assistance,Front Wheel Walker Gait Distance 150 feet Other Goals up/down 2 steps with min assist Days to Meet Goals 5 Frequency of Treatment Frequency Of Once a Day Treatment Treatment Plan Physical Therapy Bed Mobility Training,Transfer Training,Gait Training, Treatment Plan Therapeutic Exercise,Balance Retraining,Post Op Education,Discharge Planning,Hot or Cold Pack, Neuromuscular Re-ed Precautions Abdominal Surgery Log Roll,Lifting Restrictions,Gait Belt above Precautions Incisional Area Discharge Recommendations PT Discharge Home with Assistance,Home Health Recommendations Transportation Needs Private Vehicle at Discharge - PT assist 1
[2024-09-07] MEDS: LOSARTAN 25 MG TABLET PO (16:45)
[2024-09-07] MEDS: CEFEPIME 2 GM in SODIUM CHLORIDE 0.9% 100 ML IV (17:56)
[2024-09-07] MEDS: INSULIN GLARGINE 100 UNIT/ML 3ML PEN 12 UNIT SUBCUT (20:28)
[2024-09-08] VITALS (10 sets, daily range): BP systolic 160–183; BP diastolic 79–116; PULSE 86–96; RESP 17–20; TEMP 36–36.8; O2SAT 91–92
[2024-09-08] MEDS: CEFEPIME 2 GM in SODIUM CHLORIDE 0.9% 100 ML IV ×2 (05:10→17:36)
[2024-09-08 06:31] LABS: Add Manual Diff / Slide Review NO; Basophils Absolute Auto 100 /uL (0-100); Basophils Percent Auto 0.4 % (0-2); Eosinophils Absolute Auto 100 /uL (0-450); Eosinophils Percent Auto 0.8 % (2-4); Hematocrit 37.8 % (36-46); Hemoglobin 12.7 g/dL (12.0-16.0); Lymphocytes Absolute Auto 900 /uL (1100-4500); Lymphocytes Percent Auto 5.8 % (25-40); Mean Corpuscular HGB Conc 33.5 % (30-36); Mean Corpuscular Hemoglobin 31.7 PG (26-34); Mean Corpuscular Volume 94.5 fL (80-100); Monocytes Absolute Auto 800 /uL (0-900); Monocytes Percent Auto 4.7 % (3-14); Neutrophils Absolute Auto 14100 /uL (1500-7000); Neutrophils Percent Auto 88.3 % (50-75); Platelet Count 262 X10^3/uL (150-400); Red Cell Distribution Width 13.4 % (11.6-14.8)
[2024-09-08 06:38] LABS: Alanine Aminotransferase 16 IU/L (<35); Albumin 3.1 g/dL (3.5-5.0); Albumin Globulin Ratio 1.1 (1.0-2.8); Alkaline Phosphatase 63 U/L (38-126); Aspartate Aminotransferase 18 IU/L (14-36); BUN Creatinine Ratio 32.9 (6-22); Bilirubin Total 0.4 mg/dL (0.2-1.3); Blood Urea Nitrogen 27 mg/dL (7-17); Calcium 9.1 mg/dL (8.4-10.2); Carbon Dioxide 26 mmol/L (22-32); Chloride 108 mmol/L (98-107); Estimated Glomerular Filt Rate > 60 mL/min (>60); Globulin 2.8 g/dL (1.7-4.1); Glucose 184 mg/dL (70-99); HEMOLYSIS < 15 (0-50); Potassium 3.2 mmol/L (3.4-5.1); Sodium 142 mmol/L (137-145); Total Protein 5.9 g/dL (6.3-8.2)
--- NOTE | 2024-09-08 07:20 | PM.PN.1 ---
Subjective Subjective Interval history: S: She was more mentally alert but still feels very bad. She was diffusely weak and still having nausea. She also notes some abdominal pain. Exam Vital Signs (past 8 hours): - 09/08/24 00:00 09/08/24 01:30 Temperature 97.7 F Pulse Rate 86 87 Respiratory Rate 18 Blood Pressure 173/91 H 166/116 H Pulse Oximetry 91 Oxygen Flow Rate 0 Oxygen Delivery Method Room Air Oxygen Flow Rate 0 Narrative Exam Narrative: NAD, alert and oriented. Fluent speech. She is more talkative today. Lungs are clear, normal rate and effort. Heart is regular, no murmur gallop or rub. Abdomen is soft, non distended. Extremities are free of edema. Objective Labs 09/08/24 06:16 09/08/24 06:16 Labs: Laboratory Results - last 24 hr 09/08/24 06:16 WBC 16.0 H RBC 4.00 Hgb 12.7 Hct 37.8 MCV 94.5 MCH 31.7 MCHC 33.5 RDW 13.4 Plt Count 262 Neut % (Auto) 88.3 H Lymph % (Auto) 5.8 L [place] % (Auto) 4.7 Eos % (Auto) 0.8 L Baso % (Auto) 0.4 Neut # (Auto) 32721 H Lymph # (Auto) 900 L [place] # (Auto) 800 Eos # (Auto) 100 Baso # (Auto) 100 Sodium 142 Potassium 3.2 L Chloride 108 H Carbon Dioxide 26 BUN 27 H Creatinine 0.82 Estimated GFR > 60 BUN/Creatinine Ratio 32.9 H Glucose 184 H Calcium 9.1 Total Bilirubin 0.4 AST 18 ALT 16 Alkaline Phosphatase 63 Total Protein 5.9 L Albumin 3.1 L Globulin 2.8 Albumin/Globulin Ratio 1.1 [facility] Social History household members: none Smoking Status: Former smoker alcohol intake: never Assessment & Plan Assessment & Plan narrative: 1. Sepsis as evidenced by neutrophilia leukocytosis fever lactic acidosis secondary to pyelonephritis hydronephrosis from obstructing ureteral stone in the right proximal ureteropelvic junction postop day 1 status post stents placement Blood urine cultures IV fluid resuscitation and IV antibiotic Emergent cystoscopy and stent without complication Dr. Tapia urology She remains ill. Blood cultures and urine cultures were not obtained. She was being treated empirically based on her symptoms with ceftriaxone. 2,. DM 2, stable. Continue correctional insulin. Continue glargine 12 subcu HS. 3. Hypertension, stable. Continue losartan and monitor blood pressure. PLAN: -infiltrated IV, unsuccessful ultrasound started P IV. We will place a midline for access. -anticipate at least 2 more nights of IV antibiotics based on symptoms. -PT for mobilization. KYRA: 6 8. DVT prophylaxis Start SC heparin. Time-Based Coding :: [TOTAL MINUTES] spent with patient and on the chart (including review of chart, obtaining history, exam, reviewing outside data, placing orders, documenting exam and treatment plan, and counseling patient) on [DATE]. Quality VTE Deep Vein Thrombosis/Pulmonary Embolism Present on Admission: No
[2024-09-08] MEDS: INSULIN LISPRO 100 UNIT/ML 3ML VIAL SUBCUT ×6 (08:51→17:31)
[2024-09-08] MEDS: LOSARTAN 25 MG TABLET PO ×3 (08:59→20:55)
[2024-09-08] MEDS: LORazepam 0.5 MG TABLET PO (08:59)
[2024-09-08] MEDS: HEPARIN 5,000 UNIT/ML VIAL 5000 UNIT SUBCUT ×2 (09:00→20:55)
[2024-09-08] MEDS: SODIUM CHLORIDE 0.9% 1,000 ML 100 ML IV ×3 (11:37→23:01)
--- NOTE | 2024-09-08 12:10 | PT.IPTN ---
Current Diagnoses Calculus of ureter (09/05/24) Urinary tract infection, site not specified (09/05/24) Surgery Performed Operation Date: 09/05/24 18:30 Actual Procedures p Cystoscopy w/ Ureteral Procedure Placement of Ureteral Stent(Right) - Nain Tapia, Physical Therapy Treatment Note M2 PT-IP Current Condition Start: 09/07/24 17:35 Freq: NEEDED Status: Active Protocol: Document 09/07/24 15:08 DLM (Rec: 09/07/24 17:54 DLM Desktop) Physical Therapy Current Condition Current Condition Evaluation Date 09/07/24 Treatment Diagnosis kidney stones, impaired gait Onset Date 09/05/24 M3 PT-IP Subjective Start: 09/07/24 17:35 Freq: NEEDED Status: Active Protocol: Document 09/08/24 12:10 AB (Rec: 09/08/24 12:53 AB [id number]) Subjective Physical Therapy Visit Type Type Treatment Note Visit Start Time 12:10 Visit Stop Time 12:40 Number of SHORT [employer]ILL[employer] Visits 0 Physical Therapy Visit Comments Patient Comments does not want to move but PT and family encouraged pt and pt agreed Therapy Pain Assessment Pain When Pain Assessed At Rest Pain Present Pain Present Pain Reported Location Generalized Intensity 10 Scale Used Numeric (0 - 10) Pain Management Distraction,Modification of Treatment,Re-positioning, Techniques Timing of Activity with Medications M4 PT-IP Mobility and Gait Start: 09/07/24 17:35 Freq: NEEDED Status: Active Protocol: Document 09/08/24 12:10 AB (Rec: 09/08/24 12:53 AB [id number]) PT-Bed Mobility Assessment Supine to Sit Supine to Sit Standby Assistance PT-Transfer Assessment Sit to and From Stand Sit to and from Contact Guard Assistance,Maximum Assistance,1 Person Stand Assistance,Use of Upper Extremities Equipment Transfer Assistive Gait Belt,Front Wheeled Walker Device Orthotic/Prosthetic No Devices or Brace: Transfers Transfer Destination Chair Transfer Technique amubulated Transfer Ability Level of Assist Minimal Assistance,1 Person Assistance,Use of Upper Extremities Comments Mobility Comments pt in bed and family in room. pt initially refusing PT. educated pt on importance of mobility and family also encouraged pt. pt agreed. pt also stated that she just voided on her brief. BP in supine: 177/108. nurse aware and stated that pt has new order for BP meds. pt needs to be cleaned and brief change. supine to sit SBA. able to sit on EOB SBA. sit to stand CGA and was able to stand CGA while nurse assisted pt with hygiene care and brief management. pt ambulated towards the chair min A and max cues. presents with very slow paced gait with increase forward trunk flexion. cued for upright posture. pt required max A for controlled descent to chair. c/o dizziness. BP: 144/95. positioned pt on the chair. call light and table placed within reach. informed nurse regarding BP. Gait Assessment Gait Gait Assistance Minimum Assistance Required: Distance (Feet) 15 Able to Maintain Yes Weight Bearing Status During Gait Assistive Devices Assistive Device Gait Belt,Front Wheeled Walker Orthotic/Prosthetic No Devices or Brace: Gait Deviations General Gait Pattern Decreased Stride Length,Decreased Feet Clearance,Flexed Trunk,Step-to Gait Factors Limiting Gait Function Factors Limiting Decreased Activity Tolerance,Decreased Strength, Gait Function Difficulty Following Directions,Limited Range of Motion ,Pain,Poor Balance,Poor Safety Awareness M5 PT-IP Objective Assessments Start: 09/07/24 17:35 Freq: NEEDED Status: Active Protocol: Document 09/07/24 15:08 DLM (Rec: 09/07/24 17:54 DLM Desktop) Orientation Orientation/Cognition Level of Alertness Alert Orientation Name,Age,Birthday,Month,Date,Year,Day of Week,Place, Situation Language Function No Deficits Noted Ability Safety Awareness Understands Safety Issues Memory Description No Deficits Noted Gross Range of Motion Upper Extremity ROM Assessment Right Impaired Impairments right shoulder impairments from prior injury Lower Extremity ROM Assessment Within Functional Limits Strength Upper Extremity Strength Assessment Right Impaired Shoulder flexion 2+/5 Lower Extremity Strength Assessment Left Impaired Hip functional instability with weight bearing Coordination Assessment Gross Coordination Gross Coordination WNL Sensation Assessment Sensation Gross Sensation Right LE Impaired,Left LE Impaired Sensation Numbness Description Comments Sensation Comments chronic numbness in feet Muscle Tone Muscle Tone WNL Yes M6 PT-IP Treatment Start: 09/07/24 17:35 Freq: NEEDED Status: Active Protocol: Document 09/08/24 12:10 AB (Rec: 09/08/24 12:53 AB [id number]) Physical Therapy Treatment Education Education Provided Safety M7 PT-IP Assessment and Plan Start: 09/07/24 17:35 Freq: NEEDED Status: Active Protocol: Document 09/08/24 12:10 AB (Rec: 09/08/24 12:53 AB [id number]) PT Summary Assessment and Plan Potential Rehabilitation Fair Potential Summary Impairments Pain,ROM,Strength,Balance,Coordination,Sensation,Tone, Cognition,Bed Mobility,Transfers,Gait,Activity Tolerance Progress Towards Slow Progress due to Medical Issues,Slow Progress due Goals to Activity Tolerance Assessment Summary pt requiring SBA for bed mobility, min A for transfers and ambulation using FWW. pt with high BP: 177/108 but dropped to 144/95 after ambulation with c/o dizziness. pt also with c/o overall pain and weakness. pt needing more assistance today compared to yesterday and unable to ambulate as much. pt plans to go home to her daughter's house. will continue to assess progress. Goals Bed Mobility Goal Independent Transfer Goal Independent,Front Wheeled Walker Gait Goal Standby Assistance,Front Wheel Walker Gait Distance 150 feet Other Goals up/down 2 steps with min assist Days to Meet Goals 5 Frequency of Treatment Frequency Of Once a Day Treatment Treatment Plan Physical Therapy Bed Mobility Training,Transfer Training,Gait Training, Treatment Plan Therapeutic Exercise,Balance Retraining,Post Op Education,Discharge Planning,Hot or Cold Pack, Neuromuscular Re-ed Precautions Abdominal Surgery Log Roll,Lifting Restrictions,Gait Belt above Precautions Incisional Area Discharge Recommendations PT Discharge Home with Assistance,Home Health Recommendations Transportation Needs Private Vehicle at Discharge - PT assist 1
[2024-09-08] MEDS: AMLODIPINE 5 MG TABLET PO ×2 (12:21→18:22)
[2024-09-08] MEDS: HYDROMORPHONE 1 MG INJ IV ×4 (12:23→21:43)
[2024-09-08] MEDS: POTASSIUM CHLORIDE 20 MEQ TAB 40 MEQ PO ×2 (13:15→18:43)
--- NOTE | 2024-09-08 13:17 | CM.DPC ---
DCP Cont Reviewed chart. Patient discussed in multidisciplinary rounds. Midline being placed for better access; need for IV abx. KYRA 09/10. PT= Home w/assist and HH. Patient typically lives independently with cane, plans to stay with family at discharge. CM team following clinical course closely. Discuss HH referral with patient and family. Referral needed. JW
[2024-09-08] MEDS: polyethylene glycoL 3350 17 GM POWD.PACK PO ×2 (15:27→20:55)
[2024-09-08] MEDS: HYDROCODONE/ACET 10/325 TABLET 1 TAB PO (17:19)
[2024-09-08] MEDS: ONDANSETRON 4 MG/2 ML INJ IV (18:50)
[2024-09-08] MEDS: PHENAZOPYRIDINE 100 MG TABLET PO (20:55)
[2024-09-08] MEDS: INSULIN GLARGINE 100 UNIT/ML 3ML PEN 12 UNIT SUBCUT (20:56)
[2024-09-09] VITALS (8 sets, daily range): BP systolic 145–182; BP diastolic 85–102; PULSE 76–111; RESP 16–18; TEMP 36.3–36.8; O2SAT 90–96
[2024-09-09] MEDS: HYDROMORPHONE 1 MG INJ IV ×2 (01:23→05:20)
[2024-09-09] MEDS: CEFEPIME 2 GM in SODIUM CHLORIDE 0.9% 100 ML IV ×2 (04:34→17:41)
[2024-09-09] MEDS: ONDANSETRON 4 MG/2 ML INJ IV ×2 (05:18→11:48)
[2024-09-09 06:19] LABS: Add Manual Diff / Slide Review NO; Basophils Absolute Auto 100 /uL (0-100); Basophils Percent Auto 0.7 % (0-2); Eosinophils Absolute Auto 100 /uL (0-450); Eosinophils Percent Auto 1.1 % (2-4); Hematocrit 40.3 % (36-46); Hemoglobin 13.5 g/dL (12.0-16.0); Lymphocytes Absolute Auto 1200 /uL (1100-4500); Lymphocytes Percent Auto 9.9 % (25-40); Mean Corpuscular HGB Conc 33.5 % (30-36); Mean Corpuscular Hemoglobin 31.7 PG (26-34); Mean Corpuscular Volume 94.6 fL (80-100); Monocytes Absolute Auto 700 /uL (0-900); Monocytes Percent Auto 6.2 % (3-14); Neutrophils Absolute Auto 9800 /uL (1500-7000); Neutrophils Percent Auto 82.1 % (50-75); Platelet Count 243 X10^3/uL (150-400); Red Blood Cell Count 4.27 X10^6/uL (4.0-5.2); Red Cell Distribution Width 13.6 % (11.6-14.8); White Blood Cell Count 11.9 X10^3/uL (4.5-11.0)
[2024-09-09 06:26] LABS: Alanine Aminotransferase 14 IU/L (<35); Albumin 3.1 g/dL (3.5-5.0); Albumin Globulin Ratio 1.1 (1.0-2.8); Alkaline Phosphatase 65 U/L (38-126); Aspartate Aminotransferase 16 IU/L (14-36); Bilirubin Total 0.7 mg/dL (0.2-1.3); Blood Urea Nitrogen 20 mg/dL (7-17); Calcium 9.1 mg/dL (8.4-10.2); Carbon Dioxide 27 mmol/L (22-32); Chloride 107 mmol/L (98-107); Estimated Glomerular Filt Rate > 60 mL/min (>60); Globulin 2.8 g/dL (1.7-4.1); Glucose 154 mg/dL (70-99); HEMOLYSIS 18 (0-50); Potassium 3.6 mmol/L (3.4-5.1); Sodium 142 mmol/L (137-145); Total Protein 5.9 g/dL (6.3-8.2)
--- NOTE | 2024-09-09 07:22 | P.PN_ITS ---
Subjective Subjective Interval history: S: She states she feels terrible, she was pain through her entire body. She denies any nausea but has not been eating. She was IV fluids running. No dysuria. She was a peer wake in place. No flank pain. She was not been advancing her activity or eating. Exam Vital Signs (past 8 hours): - 09/09/24 01:00 09/09/24 05:00 09/09/24 05:35 Temperature 97.3 F L 97.5 F L Pulse Rate 76 88 Respiratory Rate 18 18 Blood Pressure 150/89 H 173/102 H 153/90 H Pulse Oximetry 90 L 91 Oxygen Flow Rate 0 0 Oxygen Delivery Method Room Air Oxygen Flow Rate 0 Narrative Exam Narrative: NAD, alert and oriented. Fluent speech. Lungs are clear, normal rate and effort. Heart is regular, no murmur gallop or rub. Abdomen is soft, non distended. Extremities are free of edema. Objective Labs 09/09/24 05:47 09/09/24 05:47 Labs: Laboratory Results - last 24 hr 09/09/24 05:47 WBC 11.9 H RBC 4.27 Hgb 13.5 Hct 40.3 MCV 94.6 MCH 31.7 MCHC 33.5 RDW 13.6 Plt Count 243 Neut % (Auto) 82.1 H Lymph % (Auto) 9.9 L [place] % (Auto) 6.2 Eos % (Auto) 1.1 L Baso % (Auto) 0.7 Neut # (Auto) 9800 H Lymph # (Auto) 1200 [place] # (Auto) 700 Eos # (Auto) 100 Baso # (Auto) 100 Sodium 142 Potassium 3.6 Chloride 107 Carbon Dioxide 27 BUN 20 H Creatinine 0.69 Estimated GFR > 60 BUN/Creatinine Ratio 29.0 H Glucose 154 H Calcium 9.1 Total Bilirubin 0.7 AST 16 ALT 14 Alkaline Phosphatase 65 Total Protein 5.9 L Albumin 3.1 L Globulin 2.8 Albumin/Globulin Ratio 1.1 PFSH Social History household members: none Smoking Status: Former smoker alcohol intake: never Assessment & Plan Assessment & Plan narrative: 1. Sepsis as evidenced by neutrophilia leukocytosis fever lactic acidosis secondary to pyelonephritis hydronephrosis from obstructing ureteral stone in the right proximal ureteropelvic junction postop day 1 status post stents placement * Blood urine cultures IV fluid resuscitation and IV antibiotic * Emergent cystoscopy and stent without complication Dr. Tapia urology * She remains ill. Blood cultures and urine cultures were not obtained. She was being treated empirically based on her symptoms with ceftriaxone.2,. DM 2, stable. * Continue correctional insulin. Continue glargine 12 subcu HS.3. Hypertension, stable. * Continue losartan and monitor blood pressure. PLAN: -midline in place for access, continue IV antibiotics. No cultures available. -continue IV fluids, and encourage advancement of oral intake. -out of bed. KYRA: 09/11. Time-Based Coding :: [TOTAL MINUTES] spent with patient and on the chart (including review of chart, obtaining history, exam, reviewing outside data, placing orders, documenting exam and treatment plan, and counseling patient) on [DATE]. Quality VTE Deep Vein Thrombosis/Pulmonary Embolism Present on Admission: No
[2024-09-09] MEDS: SODIUM CHLORIDE 0.9% 1,000 ML 100 ML IV (09:29)
[2024-09-09] MEDS: polyethylene glycoL 3350 17 GM POWD.PACK PO (09:33)
[2024-09-09] MEDS: LOSARTAN 25 MG TABLET PO ×2 (09:34→21:24)
[2024-09-09] MEDS: PHENAZOPYRIDINE 100 MG TABLET PO ×3 (09:34→21:26)
[2024-09-09] MEDS: AMLODIPINE 5 MG TABLET PO (09:34)
[2024-09-09] MEDS: HEPARIN 5,000 UNIT/ML VIAL 5000 UNIT SUBCUT ×2 (09:35→21:25)
[2024-09-09] MEDS: INSULIN LISPRO 100 UNIT/ML 3ML VIAL SUBCUT ×7 (09:35→21:17)
--- NOTE | 2024-09-09 11:10 | PT.IPTN ---
Current Diagnoses Calculus of ureter (09/05/24) Urinary tract infection, site not specified (09/05/24) Surgery Performed Operation Date: 09/05/24 18:30 Actual Procedures p Cystoscopy w/ Ureteral Procedure Placement of Ureteral Stent(Right) - Nain Tapia, Physical Therapy Treatment Note M2 PT-IP Current Condition Start: 09/07/24 17:35 Freq: NEEDED Status: Active Protocol: Document 09/07/24 15:08 DLM (Rec: 09/07/24 17:54 DLM Desktop) Physical Therapy Current Condition Current Condition Evaluation Date 09/07/24 Treatment Diagnosis kidney stones, impaired gait Onset Date 09/05/24 M3 PT-IP Subjective Start: 09/07/24 17:35 Freq: NEEDED Status: Active Protocol: Document 09/09/24 11:10 AB (Rec: 09/09/24 12:59 AB Desktop) Subjective Physical Therapy Visit Type Type Treatment Note Visit Start Time 11:10 Visit Stop Time 11:45 Number of COMMUNITY DEVELOPMENT MANAGER Visits 0 M4 PT-IP Mobility and Gait Start: 09/07/24 17:35 Freq: NEEDED Status: Active Protocol: Document 09/09/24 11:10 AB (Rec: 09/09/24 12:59 AB Desktop) PT-Bed Mobility Assessment Supine to Sit Supine to Sit Minimal Assistance,Head of Bed Elevated,Bedrails PT-Transfer Assessment Sit to and From Stand Sit to and from Minimal Assistance,1 Person Assistance,Use of Upper Stand Extremities Equipment Transfer Assistive Gait Belt,Front Wheeled Walker Device Orthotic/Prosthetic No Devices or Brace: Transfers Transfer Destination Chair Transfer Technique ambulated Transfer Ability Level of Assist Moderate Assistance,1 Person Assistance,Use of Upper Extremities Comments Mobility Comments pt in bed and initially refusing to do PT. pt needs encouragement to participate. agreed to get up. pt looking sluggish today and presents with very slow movement. BP: 180/103. nurse aware and pt was already given her BP meds. supine to sit min A and cues. pt requiring increase rest breaks in between tasks. sit to stand min A and cues. pt started ambulated towards the chair using FWW mod A but stated that she is voiding at the same time. presents with stooped posture and very slow paced gait . instructed pt to keep walking towards the EOB to sit and needed to be changed. NAC in room to assist. sit to stand from EOB min A and NAC assisted pt with hygiene care and brief management. pt step transfer to chair using fWW mod A and cues. positioned pt on the chair. pt with c/o nausea. BP checked: 167/85. nurse in room. call light and table placed within reach. Gait Assessment Gait Gait Assistance Moderate Assistance Required: Distance (Feet) 12 Able to Maintain Yes Weight Bearing Status During Gait Assistive Devices Assistive Device Gait Belt,Front Wheeled Walker Orthotic/Prosthetic No Devices or Brace: Gait Deviations General Gait Pattern Decreased Stride Length,Decreased Feet Clearance,Flexed Trunk,Step-to Gait Factors Limiting Gait Function Factors Limiting Decreased Activity Tolerance,Decreased Strength, Gait Function Difficulty Following Directions,Poor Balance,Poor Safety Awareness M5 PT-IP Objective Assessments Start: 09/07/24 17:35 Freq: NEEDED Status: Active Protocol: Document 09/07/24 15:08 DLM (Rec: 09/07/24 17:54 DLM Desktop) Orientation Orientation/Cognition Level of Alertness Alert Orientation Name,Age,Birthday,Month,Date,Year,Day of Week,Place, Situation Language Function No Deficits Noted Ability Safety Awareness Understands Safety Issues Memory Description No Deficits Noted Gross Range of Motion Upper Extremity ROM Assessment Right Impaired Impairments right shoulder impairments from prior injury Lower Extremity ROM Assessment Within Functional Limits Strength Upper Extremity Strength Assessment Right Impaired Shoulder flexion 2+/5 Lower Extremity Strength Assessment Left Impaired Hip functional instability with weight bearing Coordination Assessment Gross Coordination Gross Coordination WNL Sensation Assessment Sensation Gross Sensation Right LE Impaired,Left LE Impaired Sensation Numbness Description Comments Sensation Comments chronic numbness in feet Muscle Tone Muscle Tone WNL Yes M6 PT-IP Treatment Start: 09/07/24 17:35 Freq: NEEDED Status: Active Protocol: Document 09/09/24 11:10 AB (Rec: 09/09/24 12:59 AB Desktop) Physical Therapy Treatment Education Education Provided Safety M7 PT-IP Assessment and Plan Start: 09/07/24 17:35 Freq: NEEDED Status: Active Protocol: Document 09/09/24 11:10 AB (Rec: 09/09/24 12:59 AB Desktop) PT Summary Assessment and Plan Potential Rehabilitation Fair Potential Summary Impairments Pain,ROM,Strength,Balance,Coordination,Sensation,Tone, Cognition,Bed Mobility,Transfers,Gait,Activity Tolerance Progress Towards Slow Progress due to Medical Issues,Slow Progress due Goals to Activity Tolerance Assessment Summary pt requiring more assistance today of min A for sit to stand and mod A for ambulation and unable to tolerate much activity today. At this time, pt may require SNF rehab. will continue to assess. Goals Bed Mobility Goal Independent Transfer Goal Independent,Front Wheeled Walker Gait Goal Standby Assistance,Front Wheel Walker Gait Distance 150 feet Other Goals up/down 2 steps with min assist Days to Meet Goals 5 Frequency of Treatment Frequency Of Once a Day Treatment Treatment Plan Physical Therapy Bed Mobility Training,Transfer Training,Gait Training, Treatment Plan Therapeutic Exercise,Balance Retraining,Post Op Education,Discharge Planning,Hot or Cold Pack, Neuromuscular Re-ed Precautions Abdominal Surgery Log Roll,Lifting Restrictions,Gait Belt above Precautions Incisional Area Discharge Recommendations PT Discharge Home with Assistance,Home Health Recommendations Transportation Needs Private Vehicle at Discharge - PT assist 1
[2024-09-09] MEDS: AMLODIPINE 5 MG TABLET 10 MG PO (11:40)
[2024-09-09] MEDS: INSULIN GLARGINE 100 UNIT/ML 3ML PEN 12 UNIT SUBCUT (21:16)
[2024-09-09] MEDS: HYDROCODONE/ACET 10/325 TABLET 1 TAB PO (21:35)
[2024-09-10] VITALS (10 sets, daily range): BP systolic 122–175; BP diastolic 74–99; PULSE 63–92; RESP 16–20; TEMP 35.8–36.5; O2SAT 91–98
[2024-09-10] MEDS: HYDROCODONE/ACET 10/325 TABLET 1 TAB PO (04:01)
[2024-09-10] MEDS: CEFEPIME 2 GM in SODIUM CHLORIDE 0.9% 100 ML IV ×2 (05:17→17:15)
[2024-09-10 06:13] LABS: Hematocrit 40.8 % (36-46); Hemoglobin 13.7 g/dL (12.0-16.0); Mean Corpuscular HGB Conc 33.5 % (30-36); Mean Corpuscular Hemoglobin 31.7 PG (26-34); Mean Corpuscular Volume 94.5 fL (80-100); Platelet Count 226 X10^3/uL (150-400); Red Blood Cell Count 4.32 X10^6/uL (4.0-5.2); Red Cell Distribution Width 13.5 % (11.6-14.8); White Blood Cell Count 11.5 X10^3/uL (4.5-11.0)
[2024-09-10 06:27] LABS: BUN Creatinine Ratio 31.3 (6-22); Blood Urea Nitrogen 21 mg/dL (7-17); Calcium 8.9 mg/dL (8.4-10.2); Carbon Dioxide 25 mmol/L (22-32); Chloride 107 mmol/L (98-107); Estimated Glomerular Filt Rate > 60 mL/min (>60); Glucose 183 mg/dL (70-99); HEMOLYSIS 37 (0-50); Potassium 2.8 mmol/L (3.4-5.1); Sodium 140 mmol/L (137-145)
--- NOTE | 2024-09-10 07:31 | P.PN_ITS ---
Subjective Subjective Interval history: Summary: 79-year-old female who was admitted with presumed pyelonephritis, sepsis, and obstructing nephrolithiasis. She underwent stenting. There were no blood or urine cultures obtained at the time of admission. She has been empirically on ceftriaxone and clinically improving with regards to resolution of fever and white count. She was had very slow progression with participation in activity, moving around, getting out of bed, and eating. This improved substantially on September 09. S: She feels better. No nausea. No abdomen pain. She has been taking more PO and is OOB. Exam Vital Signs (past 8 hours): - 09/10/24 00:16 09/10/24 03:00 Temperature 97.5 F L 97.4 F L Pulse Rate 63 86 Respiratory Rate 18 16 Blood Pressure 159/93 H 157/90 H Pulse Oximetry 93 93 Oxygen Flow Rate 0 0 Oxygen Delivery Method Room Air Oxygen Flow Rate 0 Narrative Exam Narrative: NAD, alert and oriented. Fluent speech. Lungs are clear, normal rate and effort. Heart is regular, no murmur gallop or rub. Abdomen is soft, non distended. Extremities are free of edema. Objective Imaging Multiple studies: : Radiologist's impression: AP CT: 1. Right proximal ureteral 8 mm calculus at the ureteropelvic junction with moderate right hydronephrosis and perinephric fat stranding. 2. Bilateral nonobstructing renal calculi. 3. Colonic diverticulosis. CXR: No acute cardiopulmonary abnormality is seen. Abdomen X-ray: There is a right nephroureteral stent, there is moderate right hydronephrosis. Labs 09/10/24 06:07 09/10/24 06:07 Labs: Laboratory Results - last 24 hr 09/10/24 06:07 WBC 11.5 H RBC 4.32 Hgb 13.7 Hct 40.8 MCV 94.5 MCH 31.7 MCHC 33.5 RDW 13.5 Plt Count 226 Sodium 140 Potassium 2.8 L Chloride 107 Carbon Dioxide 25 BUN 21 H Creatinine 0.67 Estimated GFR > 60 BUN/Creatinine Ratio 31.3 H Glucose 183 H Calcium 8.9 PFSH Social History household members: none Smoking Status: Former smoker alcohol intake: never Assessment & Plan Assessment & Plan narrative: 1. Sepsis as evidenced by neutrophilia leukocytosis fever lactic acidosis secondary to pyelonephritis hydronephrosis from obstructing ureteral stone in the right proximal ureteropelvic junction postop day 1 status post stents placement * Emergent cystoscopy and stent without complication Dr. Tapia urology * She remains ill. Blood cultures and urine cultures were not obtained. She was being treated empirically based on her symptoms with ceftriaxone.e. * Continue correctional insulin. Continue glargine 12 subcu HS * Continue losartan and monitor blood pressure. 2. Hypokalemia, new. 3. DM 2, stable. 4. Hypertension, stable. PLAN: -midline in place for access. -continue IV antibiotics. No cultures available. Would transition to PO Abx 09/11, Cephalexin QID for 2 more days, 7 day course). -encourage advancement of oral intake. -out of bed. -replace K KYRA: 09/11. She will likely go to her daughter's house for a period of rehabilitation. Time-Based Coding :: [TOTAL MINUTES] spent with patient and on the chart (including review of chart, obtaining history, exam, reviewing outside data, placing orders, documenting exam and treatment plan, and counseling patient) on [DATE]. Quality VTE Deep Vein Thrombosis/Pulmonary Embolism Present on Admission: No
[2024-09-10] MEDS: PHENAZOPYRIDINE 100 MG TABLET PO ×3 (08:01→20:59)
[2024-09-10] MEDS: LOSARTAN 25 MG TABLET PO ×2 (08:01→20:57)
[2024-09-10] MEDS: HEPARIN 5,000 UNIT/ML VIAL 5000 UNIT SUBCUT ×2 (08:01→20:58)
[2024-09-10] MEDS: GABAPENTIN 300 MG CAPSULE PO ×2 (08:01→20:57)
[2024-09-10] MEDS: polyethylene glycoL 3350 17 GM POWD.PACK PO ×2 (08:01→20:57)
[2024-09-10] MEDS: AMLODIPINE 5 MG TABLET 10 MG PO (08:01)
[2024-09-10] MEDS: POTASSIUM CHLORIDE IN WATER 10 MEQ/100 ML PIGGYBACK 100 MEQ IV ×7 (08:02→23:42)
[2024-09-10] MEDS: INSULIN LISPRO 100 UNIT/ML 3ML VIAL SUBCUT ×7 (08:03→20:56)
--- NOTE | 2024-09-10 10:30 | PT.IPTN ---
Current Diagnoses Calculus of ureter (09/05/24) Urinary tract infection, site not specified (09/05/24) Surgery Performed Operation Date: 09/05/24 18:30 Actual Procedures p Cystoscopy w/ Ureteral Procedure Placement of Ureteral Stent(Right) - Nain Tapia, Physical Therapy Treatment Note M2 PT-IP Current Condition Start: 09/07/24 17:35 Freq: NEEDED Status: Active Protocol: Document 09/07/24 15:08 DLM (Rec: 09/07/24 17:54 DLM Desktop) Physical Therapy Current Condition Current Condition Evaluation Date 09/07/24 Treatment Diagnosis kidney stones, impaired gait Onset Date 09/05/24 M3 PT-IP Subjective Start: 09/07/24 17:35 Freq: NEEDED Status: Active Protocol: Document 09/10/24 10:10 MB (Rec: 09/10/24 10:30 MB Desktop) Subjective Physical Therapy Visit Type Type Treatment Note Visit Start Time 10:10 Visit Stop Time 10:23 Number of OPERATIONS ASSOCIATE Visits 0 Physical Therapy Visit Comments Patient Comments Pt is reluctant and slow to participate with PT. Therapy Pain Assessment Pain When Pain Assessed At Rest Pain Present Pain Present Pain Reported Location At kidney stone Scale Used Not rated M4 PT-IP Mobility and Gait Start: 09/07/24 17:35 Freq: NEEDED Status: Active Protocol: Document 09/10/24 10:10 MB (Rec: 09/10/24 10:30 MB Desktop) PT-Bed Mobility Assessment Rolling Type of Rolling Roll to Left Level of Assist Standby Assistance Supine to Sit Supine to Sit Standby Assistance,Head of Bed Elevated,Bedrails PT-Transfer Assessment Sit to and From Stand Sit to and from Contact Guard Assistance,1 Person Assistance,Use of Stand Upper Extremities Equipment Transfer Assistive Gait Belt,Front Wheeled Walker Device Orthotic/Prosthetic No Devices or Brace: Transfers Transfer Destination Toilet Transfer Technique Ambulated Transfer Ability Level of Assist Contact Guard Assistance,1 Person Assistance,Use of Upper Extremities Comments Mobility Comments Very slow mobility, reluctant to participate, PT must raise HOB a little bit to get pt moving. Once she starts, she is very slow to mobilize but only requires cues and CGA for all mobility Gait Assessment Gait Gait Assistance Contact Guard Assist Required: Distance (Feet) 30 Assistive Devices Assistive Device Gait Belt,Front Wheeled Walker Orthotic/Prosthetic No Devices or Brace: Gait Deviations General Gait Pattern Decreased Stride Length,Decreased Feet Clearance,Flexed Trunk Factors Limiting Gait Function Factors Limiting Decreased Activity Tolerance,Difficulty Following Gait Function Directions,Pain,Poor Balance,Poor Safety Awareness Comments Gait Comments Tends to keep eyes closed in the bed and not track visually in standing to scan with gait, cues for turning and backing up to the toilet in the BR, cues for hand placement on rail, max A to manage brief and PT manages IV pole PT-Balance Assessment Sitting Balance and Reactions Static Sitting Good Balance Ability Dynamic Sitting Good Balance Ability Standing Balance and Reactions Static Standing Fair Balance Ability Dynamic Standing Fair Balance Ability Device Used FWW M5 PT-IP Objective Assessments Start: 09/07/24 17:35 Freq: NEEDED Status: Active Protocol: Document 09/07/24 15:08 DLM (Rec: 09/07/24 17:54 DLM Desktop) Orientation Orientation/Cognition Level of Alertness Alert Orientation Name,Age,Birthday,Month,Date,Year,Day of Week,Place, Situation Language Function No Deficits Noted Ability Safety Awareness Understands Safety Issues Memory Description No Deficits Noted Gross Range of Motion Upper Extremity ROM Assessment Right Impaired Impairments right shoulder impairments from prior injury Lower Extremity ROM Assessment Within Functional Limits Strength Upper Extremity Strength Assessment Right Impaired Shoulder flexion 2+/5 Lower Extremity Strength Assessment Left Impaired Hip functional instability with weight bearing Coordination Assessment Gross Coordination Gross Coordination WNL Sensation Assessment Sensation Gross Sensation Right LE Impaired,Left LE Impaired Sensation Numbness Description Comments Sensation Comments chronic numbness in feet Muscle Tone Muscle Tone WNL Yes M6 PT-IP Treatment Start: 09/07/24 17:35 Freq: NEEDED Status: Active Protocol: Document 09/10/24 10:10 MB (Rec: 09/10/24 10:30 MB Desktop) Physical Therapy Treatment Education Education Provided Safety M7 PT-IP Assessment and Plan Start: 09/07/24 17:35 Freq: NEEDED Status: Active Protocol: Document 09/10/24 10:10 MB (Rec: 09/10/24 10:30 MB Desktop) PT Summary Assessment and Plan Potential Rehabilitation Fair Potential Status of Condition Evolving at Evaluation Summary Impairments Pain,ROM,Strength,Balance,Coordination,Bed Mobility, Transfers,Gait,Activity Tolerance Progress Towards Slow Progress due to Activity Tolerance Goals Assessment Summary Pt requires heavy encouragement, cues and SBA for bed mobility and CGA for gait with RW to BR today with PT managing IV pole. Pt is reluctant to mobilize and participate with PT. Goals Bed Mobility Goal Independent Transfer Goal Independent,Front Wheeled Walker Gait Goal Standby Assistance,Front Wheel Walker Gait Distance 150 feet Other Goals up/down 2 steps with no more than CGA to allow safe home entrance Days to Meet Goals 5 Frequency of Treatment Frequency Of Once a Day Treatment Treatment Plan Physical Therapy Bed Mobility Training,Transfer Training,Gait Training, Treatment Plan Therapeutic Exercise,Balance Retraining,Post Op Education,Discharge Planning,Hot or Cold Pack, Neuromuscular Re-ed Precautions Abdominal Surgery Log Roll,Lifting Restrictions,Gait Belt above Precautions Incisional Area Discharge Recommendations PT Discharge Home with 26/10 Assist Available,Home Health,SNF Rehab, Recommendations Home vs SNF Transportation Needs Private Vehicle at Discharge - PT assist 1
--- NOTE | 2024-09-10 13:57 | CM.DPNOTE ---
DCP Note ORNAMENTER reviewed EMR per provider, anticipate dc home tomorrow. per previous CM notes, r/o HH day of dc. no new CM needs identified at this time. P: dc tomorrow with local family support. r/o HH Wednesday. will continue to follow as needed for DCP coordination SANDER Collins
[2024-09-10 16:30] LABS: HEMOLYSIS < 15 (0-50); Potassium 2.9 mmol/L (3.4-5.1)
[2024-09-10] MEDS: INSULIN GLARGINE 100 UNIT/ML 3ML PEN 14 UNIT SUBCUT (20:57)
[2024-09-11] MEDS: POTASSIUM CHLORIDE IN WATER 10 MEQ/100 ML PIGGYBACK 100 MEQ IV ×3 (01:16→04:36)
[2024-09-11 03:00] VITALS: BP 116/79; PULSE 83; RESP 18; TEMP 36.7; O2SAT 90
[2024-09-11 04:57] LABS: Hematocrit 37.2 % (36-46); Hemoglobin 12.6 g/dL (12.0-16.0); Mean Corpuscular HGB Conc 33.8 % (30-36); Mean Corpuscular Hemoglobin 31.6 PG (26-34); Mean Corpuscular Volume 93.5 fL (80-100); Platelet Count 239 X10^3/uL (150-400); Red Blood Cell Count 3.98 X10^6/uL (4.0-5.2); Red Cell Distribution Width 13.5 % (11.6-14.8); White Blood Cell Count 12.6 X10^3/uL (4.5-11.0)
[2024-09-11 05:09] LABS: BUN Creatinine Ratio 28.8 (6-22); Blood Urea Nitrogen 21 mg/dL (7-17); Calcium 8.9 mg/dL (8.4-10.2); Carbon Dioxide 30 mmol/L (22-32); Chloride 103 mmol/L (98-107); Estimated Glomerular Filt Rate > 60 mL/min (>60); Glucose 88 mg/dL (70-99); HEMOLYSIS < 15 (0-50); Potassium 3.5 mmol/L (3.4-5.1); Sodium 137 mmol/L (137-145)
[2024-09-11] MEDS: CEFEPIME 2 GM in SODIUM CHLORIDE 0.9% 100 ML IV ×2 (05:51→17:17)
[2024-09-11 06:38] LABS: Magnesium 0.9 mg/dL (1.6-2.3)
--- NOTE | 2024-09-11 06:55 | PC.NURSE ---
pt's magnesium level this am is 0.9, coordinator aware and pharmacy notified so that they can start the electrolyte protocol.
[2024-09-11 08:00] VITALS: BP 148/78; PULSE 84; RESP 16; O2SAT 93
[2024-09-11] MEDS: AMLODIPINE 5 MG TABLET 10 MG PO (08:16)
[2024-09-11] MEDS: LOSARTAN 25 MG TABLET PO ×2 (08:16→21:12)
[2024-09-11] MEDS: MAGNESIUM CHLORIDE 64 MG TABLET 128 MG PO ×3 (08:16→23:29)
[2024-09-11] MEDS: PHENAZOPYRIDINE 100 MG TABLET PO ×3 (08:18→21:12)
[2024-09-11] MEDS: HEPARIN 5,000 UNIT/ML VIAL 5000 UNIT SUBCUT ×2 (08:18→21:13)
[2024-09-11] MEDS: polyethylene glycoL 3350 17 GM POWD.PACK PO (08:18)
[2024-09-11] MEDS: INSULIN LISPRO 100 UNIT/ML 3ML VIAL SUBCUT ×4 (08:18→17:07)
[2024-09-11] MEDS: GABAPENTIN 300 MG CAPSULE PO ×2 (08:22→21:14)
[2024-09-11] MEDS: POTASSIUM CHLORIDE 20 MEQ TAB PO (12:14)
--- NOTE | 2024-09-11 13:48 | PT.IPTN ---
Current Diagnoses Calculus of ureter (09/05/24) Urinary tract infection, site not specified (09/05/24) Surgery Performed Operation Date: 09/05/24 18:30 Actual Procedures p Cystoscopy w/ Ureteral Procedure Placement of Ureteral Stent(Right) - Nain Tapia, Physical Therapy Treatment Note M2 PT-IP Current Condition Start: 09/07/24 17:35 Freq: NEEDED Status: Active Protocol: Document 09/07/24 15:08 DLM (Rec: 09/07/24 17:54 DLM Desktop) Physical Therapy Current Condition Current Condition Evaluation Date 09/07/24 Treatment Diagnosis kidney stones, impaired gait Onset Date 09/05/24 M3 PT-IP Subjective Start: 09/07/24 17:35 Freq: NEEDED Status: Active Protocol: Document 09/11/24 13:23 MB (Rec: 09/11/24 13:48 MB Desktop) Subjective Physical Therapy Visit Type Type Treatment Note Visit Start Time 13:23 Visit Stop Time 13:41 Number of VENEER SLICING MACHINE OPERATOR Visits 0 Physical Therapy Visit Comments Patient Comments Pt is pleasant and conversant today, agreeable to PT to gait. M4 PT-IP Mobility and Gait Start: 09/07/24 17:35 Freq: NEEDED Status: Active Protocol: Document 09/11/24 13:23 MB (Rec: 09/11/24 13:48 MB Desktop) PT-Transfer Assessment Sit to and From Stand Sit to and from Contact Guard Assistance,1 Person Assistance,Use of Stand Upper Extremities Equipment Transfer Assistive Gait Belt,Front Wheeled Walker Device Orthotic/Prosthetic No Devices or Brace: Transfer Ability Level of Assist Contact Guard Assistance,1 Person Assistance,Use of Upper Extremities Comments Mobility Comments Cues for hand placement. Pt reports 3/4 Dyspnea Scale at rest and O2 sats are 92% on RA and HR 106 BPM. After gait, pt reports 4/4 Dyspnea Scale and O2 sats are 92- 94% on RA and HR up to 120 BPM Gait Assessment Gait Gait Assistance Contact Guard Assist Required: Distance (Feet) 30 Assistive Devices Assistive Device Gait Belt,Front Wheeled Walker Orthotic/Prosthetic No Devices or Brace: Gait Deviations General Gait Pattern Decreased Stride Length,Decreased Feet Clearance,Flexed Trunk,Step-to Gait,Wide Based Gait Factors Limiting Gait Function Factors Limiting Decreased Activity Tolerance,Difficulty Following Gait Function Directions,Pain,Poor Balance,Poor Safety Awareness Comments Gait Comments Pt reports sciatic pain. She gait trains 15', then 10', then 20', then 30' with frequent standing breaks to talk PT-Balance Assessment Sitting Balance and Reactions Static Sitting Good Balance Ability Dynamic Sitting Good Balance Ability Standing Balance and Reactions Static Standing Fair Balance Ability Dynamic Standing Fair Balance Ability Device Used FWW M5 PT-IP Objective Assessments Start: 09/07/24 17:35 Freq: NEEDED Status: Active Protocol: Document 09/07/24 15:08 DLM (Rec: 09/07/24 17:54 DLM Desktop) Orientation Orientation/Cognition Level of Alertness Alert Orientation Name,Age,Birthday,Month,Date,Year,Day of Week,Place, Situation Language Function No Deficits Noted Ability Safety Awareness Understands Safety Issues Memory Description No Deficits Noted Gross Range of Motion Upper Extremity ROM Assessment Right Impaired Impairments right shoulder impairments from prior injury Lower Extremity ROM Assessment Within Functional Limits Strength Upper Extremity Strength Assessment Right Impaired Shoulder flexion 2+/5 Lower Extremity Strength Assessment Left Impaired Hip functional instability with weight bearing Coordination Assessment Gross Coordination Gross Coordination WNL Sensation Assessment Sensation Gross Sensation Right LE Impaired,Left LE Impaired Sensation Numbness Description Comments Sensation Comments chronic numbness in feet Muscle Tone Muscle Tone WNL Yes M6 PT-IP Treatment Start: 09/07/24 17:35 Freq: NEEDED Status: Active Protocol: Document 09/11/24 13:23 MB (Rec: 09/11/24 13:48 MB Desktop) Physical Therapy Treatment Education Education Provided Safety M7 PT-IP Assessment and Plan Start: 09/07/24 17:35 Freq: NEEDED Status: Active Protocol: Document 09/11/24 13:23 MB (Rec: 09/11/24 13:48 MB Desktop) PT Summary Assessment and Plan Potential Rehabilitation Fair Potential Status of Condition Evolving at Evaluation Summary Impairments Pain,ROM,Strength,Balance,Coordination,Bed Mobility, Transfers,Gait,Activity Tolerance Progress Towards Slow Progress due to Activity Tolerance Goals Assessment Summary Pt is very conversant today and she gait trains further with PT. Her gait is poor with flexed posture and antalgic, step-to pattern that she states is d/t sciatica. She presents with HR up to the 120s and O2 sats 92-94% on RA with gait. Goals Bed Mobility Goal Independent Transfer Goal Independent,Front Wheeled Walker Gait Goal Standby Assistance,Front Wheel Walker Gait Distance 150 feet Other Goals up/down 2 steps with no more than CGA to allow safe home entrance Days to Meet Goals 5 Frequency of Treatment Frequency Of Once a Day Treatment Treatment Plan Physical Therapy Bed Mobility Training,Transfer Training,Gait Training, Treatment Plan Therapeutic Exercise,Balance Retraining,Post Op Education,Discharge Planning,Hot or Cold Pack, Neuromuscular Re-ed Precautions Abdominal Surgery Log Roll,Lifting Restrictions,Gait Belt above Precautions Incisional Area Discharge Recommendations PT Discharge Home with 26/10 Assist Available,Home Health,SNF Rehab, Recommendations Home vs SNF Transportation Needs Private Vehicle at Discharge - PT assist 1
--- NOTE | 2024-09-11 14:02 | DIET.CONS ---
Dietary Consultation Note Admission Date: 09/05/2024 15:14 Assessment: 79 y F admitted for sepsis/ureteral stone. Dietitian screened for LOS. Met with pt in room who reports appetite is improving, lunch tray at bedside, so far around 25% gone. Reports she remembers starting to eat again last night, everything else is blur before then, but doesn't remember being able to eat much or anything thing since last September 03. Before then, appetite was normal (B-cherrios with oatmilk and protein powder, L-Ensure, D- regular meal). Denies Ensure at this time, feels would not be able to tolerate right now. NFPE with no significant findings. PMH of diabetes. Pt normally takes FBG daily and range is around 110. Keeps food log. Ht: 160.02 cm Wt: 73.482 kg (161.7 lb) BMI: 28.7 UBW: Reports stable weight 160-162 lb at last doctors appt. No recent weights in EMR. Last BM: 09/10/24 (09/10/24 05:36) MNA: 14 Harshal Score: 16 Diet: 09/06/24 Breakfast Carbohydrate Consistent Diet Diet Modifications: Carbohydrate level: Medium (3 CHO) Reflex DM orders: No Labs: RBC 3.98 X10^6/uL (4.0-5.2) L 09/11/24 04:32 Hgb 12.6 g/dL (12.0-16.0) 09/11/24 04:32 Hct 37.2 % (36-46) 09/11/24 04:32 Creatinine 0.73 mg/dL (0.52-1.04) 09/11/24 04:32 Hemoglobin A1c 6.5 % (4.0-6.0) H 09/07/24 04:49 Lactate 2.5 mmol/L (0.7-2.1) H 09/05/24 10:45 Nutrition Diagnosis: Inadequate oral intake r/t physiological causes decreasing appetite aeb <50% of EER for 1 week Interventions: -Monitor PO intakes as pt begins eating again and re-assess if multiple intakes <75% -Encouraged intake as tolerated and good protein sources at each meal EER: 1600 kcals (22 kcals/kg per BMI) 70 g (1g/kg per age with adjusted IBW) Monitoring/Evaluations: PO intakes Electronically Signed by: Rebekah Torres 09/11/24 14:02 Clinical Dietitian [address] [address]
[2024-09-11 14:16] VITALS: BP 141/73; PULSE 77; RESP 20; TEMP 36.8; O2SAT 94
--- NOTE | 2024-09-11 14:20 | CM.DPNOTE ---
DCP note BALLAST CLEANING MACHINE OPERATOR reviewed EMR now PT rec SNF. per provider, not stable to dc at this time due to magnesium dropping. previously thought pt had straight Medicare. after further chart review, pt has [employer] Medicare. will need ins auth for SNF. BALLAST CLEANING MACHINE OPERATOR met with pt and dtr Ora in room. reviewed DCP recs and options. pt and dtr prefernce is short term SNF until pt can do stairs. pt to dc to dtrs house after that, can stay on main floor but bathroom for showering is on a different floor. interested in HH for bath aide post SNF. preference for close to home as possible. BALLAST CLEANING MACHINE OPERATOR confirmed with Yue at not [facility]. 2nd choice is either [facility]/. BALLAST CLEANING MACHINE OPERATOR answered questions for pt and dtr to best of ability. preference for [facility] at dc from SNF. BALLAST CLEANING MACHINE OPERATOR spoke with Lila at [facility], NESTOR Morrow kindly assisted in sending clincials for review. per Lila, can accept pt submitting for auth today. BALLAST CLEANING MACHINE OPERATOR completed PASRR. hospitalist signed. P: [employer] SNF auth pending, anticpate dc to SNF at [facility]. transport likely with medicaid transport. will continue to follow closely for DCP coordination. SANDER Collins
[2024-09-11] MEDS: INSULIN LISPRO 100 UNIT/ML 3ML VIAL 6 UNIT SUBCUT (17:07)
[2024-09-11 18:00] VITALS: BP 136/70; PULSE 77; RESP 16; TEMP 36.7; O2SAT 94
--- NOTE | 2024-09-11 18:37 | P.PN_ITS ---
Subjective Subjective Interval history: Summary: 79-year-old female who was admitted with presumed pyelonephritis, sepsis, and obstructing nephrolithiasis. She underwent stenting. There were no blood or urine cultures obtained at the time of admission. She has been empirically on ceftriaxone and clinically improving with regards to resolution of fever and white count. She was had very slow progression with participation in activity, moving around, getting out of bed, and eating. This improved substantially on September 09. S: She feels better. No nausea. No abdomen pain. She has been taking more PO and is OOB. Remains weak and tired. Mg was 0.9 this AM which was repleted. Exam Vital Signs (past 8 hours): - 09/11/24 14:16 09/11/24 18:00 Temperature 98.3 F 98.0 F Pulse Rate 77 77 Respiratory Rate 20 16 Blood Pressure 141/73 H 136/70 Pulse Oximetry 94 94 Oxygen Flow Rate 0 0 Oxygen Delivery Method Room Air Oxygen Flow Rate 0 Narrative Exam Narrative: NAD, alert and oriented. Fluent speech. Lungs are clear, normal rate and effort. Heart is regular, no murmur gallop or rub. Abdomen is soft, non distended. Extremities are free of edema. Objective Labs 09/11/24 04:32 09/11/24 04:32 Labs: Laboratory Results - last 24 hr 09/11/24 04:32 WBC 12.6 H RBC 3.98 L Hgb 12.6 Hct 37.2 MCV 93.5 MCH 31.6 MCHC 33.8 RDW 13.5 Plt Count 239 Sodium 137 Potassium 3.5 Chloride 103 Carbon Dioxide 30 BUN 21 H Creatinine 0.73 Estimated GFR > 60 BUN/Creatinine Ratio 28.8 H Glucose 88 Calcium 8.9 Magnesium 0.9 L* [facility] Social History household members: none Smoking Status: Former smoker alcohol intake: never Assessment & Plan Assessment & Plan narrative: 1. Sepsis as evidenced by neutrophilia leukocytosis fever lactic acidosis secondary to pyelonephritis hydronephrosis from obstructing ureteral stone in the right proximal ureteropelvic junction postop day 1 status post stents placement * Emergent cystoscopy and stent without complication Dr. Tapia urology * She remains ill. Blood cultures and urine cultures were not obtained. She was being treated empirically based on her symptoms with ceftriaxone.e. * Continue correctional insulin. Continue glargine 12 subcu HS * Continue losartan and monitor blood pressure. 2. Hypokalemia, new. 3. DM 2, stable. 4. Hypertension, stable. 5. Hypokalemia and hypomagnesemia PLAN: -midline in place for access. -continue IV antibiotics. No cultures available. -encourage advancement of oral intake. -replace Mg, severely low at 0.9 today possibly contributing to weakness -replete Mg today and see if improvement with therapies, she is still pondering SNF Anticipate discharge either home or SNF tomorrow depending on therapy evaluations after Mg repletion Time-Based Coding :: [TOTAL MINUTES] spent with patient and on the chart (including review of chart, obtaining history, exam, reviewing outside data, placing orders, documenting exam and treatment plan, and counseling patient) on [DATE]. Quality VTE Deep Vein Thrombosis/Pulmonary Embolism Present on Admission: No
[2024-09-11 19:00] VITALS: BP 145/77; PULSE 93; RESP 18; TEMP 36.9; O2SAT 94
[2024-09-11] MEDS: INSULIN GLARGINE 100 UNIT/ML 3ML PEN 14 UNIT SUBCUT (21:32)
[2024-09-11 23:00] VITALS: BP 135/78; PULSE 90; RESP 18; TEMP 36.4; O2SAT 92
[2024-09-11] MEDS: HYDROCODONE/ACET 10/325 TABLET 1 TAB PO (23:35)
[2024-09-12 03:00] VITALS: BP 125/74; PULSE 77; RESP 18; TEMP 36.2; O2SAT 90
[2024-09-12] MEDS: CEFEPIME 2 GM in SODIUM CHLORIDE 0.9% 100 ML IV (04:30)
[2024-09-12 05:46] LABS: Add Manual Diff / Slide Review NO; Basophils Absolute Auto 100 /uL (0-100); Basophils Percent Auto 1.1 % (0-2); Eosinophils Absolute Auto 400 /uL (0-450); Eosinophils Percent Auto 3.3 % (2-4); Hematocrit 34.7 % (36-46); Hemoglobin 11.9 g/dL (12.0-16.0); Lymphocytes Absolute Auto 2600 /uL (1100-4500); Lymphocytes Percent Auto 23.6 % (25-40); Mean Corpuscular HGB Conc 34.2 % (30-36); Mean Corpuscular Hemoglobin 32.2 PG (26-34); Mean Corpuscular Volume 94.1 fL (80-100); Monocytes Absolute Auto 1100 /uL (0-900); Monocytes Percent Auto 9.6 % (3-14); Neutrophils Absolute Auto 6800 /uL (1500-7000); Neutrophils Percent Auto 62.4 % (50-75); Platelet Count 239 X10^3/uL (150-400); Red Blood Cell Count 3.69 X10^6/uL (4.0-5.2); Red Cell Distribution Width 13.4 % (11.6-14.8); White Blood Cell Count 10.9 X10^3/uL (4.5-11.0)
[2024-09-12 06:00] LABS: BUN Creatinine Ratio 30.3 (6-22); Blood Urea Nitrogen 23 mg/dL (7-17); Carbon Dioxide 30 mmol/L (22-32); Chloride 104 mmol/L (98-107); Estimated Glomerular Filt Rate > 60 mL/min (>60); Glucose 106 mg/dL (70-99); HEMOLYSIS < 15 (0-50); Magnesium 1.2 mg/dL (1.6-2.3); Potassium 3.5 mmol/L (3.4-5.1); Sodium 138 mmol/L (137-145)
[2024-09-12 07:00] VITALS: BP 133/79; PULSE 88; RESP 19; TEMP 35.9; O2SAT 96
[2024-09-12] MEDS: INSULIN LISPRO 100 UNIT/ML 3ML VIAL 6 UNIT SUBCUT ×2 (08:24→12:35)
[2024-09-12] MEDS: AMLODIPINE 5 MG TABLET 10 MG PO (08:26)
[2024-09-12] MEDS: PHENAZOPYRIDINE 100 MG TABLET PO (08:26)
[2024-09-12] MEDS: LOSARTAN 25 MG TABLET PO (08:26)
[2024-09-12] MEDS: HEPARIN 5,000 UNIT/ML VIAL 5000 UNIT SUBCUT (08:27)
[2024-09-12] MEDS: GABAPENTIN 300 MG CAPSULE PO (08:45)
--- NOTE | 2024-09-12 09:40 | OT.IP.EVAL ---
Current Diagnoses Calculus of ureter (09/05/24) Urinary tract infection, site not specified (09/05/24) Surgery Performed Operation Date: 09/05/24 18:30 Actual Procedures p Cystoscopy w/ Ureteral Procedure Placement of Ureteral Stent(Right) - Nain Tapia, DO Occupational Therapy Inpatient Evaluation/Re-Eval M1 PT/OT-IP Prior Functional Status Start: 09/07/24 17:35 Freq: NEEDED Status: Active Protocol: Document 09/12/24 10:23 [facility] (Rec: 09/12/24 10:34 [facility] Desktop) Medical Review Prior Functional Status Medical History Yes Reviewed Diet/Fluid Regular Consistency Communication WFL Mobility and Gait Independent with cane. She reports keeping a FWW in her car. She has been attending out-pt PT for left hip pain. Activities of Daily Independent with equipment. Living and IADL's Prior Functional she exercises at the [facility] Level (Other details ) Social History Household Members none Living Arrangements Apartment/Condo Home Environment High Toilet,Tub/Shower Home Equipment Front Wheel Walker,Straight Cane,Grab Bars In Shower Employment Status Retired Additional Social she plans to stay with family at discharge, their house History Comment is 2-story but she can stay on main level, shower is on second floor, 1/2 bath on main level close to her bedroom, they have a low/standard height toilet. Pt now to go to skilled rehab. M2 OT-IP Current Condition Start: 09/12/24 10:23 Freq: Status: Active Protocol: Document 09/12/24 10:23 [facility] (Rec: 09/12/24 10:34 [facility] Desktop) Occupational Therapy Current Condition Current Condition Evaluation Date 09/12/24 Treatment Diagnosis Kidney stone, generalized weakness Diagnosis Onset Date 09/05/24 M3 OT- IP Subjective and Pain Start: 09/12/24 10:23 Freq: Status: Active Protocol: Document 09/12/24 10:23 [facility] (Rec: 09/12/24 10:34 [facility] Desktop) OT- Subjective Occupational Therapy Visit Type Type Initial Evaluation Visit Start Time 09:13 Visit Stop Time 09:43 Occupational Therapy Visit Comments Patient Comments Pt agreed to get up to to get cleaned up as had diarrhea. Patient/Caregiver TO get better. Goals OT Pain Assessment Pain When Pain Assessed At Rest Pain Present Pain Present Pain Reported Location At kidney stone Pain Behaviors Facial Grimacing,Holding Area M4 OT- IP ADL's Start: 09/12/24 10:23 Freq: Status: Active Protocol: Document 09/12/24 10:23 [facility] (Rec: 09/12/24 10:34 [facility] Desktop) OT [id number] Comments OT Self-Feeding Not at meal time. Comments OT ADL-Grooming Comments OT Grooming Comments Not observed. OT ADL-Oral Care Comments Oral Care Comments Not observed. OT ADL-Dressing General Eval Lower Body Dressing Maximum Assistance Ability Areas Needing Underpants/Brief Assistance OT ADL-Toileting General Evaluation Toileting Ability Maximum Assistance Areas Needing Manage Clothing,Perform Perineal Hygiene Assistance Comments OT Toileting Pt tried to do hygiene after bowel movement, but Comments getting on her hands. Total assist for completeness for hygiene and brief management needs. OT ADL-Bathing Comments OT Bathing Comments Pt would benefit from a tub bench at home. M5 OT- IP IADL's Start: 09/12/24 10:23 Freq: Status: Active Protocol: Document 09/12/24 10:23 [facility] (Rec: 09/12/24 10:34 [facility] Desktop) OT-Instrumental Activities of Daily Living Home Safety Awareness Awareness of Need Good Awareness for Assistance at Home Medication Management Medication Pt states does prior. Management Comments Money Management Money Management Pt states does prior. Comments Meal Preparation Meal Preparation AT this time would benefit from assist. Comments Storage Center Manager Storage Center Manager Pt would benefit from asisst. Comments M6 OT- IP Functional Cognition Start: 09/12/24 10:23 Freq: Status: Active Protocol: Document 09/12/24 10:23 [facility] (Rec: 09/12/24 10:34 [facility] Desktop) Cognitive Factors Limiting Selfcare Function Cognitive Ability Level of Alertness Alert Patient Orientation Name,Place,Situation Attention Span Capable of Focused Attention,Capable of Sustained Ability Attention Ability to Follow Able to Follow One Step Commands Commands Cognitive Comments Cognitive Assessment Pt able to follow commands for ADL and mobility needs. Comments Pt would benefit from SLUMS and education for safety awareness needs. OT- Vision and Hearing OT- Hearing Assessment OT- Hearing WFL Assessment OT- Vision Assessment Visual Acuity Glasses All The Time Visual Attentiveness WFL Occular Pursuits WFL Visual Convergence WFL Visual Ricci WFL M7 OT- IP Mobility and Balance Start: 09/12/24 10:23 Freq: Status: Active Protocol: Document 09/12/24 10:23 [facility] (Rec: 09/12/24 10:34 [facility] Desktop) OT- Bed Mobility Assessment Rolling Level of Assistance Standby Assistance,Bedrails Supine to Sit Supine to Sit Assist Contact Guard Assistance OT-Transfer Assessment Sit to and From Stand Sit to and from Contact Guard Assistance Stand Transfers Transfer Ability Contact Guard Assistance Technique Transfer Destination Bed,Toilet Transfer Technique Stand Step Pivot Devices Transfer Assistive Gait Belt,Front Wheeled Walker Devices Comments Mobility Comments CGA to get upright to the edge of the bed. CGA for balance with the fww due unsteadiness on her feet. OT- Balance Assessment Sitting Balance and Reactions Static Sitting Good Balance Ability Dynamic Sitting Fair Balance Ability Standing Balance and Reactions Static Standing Fair Balance Ability Dynamic Standing Fair Balance Ability M8 OT- IP Objective Assessments Start: 09/12/24 10:23 Freq: Status: Active Protocol: Document 09/12/24 10:23 [facility] (Rec: 09/12/24 10:34 [facility] Desktop) OT Gross Range of Motion Upper Extremity Range of Motion Assessment Bilaterally Impaired ROM Impairments RUE>LUE OT Strength Upper Extremity Strength Assessment Right Impaired Comments Strength Comments RUE 3-/5 to 4-/5 from proximal to distal. LUE grossly 4 -/5 throughout OT Sensation Assessment Comments Summary Comments Intact for light touch. M9 OT- IP Assessment and Plan Start: 09/12/24 10:23 Freq: Status: Active Protocol: Document 09/12/24 10:23 [facility] (Rec: 09/12/24 10:34 [facility] Desktop) OT Summary Assessment and Plan Potential Rehabilitation Good Potential Analytic Complexity Moderate at Evaluation Summary OT Impairments Pain,Strength,Balance,Functional Cognition,Functional Mobility,Self-Feeding,Grooming,Dressing,Toileting, Bathing,Activity Tolerance Progress Towards Slow Progress due to Medical Issues Goals Assessment Summary Pt mod complexity and main barriers are pain, decreased dynamic balance and activity tolerance and not needing assist for ADL and mobility needs. Pt to go to skilled rehab. Pt given equipment list as would benefit from BSC and tub bench for home. Goals Self-Feeding Goal Independent Grooming Goal Independent Dressing Goal Independent Toileting Goal Independent Bathing Goal Independent Toilet Transfer Goal Independent Shower Transfer Goal Independent Days to Meet Goals 15 Frequency of Treatment Other frequency 5x/week Treatment Plan OT Treatment Plan ADL Training,Functional Cognition Training,Patient/ Family Education,Discharge Planning Other Treatment SLUMS Recommendations and Next Treatment Focus Discharge Recommendations OT Discharge SNF Rehab Recommendations Home Equipment Needs BSC, tub bench Transportation Needs Private Vehicle at Discharge
--- NOTE | 2024-09-12 10:48 | P.DS_ITS ---
History of Present Illness History of Present Illness Date Patient Seen: 09/12/24 Chief complaint: Right sided abdominal pain, dysuria Narrative: Per admit provider, Chief complaint: Flank pain and leukocytosis with lactic acidosis hyperglycemia secondary to obstructing kidney stone History of present illness: Patient is a female with a history of type 2 diabetes who presents with abdominal pain localized to the right lower and mid-epigastric regions, beginning Wednesday night. The pain was the initial symptom, followed by episodes of vomiting and diarrhea. The diarrhea is described as runny, dark, and containing mucus. The patient reports dehydration and has not taken her diabetes medications, including metformin. She denies urinary symptoms and has not measured her temperature but is unsure about fevers or chills. There is no known sick contact. She denies any abdominal surgeries. No nausea medications have been taken today. Discharge Providers Provider Date of admission: 09/05/24 15:14 Discharge Date: 09/12/24 Primary care physician: Cristian Peña ND Consults: 09/06/24 14:23 Consult to Physical Therapy Evaluate & Treat Comment: Physician Instructions: Evaluate and Treat 09/11/24 15:49 Consult to Occupational Therapy Evaluate & Treat Comment: Physician Instructions: Evaluate and treat Discharge provider: Dakota Soto DO Summary Hospital Course Discharge Diagnosis: 1. Sepsis secondary to pyelonephritis 2. hydronephrosis from obstructing ureteral stone in the right proximal ureteropelvic junction status post stents placement 3. DM 2, stable. 4. Hypertension, stable. 5. Hypokalemia and hypomagnesemia Hospital Course: 79-year-old female who was admitted with presumed pyelonephritis, sepsis, and obstructing nephrolithiasis. She underwent stenting with urology. There were no blood or urine cultures obtained at the time of admission. She has been empirically on cefepime and clinically improving with regards to resolution of fever and white count. She completed 7 days of antibiotics during her stay, this is likely sufficient treatment of infection as she was asymptomatic at the time of discharge. She had very slow progression with participation in activity, moving around, getting out of bed, and eating. This improved substantially on September 09 and continued to improve. Mg was noted to be very low and was repleted, she was prescribed continued supplementation. She was started on new amlodipine with good BP control here in the hospital. She required insulin in the hospital for DM management, but is stable for discharge on previous metformin and Ozempic. After therapy recommendations she was recommended for assisted, where she was transferred on 09/12/24. Time Spent with Patient Time spent: Greater than 30 minutes Exam Vital Signs (past 8 hours): - 09/12/24 03:00 09/12/24 07:00 Temperature 97.2 F L 96.7 F L Pulse Rate 77 88 Respiratory Rate 18 19 Blood Pressure 125/74 133/79 Pulse Oximetry 90 L 96 Oxygen Flow Rate 0 0 Oxygen Delivery Method Room Air Oxygen Flow Rate 0 Narrative Exam Narrative: NAD, alert and oriented. Fluent speech. Lungs are clear, normal rate and effort. Heart is regular, no murmur gallop or rub. Abdomen is soft, non distended. Extremities are free of edema. Objective Labs 09/12/24 05:17 09/12/24 05:17 Labs: Laboratory Results - last 24 hr 09/12/24 05:17 WBC 10.9 RBC 3.69 L Hgb 11.9 L Hct 34.7 L MCV 94.1 MCH 32.2 MCHC 34.2 RDW 13.4 Plt Count 239 Neut % (Auto) 62.4 Lymph % (Auto) 23.6 L [place] % (Auto) 9.6 Eos % (Auto) 3.3 Baso % (Auto) 1.1 Neut # (Auto) 6800 Lymph # (Auto) 2600 [place] # (Auto) 1100 H Eos # (Auto) 400 Baso # (Auto) 100 Sodium 138 Potassium 3.5 Chloride 104 Carbon Dioxide 30 BUN 23 H Creatinine 0.76 Estimated GFR > 60 BUN/Creatinine Ratio 30.3 H Glucose 106 H Calcium 9.0 Magnesium 1.2 L PFSH Social History household members: none Smoking Status: Former smoker alcohol intake: never Discharge Plan Discharge Plan Patient Disposition: SNF Provider Discharge Comment: 79 F admitted with obstructing kidney stone and UTI. Now completed antibiotic course. Transfer to SNF prior to return home for ongoing PT/OT to recover from above. Discharge orders & Medications Prescriptions: New amlodipine 10 mg tablet 10 mg PO DAILY Qty: 30 0RF polyethylene glycol 3350 17 gram Powder In Packet 17 gm PO BID Qty: 30 0RF hydrocodone-acetaminophen 10-325 mg Tablet 1 tab PO Q4HR PRN (Reason: Pain, Moderate (4-6)) 7 Days Qty: 20 0RF Slow-Mag 71.5 mg Tablet,Delayed Release (Dr/Ec) 128 mg PO Q8H Qty: 90 0RF Continued lorazepam 0.5 MG tablet 0.5 mg PO QPM Qty: 0 promethazine 25 MG tablet 25 mg PO QPM Qty: 0 losartan 50 mg tablet 50 mg PO DAILY metformin 1,000 mg tablet 1,000 mg PO BID gabapentin 300 mg capsule 300 mg PO Q12H Patient Comments: 300mg BID Ozempic 0.25 mg or 0.5 mg (2 mg/3 mL) pen injector 0.5 mg SUBCUT .Q7 days Patient Comments: [NO ORIGINAL SIG] ondansetron 4 MG tablet,disintegrating 4 mg Sublingual Q6HP Discontinued losartan 25 MG tablet 25 mg PO QDAY Qty: 0 tramadol 50 MG tablet 1 - 2 tab PO Q4HP PRN (Reason: nausea) Qty: 15 0RF celecoxib 200 mg capsule 200 mg PO DAILY PRN (Reason: pain) Patient Comments: no longer taking due to history of stomach ulcers Follow up/Referrals: Cristian Peña ARNP [Primary Care Provider, Naturopathy] Discharge Health Status Multidrug resistant organism: No MDRO Precautions: [place] Diet/Activity/Treatments Diet: Diet as Tolerated and Carb-consistent/Diabetic Liquid consistency: Normal/Thin Food texture: Regular Activity: As tolerated, no restrictions. Special Rehabilitation Services Reason for rehabilitation: Recovery r/t decondition Rehab type: Physical therapy and Occupational therapy Visit Report/Discharge Packet Stand Alone Forms: Patient Portal/API Discharge Data Primary Care Provider: Cristian Peña Quality VTE Deep Vein Thrombosis/Pulmonary Embolism Present on Admission: No
[2024-09-12 11:00] VITALS: BP 141/83; PULSE 89; RESP 18; TEMP 36.5; O2SAT 94
[2024-09-12] MEDS: MAGNESIUM CHLORIDE 64 MG TABLET 128 MG PO (11:27)
[2024-09-12] MEDS: POTASSIUM CHLORIDE 20 MEQ TAB PO (11:28)
[2024-09-12] MEDS: LORazepam 0.5 MG TABLET PO (11:31)
--- NOTE | 2024-09-12 11:44 | CM.DPNOTE ---
DCP note PROPERTY OFFICER reviewed EMR. per provider, cleared to dc today to [facility]. per Lila at [facility], got auth. can accept in afternoon, no transport available. per OT, appropriate for POV if family can transport. PROPERTY OFFICER gave PASRR to CC Odalys. Odalys to send PASRR/scripts/meds/dc information to Lila at [facility] when available. PROPERTY OFFICER updated LOANS OFFICER/RN and gave RN report number. PROPERTY OFFICER met with pt in room. pt remains agreeable to plan. reports dtr can transport her at 1245. denies other questions or needs at this time P: dc today to [facility] dtr to transport at 1300. CM team will continue to follow as needed for DCP coordination SANDER Collins
[2024-09-12] MEDS: INSULIN LISPRO 100 UNIT/ML 3ML VIAL SUBCUT (12:35)
--- NOTE | 2024-09-12 14:10 | PC.NURSE ---
Patient is cleared for discharge today. VSS,afebrile on RA. She calls appropriately for assistance. She is eating well and up to BR, participating with PT/OT. Report called to Antonette at [facility] of [place]. Daughter at bedside is given packet for transfer. Patient is assisted to dress, Midline removed. Discharge instructions reviewed with patient and daughter, and she is escorted via w/ch to private vehicle with daughter for transport to SNF at approximately 1325 pm.
== END 2024-09-12 13:30 | DRG 854 ==
LOC: ED 15:13 → AC 15:14
PROVIDERS: Hospitalist; Internal Medicine; Urology; Admitting Provider Internal Medicine; Emergency Provider Emergency Medicine; Family Provider Registered Nurse; PCP Registered Nurse; Referring Provider Emergency Medicine; Visit Provider Internal Medicine
PROC: 0T768DZ Dilation of Right Ureter with Intraluminal Device, Via Natural or Artificial Opening Endoscopic (ICD-10-PCS; principal; 2024-09-05 18:30)
DX: A41.9 Sepsis, unspecified organism (principal); N13.6 Pyonephrosis; R00.0 Tachycardia, unspecified; E11.9 Type 2 diabetes mellitus without complications; E87.6 Hypokalemia; I10 Essential (primary) hypertension; E83.42 Hypomagnesemia; Z87.891 Personal history of nicotine dependence; Z79.85 Long-term (current) use of injectable non-insulin antidiabetic drugs; Z79.84 Long term (current) use of oral hypoglycemic drugs
CPT/HCPCS: 36415; 71045; 74018; 74177; 76000; 80048; 80053; 81003; 82009; 82550; 82805; 82962; 83036; 83605; 83690; 83735; 84132; 84484; 85025; 85027; 93005; 96365; 96375; 96376; 97162; 97166; 97530; 99284; 99285; C2617; J0131; J0330; J0692; J0696; J0780; J1171; J1644; J1815; J1885; J2270; J2405; J2704; J3010; J3490; Q9967

== ENCOUNTER 2024-10-09 12:36 | Inpatient (IN) | payer OTHER, MEDICAID, SELFPAY ==
[2024-09-05 15:44] VITALS: BMI 28.7
[2024-10-09] VITALS (45 sets, daily range): BP systolic 91–159; BP diastolic 45–90; PULSE 104–126; RESP 18–27; TEMP 36.8–37.9; O2SAT 91–98; BMI 30.1
--- NOTE | 2024-10-09 12:22 | ED.FALL ---
HPI - Fall <Halley Andujar PA-C - Last Filed: 10/09/24 19:24> General Chief Complaint: Fall Stated Complaint: Fall, down all night Time Seen by Provider: 10/09/24 12:37 History of Present Illness HPI Narrative: This is an 79-year-old type 2 diabetic who lives by herself and ambulates with a walker. Patient presents brought in by EMS with concern for having fallen last night on her way to the bathroom from her bed and unable to get up, consequently was on the floor for approximately 10 hours with 2 episodes of diarrhea patient reports explosive diarrhea this morning. She states she had sat up and was going to stand but accidentally slipped out of her bed onto the floor and was unable to get up. She denies hitting her head or loss of consciousness. She endorses some mild right hip pain. Patient states that she was able to access her phone in the morning when there was enough light to see on she was able to call for help. She states that she did live in assisted living at 1 point, and then lived with her daughter. She states that she is living on her own currently as her daughter is on a boat trip. She had an ensure last night for dinner and a small amount of a chicken noodle soup that a friend gave her. She thinks it is possible that this chicken noodle soup made her sick with loose stools. Patient states she has been compliant with her medications. She says she had a normal day yesterday and was feeling fine denies having any recent fevers chills nausea vomiting diarrhea weakness urinary urgency or frequency, abdominal pain, chest pain, fatigue, body aches or other symptoms. Related Data Home Medications ?Medication ?Instructions ?Recorded ?Confirmed promethazine 25 mg tablet 25 mg PO QPM ##0 05/09/17 09/08/24 gabapentin 300 mg capsule 300 mg PO Q12H 09/08/24 10/10/24 losartan 50 mg tablet 50 mg PO DAILY 09/08/24 10/10/24 metformin 1,000 mg tablet 1,000 mg PO BID 09/08/24 10/10/24 ondansetron 4 mg disintegrating 4 mg sublingual Q6HP 09/08/24 09/08/24 tablet semaglutide 0.25 mg or 0.5 mg (2 0.5 mg SUBCUT .Q7 days 09/08/24 10/10/24 mg/3 mL) subcutaneous pen injector (Ozempic) Previous Rx's ?Medication ?Instructions ?Recorded amlodipine 10 mg tablet 10 mg PO DAILY #30 tabs 09/12/24 lorazepam 0.5 mg tablet 0.5 mg PO QPM #14 tabs 09/12/24 magnesium chloride 71.5 mg 128 mg (1.7902 x 71.5 mg) PO Q8H 09/12/24 (magnesium chloride) #90 tabs tablet,delayed release (Slow-Mag) polyethylene glycol 3350 17 gram 17 gm PO BID #30 ea 09/12/24 oral powder packet Allergies Allergy/AdvReac Type Severity Reaction Status Date / Time codeine (CODEINE) Allergy Intermediate NAUSEA / Verified 09/05/24 10:50 HIVES cortisone (CORTISONE) Allergy Intermediate LIGHT / Verified 09/05/24 10:50 SOUND SENSITIVITY Review of Systems <Halley Andujar PA-C - Last Filed: 10/09/24 19:24> Review of Systems Narrative: See HPI Patient History <Halley Andujar PA-C - Last Filed: 10/09/24 19:24> Social History household members: none Smoking Status: Never smoker alcohol intake: never Exam <Halley Andujar PA-C - Last Filed: 10/09/24 19:24> Narrative Exam Narrative: GENERAL: [79] year old patient appears stated age. Well-developed patient, in mild distress. HEAD: Atraumatic. Normocephalic. EYES: Pupils equal round and reactive. Extraocular motions intact. No scleral icterus. No injection or drainage. ENT: Nose without bleeding, purulent drainage. Throat without erythema, tonsillar hypertrophy or exudate. Airway patent. NECK: Trachea midline. Non tender CARDIOVASCULAR: Regular rate and rhythm without murmurs, gallops, or rubs. RESPIRATORY: Clear to auscultation. Breath sounds equal bilaterally. No wheezes, rales, or rhonchi. GASTROINTESTINAL: Abdomen protuberant, soft, non-tender, nondistended, no CVA tenderness. EXTREMITIES: Slight right hip tenderness. Range of motion with active and passive ROM of the right hip is intact with slight pain. Bilateral extremity strength is slightly weak but equal. No edema or joint tenderness. BACK: No midline spinous process tenderness deformity or step-off of the C-spine T-spine L-spine or S spine. There is light bruising over the thoracic spine approximately T 3 through 8 that is nontender. There is a purplish 2 cm roughly annular bruise over the lumbar spine this area is also nontender. Back is otherwise Nontender without deformity or crepitance. No flank tenderness. NEURO: AOx3. SKIN: Patient has what appear to be some chronic poorly healing wounds on her legs, right knee anteriorly and left knee anteriorly right knee greater than left approximately 2 cm x 0.5 cm. They do not appear infected no erythema surrounding but there is superficial skin layer missing. Patient has a pressure sore on the right lateral malleolus that is nontender. She has surgically absent toes. There are multiple small bruises/healing scrapes noted on extremities. No rash or erythema of visible areas Initial Vital Signs Initial Vital Signs: Vital Signs Pulse Rate 105 H 10/09/24 12:00 Blood Pressure 129/60 10/09/24 12:00 Pulse Oximetry 92 10/09/24 12:00 <Bri Rodriguez DO - Last Filed: 10/10/24 01:09> Initial Vital Signs Initial Vital Signs: Vital Signs Pulse Rate 105 H 10/09/24 12:00 Blood Pressure 129/60 10/09/24 12:00 Pulse Oximetry 92 10/09/24 12:00 Course <Halley Andujar PA-C - Last Filed: 10/09/24 19:24> Course Course Narrative: Social work was consulted for this patient. Notably she was seen and admitted at this hospital for right UPJ obstruction from stone in early September. Re-examined pt, who has been persistently tachycardic around 110 since arrival; and she now does have a RLQ mild tenderness, and endorses some suprapubic tenderness. CT of abdomen pelvis ordered for further eval given presence of ureteral stent/leukocytosis, concern for possible appendicitis. Also CXR ordered. Urine was obtained by RN as clean catch showing bacteria. Pt's hip pain has improved. Handed off care of this patient to MD Rodriguez, attending physician. 1845 Orders Ordered: ED Orders 10/09/24 17:31 Urine Microscopic Stat 10/09/24 18:08 CT chest abd pel w con Stat 10/09/24 19:45 UA Complete [Urinalysis and Microscopic] Stat Urine Culture Stat 10/10/24 06:00 Basic Metabolic Panel DAILY Complete Blood Count AUTO DIFF DAILY Acetaminophen (Acetaminophen 325 Mg Tablet) 650 mg PO Q6H PRN PRN Reason: Fever/Mild Pain (1-3) Hydrocodone Bitart/Acetaminophen (Hydrocodone/Acet 5/325 Tablet) 1 tab PO Q4H PRN PRN Reason: Pain, Moderate (4-6) Heparin Sodium (Porcine) (Heparin 5,000 Unit/Ml Vial) 5,000 unit SUBCUT BID CORINNE Sodium Chloride (Normal Saline 0.9%) 1,000 mls @ 125 mls/hr IV CONT CORINNE Last Infusion: 10/09/24 22:24 Dose: Infused Documented By: Admin: 10/09/24 21:26 Dose: 125 mls/hr Documented By: FELIZ Sodium Chloride (Normal Saline 0.9%) 1,000 mls @ 100 mls/hr IV CONT COIRNNE Last Admin: 10/09/24 22:28 Dose: 100 mls/hr Documented By: FELIZ Piperacillin Sod/Tazobactam (Sod 3.375 gm/ Sodium Chloride) 100 mls @ 25 mls/hr IV Q8H CORINNE Last Admin: 10/10/24 00:37 Dose: 25 mls/hr Documented By: MARGARITA Sodium Chloride (Normal Saline 0.9%) 500 mls @ 500 mls/hr IV BOLUS ONE Stop: 10/10/24 01:34 Last Admin: 10/10/24 00:36 Dose: 500 mls/hr Documented By: MARGARITA Morphine Sulfate (Morphine 4 Mg/Ml Inj) 3 mg IV Q2HR PRN PRN Reason: Pain, Severe (7-10) Last Admin: 10/09/24 22:56 Dose: 3 mg Documented By: FELIZ Naloxone HCl (Naloxone 0.4 Mg/Ml Vial) 0.2 mg IV Q2MIN PRN PRN Reason: Opiate Reversal Ondansetron HCl (Ondansetron 4 Mg/2 Ml Inj) 4 mg IV Q8HR PRN PRN Reason: Nausea And Vomiting Discontinued Medications Acetaminophen (Acetaminophen 325 Mg Tablet) 975 mg PO NOW ONE Stop: 10/09/24 20:51 Last Admin: 10/09/24 21:25 Dose: 975 mg Documented By: FELIZ Fentanyl (Fentanyl 100 Mcg/2 Ml Inj) 25 mcg IV NOW ONE Stop: 10/09/24 13:36 Last Admin: 10/09/24 13:52 Dose: 25 mcg Documented By: KEISHA Sodium Chloride (Normal Saline 0.9%) 1,000 mls @ 500 mls/hr IV BOLUS ONE Stop: 10/09/24 14:04 Last Infusion: 10/09/24 14:52 Dose: Infused Documented By: Admin: 10/09/24 13:06 Dose: 500 mls/hr Documented By: KEISHA Sodium Chloride (Normal Saline 0.9%) 1,000 mls @ 500 mls/hr IV BOLUS ONE Stop: 10/09/24 20:08 Last Infusion: 10/09/24 20:49 Dose: Infused Documented By: Admin: 10/09/24 18:33 Dose: 500 mls/hr Documented By: LYLA Ceftriaxone Sodium 1,000 mg/ (Sodium Chloride) 100 mls @ 200 mls/hr IV NOW ONE Stop: 10/09/24 18:51 Last Admin: 10/09/24 19:55 Dose: Not Given Documented By: FELIZ Piperacillin Sod/Tazobactam (Sod 4.5 gm/ Sodium Chloride) 100 mls @ 200 mls/hr IV NOW ONE Stop: 10/09/24 18:59 Last Infusion: 10/09/24 20:40 Dose: Infused Documented By: Admin: 10/09/24 19:11 Dose: 200 mls/hr Documented By: FELIZ Piperacillin Sod/Tazobactam (Sod 3.375 gm/ Sodium Chloride) 100 mls @ 25 mls/hr IV Q8H CORINNE Last Admin: 10/09/24 22:23 Dose: Not Given Documented By: FELIZ Sodium Chloride (Normal Saline 0.9%) 1,000 mls @ 1,000 mls/hr IV BOLUS STA Stop: 10/10/24 01:26 Ondansetron HCl (Ondansetron 4 Mg/2 Ml Inj) 4 mg IV NOW ONE Stop: 10/09/24 13:38 Last Admin: 10/09/24 13:52 Dose: 4 mg Documented By: KEISHA Vital Signs Vital signs: Vital Signs - 8 hr 10/09/24 17:30 10/09/24 17:30 10/09/24 17:54 Temperature 99.9 F H Pulse Rate 115 H Respiratory Rate 24 Blood Pressure 136/81 Pulse Oximetry 94 Oxygen Delivery Method 10/09/24 18:00 10/09/24 18:00 10/09/24 18:30 Temperature Pulse Rate 111 H Respiratory Rate 25 H Blood Pressure 102/53 L 100/54 L Pulse Oximetry 92 Oxygen Delivery Method 10/09/24 18:30 10/09/24 18:36 10/09/24 18:36 Temperature Pulse Rate 109 H 112 H Respiratory Rate 25 H 25 H Blood Pressure 108/55 L Pulse Oximetry 93 95 Oxygen Delivery Method Room Air 10/09/24 19:00 10/09/24 19:00 10/09/24 19:01 Temperature Pulse Rate 112 H Respiratory Rate 22 Blood Pressure 98/59 L 108/56 L Pulse Oximetry 92 Oxygen Delivery Method 10/09/24 19:01 10/09/24 19:30 10/09/24 19:30 Temperature Pulse Rate 112 H 106 H Respiratory Rate 21 22 Blood Pressure 99/52 L Pulse Oximetry 95 Oxygen Delivery Method Room Air 10/09/24 19:59 10/09/24 19:59 10/09/24 20:00 Temperature Pulse Rate 108 H 110 H Respiratory Rate 20 22 Blood Pressure 126/59 L Pulse Oximetry 94 95 Oxygen Delivery Method Room Air 10/09/24 20:00 10/09/24 20:15 10/09/24 20:15 Temperature Pulse Rate 108 H Respiratory Rate 21 Blood Pressure 125/59 L 127/58 L Pulse Oximetry 96 Oxygen Delivery Method 10/09/24 20:30 10/09/24 20:30 10/09/24 20:45 Temperature Pulse Rate 113 H 115 H Respiratory Rate 21 Blood Pressure 145/65 H Pulse Oximetry 98 Oxygen Delivery Method Room Air 10/09/24 20:45 10/09/24 21:00 10/09/24 21:00 Temperature Pulse Rate 118 H Respiratory Rate Blood Pressure 144/64 H 150/59 H Pulse Oximetry 93 Oxygen Delivery Method 10/09/24 21:15 10/09/24 21:15 10/09/24 21:25 Temperature 100.3 F H Pulse Rate 121 H Respiratory Rate Blood Pressure 155/65 H Pulse Oximetry 93 Oxygen Delivery Method 10/09/24 21:30 10/09/24 21:30 10/09/24 21:45 Temperature Pulse Rate 124 H 124 H Respiratory Rate 21 Blood Pressure 156/75 H Pulse Oximetry 92 92 Oxygen Delivery Method 10/09/24 21:45 10/09/24 22:00 10/09/24 22:00 Temperature Pulse Rate 126 H Respiratory Rate Blood Pressure 159/66 H 132/54 L Pulse Oximetry 92 Oxygen Delivery Method <Bri Rodriguez, - Last Filed: 10/10/24 01:09> Orders Ordered: ED Orders 10/09/24 17:31 Urine Microscopic Stat 10/09/24 18:08 CT chest abd pel w con Stat 10/09/24 19:45 UA Complete [Urinalysis and Microscopic] Stat Urine Culture Stat 10/10/24 06:00 Basic Metabolic Panel DAILY Complete Blood Count AUTO DIFF DAILY Acetaminophen (Acetaminophen 325 Mg Tablet) 650 mg PO Q6H PRN PRN Reason: Fever/Mild Pain (1-3) Hydrocodone Bitart/Acetaminophen (Hydrocodone/Acet 5/325 Tablet) 1 tab PO Q4H PRN PRN Reason: Pain, Moderate (4-6) Heparin Sodium (Porcine) (Heparin 5,000 Unit/Ml Vial) 5,000 unit SUBCUT BID CORINNE Sodium Chloride (Normal Saline 0.9%) 1,000 mls @ 125 mls/hr IV CONT CORINNE Last Infusion: 10/09/24 22:24 Dose: Infused Documented By: Admin: 10/09/24 21:26 Dose: 125 mls/hr Documented By: FELIZ Sodium Chloride (Normal Saline 0.9%) 1,000 mls @ 100 mls/hr IV CONT CORINNE Last Admin: 10/09/24 22:28 Dose: 100 mls/hr Documented By: FELIZ Piperacillin Sod/Tazobactam (Sod 3.375 gm/ Sodium Chloride) 100 mls @ 25 mls/hr IV Q8H CORINNE Last Admin: 10/10/24 00:37 Dose: 25 mls/hr Documented By: MARGARITA Sodium Chloride (Normal Saline 0.9%) 500 mls @ 500 mls/hr IV BOLUS ONE Stop: 10/10/24 01:34 Last Admin: 10/10/24 00:36 Dose: 500 mls/hr Documented By: MARGARITA Morphine Sulfate (Morphine 4 Mg/Ml Inj) 3 mg IV Q2HR PRN PRN Reason: Pain, Severe (7-10) Last Admin: 10/09/24 22:56 Dose: 3 mg Documented By: FELIZ Naloxone HCl (Naloxone 0.4 Mg/Ml Vial) 0.2 mg IV Q2MIN PRN PRN Reason: Opiate Reversal Ondansetron HCl (Ondansetron 4 Mg/2 Ml Inj) 4 mg IV Q8HR PRN PRN Reason: Nausea And Vomiting Discontinued Medications Acetaminophen (Acetaminophen 325 Mg Tablet) 975 mg PO NOW ONE Stop: 10/09/24 20:51 Last Admin: 10/09/24 21:25 Dose: 975 mg Documented By: FELIZ Fentanyl (Fentanyl 100 Mcg/2 Ml Inj) 25 mcg IV NOW ONE Stop: 10/09/24 13:36 Last Admin: 10/09/24 13:52 Dose: 25 mcg Documented By: KEISHA Sodium Chloride (Normal Saline 0.9%) 1,000 mls @ 500 mls/hr IV BOLUS ONE Stop: 10/09/24 14:04 Last Infusion: 10/09/24 14:52 Dose: Infused Documented By: Admin: 10/09/24 13:06 Dose: 500 mls/hr Documented By: KEISHA Sodium Chloride (Normal Saline 0.9%) 1,000 mls @ 500 mls/hr IV BOLUS ONE Stop: 10/09/24 20:08 Last Infusion: 10/09/24 20:49 Dose: Infused Documented By: Admin: 10/09/24 18:33 Dose: 500 mls/hr Documented By: LYLA Ceftriaxone Sodium 1,000 mg/ (Sodium Chloride) 100 mls @ 200 mls/hr IV NOW ONE Stop: 10/09/24 18:51 Last Admin: 10/09/24 19:55 Dose: Not Given Documented By: FELIZ Piperacillin Sod/Tazobactam (Sod 4.5 gm/ Sodium Chloride) 100 mls @ 200 mls/hr IV NOW ONE Stop: 10/09/24 18:59 Last Infusion: 10/09/24 20:40 Dose: Infused Documented By: Admin: 10/09/24 19:11 Dose: 200 mls/hr Documented By: FELIZ Piperacillin Sod/Tazobactam (Sod 3.375 gm/ Sodium Chloride) 100 mls @ 25 mls/hr IV Q8H [facility] Last Admin: 10/09/24 22:23 Dose: Not Given Documented By: FELIZ Sodium Chloride (Normal Saline 0.9%) 1,000 mls @ 1,000 mls/hr IV BOLUS STA Stop: 10/10/24 01:26 Ondansetron HCl (Ondansetron 4 Mg/2 Ml Inj) 4 mg IV NOW ONE Stop: 10/09/24 13:38 Last Admin: 10/09/24 13:52 Dose: 4 mg Documented By: KEISHA Vital Signs Vital signs: Vital Signs - 8 hr 10/09/24 17:30 10/09/24 17:30 10/09/24 17:54 Temperature 99.9 F H Pulse Rate 115 H Respiratory Rate 24 Blood Pressure 136/81 Pulse Oximetry 94 Oxygen Delivery Method 10/09/24 18:00 10/09/24 18:00 10/09/24 18:30 Temperature Pulse Rate 111 H Respiratory Rate 25 H Blood Pressure 102/53 L 100/54 L Pulse Oximetry 92 Oxygen Delivery Method 10/09/24 18:30 10/09/24 18:36 10/09/24 18:36 Temperature Pulse Rate 109 H 112 H Respiratory Rate 25 H 25 H Blood Pressure 108/55 L Pulse Oximetry 93 95 Oxygen Delivery Method Room Air 10/09/24 19:00 10/09/24 19:00 10/09/24 19:01 Temperature Pulse Rate 112 H Respiratory Rate 22 Blood Pressure 98/59 L 108/56 L Pulse Oximetry 92 Oxygen Delivery Method 10/09/24 19:01 10/09/24 19:30 10/09/24 19:30 Temperature Pulse Rate 112 H 106 H Respiratory Rate 21 22 Blood Pressure 99/52 L Pulse Oximetry 95 Oxygen Delivery Method Room Air 10/09/24 19:59 10/09/24 19:59 10/09/24 20:00 Temperature Pulse Rate 108 H 110 H Respiratory Rate 20 22 Blood Pressure 126/59 L Pulse Oximetry 94 95 Oxygen Delivery Method Room Air 10/09/24 20:00 10/09/24 20:15 10/09/24 20:15 Temperature Pulse Rate 108 H Respiratory Rate 21 Blood Pressure 125/59 L 127/58 L Pulse Oximetry 96 Oxygen Delivery Method 10/09/24 20:30 10/09/24 20:30 10/09/24 20:45 Temperature Pulse Rate 113 H 115 H Respiratory Rate 21 Blood Pressure 145/65 H Pulse Oximetry 98 Oxygen Delivery Method Room Air 10/09/24 20:45 10/09/24 21:00 10/09/24 21:00 Temperature Pulse Rate 118 H Respiratory Rate Blood Pressure 144/64 H 150/59 H Pulse Oximetry 93 Oxygen Delivery Method 10/09/24 21:15 10/09/24 21:15 10/09/24 21:25 Temperature 100.3 F H Pulse Rate 121 H Respiratory Rate Blood Pressure 155/65 H Pulse Oximetry 93 Oxygen Delivery Method 10/09/24 21:30 10/09/24 21:30 10/09/24 21:45 Temperature Pulse Rate 124 H 124 H Respiratory Rate 21 Blood Pressure 156/75 H Pulse Oximetry 92 92 Oxygen Delivery Method 10/09/24 21:45 10/09/24 22:00 10/09/24 22:00 Temperature Pulse Rate 126 H Respiratory Rate Blood Pressure 159/66 H 132/54 L Pulse Oximetry 92 Oxygen Delivery Method MDM - Fall <Halley Andujar PA-C - Last Filed: 10/09/24 19:24> Differential Diagnosis Differential diagnosis: Likely other (UTI, intra-abdominal pathology, sepsis, hip fracture, hip strain) Medical Records Attestation: I reviewed the patient's medical records. Lab Data Attestation: I reviewed the patient's lab results. 10/09/24 12:39 10/09/24 13:30 Labs: Lab Results 10/09/24 10/09/24 10/09/24 Range/Units 12:39 12:50 13:30 WBC 17.4 H (4.5-11.0) X10^3/uL RBC 4.09 (4.0-5.2) X10^6/uL Hgb 13.1 (12.0-16.0) g/dL Hct 38.3 (36-46) % MCV 93.6 (80-100) fL MCH 32.1 (26-34) PG MCHC 34.3 (30-36) % RDW 14.0 (11.6-14.8) % Plt Count 289 (150-400) X10^3/uL Neut % (Auto) 84.2 H (50-75) % Lymph % (Auto) 9.1 L (25-40) % [place] % (Auto) 6.1 (3-14) % Eos % (Auto) 0.1 L (2-4) % Baso % (Auto) 0.5 (0-2) % Neut # (Auto) 46534 H (3119-6672) /uL Lymph # (Auto) 1600 (1817-3039) /uL [place] # (Auto) 1100 H (0-900) /uL Eos # (Auto) 0 (0-450) /uL Baso # (Auto) 100 (0-100) /uL Sodium 133 L (137-145) mmol/L Potassium 4.5 (3.4-5.1) mmol/L Chloride 97 L (98-107) mmol/L Carbon Dioxide 27 (22-32) mmol/L BUN 31 H (7-17) mg/dL Creatinine 0.90 (0.52-1.04) mg/dL Estimated GFR > 60 (>60) mL/min BUN/Creatinine Ratio 34.4 H (6-22) Glucose 170 H (70-99) mg/dL POC Whole Bld Glucose (70-99) mg/dL Lactate (0.7-2.1) mmol/L Calcium 10.0 (8.4-10.2) mg/dL Total Bilirubin 1.3 (0.2-1.3) mg/dL AST 30 (14-36) IU/L ALT 21 (<35) IU/L Alkaline Phosphatase 72 (38-126) U/L Total Creatine Kinase 149 H (30-135) U/L Troponin I < 0.012 (0.01-0.034) ng/mL Total Protein 7.0 (6.3-8.2) g/dL Albumin 3.9 (3.5-5.0) g/dL Globulin 3.1 (1.7-4.1) g/dL Albumin/Globulin Ratio 1.3 (1.0-2.8) Procalcitonin 1.74 H (<0.5) ng/mL Urine Color Urine Appearance Urine pH (4.5-8.0) Ur Specific [place] (1.000-1.035) Urine Protein (Negative) Urine Glucose (UA) (Negative) g/dL Urine Ketones (NEGATIVE) Urine Occult Blood (Negative) Urine Nitrate (Negative) Urine Bilirubin (NEGATIVE) Urine Urobilinogen (0.2) E.U./dL Ur Leukocyte Esterase (NEGATIVE) Urine RBC (0-5/HPF) Urine WBC (0-5/HPF) Ur Squamous Epith Cells (0-5/HPF) Urine Bacteria (None) Ur Culture Indicated? Vol Urine Centrifuged SARS-CoV-2 (PCR) Negative (Negative) Influenza A (RT-PCR) Flu a negative (NEGATIVE) Influenza B (RT-PCR) Flu b negative (NEGATIVE) RSV (PCR) Negative (Negative) 10/09/24 10/09/24 10/09/24 Range/Units 14:36 17:31 19:45 WBC (4.5-11.0) X10^3/uL RBC (4.0-5.2) X10^6/uL Hgb (12.0-16.0) g/dL Hct (36-46) % MCV (80-100) fL MCH (26-34) PG MCHC (30-36) % RDW (11.6-14.8) % Plt Count (150-400) X10^3/uL Neut % (Auto) (50-75) % Lymph % (Auto) (25-40) % [place] % (Auto) (3-14) % Eos % (Auto) (2-4) % Baso % (Auto) (0-2) % Neut # (Auto) (3802-3669) /uL Lymph # (Auto) (7746-5282) /uL [place] # (Auto) (0-900) /uL Eos # (Auto) (0-450) /uL Baso # (Auto) (0-100) /uL Sodium (137-145) mmol/L Potassium (3.4-5.1) mmol/L Chloride (98-107) mmol/L Carbon Dioxide (22-32) mmol/L BUN (7-17) mg/dL Creatinine (0.52-1.04) mg/dL Estimated GFR (>60) mL/min BUN/Creatinine Ratio (6-22) Glucose (70-99) mg/dL POC Whole Bld Glucose (70-99) mg/dL Lactate 1.6 (0.7-2.1) mmol/L Calcium (8.4-10.2) mg/dL Total Bilirubin (0.2-1.3) mg/dL AST (14-36) IU/L ALT (<35) IU/L Alkaline Phosphatase (38-126) U/L Total Creatine Kinase (30-135) U/L Troponin I (0.01-0.034) ng/mL Total Protein (6.3-8.2) g/dL Albumin (3.5-5.0) g/dL Globulin (1.7-4.1) g/dL Albumin/Globulin Ratio (1.0-2.8) Procalcitonin (<0.5) ng/mL Urine Color Yellow Urine Appearance Clear Urine pH 5.5 (4.5-8.0) Ur Specific [place] 1.020 (1.000-1.035) Urine Protein 1+ H (Negative) Urine Glucose (UA) Negative (Negative) g/dL Urine Ketones Trace H (NEGATIVE) Urine Occult Blood 1+ H (Negative) Urine Nitrate Negative (Negative) Urine Bilirubin Negative (NEGATIVE) Urine Urobilinogen 0.2 (0.2) E.U./dL Ur Leukocyte Esterase 1+ H (NEGATIVE) Urine RBC 0-1/hpf 5-10/hpf H (0-5/HPF) Urine WBC 0-1/hpf 5-10/hpf H (0-5/HPF) Ur Squamous Epith Cells 0-1 /hpf 0-1 /hpf (0-5/HPF) Urine Bacteria Many (>30) H Many (>30) H (None) Ur Culture Indicated? Cult not indicated Specimen cultured Vol Urine Centrifuged Low vol <1ml unspun A 10ml (spun) SARS-CoV-2 (PCR) (Negative) Influenza A (RT-PCR) (NEGATIVE) Influenza B (RT-PCR) (NEGATIVE) RSV (PCR) (Negative) 10/09/24 Range/Units 21:27 WBC (4.5-11.0) X10^3/uL RBC (4.0-5.2) X10^6/uL Hgb (12.0-16.0) g/dL Hct (36-46) % MCV (80-100) fL MCH (26-34) PG MCHC (30-36) % RDW (11.6-14.8) % Plt Count (150-400) X10^3/uL Neut % (Auto) (50-75) % Lymph % (Auto) (25-40) % [place] % (Auto) (3-14) % Eos % (Auto) (2-4) % Baso % (Auto) (0-2) % Neut # (Auto) (1806-9379) /uL Lymph # (Auto) (4980-7030) /uL [place] # (Auto) (0-900) /uL Eos # (Auto) (0-450) /uL Baso # (Auto) (0-100) /uL Sodium (137-145) mmol/L Potassium (3.4-5.1) mmol/L Chloride (98-107) mmol/L Carbon Dioxide (22-32) mmol/L BUN (7-17) mg/dL Creatinine (0.52-1.04) mg/dL Estimated GFR (>60) mL/min BUN/Creatinine Ratio (6-22) Glucose (70-99) mg/dL POC Whole Bld Glucose 168 H (70-99) mg/dL Lactate (0.7-2.1) mmol/L Calcium (8.4-10.2) mg/dL Total Bilirubin (0.2-1.3) mg/dL AST (14-36) IU/L ALT (<35) IU/L Alkaline Phosphatase (38-126) U/L Total Creatine Kinase (30-135) U/L Troponin I (0.01-0.034) ng/mL Total Protein (6.3-8.2) g/dL Albumin (3.5-5.0) g/dL Globulin (1.7-4.1) g/dL Albumin/Globulin Ratio (1.0-2.8) Procalcitonin (<0.5) ng/mL Urine Color Urine Appearance Urine pH (4.5-8.0) Ur Specific [place] (1.000-1.035) Urine Protein (Negative) Urine Glucose (UA) (Negative) g/dL Urine Ketones (NEGATIVE) Urine Occult Blood (Negative) Urine Nitrate (Negative) Urine Bilirubin (NEGATIVE) Urine Urobilinogen (0.2) E.U./dL Ur Leukocyte Esterase (NEGATIVE) Urine RBC (0-5/HPF) Urine WBC (0-5/HPF) Ur Squamous Epith Cells (0-5/HPF) Urine Bacteria (None) Ur Culture Indicated? Vol Urine Centrifuged SARS-CoV-2 (PCR) (Negative) Influenza A (RT-PCR) (NEGATIVE) Influenza B (RT-PCR) (NEGATIVE) RSV (PCR) (Negative) Imaging Data Extremity x-ray #1: Radiologist's Impression: [address] [address] XRay Report Signed Patient: Isabella Stafford MR#: [id number] : 1945 Acct:[id number] Age/Sex: 79 / F Date of Service: 10/09/24 Loc: ED Accession Number: [id number] Procedure: XR hip w pel RT 2V Ordering Provider: Halley Andujar PA-C PROCEDURE: XR HIP W PEL IF DONE RT 2V INDICATIONS: fall, R hip pain TECHNIQUE: AP pelvis with lateral view of the right hip. COMPARISON: [facility], CT, CT ABDOMEN PELVIS W CON, 09/05/2024, 12:51. FINDINGS: Bones: No acute fractures or dislocations. Pelvic ring appears intact. No suspicious bony lesions. Mild degenerative changes in the hips bilaterally. Degenerative changes are also seen in the included spine. Soft tissues: The visualized bowel gas pattern is normal. No suspicious soft tissue calcifications. A right ureteral stent is partially imaged. IMPRESSION: No acute osseous abnormality. If there is continued clinical concern or persistent symptoms, repeat radiographs or cross-sectional imaging (e.g. CT, MRI) may be helpful for further evaluation. Approved by: Parviz Wiley M.D. 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 Presenting today after brought in by EMS 2nd to slipping out of bed last night unable to get up and on the ground for 10 hours with 2 episodes of loose stools per patient. Patient complained of right hip pain with mild right trochanter tenderness although was ranging that is quite well. X-ray obtained for further evaluation. Reviewed pt's EKG w/ Attending Dr Manzo, and compared to previous EKG from 09/05/2024-no notable changes. Initial EKG obtained today in ER slightly poor tracing. Labs including CBC, CMP, troponin with CK obtained. CKs very slightly elevated at 145 <Bri Rodriguez DO - Last Filed: 10/10/24 01:09> Lab Data Labs: Lab Results 10/09/24 10/09/24 10/09/24 Range/Units 12:39 12:50 13:30 WBC 17.4 H (4.5-11.0) X10^3/uL RBC 4.09 (4.0-5.2) X10^6/uL Hgb 13.1 (12.0-16.0) g/dL Hct 38.3 (36-46) % MCV 93.6 (80-100) fL MCH 32.1 (26-34) PG MCHC 34.3 (30-36) % RDW 14.0 (11.6-14.8) % Plt Count 289 (150-400) X10^3/uL Neut % (Auto) 84.2 H (50-75) % Lymph % (Auto) 9.1 L (25-40) % [place] % (Auto) 6.1 (3-14) % Eos % (Auto) 0.1 L (2-4) % Baso % (Auto) 0.5 (0-2) % Neut # (Auto) 79959 H (3912-8703) /uL Lymph # (Auto) 1600 (0926-2710) /uL [place] # (Auto) 1100 H (0-900) /uL Eos # (Auto) 0 (0-450) /uL Baso # (Auto) 100 (0-100) /uL Sodium 133 L (137-145) mmol/L Potassium 4.5 (3.4-5.1) mmol/L Chloride 97 L (98-107) mmol/L Carbon Dioxide 27 (22-32) mmol/L BUN 31 H (7-17) mg/dL Creatinine 0.90 (0.52-1.04) mg/dL Estimated GFR > 60 (>60) mL/min BUN/Creatinine Ratio 34.4 H (6-22) Glucose 170 H (70-99) mg/dL POC Whole Bld Glucose (70-99) mg/dL Lactate (0.7-2.1) mmol/L Calcium 10.0 (8.4-10.2) mg/dL Total Bilirubin 1.3 (0.2-1.3) mg/dL AST 30 (14-36) IU/L ALT 21 (<35) IU/L Alkaline Phosphatase 72 (38-126) U/L Total Creatine Kinase 149 H (30-135) U/L Troponin I < 0.012 (0.01-0.034) ng/mL Total Protein 7.0 (6.3-8.2) g/dL Albumin 3.9 (3.5-5.0) g/dL Globulin 3.1 (1.7-4.1) g/dL Albumin/Globulin Ratio 1.3 (1.0-2.8) Procalcitonin 1.74 H (<0.5) ng/mL Urine Color Urine Appearance Urine pH (4.5-8.0) Ur Specific [place] (1.000-1.035) Urine Protein (Negative) Urine Glucose (UA) (Negative) g/dL Urine Ketones (NEGATIVE) Urine Occult Blood (Negative) Urine Nitrate (Negative) Urine Bilirubin (NEGATIVE) Urine Urobilinogen (0.2) E.U./dL Ur Leukocyte Esterase (NEGATIVE) Urine RBC (0-5/HPF) Urine WBC (0-5/HPF) Ur Squamous Epith Cells (0-5/HPF) Urine Bacteria (None) Ur Culture Indicated? Vol Urine Centrifuged SARS-CoV-2 (PCR) Negative (Negative) Influenza A (RT-PCR) Flu a negative (NEGATIVE) Influenza B (RT-PCR) Flu b negative (NEGATIVE) RSV (PCR) Negative (Negative) 10/09/24 10/09/24 10/09/24 Range/Units 14:36 17:31 19:45 WBC (4.5-11.0) X10^3/uL RBC (4.0-5.2) X10^6/uL Hgb (12.0-16.0) g/dL Hct (36-46) % MCV (80-100) fL MCH (26-34) PG MCHC (30-36) % RDW (11.6-14.8) % Plt Count (150-400) X10^3/uL Neut % (Auto) (50-75) % Lymph % (Auto) (25-40) % [place] % (Auto) (3-14) % Eos % (Auto) (2-4) % Baso % (Auto) (0-2) % Neut # (Auto) (4020-2871) /uL Lymph # (Auto) (2608-4851) /uL [place] # (Auto) (0-900) /uL Eos # (Auto) (0-450) /uL Baso # (Auto) (0-100) /uL Sodium (137-145) mmol/L Potassium (3.4-5.1) mmol/L Chloride (98-107) mmol/L Carbon Dioxide (22-32) mmol/L BUN (7-17) mg/dL Creatinine (0.52-1.04) mg/dL Estimated GFR (>60) mL/min BUN/Creatinine Ratio (6-22) Glucose (70-99) mg/dL POC Whole Bld Glucose (70-99) mg/dL Lactate 1.6 (0.7-2.1) mmol/L Calcium (8.4-10.2) mg/dL Total Bilirubin (0.2-1.3) mg/dL AST (14-36) IU/L ALT (<35) IU/L Alkaline Phosphatase (38-126) U/L Total Creatine Kinase (30-135) U/L Troponin I (0.01-0.034) ng/mL Total Protein (6.3-8.2) g/dL Albumin (3.5-5.0) g/dL Globulin (1.7-4.1) g/dL Albumin/Globulin Ratio (1.0-2.8) Procalcitonin (<0.5) ng/mL Urine Color Yellow Urine Appearance Clear Urine pH 5.5 (4.5-8.0) Ur Specific [place] 1.020 (1.000-1.035) Urine Protein 1+ H (Negative) Urine Glucose (UA) Negative (Negative) g/dL Urine Ketones Trace H (NEGATIVE) Urine Occult Blood 1+ H (Negative) Urine Nitrate Negative (Negative) Urine Bilirubin Negative (NEGATIVE) Urine Urobilinogen 0.2 (0.2) E.U./dL Ur Leukocyte Esterase 1+ H (NEGATIVE) Urine RBC 0-1/hpf 5-10/hpf H (0-5/HPF) Urine WBC 0-1/hpf 5-10/hpf H (0-5/HPF) Ur Squamous Epith Cells 0-1 /hpf 0-1 /hpf (0-5/HPF) Urine Bacteria Many (>30) H Many (>30) H (None) Ur Culture Indicated? Cult not indicated Specimen cultured Vol Urine Centrifuged Low vol <1ml unspun A 10ml (spun) SARS-CoV-2 (PCR) (Negative) Influenza A (RT-PCR) (NEGATIVE) Influenza B (RT-PCR) (NEGATIVE) RSV (PCR) (Negative) 10/09/24 Range/Units 21:27 WBC (4.5-11.0) X10^3/uL RBC (4.0-5.2) X10^6/uL Hgb (12.0-16.0) g/dL Hct (36-46) % MCV (80-100) fL MCH (26-34) PG MCHC (30-36) % RDW (11.6-14.8) % Plt Count (150-400) X10^3/uL Neut % (Auto) (50-75) % Lymph % (Auto) (25-40) % [place] % (Auto) (3-14) % Eos % (Auto) (2-4) % Baso % (Auto) (0-2) % Neut # (Auto) (2981-9613) /uL Lymph # (Auto) (3465-4132) /uL [place] # (Auto) (0-900) /uL Eos # (Auto) (0-450) /uL Baso # (Auto) (0-100) /uL Sodium (137-145) mmol/L Potassium (3.4-5.1) mmol/L Chloride (98-107) mmol/L Carbon Dioxide (22-32) mmol/L BUN (7-17) mg/dL Creatinine (0.52-1.04) mg/dL Estimated GFR (>60) mL/min BUN/Creatinine Ratio (6-22) Glucose (70-99) mg/dL POC Whole Bld Glucose 168 H (70-99) mg/dL Lactate (0.7-2.1) mmol/L Calcium (8.4-10.2) mg/dL Total Bilirubin (0.2-1.3) mg/dL AST (14-36) IU/L ALT (<35) IU/L Alkaline Phosphatase (38-126) U/L Total Creatine Kinase (30-135) U/L Troponin I (0.01-0.034) ng/mL Total Protein (6.3-8.2) g/dL Albumin (3.5-5.0) g/dL Globulin (1.7-4.1) g/dL Albumin/Globulin Ratio (1.0-2.8) Procalcitonin (<0.5) ng/mL Urine Color Urine Appearance Urine pH (4.5-8.0) Ur Specific [place] (1.000-1.035) Urine Protein (Negative) Urine Glucose (UA) (Negative) g/dL Urine Ketones (NEGATIVE) Urine Occult Blood (Negative) Urine Nitrate (Negative) Urine Bilirubin (NEGATIVE) Urine Urobilinogen (0.2) E.U./dL Ur Leukocyte Esterase (NEGATIVE) Urine RBC (0-5/HPF) Urine WBC (0-5/HPF) Ur Squamous Epith Cells (0-5/HPF) Urine Bacteria (None) Ur Culture Indicated? 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 Presenting today after brought in by EMS 2nd to slipping out of bed last night unable to get up and on the ground for 10 hours with 2 episodes of loose stools per patient. Patient complained of right hip pain with mild right trochanter tenderness although was ranging that is quite well. X-ray obtained for further evaluation. Reviewed pt's EKG w/ Attending Dr Manzo, and compared to previous EKG from 09/05/2024-no notable changes. Initial EKG obtained today in ER slightly poor tracing. Labs including CBC, CMP, troponin with CK obtained. CKs very slightly elevated at 145. 10/09/24 Dr. Rodriguez: Patient signed out to myself by Pratima, patient is seen and evaluated by myself. Reportedly slipped out of bed and ended up on the floor for about 10 hours but appears to possibly be septic with possibly UTI/pyelo with ureteral stent in place patient has been hypotensive tachycardic does seem to be fluid responsive. Urine does not appear infected. Patient has a white count of 17, positive procalcitonin, creatinine is normal, lactate normal. UA shows 1+ blood 1+ leuks 5-10 WBCs 5-[address] chest abdomen pelvis with contrast shows right ureteral stent in place persistent moderate right pelvocaliectasis delayed nephrogram indicates obstructive uropathy. Perinephric periureteral fat stranding also seen, multiple nonobstructing caliceal stones present right renal pelvis stone adjacent to the proximal pigtail measuring 5 mm. Significantly distended urinary bladder. No acute findings of the chest. Patient received 1.5 L of fluids fentanyl and Zofran as well as Zosyn. Patient had a urinary catheter placed and had 1500+ out immediately. Blood pressure also improved after this to 120s range consistently Patient had 2L normal saline and place on maintenance fluids. Spoke with urology, Dr. Tapia, would not intervene until infection is better treated but it was happy to see the patient in the morning. He asks that we cc her to his list. Agree's with zosyn for appropriate antibiotic coverage. Spoke with tele-hospitalist Kalpana Nguyen who accepts for inpatient tele. Discussed concern for sepsis, secondary to UTI or pyelonephritis with the urinary stent in place but does not appear obstructed. Discussed recommendations from urology. Dr. Tapia will see her. Critical Care Time <Bri Rodriguez, DO - Last Filed: 10/10/24 01:09> Critical Care Time Critical Care Time: Yes Total Critical Care Time: 35 Attestation: The high probability of a clinically significant, sudden or life threatening deterioration of the cardiac, neurologic system(s) required my full and direct attention, intervention and personal management. The aggregate critical care time was [--] minutes. This time is in addition to time spent performing reported procedures but includes the following: [x] Data Review and interpretation [x] Patient assessment and monitoring of vital signs [x] Documentation [x] Medication orders and management Discharge Plan Departure Patient Disposition: Admitted As Inpatient Clinical Impression: Sepsis, S/P ureteral stent placement, Fall, Hip pain, right Admit Date/Time: 10/09/24 22:03 Admit Provider: Cecil Acuna
[2024-10-09 12:58] LABS: Creatine Kinase 149 U/L (30-135)
[2024-10-09 13:00] LABS: Add Manual Diff / Slide Review NO; Hematocrit 38.3 % (36-46); Hemoglobin 13.1 g/dL (12.0-16.0); Lymphocytes Absolute Auto 1600 /uL (1100-4500); Mean Corpuscular HGB Conc 34.3 % (30-36); Mean Corpuscular Hemoglobin 32.1 PG (26-34); Mean Corpuscular Volume 93.6 fL (80-100); Platelet Count 289 X10^3/uL (150-400)
[2024-10-09] MEDS: SODIUM CHLORIDE 0.9% 1,000 ML 500 ML IV ×2 (13:06→18:33)
[2024-10-09 13:11] LABS: Troponin I < 0.012 ng/mL (0.01-0.034)
--- NOTE | 2024-10-09 13:15 | EKG_ITS ---
[id number], [place] [address] Test Date: 2024-10-09 Pat Name: Isabella Stafford Department: Room: Gender: Female Force Dispatcher: MEENA : 1945 Requested By: Order Number: [id number] Reading MD: Brenden Penn MD Measurements Intervals [place] Rate: 112 P: 75 MN: 168 QRS: -76 QRSD: 134 T: 73 QT: 346 QTc: 472 Interpretive Statements Sinus tachycardia with occasional premature ventricular complexes Left axis deviation Right bundle branch block (old) Electronically Signed On 10-09-2024 14:20:24 PDT by Brenden Penn MD
[2024-10-09 13:36] LABS: COVID-19 CEPHEID 4-PLEX PCR Negative (Negative); Influenza A - CEPHEID Flu A NEGATIVE (NEGATIVE); Influenza B - CEPHEID Flu B NEGATIVE (NEGATIVE)
[2024-10-09] MEDS: fentaNYL 100 MCG/2 ML INJ 25 MCG IV (13:52)
[2024-10-09] MEDS: ONDANSETRON 4 MG/2 ML INJ IV (13:52)
[2024-10-09 13:54] LABS: Alanine Aminotransferase 21 IU/L (<35); Albumin 3.9 g/dL (3.5-5.0); Albumin Globulin Ratio 1.3 (1.0-2.8); Alkaline Phosphatase 72 U/L (38-126); Blood Urea Nitrogen 31 mg/dL (7-17); Calcium 10.0 mg/dL (8.4-10.2); Carbon Dioxide 27 mmol/L (22-32); Chloride 97 mmol/L (98-107); Estimated Glomerular Filt Rate > 60 mL/min (>60); Globulin 3.1 g/dL (1.7-4.1); Glucose 170 mg/dL (70-99); HEMOLYSIS < 15 (0-50); Potassium 4.5 mmol/L (3.4-5.1); Sodium 133 mmol/L (137-145); Total Protein 7.0 g/dL (6.3-8.2)
--- NOTE | 2024-10-09 14:32 | CM.DANOTE ---
ED SUPERVISOR SCOURING PADS Discharge Plan Assessment Note: Pt is a 79yo female, resident of [place], presented to the ED following a fall in her home; EMS reports she was suspected to be down for approximately 10 hours. Pt lives in a house alone but intermittently stays with her daughter and her family in [place]. Pt's Primary Care Provider is CADEN Lyon and insurance is [employer] Medicare and Medicaid. Reviewed chart and discussed with multidisciplinary team pt's medical status and initial discharge needs. Per chart review, pt was admitted on 09/05-09/12 for sepsis and was discharged to [facility] for Rehab, she was released to her daughter's home after 10 days. ED SUPERVISOR SCOURING PADS met w/patient at bedside; introduced self and role. Patient was found in bed, alert and oriented, cooperative with assessment. Pt confirmed living situation and good support in daughter, Sandy. Pt expressed preference in discharge home. Pt agreeable following recommendations of care team. ED SUPERVISOR SCOURING PADS calls pt's daughter, Sandy, who is currently on a boating trip with plans to return tomorrow, 10/10. She confirms that pt utilizes FWW at baseline and after her SNF Rehab stay, she lived with daughter on the 1st level of their home. Dtr explains pt is mainly sedentary at home. Pt was determined to return to her own home especially with the trip that her daughter had planned. Pt daughter states preference for pt to return home if she is able to ambulate with a FWW. ED SUPERVISOR SCOURING PADS discussed [employer] Medicaid application, daughter states she does not believe this was started yet - SUPERVISOR SCOURING PADS encouraged dtr to complete when she returns from boating trip. ED SUPERVISOR SCOURING PADS calls [facility] and notifies their team of pt's ED presentation at the request of pt daughter. Plan: Medical work up to continue, anticipating possible admission vs. awaiting safe discharge home with daughter on 10/10/24? ED staff will follow closely for coordination of discharge plans. Halle Heard PARTS COUNTER REPRESENTATIVE Discharge Planning/Care Management Discharge Planning Assessment Assigned Discharge SANDER Neri Administrative Clerk DPOA/Assigned Sandy Wolfe, Daughter Designee Name Contact Information [phone] Advance Directives? No History Provided By Patient,Medical Record Has Patient been Yes admitted in last 30 days? Comment 09/05/24-06/10/25: DC to SNF ([facility]) Prior Living House Arrangements Household Members none Type of Relies on Others transporation used prior to admit Independent with ADL Yes 's Is patient alert and Yes oriented? Caregiver for No Another Barriers to No Discharge Discharge Plan Home Review Status In Process Please Provide Date 10/09/24 Initial DC Assessment Was Performed Next Review Type Continued Stay Review
[2024-10-09 15:10] LABS: Lactate (Lactic Acid) 1.6 mmol/L (0.7-2.1)
--- NOTE | 2024-10-09 16:45 | PC.NURSE ---
This QUALITY ENG and another performed sabrina care/brief change and placed purewick at 1630. RN notified
[2024-10-09 17:50] LABS: Culture Indicated Urine Cult Not Indicated
--- NOTE | 2024-10-09 18:08 | DI.CT.S_ITS ---
PROCEDURE: CT CHEST ABD PEL W CON INDICATIONS: now RLQ tenderness +leukocytosis/tachycardia TECHNIQUE: After the administration of intravenous contrast, 5 mm thick sections acquired from the lung apices to the symphysis. 5 mm coronal and sagittal reformats were performed, with additional 7 mm MIP reformats through the lungs. For radiation dose reduction, the following was used: automated exposure control, adjustment of mA and/or kV according to patient size. COMPARISON: [facility], CT, CT ABDOMEN PELVIS W CON, 09/05/2024, 12:51. FINDINGS: Image quality: Diagnostic Lungs and pleura: No dense airspace disease or pleural effusions. Scattered atelectasis and scarring. 5-6 mm nodule is seen in the left lower lobe. See image 3/155 Follow-up imaging in 1 year is optional if the patient is considered at elevated risk for pulmonary malignancy. Mediastinum, heart, and esophagus: Nonspecific mild distal esophageal wall thickening. Coronary calcifications. No enlarged lymph nodes seen by size criteria. Chest wall and thyroid: Small left thyroid calcifications. Chest wall is unremarkable Liver: Subcentimeter lesion in segment 6, too small to characterize, probably a cyst. Gallbladder and biliary system: Suspect cholelithiasis, nondilated biliary system Pancreas: No ductal dilation Spleen: Nonenlarged Adrenals: Bilateral thickening Kidneys: Right delayed nephrogram and moderate pelvocaliectasis. Ureteral stent is in place. Positioning appears as expected suspected small stone is seen adjacent to the proximal pigtail measuring 5 mm. Nonobstructing bilateral calyceal calculi also present, largest in the right mid region measuring 11 mm. Moderate right perinephric and periureteral edematous fat stranding. Vessels and lymph nodes: The main portal vein is patent. No abdominal aortic aneurysm. No enlarged lymph nodes by size criteria. Bowel and peritoneum: No small bowel obstruction. No drainable abscess or ascites. Colonic diverticulosis. Moderate colonic fecal loading. No drainable abscess or ascites in the abdomen Body wall: Unremarkable Pelvis: Significantly distended urinary bladder. Suspected uterine fibroids with calcifications are seen Bones: No aggressive appearing osseous abnormality. There are degenerative changes. IMPRESSION: Right ureteral stent is in place. Positioning appears as expected. However, there is persistent moderate right pelvocaliectasis. Delayed nephrogram indicates obstructive uropathy. Perinephric and periureteral fat stranding also seen, correlate urinalysis for infection. Multiple nonobstructing calyceal stones are present. There is also a right renal pelvis stone adjacent to the proximal pigtail measuring 5 mm. Significantly distended urinary bladder. No acute findings in the chest. Other findings above. Dictated by: Efrem Hill M.D. on 10/09/2024 at 19:05 Approved by: Efrem Hill M.D. on 10/09/2024 at 19:12
[2024-10-09] MEDS: PIPERACILLIN/TAZO 4.5 GM in SODIUM CHLORIDE 0.9% 100 ML IV (19:11)
[2024-10-09 19:15] LABS: Procalcitonin 1.74 ng/mL (<0.5)
[2024-10-09 19:57] LABS: Appearance Urine UA CLEAR; Bilirubin Urine UA NEGATIVE (NEGATIVE); Color Urine UA YELLOW; Glucose Urine UA NEGATIVE (Negative); Ketones Urine UA TRACE (NEGATIVE); Leukocyte Esterase Urine UA 1+ (NEGATIVE); Nitrite Urine UA NEGATIVE (Negative); Occult Blood Urine UA 1+ (Negative); Protein Urine UA 1+ (Negative); Specific Gravity Urine UA 1.020 (1.000-1.035); Urobilinogen Urine UA 0.2 E.U./dL (0.2)
[2024-10-09 19:59] LABS: pH Urine UA 5.5 (4.5-8.0)
--- NOTE | 2024-10-09 20:00 | PC.NURSE ---
This RN was placing varela catheter and noticed an abrasion on patients left upper thigh while placing varela cath. It is non-bleeding. This RN notes multiple abrasions scattered on her bilateral lower legs. States she fell on a hardwood floor and was moving around trying to get her phone.
[2024-10-09 20:05] LABS: Culture Indicated Urine Specimen Cultured
[2024-10-09] MEDS: ACETAMINOPHEN 325 MG TABLET 975 MG PO (21:25)
[2024-10-09] MEDS: SODIUM CHLORIDE 0.9% 1,000 ML 125 ML IV (21:26)
--- NOTE | 2024-10-09 22:00 | PC.NURSE ---
This RN asks patient if OK to update daughter, Sandy, who has called twice. Patient states it is OK to update daughter. This RN calls daughter Sandy and updates her on her mother. Patient to be admitted.
--- NOTE | 2024-10-09 22:08 | PC.NURSE ---
This RN speaks with Dr. Acuna regarding patient increased heart rate. Verbal order to obtain stat EKG.
--- NOTE | 2024-10-09 22:09 | EKG_ITS ---
[address] [address] Test Date: 2024-10-09 Pat Name: Isabella Stafford Department: Room: 90B Gender: Female Trauma Program Manager: CONSTANCE : 1945 Requested By: Order Number: [id number] Reading MD: Brenden Penn MD Measurements Intervals [place] Rate: 125 P: -23 [place]: 142 QRS: -81 QRSD: 138 T: 47 QT: 328 QTc: 473 Interpretive Statements Sinus tachycardia Left axis deviation Right bundle branch block NO SIGNIFICANT CHANGE FROM PRIOR TRACING Electronically Signed On 10-10-2024 7:48:42 PDT by Brenden Penn MD
[2024-10-09] MEDS: SODIUM CHLORIDE 0.9% 1,000 ML 100 ML IV (22:28)
[2024-10-09] MEDS: MORPHINE 4 MG/ML INJ 3 MG IV (22:56)
[2024-10-10] VITALS (86 sets, daily range): BP systolic 72–140; BP diastolic 40–75; PULSE 76–102; RESP 12–30; TEMP 36.1–36.6; O2SAT 90–98; BMI 30.1
[2024-10-10] MEDS: SODIUM CHLORIDE 0.9% 500 ML IV ×2 (00:36→02:27)
[2024-10-10] MEDS: PIPERACILLIN/TAZO 3.375 GM in SODIUM CHLORIDE 0.9% 100 ML IV ×3 (00:37→16:14)
--- NOTE | 2024-10-10 00:41 | PC.NURSE ---
Pt has multiple bruisng and abrasions around extremities from crawling on floor. Please see wound note
--- NOTE | 2024-10-10 00:45 | PC.NURSE ---
Pt's bp in 70's provider aware, new order for 500cc ns bolus. Infusing at this time.
--- NOTE | 2024-10-10 00:52 | PC.WOUNDPHOT ---
Multiple wounds in order, right knee, left knee, left thigh, right elbow, left hand, left hip, left lower leg
--- NOTE | 2024-10-10 02:02 | PM.HP.1 ---
History of Present Illness History of Present Illness Date Patient Seen: 10/09/24 Time Patient Seen: 23:02 Chief complaint: Fall, down all night Narrative: 79-year-old female with past medical history of [id number] diabetes, hypertension, neuropathy and obstructive nephrolithiasis presents with generalized weakness and a fall. 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 The patient subsequently had a ureteral stents placed on the right. Per report the patient slipped out the bed tonight and unable to get up on her own. The patient was on the ground for roughly 10 hours with 2 episodes of loose stools. The patient did complain of some right hip pain with her fall. The patient otherwise denies any fever, chills, nausea, vomiting, diarrhea, chest pain or shortness of breath. In the emergency room, the patient was hemodynamically stable. Labs however shows WBC of 17 normal lactic acid negative troponin elevated procalcitonin at 1.74 and positive UA. Viral respiratory panel were negative. CT scan of the abdomen pelvis shows right ureteral stent in place persistent moderate right palpable callus stasis delay nephrogram indicates obstructive uropathy. There is multiple nonobstructing stones seen in the right renal pelvis. Significantly distended urinary bladder. There is concern for perinephric periureteral fat stranding. The patient was given IV Zosyn, IV fluid and IV pain medication. Dr. Tapia from urology was consulted and recommended that we admit the patient for continuing IV fluid, IV antibiotic, pain control and he will consult in the morning for any intervention. [facility] Social History household members: none Smoking Status: Never smoker alcohol intake: never Meds Home Medications and Allergies Home Medications ?Medication ?Instructions ?Recorded ?Confirmed ?Type promethazine 25 mg tablet 25 mg PO QPM ##0 05/09/17 09/08/24 History gabapentin 300 mg capsule 300 mg PO Q12H 09/08/24 10/10/24 History losartan 50 mg tablet 50 mg PO DAILY 09/08/24 10/10/24 History metformin 1,000 mg tablet 1,000 mg PO BID 09/08/24 10/10/24 History ondansetron 4 mg disintegrating 4 mg sublingual Q6HP 09/08/24 09/08/24 History tablet semaglutide 0.25 mg or 0.5 mg (2 0.5 mg SUBCUT .Q7 days 09/08/24 10/10/24 History mg/3 mL) subcutaneous pen injector (Ozempic) amlodipine 10 mg tablet 10 mg PO DAILY #30 tabs 09/12/24 Rx lorazepam 0.5 mg tablet 0.5 mg PO QPM #14 tabs 09/12/24 10/10/24 Rx magnesium chloride 71.5 mg 128 mg (1.7902 x 71.5 mg) PO Q8H 09/12/24 Rx (magnesium chloride) #90 tabs tablet,delayed release (Slow-Mag) polyethylene glycol 3350 17 gram 17 gm PO BID #30 ea 09/12/24 Rx oral powder packet Allergies Allergy/AdvReac Type Severity Reaction Status Date / Time codeine (CODEINE) Allergy Intermediate NAUSEA / Verified 09/05/24 10:50 HIVES cortisone (CORTISONE) Allergy Intermediate LIGHT / Verified 09/05/24 10:50 SOUND SENSITIVITY Review of Systems Review of Systems ROS: Yes All systems reviewed with the patient and are negative except as otherwise documented Exam Vital Signs (past 8 hours): - 10/09/24 18:30 10/09/24 18:30 10/09/24 18:36 Temperature Pulse Rate 109 H 112 H Respiratory Rate 25 H 25 H Blood Pressure 100/54 L Pulse Oximetry 93 95 Oxygen Delivery Method Room Air 10/09/24 18:36 10/09/24 19:00 10/09/24 19:00 Temperature Pulse Rate 112 H Respiratory Rate 22 Blood Pressure 108/55 L 98/59 L Pulse Oximetry 92 Oxygen Delivery Method 10/09/24 19:01 10/09/24 19:01 10/09/24 19:30 Temperature Pulse Rate 112 H 106 H Respiratory Rate 21 22 Blood Pressure 108/56 L Pulse Oximetry 95 Oxygen Delivery Method Room Air 10/09/24 19:30 10/09/24 19:59 10/09/24 19:59 Temperature Pulse Rate 108 H Respiratory Rate 20 Blood Pressure 99/52 L 126/59 L Pulse Oximetry 94 Oxygen Delivery Method 10/09/24 20:00 10/09/24 20:00 10/09/24 20:15 Temperature Pulse Rate 110 H Respiratory Rate 22 Blood Pressure 125/59 L 127/58 L Pulse Oximetry 95 Oxygen Delivery Method Room Air 10/09/24 20:15 10/09/24 20:30 10/09/24 20:30 Temperature Pulse Rate 108 H 113 H Respiratory Rate 21 21 Blood Pressure 145/65 H Pulse Oximetry 96 98 Oxygen Delivery Method Room Air 10/09/24 20:45 10/09/24 20:45 10/09/24 21:00 Temperature Pulse Rate 115 H 118 H Respiratory Rate Blood Pressure 144/64 H Pulse Oximetry 93 Oxygen Delivery Method 10/09/24 21:00 10/09/24 21:15 10/09/24 21:15 Temperature Pulse Rate 121 H Respiratory Rate Blood Pressure 150/59 H 155/65 H Pulse Oximetry 93 Oxygen Delivery Method 10/09/24 21:25 10/09/24 21:30 10/09/24 21:30 Temperature 100.3 F H Pulse Rate 124 H Respiratory Rate Blood Pressure 156/75 H Pulse Oximetry 92 Oxygen Delivery Method 10/09/24 21:45 10/09/24 21:45 10/09/24 22:00 Temperature Pulse Rate 124 H 126 H Respiratory Rate 21 Blood Pressure 159/66 H Pulse Oximetry 92 92 Oxygen Delivery Method 10/09/24 22:00 10/09/24 22:15 10/09/24 22:15 Temperature Pulse Rate 124 H Respiratory Rate Blood Pressure 132/54 L 114/56 L Pulse Oximetry 91 Oxygen Delivery Method 10/09/24 22:30 10/09/24 22:30 10/09/24 22:45 Temperature Pulse Rate 122 H 119 H Respiratory Rate Blood Pressure 113/56 L Pulse Oximetry 92 91 Oxygen Delivery Method 10/09/24 22:45 10/09/24 23:00 10/09/24 23:00 Temperature 99.0 F Pulse Rate 117 H Respiratory Rate 21 Blood Pressure 110/53 L 107/53 L Pulse Oximetry 94 Oxygen Delivery Method 10/09/24 23:10 10/09/24 23:15 10/09/24 23:15 Temperature 99.0 F Pulse Rate 110 H Respiratory Rate 27 H Blood Pressure 96/49 L Pulse Oximetry 93 Oxygen Delivery Method 10/09/24 23:17 10/09/24 23:17 10/09/24 23:18 Temperature Pulse Rate 110 H 109 H Respiratory Rate 25 H 25 H Blood Pressure 91/48 L Pulse Oximetry 93 92 Oxygen Delivery Method Room Air 10/09/24 23:18 10/09/24 23:30 10/09/24 23:30 Temperature Pulse Rate 107 H Respiratory Rate 26 H Blood Pressure 95/49 L 98/45 L Pulse Oximetry 94 Oxygen Delivery Method 10/09/24 23:45 10/09/24 23:45 10/10/24 00:00 Temperature Pulse Rate 104 H 102 H Respiratory Rate 27 H 30 H Blood Pressure 96/46 L Pulse Oximetry 91 93 Oxygen Delivery Method 10/10/24 00:06 10/10/24 00:06 10/10/24 00:08 Temperature Pulse Rate 101 H 100 H Respiratory Rate 20 21 Blood Pressure 72/41 L Pulse Oximetry 93 91 Oxygen Delivery Method 10/10/24 00:08 10/10/24 00:10 10/10/24 00:10 Temperature Pulse Rate 99 H Respiratory Rate 24 Blood Pressure 85/47 L 77/45 L Pulse Oximetry 92 Oxygen Delivery Method 10/10/24 00:20 10/10/24 00:20 10/10/24 00:30 Temperature Pulse Rate 97 H Respiratory Rate 19 Blood Pressure 76/46 L 76/42 L Pulse Oximetry 90 L Oxygen Delivery Method 10/10/24 00:30 10/10/24 00:40 10/10/24 00:40 Temperature Pulse Rate 96 H 96 H Respiratory Rate 13 20 Blood Pressure 80/43 L Pulse Oximetry 90 L 90 L Oxygen Delivery Method Room Air Oxygen Delivery Method Room Air Narrative Exam Narrative: Physical Exam: GENERAL: The patient is not in any acute distressed. Awake and alert. HEENT: Nonicteric sclerae, PERRLA, EOMI. Oropharynx clear. Moist mucous membranes. Conjunctivae appear well perfused. HEART: Regular rate and rhythm without murmurs. No lower extremities edema. LUNGS: Clear to auscultation bilaterally. No wheezing, crackles or rhonchi ABDOMEN: Soft, positive bowel sounds, nontender. SKIN: No rash, no excessive bruising, petechiae, or purpura. NEUROLOGIC: AxO x 3. Cranial nerves II-XII intact without motor/sensory deficit. Objective Labs 10/09/24 12:39 10/09/24 13:30 Labs: Laboratory Results - last 24 hr 10/09/24 10/09/24 10/09/24 12:39 12:50 13:30 WBC 17.4 H RBC 4.09 Hgb 13.1 Hct 38.3 MCV 93.6 MCH 32.1 MCHC 34.3 RDW 14.0 Plt Count 289 Neut % (Auto) 84.2 H Lymph % (Auto) 9.1 L [place] % (Auto) 6.1 Eos % (Auto) 0.1 L Baso % (Auto) 0.5 Neut # (Auto) 43133 H Lymph # (Auto) 1600 [place]wood # (Auto) 1100 H Eos # (Auto) 0 Baso # (Auto) 100 Sodium 133 L Potassium 4.5 Chloride 97 L Carbon Dioxide 27 BUN 31 H Creatinine 0.90 Estimated GFR > 60 BUN/Creatinine Ratio 34.4 H Glucose 170 H POC Whole Bld Glucose Lactate Calcium 10.0 Total Bilirubin 1.3 AST 30 ALT 21 Alkaline Phosphatase 72 Total Creatine Kinase 149 H Troponin I < 0.012 Total Protein 7.0 Albumin 3.9 Globulin 3.1 Albumin/Globulin Ratio 1.3 Procalcitonin 1.74 H Urine Color Urine Appearance Urine pH Ur Specific [place]send Urine Protein Urine Glucose (UA) Urine Ketones Urine Occult Blood Urine Nitrate Urine Bilirubin Urine Urobilinogen Ur Leukocyte Esterase Urine RBC Urine WBC Ur Squamous Epith Cells Urine Bacteria Ur Culture Indicated? Vol Urine Centrifuged SARS-CoV-2 (PCR) Negative Influenza A (RT-PCR) Flu a negative Influenza B (RT-PCR) Flu b negative RSV (PCR) Negative 10/09/24 10/09/24 10/09/24 14:36 17:31 19:45 WBC RBC Hgb Hct MCV MCH MCHC RDW Plt Count Neut % (Auto) Lymph % (Auto) [place] % (Auto) Eos % (Auto) Baso % (Auto) Neut # (Auto) Lymph # (Auto) [place] # (Auto) Eos # (Auto) Baso # (Auto) Sodium Potassium Chloride Carbon Dioxide BUN Creatinine Estimated GFR BUN/Creatinine Ratio Glucose POC Whole Bld Glucose Lactate 1.6 Calcium Total Bilirubin AST ALT Alkaline Phosphatase Total Creatine Kinase Troponin I Total Protein Albumin Globulin Albumin/Globulin Ratio Procalcitonin Urine Color Yellow Urine Appearance Clear Urine pH 5.5 Ur Specific [place]send 1.020 Urine Protein 1+ H Urine Glucose (UA) Negative Urine Ketones Trace H Urine Occult Blood 1+ H Urine Nitrate Negative Urine Bilirubin Negative Urine Urobilinogen 0.2 Ur Leukocyte Esterase 1+ H Urine RBC 0-1/hpf 5-10/hpf H Urine WBC 0-1/hpf 5-10/hpf H Ur Squamous Epith Cells 0-1 /hpf 0-1 /hpf Urine Bacteria Many (>30) H Many (>30) H Ur Culture Indicated? Cult not indicated Specimen cultured Vol Urine Centrifuged Low vol <1ml unspun A 10ml (spun) SARS-CoV-2 (PCR) Influenza A (RT-PCR) Influenza B (RT-PCR) RSV (PCR) 10/09/24 21:27 WBC RBC Hgb Hct MCV MCH MCHC RDW Plt Count Neut % (Auto) Lymph % (Auto) Red[place] % (Auto) Eos % (Auto) Baso % (Auto) Neut # (Auto) Lymph # (Auto) [place] # (Auto) Eos # (Auto) Baso # (Auto) Sodium Potassium Chloride Carbon Dioxide BUN Creatinine Estimated GFR BUN/Creatinine Ratio Glucose POC Whole Bld Glucose 168 H Lactate Calcium Total Bilirubin AST ALT Alkaline Phosphatase Total Creatine Kinase Troponin I Total Protein Albumin Globulin Albumin/Globulin Ratio Procalcitonin Urine Color Urine Appearance Urine pH Ur Specific [place] Urine Protein Urine Glucose (UA) Urine Ketones Urine Occult Blood Urine Nitrate Urine Bilirubin Urine Urobilinogen Ur Leukocyte Esterase Urine RBC Urine WBC Ur Squamous Epith Cells Urine Bacteria Ur Culture Indicated? Vol Urine Centrifuged SARS-CoV-2 (PCR) Influenza A (RT-PCR) Influenza B (RT-PCR) RSV (PCR) Assessment & Plan Assessment & Plan narrative: Pyelonephritis. Admit the patient to medical telemetry as inpatient. As described above, the patient continued to have signs of obstructive uropathy with some nonobstructive renal stones. Ureteral stents on the right is in place per CT scan.Dr. Tapia from urology was consulted and recommended that we admit the patient for continuing IV fluid, IV Zosyn, pain control and he will consult in the morning for any intervention. The patient is hemodynamically stable with normal lactic acid. Leukocytosis. Likely from above. Again patient is not septic at this time. Monitor for now. [id number] diabetes. Monitor glucose with subcu insulin as needed. Hypertension. Monitor blood pressure and treat accordingly. DVT prophylaxis heparin subcu. CODE STATUS DNR/DNI. Physician likely home in 2 to 3 days. - As the provider of this telehealth evaluation, requested by the patient's evaluating physician, I attest that I introduced myself to the patient, provided my credentials and determined that telemedicine via a real-time, 2 way interactive audio and video platform is an appropriate and effective means of providing this service. - I reviewed the patient's chart and had a discussion with the member of the patient's treatment team. - The patient and I mutually agreed with continuation of this evaluation via telemedicine. The patient consented for the telemedicine evaluation. - This virtual encounter was taken place from [place] by Dr. Cecil Acuna. The patient was evaluated at [facility]. The encounter was approximately 35 minutes. The nurse was present during the entire time of the encounter and was able to move the stethoscope in appropriate directions. Time-Based Coding :: [TOTAL MINUTES] spent with patient and on the chart (including review of chart, obtaining history, exam, reviewing outside data, placing orders, documenting exam and treatment plan, and counseling patient) on [DATE].
[2024-10-10 03:07] LABS: Acinetobacter calcoa-baumannii Not Detected (Not Detect); Bacteroides fragilis Not Detected (Not Detect); Candida auris Not Detected (Not Detect); Candida glabrata Not Detected (Not Detect); Cryptococcus neoformans/gatti Not Detected (Not Detect); Enterobacterales Not Detected (Not Detect); Enterococcus faecalis Detected (Not Detect); Enterococcus faecium Not Detected (Not Detect); Klebsiella aerogenes Not Detected (Not Detect); Proteus species Not Detected (Not Detect); Serratia marcescens Not Detected (Not Detect); Staphylococcus epidermidis Not Detected (Not Detect); Staphylococcus lugdunensis Not Detected (Not Detect); Staphylococcus species Not Detected (Not Detect); Stenotrophomonas maltophilia Not Detected (Not Detect); Streptococcus agalactiae (Gr B Not Detected (Not Detect); Streptococcus pneumonia Not Detected (Not Detect); Streptococcus pyogenes (Gr A) Not Detected (Not Detect); Streptococcus species Not Detected (Not Detect); Vancomycin-rest genes A/B Not Detected (Not Detect)
[2024-10-10 06:44] LABS: Add Manual Diff / Slide Review NO; Hematocrit 31.4 % (36-46); Hemoglobin 10.7 g/dL (12.0-16.0); Lymphocytes Absolute Auto 1100 /uL (1100-4500); Mean Corpuscular HGB Conc 34.1 % (30-36); Mean Corpuscular Hemoglobin 32.0 PG (26-34); Mean Corpuscular Volume 93.9 fL (80-100); Platelet Count 226 X10^3/uL (150-400)
[2024-10-10 06:57] LABS: Blood Urea Nitrogen 26 mg/dL (7-17); Calcium 8.5 mg/dL (8.4-10.2); Carbon Dioxide 22 mmol/L (22-32); Chloride 107 mmol/L (98-107); Estimated Glomerular Filt Rate > 60 mL/min (>60); Glucose 167 mg/dL (70-99); HEMOLYSIS < 15 (0-50); Potassium 4.5 mmol/L (3.4-5.1); Sodium 134 mmol/L (137-145)
--- NOTE | 2024-10-10 06:57 | PC.NURSE ---
Pt turned on left side with pillows under right knee and behind right side of back.
--- NOTE | 2024-10-10 07:21 | PM.PN.1 ---
Subjective Subjective Date Patient Seen: 10/10/24 Interval history: Just before being transferred from the ED her blood pressure dropped to 86/47 so she was sent to the ICU but the Levophed that was planned was not needed as her blood pressure recovered to 109/80 and she has done well subsequently. The white blood count is 16.6. The CT nephrogram showed a right ureteral stent with obstruction. She was started on Zosyn and managed by Dr. Tapia from Urology. The BMP was normal with a glucose of 168 and a CK of 149. The procalcitonin was was 1.74. The UA showed both 5-10 RBCs and 5-10 wbc's. She wishes to be DNR and told me that her PCP was Cristian NEGRETE. An extensive PCR panel was negative. Exam Vital Signs (past 8 hours): - 10/09/24 23:30 10/09/24 23:30 10/09/24 23:45 Pulse Rate 107 H 104 H Respiratory Rate 26 H 27 H Blood Pressure 98/45 L Pulse Oximetry 94 91 Oxygen Delivery Method 10/09/24 23:45 10/10/24 00:00 10/10/24 00:06 Pulse Rate 102 H 101 H Respiratory Rate 30 H 20 Blood Pressure 96/46 L Pulse Oximetry 93 93 Oxygen Delivery Method 10/10/24 00:06 10/10/24 00:08 10/10/24 00:08 Pulse Rate 100 H Respiratory Rate 21 Blood Pressure 72/41 L 85/47 L Pulse Oximetry 91 Oxygen Delivery Method 10/10/24 00:10 10/10/24 00:10 10/10/24 00:20 Pulse Rate 99 H 97 H Respiratory Rate 24 19 Blood Pressure 77/45 L Pulse Oximetry 92 90 L Oxygen Delivery Method 10/10/24 00:20 10/10/24 00:30 10/10/24 00:30 Pulse Rate 96 H Respiratory Rate 13 Blood Pressure 76/46 L 76/42 L Pulse Oximetry 90 L Oxygen Delivery Method 10/10/24 00:40 10/10/24 00:40 10/10/24 00:50 Pulse Rate 96 H 95 H Respiratory Rate 20 13 Blood Pressure 80/43 L Pulse Oximetry 90 L 91 Oxygen Delivery Method Room Air Room Air 10/10/24 00:50 10/10/24 01:00 10/10/24 01:00 Pulse Rate 95 H Respiratory Rate 12 Blood Pressure 87/49 L 87/48 L Pulse Oximetry 91 Oxygen Delivery Method 10/10/24 01:10 10/10/24 01:10 10/10/24 01:20 Pulse Rate 93 H 92 H Respiratory Rate 12 13 Blood Pressure 95/47 L Pulse Oximetry 91 90 L Oxygen Delivery Method 10/10/24 01:20 10/10/24 01:30 10/10/24 01:30 Pulse Rate 90 Respiratory Rate 14 Blood Pressure 88/44 L 90/50 L Pulse Oximetry 91 Oxygen Delivery Method 10/10/24 01:40 10/10/24 01:40 10/10/24 01:50 Pulse Rate 90 91 H Respiratory Rate 15 14 Blood Pressure 83/45 L Pulse Oximetry 91 92 Oxygen Delivery Method 10/10/24 01:50 10/10/24 02:00 10/10/24 02:00 Pulse Rate 92 H Respiratory Rate 18 Blood Pressure 90/50 L 82/40 L Pulse Oximetry 90 L Oxygen Delivery Method Room Air 10/10/24 02:10 10/10/24 02:10 10/10/24 02:20 Pulse Rate 90 Respiratory Rate 18 Blood Pressure 88/49 L 89/50 L Pulse Oximetry 91 Oxygen Delivery Method Room Air 10/10/24 02:20 10/10/24 02:30 10/10/24 02:30 Pulse Rate 90 90 Respiratory Rate 16 17 Blood Pressure 93/52 L Pulse Oximetry 91 92 Oxygen Delivery Method 10/10/24 02:40 10/10/24 02:40 10/10/24 02:50 Pulse Rate 90 88 Respiratory Rate 16 16 Blood Pressure 98/54 L Pulse Oximetry 93 92 Oxygen Delivery Method Room Air 10/10/24 02:50 10/10/24 03:00 10/10/24 03:00 Pulse Rate 87 Respiratory Rate 16 Blood Pressure 88/52 L 92/51 L Pulse Oximetry 92 Oxygen Delivery Method 10/10/24 03:10 10/10/24 03:10 10/10/24 03:20 Pulse Rate 88 88 Respiratory Rate 16 16 Blood Pressure 103/56 L Pulse Oximetry 92 90 L Oxygen Delivery Method 10/10/24 03:20 10/10/24 03:30 10/10/24 03:30 Pulse Rate 84 Respiratory Rate 15 Blood Pressure 98/55 L 87/52 L Pulse Oximetry 92 Oxygen Delivery Method 10/10/24 03:40 10/10/24 03:40 10/10/24 03:50 Pulse Rate 85 85 Respiratory Rate 16 16 Blood Pressure 90/55 L Pulse Oximetry 91 92 Oxygen Delivery Method Room Air 10/10/24 03:50 10/10/24 04:00 10/10/24 04:00 Pulse Rate 84 Respiratory Rate 17 Blood Pressure 90/55 L 93/51 L Pulse Oximetry 92 Oxygen Delivery Method 10/10/24 04:10 10/10/24 04:10 10/10/24 04:20 Pulse Rate 84 84 Respiratory Rate 16 17 Blood Pressure 91/50 L Pulse Oximetry 91 92 Oxygen Delivery Method 10/10/24 04:20 10/10/24 04:30 10/10/24 04:30 Pulse Rate 83 Respiratory Rate 17 Blood Pressure 95/51 L 93/55 L Pulse Oximetry 90 L Oxygen Delivery Method 10/10/24 04:40 10/10/24 04:40 10/10/24 04:50 Pulse Rate 86 87 Respiratory Rate 17 15 Blood Pressure 98/55 L Pulse Oximetry 93 95 Oxygen Delivery Method 10/10/24 04:50 10/10/24 05:00 10/10/24 05:00 Pulse Rate 86 Respiratory Rate 17 Blood Pressure 110/59 L 109/56 L Pulse Oximetry 94 Oxygen Delivery Method 10/10/24 05:10 10/10/24 05:10 10/10/24 05:20 Pulse Rate 84 81 Respiratory Rate 16 18 Blood Pressure 108/53 L Pulse Oximetry 92 92 Oxygen Delivery Method 10/10/24 05:20 10/10/24 05:30 10/10/24 05:30 Pulse Rate 78 Respiratory Rate 17 Blood Pressure 89/51 L 85/49 L Pulse Oximetry 92 Oxygen Delivery Method 10/10/24 05:33 10/10/24 05:33 10/10/24 05:34 Pulse Rate 79 80 Respiratory Rate 16 14 Blood Pressure 88/52 L Pulse Oximetry 92 93 Oxygen Delivery Method 10/10/24 05:34 10/10/24 05:40 10/10/24 05:40 Pulse Rate 78 Respiratory Rate 17 Blood Pressure 91/50 L 86/47 L Pulse Oximetry 92 Oxygen Delivery Method Room Air 10/10/24 05:50 Pulse Rate 76 Respiratory Rate 16 Blood Pressure Pulse Oximetry 92 Oxygen Delivery Method Room Air Oxygen Delivery Method Room Air Narrative Exam Narrative: Alert and oriented x3. No apparent distress. Heart is regular rate and rhythm without murmur. Lungs are clear to auscultation bilaterally. Abdomen is soft, bowel sounds positive. Extremities have no ankle edema. Objective Labs 10/10/24 06:30 10/10/24 06:30 Labs: Laboratory Results - last 24 hr 10/09/24 10/09/24 10/09/24 12:39 12:50 13:30 WBC 17.4 H RBC 4.09 Hgb 13.1 Hct 38.3 MCV 93.6 MCH 32.1 MCHC 34.3 RDW 14.0 Plt Count 289 Neut % (Auto) 84.2 H Lymph % (Auto) 9.1 L [place] % (Auto) 6.1 Eos % (Auto) 0.1 L Baso % (Auto) 0.5 Neut # (Auto) 11520 H Lymph # (Auto) 1600 [place] # (Auto) 1100 H Eos # (Auto) 0 Baso # (Auto) 100 Sodium 133 L Potassium 4.5 Chloride 97 L Carbon Dioxide 27 BUN 31 H Creatinine 0.90 Estimated GFR > 60 BUN/Creatinine Ratio 34.4 H Glucose 170 H POC Whole Bld Glucose Lactate Calcium 10.0 Total Bilirubin 1.3 AST 30 ALT 21 Alkaline Phosphatase 72 Total Creatine Kinase 149 H Troponin I < 0.012 Total Protein 7.0 Albumin 3.9 Globulin 3.1 Albumin/Globulin Ratio 1.3 Procalcitonin 1.74 H Urine Color Urine Appearance Urine pH Ur Specific [place] Urine Protein Urine Glucose (UA) Urine Ketones Urine Occult Blood Urine Nitrate Urine Bilirubin Urine Urobilinogen Ur Leukocyte Esterase Urine RBC Urine WBC Ur Squamous Epith Cells Urine Bacteria Ur Culture Indicated? Vol Urine Centrifuged A.calcoaceticus-baumannii cmplx PCR Bacteroides fragilis [place] albicans (PCR) Vashti auris (PCR) C. glabrata (PCR) C. krusei (PCR) C. parapsilosis (PCR) C. tropicalis (PCR) SARS-CoV-2 (PCR) Negative C. neoform/gattii (PCR) Enterobacterales (PCR) E. cloacae complex PCR Enterococc faecalis PCR Enterococc faecium PCR E. coli (PCR) H. influenzae (PCR) Influenza A (RT-PCR) Flu a negative Influenza B (RT-PCR) Flu b negative Klebsiella aerogenes (PCR) Klebsiella oxytoca PCR Klebsiella pneumoniae List. monocytogenes PCR N. meningitidis (PCR) Proteus species (PCR) RSV (PCR) Negative Salmonella spp. (PCR) Serratia marcescens PCR Staphylococcus sp PCR Staph aureus (PCR) mecA/C & MREJ Resist Gene mecA/C-Methicil Resis Gene mcr-1 [place] Res Gene PCR Staph epidermidis (PCR) Staph lugdunensis PCR S. maltophilia (PCR) Streptococcus sp PCR Group A Strep (PCR) Strep agalactiae (PCR) Strep pneumoniae (PCR) P. aeruginosa (PCR) Ange/B-Vanco Res Genes blaIMP Car res Gene PCR KPC-Carbap Res Gene PCR blaNDM Car Res Gene PCR OXA-48 Carbapenem Resis Gene (PCR) blaVIM Car Res Gene PCR CTX-M Gene Resistance (PCR) 10/09/24 10/09/24 10/09/24 14:36 17:31 19:45 WBC RBC Hgb Hct MCV MCH MCHC RDW Plt Count Neut % (Auto) Lymph % (Auto) [place] % (Auto) Eos % (Auto) Baso % (Auto) Neut # (Auto) Lymph # (Auto) [place] # (Auto) Eos # (Auto) Baso # (Auto) Sodium Potassium Chloride Carbon Dioxide BUN Creatinine Estimated GFR BUN/Creatinine Ratio Glucose POC Whole Bld Glucose Lactate 1.6 Calcium Total Bilirubin AST ALT Alkaline Phosphatase Total Creatine Kinase Troponin I Total Protein Albumin Globulin Albumin/Globulin Ratio Procalcitonin Urine Color Yellow Urine Appearance Clear Urine pH 5.5 Ur Specific [place] 1.020 Urine Protein 1+ H Urine Glucose (UA) Negative Urine Ketones Trace H Urine Occult Blood 1+ H Urine Nitrate Negative Urine Bilirubin Negative Urine Urobilinogen 0.2 Ur Leukocyte Esterase 1+ H Urine RBC 0-1/hpf 5-10/hpf H Urine WBC 0-1/hpf 5-10/hpf H Ur Squamous Epith Cells 0-1 /hpf 0-1 /hpf Urine Bacteria Many (>30) H Many (>30) H Ur Culture Indicated? Cult not indicated Specimen cultured Vol Urine Centrifuged Low vol <1ml unspun A 10ml (spun) A.calcoaceticus-baumannii cmplx PCR Bacteroides fragilis Vashti albicans (PCR) Vashti auris (PCR) C. glabrata (PCR) C. krusei (PCR) C. parapsilosis (PCR) C. tropicalis (PCR) SARS-CoV-2 (PCR) C. neoform/gattii (PCR) Enterobacterales (PCR) E. cloacae complex PCR Enterococc faecalis PCR Enterococc faecium PCR E. coli (PCR) H. influenzae (PCR) Influenza A (RT-PCR) Influenza B (RT-PCR) Klebsiella aerogenes (PCR) Klebsiella oxytoca PCR Klebsiella pneumoniae List. monocytogenes PCR N. meningitidis (PCR) Proteus species (PCR) RSV (PCR) Salmonella spp. (PCR) Serratia marcescens PCR Staphylococcus sp PCR Staph aureus (PCR) mecA/C & MREJ Resist Gene mecA/C-Methicil Resis Gene mcr-1 [place] Res Gene PCR Staph epidermidis (PCR) Staph lugdunensis PCR S. maltophilia (PCR) Streptococcus sp PCR Group A Strep (PCR) Strep agalactiae (PCR) Strep pneumoniae (PCR) P. aeruginosa (PCR) Ange/B-Vanco Res Genes blaIMP Car res Gene PCR KPC-Carbap Res Gene PCR blaNDM Car Res Gene PCR OXA-48 Carbapenem Resis Gene (PCR) blaVIM Car Res Gene PCR CTX-M Gene Resistance (PCR) 10/09/24 10/10/24 10/10/24 21:27 06:30 14:36 WBC 16.6 H RBC 3.34 L Hgb 10.7 L Hct 31.4 L MCV 93.9 MCH 32.0 MCHC 34.1 RDW 13.8 Plt Count 226 Neut % (Auto) 85.4 H Lymph % (Auto) 6.9 L [place] % (Auto) 7.0 Eos % (Auto) 0.4 L Baso % (Auto) 0.3 Neut # (Auto) 35299 H Lymph # (Auto) 1100 [place] # (Auto) 1200 H Eos # (Auto) 100 Baso # (Auto) 0 Sodium 134 L Potassium 4.5 Chloride 107 Carbon Dioxide 22 BUN 26 H Creatinine 0.85 Estimated GFR > 60 BUN/Creatinine Ratio 30.6 H Glucose 167 H POC Whole Bld Glucose 168 H Lactate Calcium 8.5 Total Bilirubin AST ALT Alkaline Phosphatase Total Creatine Kinase Troponin I Total Protein Albumin Globulin Albumin/Globulin Ratio Procalcitonin Urine Color Urine Appearance Urine pH Ur Specific [place] Urine Protein Urine Glucose (UA) Urine Ketones Urine Occult Blood Urine Nitrate Urine Bilirubin Urine Urobilinogen Ur Leukocyte Esterase Urine RBC Urine WBC Ur Squamous Epith Cells Urine Bacteria Ur Culture Indicated? Vol Urine Centrifuged A.calcoaceticus-baumannii cmplx PCR Not detected Bacteroides fragilis Not detected Vashti albicans (PCR) Not detected Vashti auris (PCR) Not detected C. glabrata (PCR) Not detected C. krusei (PCR) Not detected C. parapsilosis (PCR) Not detected C. tropicalis (PCR) Not detected SARS-CoV-2 (PCR) C. neoform/gattii (PCR) Not detected Enterobacterales (PCR) Not detected E. cloacae complex PCR Not detected Enterococc faecalis PCR Detected Enterococc faecium PCR Not detected E. coli (PCR) Not detected H. influenzae (PCR) Not detected Influenza A (RT-PCR) Influenza B (RT-PCR) Klebsiella aerogenes (PCR) Not detected Klebsiella oxytoca PCR Not detected Klebsiella pneumoniae Not detected List. monocytogenes PCR Not detected N. meningitidis (PCR) Not detected Proteus species (PCR) Not detected RSV (PCR) Salmonella spp. (PCR) Not detected Serratia marcescens PCR Not detected Staphylococcus sp PCR Not detected Staph aureus (PCR) Not detected mecA/C & MREJ Resist Gene Not applicable mecA/C-Methicil Resis Gene Not applicable mcr-1 [place] Res Gene PCR Not applicable Staph epidermidis (PCR) Not detected Staph lugdunensis PCR Not detected S. maltophilia (PCR) Not detected Streptococcus sp PCR Not detected Group A Strep (PCR) Not detected Strep agalactiae (PCR) Not detected Strep pneumoniae (PCR) Not detected P. aeruginosa (PCR) Not detected Ange/B-Vanco Res Genes Not detected blaIMP Car res Gene PCR Not applicable KPC-Carbap Res Gene PCR Not applicable blaNDM Car Res Gene PCR Not applicable OXA-48 Carbapenem Resis Gene (PCR) Not applicable blaVIM Car Res Gene PCR Not applicable CTX-M Gene Resistance (PCR) Not applicable [facility] Social History household members: none Smoking Status: Never smoker alcohol intake: never Assessment & Plan Assessment & Plan narrative: Pyelonephritis. She has demonstrated obstructive uropathy with some nonobstructive renal stones on CT scan. Ureteral stents on the right is in place per CT scan.Dr. Tapia from urology was consulted and recommended that we admit the patient for continuing IV fluid, IV Zosyn, pain control and he will consult. That consult is pending. The patient is hemodynamically stable with normal lactic acid. The blood pressure dropped briefly to 86/47 and then recovered. She was able to be transfered from ICU to normal medical status this morning. Leukocytosis. WBC 16.6 on admision, likely from above. [id number] diabetes. Monitor glucose with subcu insulin as needed. Metformin and Ozempic on hold. Hypertension. Monitor blood pressure and treat accordingly. BP medicines on hold. DVT prophylaxis heparin subcu. CODE STATUS DNR/DNI. Disposition is return home in about 2 days. Time-Based Coding :: [TOTAL MINUTES] spent with patient and on the chart (including review of chart, obtaining history, exam, reviewing outside data, placing orders, documenting exam and treatment plan, and counseling patient) on [DATE].
[2024-10-10] MEDS: HEPARIN 5,000 UNIT/ML VIAL 5000 UNIT SUBCUT ×2 (09:37→21:18)
[2024-10-10] MEDS: GABAPENTIN 300 MG CAPSULE PO ×2 (09:38→21:17)
[2024-10-10] MEDS: SODIUM CHLORIDE 0.9% 1,000 ML 100 ML IV ×2 (10:02→17:30)
[2024-10-10] MEDS: HYDROCODONE/ACET 5/325 TABLET 1 TAB PO ×2 (11:39→21:17)
--- NOTE | 2024-10-10 18:29 | PM.CN.IH.1 ---
History of Present Illness Consult details Date Patient Seen: 10/10/24 Time Patient Seen: 18:29 Chief complaint: Fall, down all night Reason for consult: Urinary tract infection, urinary retention Narrative: 79 y/o F presented to ER for evaluation of severe right sided abdominal pain, dysuria and nausea with vomiting in early September of 2024. Of note, she has no h/o nephrolithiasis or prior UTI's. Her evaluation was notable for a WBC of 20.1, sCr of 1.4 (baseline ~0.8) and an infected appearing UA. She was noted to be tachycardic and febrile at that time. Her CT Abd/Pel was notable for an 8mm right UPJ calculus with resultant upstream moderate hydroureteronephrosis, significant perinephric fat stranding and an additionl 10mm right lower pole calculus. She was started on antibiotics and managed acutely with a cystoscopy and right ureteral stent placement. Unfortunately, she fell on the 09 of October and was unable to get up. She was brought by EMS to ER for further evaluation. This was notable for a WBC of 17.4, sCr of 0.9 and a UA concerning for possible infection. Her CT C/A/P was notable for appropriate positioning of her right ureteral stent with perinephric and periureteral fat stranding, concerning for an active urinary tract infection. She was also noted to have a severely distended bladder and a varela catheter was placed with immediate drainage of more than 1500 cc's of clear yellow urine. She was subsequently started on Rocephin and Zosyn. She admits that she feels much better than she did yesterday. Meds Home Medications and Allergies Home Medications ?Medication ?Instructions ?Recorded ?Confirmed ?Type promethazine 25 mg tablet 25 mg PO QPM ##0 05/09/17 10/10/24 History gabapentin 300 mg capsule 300 mg PO Q12H 09/08/24 10/10/24 History losartan 50 mg tablet 50 mg PO DAILY 09/08/24 10/10/24 History metformin 1,000 mg tablet 1,000 mg PO BID 09/08/24 10/10/24 History ondansetron 4 mg disintegrating 4 mg sublingual Q6HP 09/08/24 10/10/24 History tablet semaglutide 0.25 mg or 0.5 mg (2 0.5 mg SUBCUT .Q7 days 09/08/24 10/10/24 History mg/3 mL) subcutaneous pen injector (Ozempic) amlodipine 10 mg tablet 10 mg PO DAILY #30 tabs 09/12/24 10/10/24 Rx lorazepam 0.5 mg tablet 0.5 mg PO QPM #14 tabs 09/12/24 10/10/24 Rx magnesium chloride 71.5 mg 128 mg (1.7902 x 71.5 mg) PO Q8H 09/12/24 10/10/24 Rx (magnesium chloride) #90 tabs tablet,delayed release (Slow-Mag) polyethylene glycol 3350 17 gram 17 gm PO BID #30 ea 09/12/24 10/10/24 Rx oral powder packet Allergies Allergy/AdvReac Type Severity Reaction Status Date / Time codeine (CODEINE) Allergy Intermediate NAUSEA / Verified 09/05/24 10:50 HIVES cortisone (CORTISONE) Allergy Intermediate LIGHT / Verified 09/05/24 10:50 SOUND SENSITIVITY Review of Systems Review of Systems Narrative: CONSTITUTIONAL: Denies weight loss, fevers, chills. HEENT: Denies change in vision, hearing. RESP: Denies SOB, cough. CV: Denies palpations, CP. GI: Denies abdominal pain, nausea, vomiting. MSK: Denies myalgia, joint pain. SKIN: Denies rash, pruritus. NEURO: Denies headache, syncope. PSYCH: Denies recent change in mood, anxiety, depression. Exam Vital Signs (past 8 hours): - 10/10/24 10:30 10/10/24 10:30 10/10/24 11:00 Temperature Pulse Rate 96 H 93 H Respiratory Rate 19 20 Blood Pressure 114/58 L Pulse Oximetry 95 94 10/10/24 11:00 10/10/24 11:30 10/10/24 11:31 Temperature Pulse Rate 90 Respiratory Rate 22 Blood Pressure 106/51 L 140/75 Pulse Oximetry 94 10/10/24 11:31 10/10/24 11:46 10/10/24 11:46 Temperature Pulse Rate 92 H 92 H Respiratory Rate 20 22 Blood Pressure 116/56 L Pulse Oximetry 93 10/10/24 12:00 10/10/24 13:00 10/10/24 13:00 Temperature 97.5 F L Pulse Rate 88 85 Respiratory Rate 22 22 Blood Pressure 113/56 L Pulse Oximetry 10/10/24 13:30 10/10/24 14:00 10/10/24 14:00 Temperature Pulse Rate 83 83 Respiratory Rate 19 18 Blood Pressure 100/57 L Pulse Oximetry 93 95 10/10/24 14:30 10/10/24 15:00 10/10/24 15:00 Temperature Pulse Rate 81 80 Respiratory Rate 14 18 Blood Pressure 105/53 L Pulse Oximetry 95 96 10/10/24 15:30 10/10/24 16:00 10/10/24 16:00 Temperature Pulse Rate 78 81 Respiratory Rate 17 17 Blood Pressure 117/59 L Pulse Oximetry 95 95 10/10/24 16:30 10/10/24 16:37 Temperature 97.5 F L Pulse Rate 81 Respiratory Rate 20 Blood Pressure Pulse Oximetry 96 Oxygen Delivery Method Room Air Narrative Exam Narrative: GEN: Alert and oriented X3. No acute distress. Well-nourished. EYES: PERRLA, EOMI. HENT: Moist mucus membranes, no scleral icterus, normal neck ROM. RESP: Unlabored breathing, equal rise and fall of chest bilaterally, no cyanosis appreciated. CV: No peripheral edema, unremarkable heart rate. ABD: Soft, non-tender, non-distended, no palpable masses. : Varela secured and draining clear yellow urine. EXT: No edema, clubbing or cyanosis. SKIN: No rashes or lesions. NEURO: No focal neurologic deficits, CN II-XII grossly intact. PSYCH: Cooperative, appropriate mood and affect. Objective Labs 10/10/24 06:30 10/10/24 06:30 Labs: Laboratory Results - last 24 hr 10/09/24 10/09/24 10/09/24 13:30 19:45 21:27 WBC RBC Hgb Hct MCV MCH MCHC RDW Plt Count Neut % (Auto) Lymph % (Auto) [place] % (Auto) Eos % (Auto) Baso % (Auto) Neut # (Auto) Lymph # (Auto) [place] # (Auto) Eos # (Auto) Baso # (Auto) Sodium Potassium Chloride Carbon Dioxide BUN Creatinine Estimated GFR BUN/Creatinine Ratio Glucose POC Whole Bld Glucose 168 H Calcium Procalcitonin 1.74 H Urine Color Yellow Urine Appearance Clear Urine pH 5.5 Ur Specific [place] 1.020 Urine Protein 1+ H Urine Glucose (UA) Negative Urine Ketones Trace H Urine Occult Blood 1+ H Urine Nitrate Negative Urine Bilirubin Negative Urine Urobilinogen 0.2 Ur Leukocyte Esterase 1+ H Urine RBC 5-10/hpf H Urine WBC 5-10/hpf H Ur Squamous Epith Cells 0-1 /hpf Urine Bacteria Many (>30) H Ur Culture Indicated? Specimen cultured Vol Urine Centrifuged 10ml (spun) A.calcoaceticus-baumannii cmplx PCR Bacteroides fragilis Vashti albicans (PCR) Vashti auris (PCR) C. glabrata (PCR) C. krusei (PCR) C. parapsilosis (PCR) C. tropicalis (PCR) C. neoform/gattii (PCR) Enterobacterales (PCR) E. cloacae complex PCR Enterococc faecalis PCR Enterococc faecium PCR E. coli (PCR) H. influenzae (PCR) Klebsiella aerogenes (PCR) Klebsiella oxytoca PCR Klebsiella pneumoniae List. monocytogenes PCR N. meningitidis (PCR) Proteus species (PCR) Salmonella spp. (PCR) Serratia marcescens PCR Staphylococcus sp PCR Staph aureus (PCR) mecA/C & MREJ Resist Gene mecA/C-Methicil Resis Gene mcr-1 Colistin Res Gene PCR Staph epidermidis (PCR) Staph lugdunensis PCR S. maltophilia (PCR) Streptococcus sp PCR Group A Strep (PCR) Strep agalactiae (PCR) Strep pneumoniae (PCR) P. aeruginosa (PCR) Ange/B-Vanco Res Genes blaIMP Car res Gene PCR KPC-Carbap Res Gene PCR blaNDM Car Res Gene PCR OXA-48 Carbapenem Resis Gene (PCR) blaVIM Car Res Gene PCR CTX-M Gene Resistance (PCR) 10/10/24 10/10/24 06:30 14:36 WBC 16.6 H RBC 3.34 L Hgb 10.7 L Hct 31.4 L MCV 93.9 MCH 32.0 MCHC 34.1 RDW 13.8 Plt Count 226 Neut % (Auto) 85.4 H Lymph % (Auto) 6.9 L [place] % (Auto) 7.0 Eos % (Auto) 0.4 L Baso % (Auto) 0.3 Neut # (Auto) 57926 H Lymph # (Auto) 1100 [place] # (Auto) 1200 H Eos # (Auto) 100 Baso # (Auto) 0 Sodium 134 L Potassium 4.5 Chloride 107 Carbon Dioxide 22 BUN 26 H Creatinine 0.85 Estimated GFR > 60 BUN/Creatinine Ratio 30.6 H Glucose 167 H POC Whole Bld Glucose Calcium 8.5 Procalcitonin Urine Color Urine Appearance Urine pH Ur Specific [place] Urine Protein Urine Glucose (UA) Urine Ketones Urine Occult Blood Urine Nitrate Urine Bilirubin Urine Urobilinogen Ur Leukocyte Esterase Urine RBC Urine WBC Ur Squamous Epith Cells Urine Bacteria Ur Culture Indicated? Vol Urine Centrifuged A.calcoaceticus-baumannii cmplx PCR Not detected Bacteroides fragilis Not detected Vashti albicans (PCR) Not detected Vashti auris (PCR) Not detected C. glabrata (PCR) Not detected C. krusei (PCR) Not detected C. parapsilosis (PCR) Not detected C. tropicalis (PCR) Not detected C. neoform/gattii (PCR) Not detected Enterobacterales (PCR) Not detected E. cloacae complex PCR Not detected Enterococc faecalis PCR Detected Enterococc faecium PCR Not detected E. coli (PCR) Not detected H. influenzae (PCR) Not detected Klebsiella aerogenes (PCR) Not detected Klebsiella oxytoca PCR Not detected Klebsiella pneumoniae Not detected List. monocytogenes PCR Not detected N. meningitidis (PCR) Not detected Proteus species (PCR) Not detected Salmonella spp. (PCR) Not detected Serratia marcescens PCR Not detected Staphylococcus sp PCR Not detected Staph aureus (PCR) Not detected mecA/C & MREJ Resist Gene Not applicable mecA/C-Methicil Resis Gene Not applicable mcr-1 Colistin Res Gene PCR Not applicable Staph epidermidis (PCR) Not detected Staph lugdunensis PCR Not detected S. maltophilia (PCR) Not detected Streptococcus sp PCR Not detected Group A Strep (PCR) Not detected Strep agalactiae (PCR) Not detected Strep pneumoniae (PCR) Not detected P. aeruginosa (PCR) Not detected Ange/B-Vanco Res Genes Not detected blaIMP Car res Gene PCR Not applicable KPC-Carbap Res Gene PCR Not applicable blaNDM Car Res Gene PCR Not applicable OXA-48 Carbapenem Resis Gene (PCR) Not applicable blaVIM Car Res Gene PCR Not applicable CTX-M Gene Resistance (PCR) Not applicable PFSH Social History household members: none Tobacco & Substance Use Smoking Status: Never smoker alcohol intake: never Assessment & Plan Assessment and plan (1) Right ureteral calculus: Status: Acute Plan: 79 y/o F presented to ER for evaluation of severe right sided abdominal pain, dysuria and nausea with vomiting in early September of 2024. Of note, she has no h/o nephrolithiasis or prior UTI's. Her evaluation was notable for a WBC of 20.1, sCr of 1.4 (baseline ~0.8) and an infected appearing UA. She was noted to be tachycardic and febrile at that time. Her CT Abd/Pel was notable for an 8mm right UPJ calculus with resultant upstream moderate hydroureteronephrosis, significant perinephric fat stranding and an additionl 10mm right lower pole calculus. She was started on antibiotics and managed acutely with a cystoscopy and right ureteral stent placement. Unfortunately, she fell on the 09 of October and was unable to get up. She was brought by EMS to ER for further evaluation. This was notable for a WBC of 17.4, sCr of 0.9 and a UA concerning for possible infection. Her CT C/A/P was notable for appropriate positioning of her right ureteral stent with perinephric and periureteral fat stranding, concerning for an active urinary tract infection. She was also noted to have a severely distended bladder and a varela catheter was placed with immediate drainage of more than 1500 cc's of clear yellow urine. She was subsequently started on Rocephin and Zosyn. She admits that she feels much better than she did yesterday. - Agree with broad spectrum antibiotics, recommend tailoring to UCx and BCx directed antibiotics when available - Will be scheduled for a cystoscopy, right ureteroscopy, laser lithotripsy and right ureteral stent exchange within the next 6 weeks, cannot be performed during an active urinary tract infection - Right ureteral stent is in good position and does not require exchange - Varela catheter to remain in place for now, DO NOT REMOVE WITHOUT SPEAKING TO [facility] - Will continue to follow along - Appreciate assistance of hospitalist team with the management of this patient (2) Urinary tract infection: Problem details: Please see plan above Qualifiers: Urinary tract infection type: site unspecified Hematuria presence: without hematuria Qualified Code(s): N39.0 - Urinary tract infection, site not specified Status: Acute Time-Based Coding :: [TOTAL MINUTES] spent with patient and on the chart (including review of chart, obtaining history, exam, reviewing outside data, placing orders, documenting exam and treatment plan, and counseling patient) on [DATE]. PROFEE Charge Codes Inpatient or Observation consultation: [id number]
[2024-10-11] VITALS (49 sets, daily range): BP systolic 137–185; BP diastolic 65–85; PULSE 77–103; RESP 15–30; TEMP 36.6–37.3; O2SAT 93–100
[2024-10-11] MEDS: PIPERACILLIN/TAZO 3.375 GM in SODIUM CHLORIDE 0.9% 100 ML IV ×2 (00:30→07:56)
[2024-10-11] MEDS: SODIUM CHLORIDE 0.9% 1,000 ML 100 ML IV ×3 (02:54→22:44)
[2024-10-11] MEDS: HEPARIN 5,000 UNIT/ML VIAL 5000 UNIT SUBCUT ×2 (09:41→21:21)
[2024-10-11] MEDS: GABAPENTIN 300 MG CAPSULE PO ×2 (09:41→21:21)
--- NOTE | 2024-10-11 12:10 | PM.PN.1 ---
Subjective Subjective Interval history: Summary: Just before being transferred from the ED her blood pressure dropped to 86/47 so she was sent to the ICU but the Levophed that was planned was not needed as her blood pressure recovered to 109/80 and she has done well subsequently. The white blood count is 16.6. The CT nephrogram showed a right ureteral stent with obstruction. She was started on Zosyn and managed by Dr. Tapia from Urology. The BMP was normal with a glucose of 168 and a CK of 149. The procalcitonin was was 1.74. The UA showed both 5-10 RBCs and 5-10 wbc's. She wishes to be DNR and told me that her PCP was Cristian NEGRETE. An extensive PCR panel was negative. S: She feels better today, blood pressures normalized and she denies any pain. Dr. Tapia (urology) has indicated a delayed approach to her stent. Exam Vital Signs (past 8 hours): - 10/11/24 04:30 10/11/24 05:00 10/11/24 05:30 Temperature Pulse Rate 80 82 83 Respiratory Rate 17 16 16 Blood Pressure Pulse Oximetry 99 99 99 Oxygen Delivery Method 10/11/24 06:00 10/11/24 06:30 10/11/24 07:00 Temperature Pulse Rate 82 89 Respiratory Rate 18 17 Blood Pressure Pulse Oximetry 100 99 Oxygen Delivery Method Room Air 10/11/24 07:00 10/11/24 07:30 10/11/24 08:00 Temperature Pulse Rate 90 88 90 Respiratory Rate 17 21 30 H Blood Pressure Pulse Oximetry 99 98 96 Oxygen Delivery Method 10/11/24 08:00 10/11/24 08:30 10/11/24 09:00 Temperature 97.8 F Pulse Rate 87 Respiratory Rate 21 Blood Pressure 160/65 H Pulse Oximetry 96 Oxygen Delivery Method 10/11/24 09:00 10/11/24 09:30 10/11/24 10:00 Temperature Pulse Rate 91 H 98 H 97 H Respiratory Rate 21 21 23 Blood Pressure Pulse Oximetry 97 Oxygen Delivery Method Oxygen Delivery Method Room Air Narrative Exam Narrative: NAD, alert and oriented. Fluent speech. Lungs are clear, normal rate and effort. Heart is regular, no murmur gallop or rub. Abdomen is soft, non distended. Extremities are free of edema. Objective Imaging Chest abdomen pelvis CT:: Radiologist's impression: Right ureteral stent is in place. Positioning appears as expected. However, there is persistent moderate right pelvocaliectasis. Delayed nephrogram indicates obstructive uropathy. Perinephric and periureteral fat stranding also seen, correlate urinalysis for infection. Multiple nonobstructing calyceal stones are present. There is also a right renal pelvis stone adjacent to the proximal pigtail measuring 5 mm. Significantly distended urinary bladder. No acute findings in the chest. Labs 10/10/24 06:30 10/10/24 06:30 [facility] Social History household members: none Smoking Status: Never smoker alcohol intake: never Assessment & Plan Assessment & Plan narrative: 1. Pyelonephritis. The plan is to continue IV antibiotics and treat the acute infection. She will have a delayed laser lithotripsy and right ureter stent exchange in 6 weeks. 2. Urine retention. She would imaging suggestive of hydronephrosis but also bladder retention. She would 15 mL of urine out with a El catheter. 3. Leukocytosis. WBC 16.6 on admision, likely from above. 4. Ytu-kuozcco-khdlstdid diabetes. Monitor glucose with subcu insulin as needed. Metformin and Ozempic on hold. 5. Hypertension. Monitor blood pressure and treat accordingly. BP medicines on hold. 6. Probable Enterococcus bacteremia. PLAN: -continue IV antibiotics (AMpicillin 1 G Q4) and catheter. -follow cultures. Enterococcus. -monitor WBC. -El decompression DVT prophylaxis heparin subcu. Time-Based Coding :: [TOTAL MINUTES] spent with patient and on the chart (including review of chart, obtaining history, exam, reviewing outside data, placing orders, documenting exam and treatment plan, and counseling patient) on [DATE].
[2024-10-11] MEDS: AMPICILLIN 2,000 MG in SODIUM CHLORIDE 0.9% 100 ML 200 MG IV ×2 (13:00→18:44)
[2024-10-11] MEDS: INSULIN LISPRO 100 UNIT/ML 3ML VIAL SUBCUT ×2 (16:42→21:21)
--- NOTE | 2024-10-11 18:18 | PM.CN.IH.1 ---
History of Present Illness Consult details Date Patient Seen: 10/11/24 Time Patient Seen: 18:18 Chief complaint: Fall, down all night Reason for consult: Urinary tract infection, urinary retention Narrative: 79 y/o F presented to ER for evaluation of severe right sided abdominal pain, dysuria and nausea with vomiting in early September of 2024. Of note, she has no h/o nephrolithiasis or prior UTI's. Her evaluation was notable for a WBC of 20.1, sCr of 1.4 (baseline ~0.8) and an infected appearing UA. She was noted to be tachycardic and febrile at that time. Her CT Abd/Pel was notable for an 8mm right UPJ calculus with resultant upstream moderate hydroureteronephrosis, significant perinephric fat stranding and an additionl 10mm right lower pole calculus. She was started on antibiotics and managed acutely with a cystoscopy and right ureteral stent placement. Unfortunately, she fell on the 09 of October and was unable to get up. She was brought by EMS to ER for further evaluation. This was notable for a WBC of 17.4, sCr of 0.9 and a UA concerning for possible infection. Her CT C/A/P was notable for appropriate positioning of her right ureteral stent with perinephric and periureteral fat stranding, concerning for an active urinary tract infection. She was also noted to have a severely distended bladder and a varela catheter was placed with immediate drainage of more than 1500 cc's of clear yellow urine. She was subsequently started on Rocephin and Zosyn. Her UCx is positive for Enterococcus Faecalis (R only to Tetracycline). Her antibiotics have since been switched to Ampicillin. Of note, she has ambulated very minimally over the last few days. Meds Home Medications and Allergies Home Medications ?Medication ?Instructions ?Recorded ?Confirmed ?Type promethazine 25 mg tablet 25 mg PO QPM ##0 05/09/17 10/10/24 History gabapentin 300 mg capsule 300 mg PO Q12H 09/08/24 10/10/24 History losartan 50 mg tablet 50 mg PO DAILY 09/08/24 10/10/24 History metformin 1,000 mg tablet 1,000 mg PO BID 09/08/24 10/10/24 History ondansetron 4 mg disintegrating 4 mg sublingual Q6HP 09/08/24 10/10/24 History tablet semaglutide 0.25 mg or 0.5 mg (2 0.5 mg SUBCUT .Q7 days 09/08/24 10/10/24 History mg/3 mL) subcutaneous pen injector (Ozempic) amlodipine 10 mg tablet 10 mg PO DAILY #30 tabs 09/12/24 10/10/24 Rx lorazepam 0.5 mg tablet 0.5 mg PO QPM #14 tabs 09/12/24 10/10/24 Rx magnesium chloride 71.5 mg 128 mg (1.7902 x 71.5 mg) PO Q8H 09/12/24 10/10/24 Rx (magnesium chloride) #90 tabs tablet,delayed release (Slow-Mag) polyethylene glycol 3350 17 gram 17 gm PO BID #30 ea 09/12/24 10/10/24 Rx oral powder packet Allergies Allergy/AdvReac Type Severity Reaction Status Date / Time codeine (CODEINE) Allergy Intermediate NAUSEA / Verified 09/05/24 10:50 HIVES cortisone (CORTISONE) Allergy Intermediate LIGHT / Verified 09/05/24 10:50 SOUND SENSITIVITY Review of Systems Review of Systems Narrative: CONSTITUTIONAL: Denies weight loss, fevers, chills. HEENT: Denies change in vision, hearing. RESP: Denies SOB, cough. CV: Denies palpations, CP. GI: Denies abdominal pain, nausea, vomiting. MSK: Denies myalgia, joint pain. SKIN: Denies rash, pruritus. NEURO: Denies headache, syncope. PSYCH: Denies recent change in mood, anxiety, depression. Exam Vital Signs (past 8 hours): - 10/11/24 10:30 10/11/24 11:00 10/11/24 11:30 Temperature Pulse Rate 94 H 92 H 86 Respiratory Rate 23 20 22 Blood Pressure Pulse Oximetry 94 95 95 10/11/24 11:59 10/11/24 11:59 10/11/24 12:00 Temperature Pulse Rate 86 86 Respiratory Rate 21 21 Blood Pressure 156/72 H Pulse Oximetry 96 96 10/11/24 12:30 10/11/24 13:00 10/11/24 13:30 Temperature Pulse Rate 90 88 94 H Respiratory Rate 25 H 24 26 H Blood Pressure Pulse Oximetry 10/11/24 14:00 10/11/24 14:30 10/11/24 15:00 Temperature Pulse Rate 91 H 92 H 93 H Respiratory Rate 25 H 27 H 26 H Blood Pressure Pulse Oximetry 10/11/24 15:30 10/11/24 16:00 10/11/24 16:03 Temperature Pulse Rate 94 H 92 H 97 H Respiratory Rate 25 H 23 25 H Blood Pressure Pulse Oximetry 10/11/24 16:03 10/11/24 16:30 10/11/24 16:47 Temperature 98.6 F Pulse Rate 99 H Respiratory Rate 27 H Blood Pressure 185/85 H Pulse Oximetry 97 Oxygen Delivery Method Room Air Narrative Exam Narrative: GEN: Alert and oriented X3. No acute distress. Well-nourished. EYES: PERRLA, EOMI. HENT: Moist mucus membranes, no scleral icterus, normal neck ROM. RESP: Unlabored breathing, equal rise and fall of chest bilaterally, no cyanosis appreciated. CV: No peripheral edema, unremarkable heart rate. ABD: Soft, non-tender, non-distended, no palpable masses. : Varela secured and draining clear yellow urine. EXT: No edema, clubbing or cyanosis. SKIN: No rashes or lesions. NEURO: No focal neurologic deficits, CN II-XII grossly intact. PSYCH: Cooperative, appropriate mood and affect. Objective Labs 10/10/24 06:30 10/10/24 06:30 Labs: Laboratory Results - last 24 hr 10/11/24 16:33 POC Whole Bld Glucose 180 H PFSH Social History household members: none Tobacco & Substance Use Smoking Status: Never smoker alcohol intake: never Assessment & Plan Assessment and plan (1) Right ureteral calculus: Status: Acute Plan: 79 y/o F presented to ER for evaluation of severe right sided abdominal pain, dysuria and nausea with vomiting in early September of 2024. Of note, she has no h/o nephrolithiasis or prior UTI's. Her evaluation was notable for a WBC of 20.1, sCr of 1.4 (baseline ~0.8) and an infected appearing UA. She was noted to be tachycardic and febrile at that time. Her CT Abd/Pel was notable for an 8mm right UPJ calculus with resultant upstream moderate hydroureteronephrosis, significant perinephric fat stranding and an additionl 10mm right lower pole calculus. She was started on antibiotics and managed acutely with a cystoscopy and right ureteral stent placement. Unfortunately, she fell on the 09 of October and was unable to get up. She was brought by EMS to ER for further evaluation. This was notable for a WBC of 17.4, sCr of 0.9 and a UA concerning for possible infection. Her CT C/A/P was notable for appropriate positioning of her right ureteral stent with perinephric and periureteral fat stranding, concerning for an active urinary tract infection. She was also noted to have a severely distended bladder and a varela catheter was placed with immediate drainage of more than 1500 cc's of clear yellow urine. She was subsequently started on Rocephin and Zosyn, this has been transitioned to Ampicillin following her positive UCx of Enteroccocus Faecalis. - Agree with UCx directed antibiotics - Will be scheduled for a cystoscopy, right ureteroscopy, laser lithotripsy and right ureteral stent exchange within the next 6 weeks, cannot be performed during an active urinary tract infection - Right ureteral stent is in good position and does not require exchange - Varela catheter to remain in place for now, DO NOT REMOVE WITHOUT SPEAKING TO [facility] - Will continue to follow along - Appreciate assistance of hospitalist team with the management of this patient (2) Urinary tract infection: Problem details: Please see plan above Qualifiers: Urinary tract infection type: site unspecified Hematuria presence: without hematuria Qualified Code(s): N39.0 - Urinary tract infection, site not specified Status: Acute Time-Based Coding :: [TOTAL MINUTES] spent with patient and on the chart (including review of chart, obtaining history, exam, reviewing outside data, placing orders, documenting exam and treatment plan, and counseling patient) on [DATE]. PROFEE Charge Codes Inpatient or Observation consultation: [id number]
[2024-10-11] MEDS: HYDROCODONE/ACET 5/325 TABLET 1 TAB PO (21:21)
[2024-10-12] VITALS (50 sets, daily range): BP systolic 157–167; BP diastolic 72–109; PULSE 74–104; RESP 16–29; TEMP 36.3–37.4; O2SAT 93–98
[2024-10-12] MEDS: AMPICILLIN 2,000 MG in SODIUM CHLORIDE 0.9% 100 ML 200 MG IV ×5 (01:38→20:58)
[2024-10-12 05:40] LABS: Hematocrit 30.7 % (36-46); Hemoglobin 10.5 g/dL (12.0-16.0); Mean Corpuscular HGB Conc 34.1 % (30-36); Mean Corpuscular Hemoglobin 31.8 PG (26-34); Mean Corpuscular Volume 93.3 fL (80-100); Platelet Count 281 X10^3/uL (150-400)
[2024-10-12 05:53] LABS: Blood Urea Nitrogen 10 mg/dL (7-17); Calcium 8.3 mg/dL (8.4-10.2); Carbon Dioxide 22 mmol/L (22-32); Chloride 106 mmol/L (98-107); Estimated Glomerular Filt Rate > 60 mL/min (>60); Glucose 163 mg/dL (70-99); HEMOLYSIS < 15 (0-50); Potassium 3.4 mmol/L (3.4-5.1); Sodium 133 mmol/L (137-145)
[2024-10-12] MEDS: GABAPENTIN 300 MG CAPSULE PO ×2 (08:22→20:57)
[2024-10-12] MEDS: HEPARIN 5,000 UNIT/ML VIAL 5000 UNIT SUBCUT ×2 (08:22→20:55)
[2024-10-12] MEDS: SODIUM CHLORIDE 0.9% 1,000 ML 100 ML IV ×2 (08:22→18:42)
[2024-10-12] MEDS: INSULIN LISPRO 100 UNIT/ML 3ML VIAL SUBCUT ×4 (08:23→21:02)
--- NOTE | 2024-10-12 08:56 | P.PN_ITS ---
Subjective Subjective Interval history: Summary: Just before being transferred from the ED her blood pressure dropped to 86/47 so she was sent to the ICU but the Levophed that was planned was not needed as her blood pressure recovered to 109/80 and she has done well subsequently. The white blood count is 16.6. The CT nephrogram showed a right ureteral stent with obstruction. She was started on Zosyn and managed by Dr. Tapia from Urology. The BMP was normal with a glucose of 168 and a CK of 149. The procalcitonin was was 1.74. The UA showed both 5-10 RBCs and 5-10 wbc's. She wishes to be DNR and told me that her PCP was Cristian NEGRETE. An extensive PCR panel was negative. Urology has suggested delayed intervention after infection is treated. S: She feels extremely weak, denies flank pain. No nausea. Exam Vital Signs (past 8 hours): - 10/12/24 06:45 10/12/24 08:39 Temperature 99.4 F 97.6 F Pulse Rate 86 83 Respiratory Rate 22 22 Blood Pressure 162/72 H 157/74 H Pulse Oximetry 97 97 Oxygen Flow Rate 1 Oxygen Delivery Method Room Air Oxygen Flow Rate 1 Narrative Exam Narrative: NAD, alert and oriented. Fluent speech. Lungs are clear, normal rate and effort. Heart is regular, no murmur gallop or rub. Abdomen is soft, non distended. Extremities are free of edema. El (urology wants this to stay in place) Objective Imaging CT chest abdomen pelvis:: Radiologist's impression: Right ureteral stent is in place. Positioning appears as expected. However, there is persistent moderate right pelvocaliectasis. Delayed nephrogram indicates obstructive uropathy. Perinephric and periureteral fat stranding also seen, correlate urinalysis for infection. Multiple nonobstructing calyceal stones are present. There is also a right renal pelvis stone adjacent to the proximal pigtail measuring 5 mm. Significantly distended urinary bladder. No acute findings in the chest. Labs 10/12/24 04:40 10/12/24 04:40 Labs: Laboratory Results - last 24 hr 10/11/24 10/11/24 10/12/24 16:33 21:17 04:40 WBC 12.7 H RBC 3.29 L Hgb 10.5 L Hct 30.7 L MCV 93.3 MCH 31.8 MCHC 34.1 RDW 14.0 Plt Count 281 Sodium 133 L Potassium 3.4 Chloride 106 Carbon Dioxide 22 BUN 10 Creatinine 0.74 Estimated GFR > 60 BUN/Creatinine Ratio 13.5 Glucose 163 H POC Whole Bld Glucose 180 H 230 H Calcium 8.3 L 10/12/24 07:35 WBC RBC Hgb Hct MCV MCH MCHC RDW Plt Count Sodium Potassium Chloride Carbon Dioxide BUN Creatinine Estimated GFR BUN/Creatinine Ratio Glucose POC Whole Bld Glucose 154 H Calcium [facility] Social History household members: none Smoking Status: Never smoker alcohol intake: never Assessment & Plan Assessment & Plan narrative: 1. Pyelonephritis related to ureter stent. Present on admission and improving. She will have a delayed laser lithotripsy and right ureter stent exchange in 6 weeks. 2. Urine retention. This appears to be acute. Present on admission and active. 3. Leukocytosis. Present on admission and improving. 4. Kbz-dhqjlrp-qkqqhiwpf diabetes. Stable. Metformin and Ozempic on hold. 5. Hypertension. Stable, BP medicines on hold. 6. Probable Enterococcus bacteremia. Present on admission and active. PLAN: -continue IV antibiotics (Ampicillin 1 G Q4) and El (will discharge with this for retention). -follow cultures. Enterococcus in urine and blood. -monitor WBC. -El decompression -we will repeat blood cultures today and discuss with Infectious Disease. Anticipate IV antibiotics for a course of time given the presence of stones and a stent. KYRA: 10/14, anticipating a high probability of home with IV antibiotics. DVT prophylaxis: Heparin SQ Time-Based Coding :: [TOTAL MINUTES] spent with patient and on the chart (including review of chart, obtaining history, exam, reviewing outside data, placing orders, documenting exam and treatment plan, and counseling patient) on [DATE].
[2024-10-12] MEDS: POTASSIUM CHLORIDE 20 MEQ TAB 40 MEQ PO (11:48)
--- NOTE | 2024-10-12 13:46 | CM.DPNOTE ---
SVETLANA Smith Met w/patient and her daughter Sandy (Or-ah) to review discharge plan. Discussed the potential need for SNF for ongoing IV abx and therapies. Patient hopeful she will be able to return home with her daughter/family to assist. Daughter would like to take her home, and feels she could likely help with home infusion, however, daughter understands patient may benefit from rehab. Patient's SNF preference is [facility] and gives this [employer] permission to send this referral - will plan to check on bed availability and ask for insurance auth request to be started. Referral emailed to Lila at [facility] for review. plan: Discharge home w/[facility] (resumption) and family assist (possible home infusion) vs [facility]. SW team following closely for coordination. FREDDY
--- NOTE | 2024-10-12 14:55 | OT.IP.EVAL ---
Current Diagnoses Acute pyelonephritis (10/09/24) Calculus of ureter (10/09/24) Urinary tract infection, site not specified (10/09/24) Occupational Therapy Inpatient Evaluation/Re-Eval M1 PT/OT-IP Prior Functional Status Start: 10/12/24 15:30 Freq: NEEDED Status: Active Protocol: Document 10/12/24 14:08 [facility] (Rec: 10/12/24 16:01 [facility] Desktop) Medical Review Prior Functional Status Medical History Yes Reviewed Communication Communicates some needs and daughter answers questions as well Mobility and Gait It is unclear how much walking she was doing in her home with walker since September and pt and daughter state that she has been weak in her legs and has had multiple falls Activities of Daily See OT note about ADLs [employer], just returned home from her Living and IADL's daughter's after after SNF placement after last hospitalization in September Social History Household Members none Living Arrangements House Number of Floors ( One Floor Floors) Number of Stairs To 2 steps with right rail when stepping down to get into Enter/Railing? her house Home Environment High Toilet,Tub/Shower Home Equipment Front Wheel Walker,Four Wheel Walker,Tub Transfer Bench Employment Status Retired M2 OT-IP Current Condition Start: 10/12/24 15:30 Freq: Status: Active Protocol: Document 10/12/24 14:08 [facility] (Rec: 10/12/24 16:01 [facility] Desktop) Occupational Therapy Current Condition Current Condition Evaluation Date 10/12/24 Treatment Diagnosis Pyelonephritis, weakness Diagnosis Onset Date 10/09/24 M3 OT- IP Subjective and Pain Start: 10/12/24 15:30 Freq: Status: Active Protocol: Document 10/12/24 14:08 [facility] (Rec: 10/12/24 16:01 [facility] Desktop) OT- Subjective Occupational Therapy Visit Type Type Initial Evaluation Visit Start Time 14:08 Visit Stop Time 14:55 Occupational Therapy Visit Comments Patient Comments Pt agreed to get up and pt's daugther present in the room. Patient/Caregiver To go home. Goals OT Pain Assessment Pain When Pain Assessed At Rest Pain Present Pain Present Pain Reported Location right hip Pain Behaviors Facial Grimacing M4 OT- IP ADL's Start: 10/12/24 15:30 Freq: Status: Active Protocol: Document 10/12/24 14:08 [facility] (Rec: 10/12/24 16:01 [facility] Desktop) OT QLH-Xmsr-Eylvkin Comments OT Self-Feeding NOt at mealtime. Comments OT ADL-Grooming Comments OT Grooming Comments NOt performed. OT ADL-Oral Care Comments Oral Care Comments Pt refused. OT ADL-Dressing General Eval Lower Body Dressing Maximum Assistance Ability Areas Needing Socks Assistance OT ADL-Toileting Comments OT Toileting Pt not having to go at this time. Comments OT ADL-Bathing Comments OT Bathing Comments Sponge bath more appropriate versus use of rolling shower chair due to weakness. M6 OT- IP Functional Cognition Start: 10/12/24 15:30 Freq: Status: Active Protocol: Document 10/12/24 14:08 [facility] (Rec: 10/12/24 16:01 [facility] Desktop) Cognitive Factors Limiting Selfcare Function Cognitive Ability Level of Alertness Alert Patient Orientation Name,Age,Birthday,Place,Situation Attention Span Capable of Focused Attention,Capable of Sustained Ability Attention Ability to Follow Able to Follow One Step Commands Commands Cognitive Comments Cognitive Assessment Pt having low energy and needing encouragement to Comments actively participate in therapy. At the end of the session pt states not sure if she was to go to rehab or just give up. Spoke to case management as pt's daughter wanting to now if there are other options for pt is she does not want to go to rehab-palliative, hospice,etc. Encouraged pt to be proactive of her care and to voice her wants and needs. Per pt's daughter pt has difficulty to states her needs and wants, especially when she went to SNF after last admit. OT- Vision and Hearing OT- Hearing Assessment OT- Hearing WFL Assessment OT- Vision Assessment Visual Acuity Glasses All The Time Visual Attentiveness WFL Occular Pursuits WFL M7 OT- IP Mobility and Balance Start: 10/12/24 15:30 Freq: Status: Active Protocol: Document 10/12/24 14:08 [facility] (Rec: 10/12/24 16:01 [facility] Desktop) OT- Bed Mobility Assessment Rolling Level of Assistance Minimal Assistance Sit to Supine Sit to Supine Assist Maximum Assistance,1 Person Assistance OT-Transfer Assessment Sit to and From Stand Sit to and from Maximum Assistance,1 Person Assistance Stand Transfers Transfer Ability Minimal Assistance,2 Person Assistance Technique Transfer Destination Bed,Chair Transfer Technique Stand Step Pivot Devices Transfer Assistive Gait Belt,Front Wheeled Walker Devices Comments Mobility Comments MAX AX 1 to stand to the FWW and MAGALI x2 with fww to transfer back to bed. Pt very unsteady on her feet and has difficulty to pear picker her feet. At this time safer to have two person assist for transfers. OT- Balance Assessment Sitting Balance and Reactions Static Sitting Fair Balance Ability Dynamic Sitting Fair Balance Ability Standing Balance and Reactions Static Standing Poor Balance Ability Dynamic Standing Poor Balance Ability M8 OT- IP Objective Assessments Start: 10/12/24 15:30 Freq: Status: Active Protocol: Document 10/12/24 16:01 [facility] (Rec: 10/12/24 16:02 [facility] Desktop) OT Gross Range of Motion Upper Extremity Range of Motion ROM Impairments grossly WFL OT Strength Comments Strength Comments BUE 4-/5 to 4/5 M9 OT- IP Assessment and Plan Start: 10/12/24 15:30 Freq: Status: Active Protocol: Document 10/12/24 14:08 [facility] (Rec: 10/12/24 16:01 [facility] Desktop) OT Summary Assessment and Plan Potential Rehabilitation Fair Potential Analytic Complexity Moderate at Evaluation Summary OT Impairments Pain,Range of Motion,Strength,Balance,Functional Cognition,Functional Mobility,Self-Feeding,Grooming, Dressing,Toileting,Bathing,Toilet Transfers,Shower Transfers,Activity Tolerance Progress Towards Slow Progress due to Pain,Slow Progress due to Medical Goals Issues,Slow Progress due to Activity Tolerance,Slow Progress due to Cognition Assessment Summary Pt MOD complexity and main barriers are steps, decreased balance, activity tolerance, and overall strength. Pt needing 2 person assist for transfers with FWW. At this time best for pt to go to skilled rehab. Goals Self-Feeding Goal Independent Grooming Goal Independent Dressing Goal Standby Assistance Toileting Goal Standby Assistance Bathing Goal Minimal Assistance Toilet Transfer Goal Standby Assistance Shower Transfer Goal Minimal Assistance Days to Meet Goals 20 Frequency of Treatment Other frequency 5x/week Treatment Plan OT Treatment Plan ADL Training,Functional Cognition Training,Functional Mobility,Patient/Family Education,Discharge Planning Other Treatment Transfer to [facility] with MODA x1 with FWW. Recommendations and Next Treatment Focus Discharge Recommendations OT Discharge SNF Rehab Recommendations Transportation Needs Wheelchair/Cabulance at Discharge
--- NOTE | 2024-10-12 15:37 | PT.IIE ---
Current Diagnoses Acute pyelonephritis (10/09/24) Calculus of ureter (10/09/24) Urinary tract infection, site not specified (10/09/24) Physical Therapy Inpatient Evaluation/Re-Eval M1 PT/OT-IP Prior Functional Status Start: 10/12/24 15:19 Freq: NEEDED Status: Active Protocol: Document 10/12/24 14:07 [facility] (Rec: 10/12/24 15:37 [facility] Desktop) Medical Review Prior Functional Status Medical History Yes Reviewed Communication Communicates some needs and daughter answers questions as well Mobility and Gait It is unclear how much walking she was doing in her home with walker since September and pt and daughter state that she has been weak in her legs and has had multiple falls Activities of Daily See OT note about ADLs [employer], just returned home from her Living and IADL's daughter's after after SNF placement after last hospitalization in September Social History Household Members none Living Arrangements House Number of Floors ( One Floor Floors) Number of Stairs To 2 steps with right rail when stepping down to get into Enter/Railing? her house Home Environment High Toilet,Tub/Shower Home Equipment Front Wheel Walker,Four Wheel Walker,Tub Transfer Bench Employment Status Retired M2 PT-IP Current Condition Start: 10/12/24 15:19 Freq: NEEDED Status: Active Protocol: Document 10/12/24 14:07 [facility] (Rec: 10/12/24 15:37 [facility] Desktop) Physical Therapy Current Condition Current Condition Evaluation Date 10/12/24 Treatment Diagnosis R ureteral stent obstruction and pyelo M3 PT-IP Subjective Start: 10/12/24 15:19 Freq: NEEDED Status: Active Protocol: Document 10/12/24 14:07 [facility] (Rec: 10/12/24 15:37 [facility] Desktop) Subjective Physical Therapy Visit Type Type Initial Evaluation Visit Start Time 14:07 Visit Stop Time 14:42 Number of MARKETING LIAISON Visits 0 Physical Therapy Visit Comments Patient Comments Pt's overall verbalizations about situation express discouragement. She also presents with decreased self- motivation to move today for transfers, stepping and bed mobility and con't to state that she needs to be lifting/moved in the bed. PT provides firm encouragement for pt to attempt to move herself in the bed to improve strength and confidence. Therapy Pain Assessment Location right hip Scale Used Not rated M4 PT-IP Mobility and Gait Start: 10/12/24 15:19 Freq: NEEDED Status: Active Protocol: Document 10/12/24 14:07 [facility] (Rec: 10/12/24 15:37 [facility] Desktop) PT-Bed Mobility Assessment Sit to Supine Sit to Supine Maximum Assistance,1 Person Assistance Scooting Scooting Up and Down Minimal Assistance in Bed PT-Transfer Assessment Sit to and From Stand Sit to and from Maximum Assistance,1 Person Assistance,Use of Upper Stand Extremities Equipment Transfer Assistive Gait Belt,Front Wheeled Walker Device Transfers Transfer Destination Bed Transfer Technique Scooting steps Transfer Ability Level of Assist Minimal Assistance,1 Person Assistance,2 Person Assistance,Use of Upper Extremities Comments Mobility Comments Pt's legs appear functionally heavy and she is unable to brass pickler her feet well to step to the bed and shuffles with flexed hips and some decreased knee control as well Gait Assessment Gait Gait Assistance Minimum Assistance,1 Person Assist,2 Person Assist Required: Distance (Feet) 1 Assistive Devices Assistive Device Gait Belt,Front Wheeled Walker Gait Deviations General Gait Pattern Antalgic,Decreased Stride Length,Decreased Feet Clearance,Flexed Trunk,Step-to Gait Factors Limiting Gait Function Factors Limiting Decreased Activity Tolerance,Decreased Strength, Gait Function Difficulty Following Directions,Incoordination,Limited Range of Motion,Pain,Poor Balance,Poor Safety Awareness PT-Balance Assessment Sitting Balance and Reactions Static Sitting Fair Balance Ability Dynamic Sitting Poor Balance Ability Standing Balance and Reactions Static Standing Poor Balance Ability Dynamic Standing Poor Balance Ability Device Used RW M5 PT-IP Objective Assessments Start: 10/12/24 15:19 Freq: NEEDED Status: Active Protocol: Document 10/12/24 14:07 [facility] (Rec: 10/12/24 15:37 [facility] Desktop) Orientation Orientation/Cognition Orientation Name,Birthday,Month,Year,Place,Situation Safety Awareness Decreased Safety Awareness Gross Range of Motion Upper Extremity ROM Impairments Defer to OT Lower Extremity ROM Assessment Bilaterally Impaired Strength Lower Extremity Strength Assessment Bilaterally Impaired Comments Strength Comments Pt does not follow ROM and MMT and presents with functional weakness in B LEs with STS and stepping Coordination Assessment Gross Coordination Gross Coordination Impaired Assessment Coordination NT Comments Sensation Assessment Sensation Gross Sensation Right LE Impaired,Left LE Impaired Comments Sensation Comments Pt reports B LE with diabetic neuropathy M6 PT-IP Treatment Start: 10/12/24 15:19 Freq: NEEDED Status: Active Protocol: Document 10/12/24 14:07 [facility] (Rec: 10/12/24 15:37 [facility] Desktop) Physical Therapy Treatment Education Education Provided Safety Other Treatments Other Treatment Education to pt about importance of helping herself Performed move with all mobility and this counts as exercise and will empower her to increased confidence and functional strength M7 PT-IP Assessment and Plan Start: 10/12/24 15:19 Freq: NEEDED Status: Active Protocol: Document 10/12/24 14:07 [facility] (Rec: 10/12/24 15:37 MB Desktop) PT Summary Assessment and Plan Potential Rehabilitation Fair Potential Status of Condition Evolving at Evaluation Summary Impairments Pain,ROM,Strength,Balance,Coordination,Sensation,Bed Mobility,Transfers,Gait,Activity Tolerance Assessment Summary Pt is an 79 y/o presenting with functional weakness and decreased affect after a month of issues with right kidney, ureteral stent, kidney stones and infection. Pt reports a history of right sided sciatica and she reports increased right leg pain. Pt requires max A for STS and min A to take steps to the bed and max A to get into the bed today. She requires heavy encouragement to mobilize. Pt will require heavy assist and PT consult at d/c. Current level is SNF. Goals Bed Mobility Goal Independent Transfer Goal Standby Assistance,Front Wheeled Walker,Four Wheeled Walker Gait Goal Standby Assistance,Front Wheel Walker,Four Wheel Walker Gait Distance 50 Other Goals Pt will ascend and descend 2 steps with 1 rail to allow safe home entrance. Days to Meet Goals 10 Frequency of Treatment Frequency Of Once a Day Treatment Treatment Plan Physical Therapy Bed Mobility Training,Transfer Training,Gait Training, Treatment Plan Therapeutic Exercise,Balance Retraining,Post Op Education,Discharge Planning,Hot or Cold Pack, Neuromuscular Re-ed,Coordination Retraining,Manual Therapy Recommendations To Nursing Amount of Assist 2 Person Assist Needed Discharge Recommendations PT Discharge SNF Rehab Recommendations Transportation Needs Wheelchair/Cabulance at Discharge - PT assist x1-2
[2024-10-12] MEDS: HYDROCODONE/ACET 5/325 TABLET 1 TAB PO (20:57)
[2024-10-12] MEDS: INSULIN GLARGINE 100 UNIT/ML 3ML PEN 8 UNIT SUBCUT (20:58)
[2024-10-13] VITALS (45 sets, daily range): BP systolic 139–166; BP diastolic 60–79; PULSE 68–96; RESP 13–31; TEMP 36.1–36.9; O2SAT 94–98
[2024-10-13] MEDS: AMPICILLIN 2,000 MG in SODIUM CHLORIDE 0.9% 100 ML 200 MG IV ×6 (00:13→20:32)
[2024-10-13] MEDS: SODIUM CHLORIDE 0.9% 1,000 ML 100 ML IV (04:38)
[2024-10-13 05:20] LABS: Hematocrit 31.8 % (36-46); Hemoglobin 10.9 g/dL (12.0-16.0); Mean Corpuscular HGB Conc 34.3 % (30-36); Mean Corpuscular Hemoglobin 31.8 PG (26-34); Mean Corpuscular Volume 92.8 fL (80-100); Platelet Count 304 X10^3/uL (150-400)
[2024-10-13 05:35] LABS: Blood Urea Nitrogen 8 mg/dL (7-17); Calcium 8.5 mg/dL (8.4-10.2); Carbon Dioxide 24 mmol/L (22-32); Chloride 107 mmol/L (98-107); Estimated Glomerular Filt Rate > 60 mL/min (>60); Glucose 111 mg/dL (70-99); HEMOLYSIS < 15 (0-50); Potassium 4.1 mmol/L (3.4-5.1); Sodium 135 mmol/L (137-145)
--- NOTE | 2024-10-13 07:53 | PM.PN.1 ---
Subjective Subjective Date Patient Seen: 10/13/24 Interval history: She is alert and oriented x3. No apparent distress. The white blood count is 12.6 with a hemoglobin of 10.9. The BMP is normal. She has facing a 14 day treatment. Of IV ampicillin versus daptomycin for Enterococcus faecalis pyelonephritis and bacteremia. ID has recommended a PICC line placement 48 hours after last negative blood culture. This would be at 10:48 a.m. tomorrow 10/14. She has decided to go to [facility] to complete the antibiotic treatment. Exam Vital Signs (past 8 hours): - 10/13/24 00:00 10/13/24 00:08 10/13/24 00:08 Temperature 97.2 F L Pulse Rate 73 78 Respiratory Rate 20 22 Blood Pressure 151/74 H Pulse Oximetry 96 10/13/24 00:30 10/13/24 01:00 10/13/24 01:30 Temperature Pulse Rate 74 73 71 Respiratory Rate 18 19 19 Blood Pressure Pulse Oximetry 10/13/24 02:00 10/13/24 02:30 10/13/24 03:00 Temperature Pulse Rate 72 71 73 Respiratory Rate 19 20 19 Blood Pressure Pulse Oximetry Oxygen Delivery Method Room Air Oxygen Flow Rate 1 Narrative Exam Narrative: Alert and oriented x3. No apparent distress. Obese Heart regular rate and rhythm without murmur Lungs clear to auscultation bilaterally Extremities no ankle edema Objective Labs 10/13/24 04:19 10/13/24 04:19 Labs: Laboratory Results - last 24 hr 10/12/24 10/12/24 10/12/24 11:45 16:19 20:21 WBC RBC Hgb Hct MCV MCH MCHC RDW Plt Count Sodium Potassium Chloride Carbon Dioxide BUN Creatinine Estimated GFR BUN/Creatinine Ratio Glucose POC Whole Bld Glucose 262 H D 234 H 251 H Calcium 10/13/24 10/13/24 04:19 07:48 WBC 12.6 H RBC 3.43 L Hgb 10.9 L Hct 31.8 L MCV 92.8 MCH 31.8 MCHC 34.3 RDW 14.4 Plt Count 304 Sodium 135 L Potassium 4.1 Chloride 107 Carbon Dioxide 24 BUN 8 Creatinine 0.79 Estimated GFR > 60 BUN/Creatinine Ratio 10.1 Glucose 111 H POC Whole Bld Glucose 117 H D Calcium 8.5 PFSH Social History household members: none Smoking Status: Never smoker alcohol intake: never Assessment & Plan Assessment & Plan narrative: 1. Pyelonephritis related to ureter stent. Present on admission and improving. She will have a delayed laser lithotripsy and right ureter stent exchange in 6 weeks. 2. Urine retention. This appears to be acute. Present on admission and active. 3. Leukocytosis. Present on admission and improving. 4. Kqi-fbqwqnb-urhlwtgwl diabetes. Stable. Metformin and Ozempic on hold. 5. Hypertension. Stable, BP medicines on hold. 6. Blood cultures x2 10/09 Enterococcus bacteremia. Present on admission and active. PLAN: -per discussions with ID: Ampicillin 1 G Q4 for 14 days total and El (will discharge with this for retention). Alternatively daptomycin, which the patient is declining at this time. -Enterococcus in urine and blood. -monitor WBC. -El decompression -repeated blood cultures 10/12. If negative at 48 hours, 11:00 a.m. on 10/14, we will proceed with PICC line. KYRA: 10/14 if discharge to [facility] facility and PICC placement can be coordinated on the weekend. DVT prophylaxis: Heparin SQ Time-Based Coding :: [TOTAL MINUTES] spent with patient and on the chart (including review of chart, obtaining history, exam, reviewing outside data, placing orders, documenting exam and treatment plan, and counseling patient) on [DATE].
[2024-10-13] MEDS: ACETAMINOPHEN 325 MG TABLET 650 MG PO (08:25)
[2024-10-13] MEDS: SODIUM CHLORIDE 0.9% FLUSH 10 ML IV ×2 (08:25→20:32)
[2024-10-13] MEDS: HEPARIN 5,000 UNIT/ML VIAL 5000 UNIT SUBCUT ×2 (08:25→20:31)
[2024-10-13] MEDS: GABAPENTIN 300 MG CAPSULE PO ×2 (08:25→20:32)
[2024-10-13] MEDS: INSULIN LISPRO 100 UNIT/ML 3ML VIAL SUBCUT ×3 (13:37→21:06)
--- NOTE | 2024-10-13 15:46 | CM.DPNOTE ---
DCP Cont According to discussion in multidisciplinary rounds this morning; Dr Ingram is recommending PICC be placed 48 hrs after +blood culture (tomorrow 10/14) and patient have either 2 weeks IV ampicillin 2g every 4 hours or if going home, Q24 IV daptomycin . Reviewed plan with patient and her daughter Ora; lengthy conversation reviewing all possible discharge plan options, including home w/hospice. Patient/daughter inevitably request the following: Discharge to [facility] for therapies and IV abc once insurance auth is secured with referral to [facility] to assist with future planning. In contact with Lila at [facility] throughout the day; emailed updated therapy notes. Still need updated MD note outlining outpatient IV abx treatment plan. Dr Ingram will be following patient once discharged. Hospital exempt PASRR completed and signed. Plan: Discharge to [facility] once insurance auth is secured, via [employer] van. New referral sent via [employer] today. SW team following closely for coordination. FREDDY
--- NOTE | 2024-10-13 15:57 | PT.IPTN ---
Current Diagnoses Acute pyelonephritis (10/09/24) Calculus of ureter (10/09/24) Urinary tract infection, site not specified (10/09/24) Physical Therapy Treatment Note M2 PT-IP Current Condition Start: 10/12/24 15:19 Freq: NEEDED Status: Active Protocol: Document 10/12/24 14:07 MB (Rec: 10/12/24 15:37 MB Desktop) Physical Therapy Current Condition Current Condition Evaluation Date 10/12/24 Treatment Diagnosis R ureteral stent obstruction and pyelo M3 PT-IP Subjective Start: 10/12/24 15:19 Freq: NEEDED Status: Active Protocol: Document 10/13/24 15:41 STALLION MANAGER (Rec: 10/13/24 15:57 STALLION MANAGER [id number]) Subjective Physical Therapy Visit Type Type Treatment Note Visit Start Time 14:42 Visit Stop Time 15:14 Number of PLANT INSPECTOR Visits 0 Physical Therapy Visit Comments Patient Comments Pt sitting up in chair, very motivated to work with PT. Therapy Pain Assessment Pain When Pain Assessed At Rest Pain Present Pain Present Pain Reported Location right hip Intensity 0 Scale Used Numeric (0 - 10) M4 PT-IP Mobility and Gait Start: 10/12/24 15:19 Freq: NEEDED Status: Active Protocol: Document 10/13/24 15:41 STALLION MANAGER (Rec: 10/13/24 15:57 STALLION MANAGER [id number]) PT-Transfer Assessment Sit to and From Stand Sit to and from Contact Guard Assistance,Minimal Assistance Stand Equipment Transfer Assistive Front Wheeled Walker Device Transfers Transfer Destination Chair Transfer Technique Stand Step Pivot Transfer Ability Level of Assist Contact Guard Assistance Comments Mobility Comments Pt in chair at start of session, after gait training transferred back to chair. Sit<>stand Min A on first rep, CGA on second and third rep. Gait Assessment Gait Gait Assistance Contact Guard Assist Required: Distance (Feet) 45 Assistive Devices Assistive Device Front Wheeled Walker Gait Deviations General Gait Pattern Flexed Trunk Factors Limiting Gait Function Factors Limiting Decreased Activity Tolerance,Decreased Strength Gait Function Comments Gait Comments Pt with slow forward flexed posture but able to correct with many cues. Minimally unsteady but without LOB. PT-Balance Assessment Sitting Balance and Reactions Static Sitting Normal Balance Ability Dynamic Sitting Normal Balance Ability Standing Balance and Reactions Static Standing Good Balance Ability Dynamic Standing Fair Balance Ability M5 PT-IP Objective Assessments Start: 10/12/24 15:19 Freq: NEEDED Status: Active Protocol: Document 10/13/24 15:41 STALLION MANAGER (Rec: 10/13/24 15:57 STALLION MANAGER [id number]) Orientation Orientation/Cognition Level of Alertness Alert Orientation Name,Year,Place,Situation Safety Awareness Understands Safety Issues Other Assessments Other Other Assessments Pt performed seated BLE exercises, amb from chair sink to perform ADLs and work on standing tolerance and upright posture endurance with frequent cues, amb another lap chair to wall in room without rest break, then returned to chair. Pt demonstrated improved strength and activity tolerance this session. M6 PT-IP Treatment Start: 10/12/24 15:19 Freq: NEEDED Status: Active Protocol: Document 10/13/24 15:41 STALLION MANAGER (Rec: 10/13/24 15:57 STALLION MANAGER [id number]) Physical Therapy Treatment Other Treatments Other Treatment Seated BLE x10: ankle pumps, LAQs, marching with Performed limited hip flex on R d/t pain/weakness. M7 PT-IP Assessment and Plan Start: 10/12/24 15:19 Freq: NEEDED Status: Active Protocol: Document 10/13/24 15:41 STALLION MANAGER (Rec: 10/13/24 15:57 STALLION MANAGER [id number]) PT Summary Assessment and Plan Potential Rehabilitation Good Potential Summary Progress Towards Progressing Toward Goals Goals Assessment Summary Pt is an 79 y/o presenting with functional weakness and decreased affect after a month of issues with right kidney, ureteral stent, kidney stones and infection. Pt reports a history of right sided sciatica and she reports increased right leg pain. Pt requires max A for STS and min A to take steps to the bed and max A to get into the bed today. She requires heavy encouragement to mobilize. Pt will require heavy assist and PT consult at d/c. Current level is SNF. Goals Bed Mobility Goal Independent Transfer Goal Standby Assistance,Front Wheeled Walker,Four Wheeled Walker Gait Goal Standby Assistance,Front Wheel Walker,Four Wheel Walker Gait Distance 50 Other Goals Pt will ascend and descend 2 steps with 1 rail to allow safe home entrance. Days to Meet Goals 10 Frequency of Treatment Frequency Of Once a Day Treatment Treatment Plan Physical Therapy Bed Mobility Training,Transfer Training,Gait Training, Treatment Plan Therapeutic Exercise,Balance Retraining,Post Op Education,Discharge Planning,Hot or Cold Pack, Neuromuscular Re-ed,Coordination Retraining,Manual Therapy Recommendations To Nursing Amount of Assist 1 Person Assist Needed Discharge Recommendations PT Discharge SNF Rehab Recommendations Transportation Needs Wheelchair/Cabulance at Discharge - PT assist x1
[2024-10-13] MEDS: HYDROCODONE/ACET 5/325 TABLET 1 TAB PO (20:31)
[2024-10-13] MEDS: INSULIN GLARGINE 100 UNIT/ML 3ML PEN 10 UNIT SUBCUT (21:06)
[2024-10-14] VITALS (59 sets, daily range): BP systolic 144–217; BP diastolic 67–112; PULSE 67–97; RESP 16–36; TEMP 35.9–36.8; O2SAT 94–98
[2024-10-14] MEDS: AMPICILLIN 2,000 MG in SODIUM CHLORIDE 0.9% 100 ML 200 MG IV ×6 (00:30→21:08)
[2024-10-14] MEDS: SODIUM CHLORIDE 0.9% FLUSH 10 ML IV ×2 (08:18→21:09)
[2024-10-14] MEDS: GABAPENTIN 300 MG CAPSULE PO ×2 (08:18→21:09)
[2024-10-14] MEDS: HEPARIN 5,000 UNIT/ML VIAL 5000 UNIT SUBCUT ×2 (08:18→21:09)
--- NOTE | 2024-10-14 11:45 | CM.DPNOTE ---
DCP note EDUCATION PROGRAM SPECIALIST reviewed EMR per RN/provider getting PICC today early afternoon. dc tomorrow to [facility]. EDUCATION PROGRAM SPECIALIST spoke with Lila from [facility], updated on tomorrow plan. time pending. PASRR previously completed. EDUCATION PROGRAM SPECIALIST met with pt and friend in room. updated on plan for tomorrow. in agreement with plan. deny CM questions at this time. P: dc tomorrow to [facility] time pending. may need medicaid wc van transport. CM team will continue to follow closely for DCP coordination SANDER Collins
--- NOTE | 2024-10-14 12:38 | PT.IPTN ---
Current Diagnoses Acute pyelonephritis (10/09/24) Calculus of ureter (10/09/24) Urinary tract infection, site not specified (10/09/24) Physical Therapy Treatment Note M2 PT-IP Current Condition Start: 10/12/24 15:19 Freq: NEEDED Status: Active Protocol: Document 10/12/24 14:07 MB (Rec: 10/12/24 15:37 MB Desktop) Physical Therapy Current Condition Current Condition Evaluation Date 10/12/24 Treatment Diagnosis R ureteral stent obstruction and pyelo M3 PT-IP Subjective Start: 10/12/24 15:19 Freq: NEEDED Status: Active Protocol: Document 10/14/24 12:10 MB (Rec: 10/14/24 12:38 MB Desktop) Subjective Physical Therapy Visit Type Type Treatment Note Visit Start Time 12:10 Visit Stop Time 12:21 Number of CANAL STRUCTURE OPERATOR Visits 0 Physical Therapy Visit Comments Patient Comments Pt is agreeable to treatment. Therapy Pain Assessment Pain When Pain Assessed At Rest Pain Present Pain Present Pain Reported Location right hip Intensity 5 Scale Used Numeric (0 - 10) M4 PT-IP Mobility and Gait Start: 10/12/24 15:19 Freq: NEEDED Status: Active Protocol: Document 10/14/24 12:10 MB (Rec: 10/14/24 12:38 MB Desktop) PT-Transfer Assessment Sit to and From Stand Sit to and from Moderate Assistance,1 Person Assistance,Use of Upper Stand Extremities Equipment Transfer Assistive Gait Belt,Front Wheeled Walker Device Transfers Transfer Destination Chair Transfer Technique Ambulation Gait Assessment Gait Gait Assistance Contact Guard Assist,1 Person Assist Required: Distance (Feet) 10 Assistive Devices Assistive Device Gait Belt,Front Wheeled Walker Gait Deviations General Gait Pattern Antalgic,Decreased Stride Length,Decreased Feet Clearance,Flexed Trunk,Step-to Gait,Wide Based Gait Factors Limiting Gait Function Factors Limiting Decreased Strength,Pain,Poor Balance Gait Function Comments Gait Comments 10' forward and back x2 with PT managing IV line and distance limited by tele line PT-Balance Assessment Sitting Balance and Reactions Static Sitting Normal Balance Ability Dynamic Sitting Normal Balance Ability Standing Balance and Reactions Static Standing Good Balance Ability Dynamic Standing Fair Balance Ability M5 PT-IP Objective Assessments Start: 10/12/24 15:19 Freq: NEEDED Status: Active Protocol: Document 10/13/24 15:41 PARK ACTIVITIES COORDINATOR (Rec: 10/13/24 15:57 PARK ACTIVITIES COORDINATOR [id number]) Orientation Orientation/Cognition Level of Alertness Alert Orientation Name,Year,Place,Situation Safety Awareness Understands Safety Issues Other Assessments Other Other Assessments Pt performed seated BLE exercises, amb from chair sink to perform ADLs and work on standing tolerance and upright posture endurance with frequent cues, amb another lap chair to wall in room without rest break, then returned to chair. Pt demonstrated improved strength and activity tolerance this session. M6 PT-IP Treatment Start: 10/12/24 15:19 Freq: NEEDED Status: Active Protocol: Document 10/13/24 15:41 PARK ACTIVITIES COORDINATOR (Rec: 10/13/24 15:57 PARK ACTIVITIES COORDINATOR [id number]) Physical Therapy Treatment Other Treatments Other Treatment Seated BLE x10: ankle pumps, LAQs, marching with Performed limited hip flex on R d/t pain/weakness. M7 PT-IP Assessment and Plan Start: 10/12/24 15:19 Freq: NEEDED Status: Active Protocol: Document 10/14/24 12:10 MB (Rec: 10/14/24 12:38 MB Desktop) PT Summary Assessment and Plan Potential Rehabilitation Good Potential Status of Condition Evolving at Evaluation Summary Impairments Pain,ROM,Strength,Balance,Coordination,Sensation,Bed Mobility,Transfers,Gait,Activity Tolerance Progress Towards Progressing Toward Goals Goals Assessment Summary Pt is progressing towards mobility goals and picks up her feet better with gait today and is able to perform both forward stepping and retropulsion today. Goals Bed Mobility Goal Independent Transfer Goal Standby Assistance,Front Wheeled Walker,Four Wheeled Walker Gait Goal Standby Assistance,Front Wheel Walker,Four Wheel Walker Gait Distance 50 Other Goals Pt will ascend and descend 2 steps with 1 rail to allow safe home entrance. Days to Meet Goals 10 Frequency of Treatment Frequency Of Once a Day Treatment Treatment Plan Physical Therapy Bed Mobility Training,Transfer Training,Gait Training, Treatment Plan Therapeutic Exercise,Balance Retraining,Post Op Education,Discharge Planning,Hot or Cold Pack, Neuromuscular Re-ed,Coordination Retraining,Manual Therapy Recommendations To Nursing Amount of Assist 1 Person Assist Needed Discharge Recommendations PT Discharge SNF Rehab Recommendations Transportation Needs Wheelchair/Cabulance at Discharge - PT assist x1
--- NOTE | 2024-10-14 16:23 | P.PN_ITS ---
Subjective Subjective Date Patient Seen: 10/14/24 Interval history: Chief complaint: Sepsis secondary to UTI History of present illness: 10/09: 79-year-old female with past medical history of bbt-oymwtpy-yjihknqlz diabetes, hypertension, neuropathy and obstructive nephrolithiasis presents with generalized weakness and a fall. 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 The patient subsequently had a ureteral stents placed on the right. Per report the patient slipped out the bed tonight and unable to get up on her own. The patient was on the ground for roughly 10 hours with 2 episodes of loose stools. The patient did complain of some right hip pain with her fall. The patient otherwise denies any fever, chills, nausea, vomiting, diarrhea, chest pain or shortness of breath. In the emergency room, the patient was hemodynamically stable. Labs however shows WBC of 17 normal lactic acid negative troponin elevated procalcitonin at 1.74 and positive UA. Viral respiratory panel were negative. CT scan of the abdomen pelvis shows right ureteral stent in place persistent moderate right palpable callus stasis delay nephrogram indicates obstructive uropathy. There is multiple nonobstructing stones seen in the right renal pelvis. Significantly distended urinary bladder. There is concern for perinephric periureteral fat stranding. The patient was given IV Zosyn, IV fluid and IV pain medication. Dr. Tapia from urology was consulted and recommended that we admit the patient for continuing IV fluid, IV antibiotic, pain control and he will consult in the morning for any intervention. Hospital course: 10/13: She is alert and oriented x3. No apparent distress. The white blood count is 12.6 with a hemoglobin of 10.9. The BMP is normal. She has facing a 14 day treatment. Of IV ampicillin versus daptomycin for Enterococcus faecalis pyelonephritis and bacteremia. ID has recommended a PICC line placement 48 hours after last negative blood culture. This would be at 10:48 a.m. tomorrow 10/14. She has decided to go to [facility] to complete the antibiotic treatment. 10/14: Patient seems to be doing well is having a PICC line placed for 14 days of IV ampicillin and plan to go to senior care Review of systems: No fever or chills No nausea vomiting No cough wheezing shortness for breath no abdominal pain diarrhea Physical exam: No acute distress HEENT unremarkable Respirations unlabored Moves all extremities Assessment and plan: 1. Pyelonephritis related to ureter stent. Present on admission and improving. She will have a delayed laser lithotripsy and right ureter stent exchange in 6 weeks. 2. Urine retention. This appears to be acute. Present on admission and active. 3. Leukocytosis. Present on admission and improving. 4. Rsx-garrysb-zpzmffcbo diabetes. Stable. Metformin and Ozempic on hold. 5. Hypertension. Stable, BP medicines on hold. 6. Blood cultures x2 10/09 Enterococcus bacteremia. Present on admission and active. PLAN: -per discussions with ID: Ampicillin 1 G Q4 for 14 days total and El (will discharge with this for retention). Alternatively daptomycin, which the patient is declining at this time. -Enterococcus in urine and blood. -monitor WBC. -El decompression -repeated blood cultures 10/12. If negative at 48 hours, 11:00 a.m. on 10/14, we will proceed with PICC line. KYRA: 10/14 if discharge to senior care facility and PICC placement can be coordinated on the weekend. DVT prophylaxis: Heparin SQ Time-Based Coding :: 35 minute spent with patient and on the chart (including review of chart, obtaining history, exam, reviewing outside data, placing orders, documenting exam and treatment plan, and counseling patient) Exam Vital Signs (past 8 hours): - 10/14/24 08:30 10/14/24 09:00 10/14/24 09:30 Temperature Pulse Rate 77 86 96 H Respiratory Rate 19 22 28 H Blood Pressure Pulse Oximetry Oxygen Flow Rate 10/14/24 10:00 10/14/24 10:30 10/14/24 11:00 Temperature Pulse Rate 97 H 97 H 86 Respiratory Rate 25 H 29 H 20 Blood Pressure Pulse Oximetry Oxygen Flow Rate 10/14/24 11:30 10/14/24 11:48 10/14/24 11:48 Temperature Pulse Rate 83 82 Respiratory Rate 22 24 Blood Pressure 144/68 H Pulse Oximetry 95 Oxygen Flow Rate 10/14/24 12:00 10/14/24 12:00 10/14/24 12:30 Temperature 96.7 F L Pulse Rate 80 80 89 Respiratory Rate 20 28 H 31 H Blood Pressure 144/68 H Pulse Oximetry 97 Oxygen Flow Rate 0 10/14/24 13:00 10/14/24 13:30 10/14/24 14:00 Temperature Pulse Rate 90 86 83 Respiratory Rate 26 H 24 22 Blood Pressure Pulse Oximetry Oxygen Flow Rate 10/14/24 14:30 10/14/24 15:00 10/14/24 15:30 Temperature Pulse Rate 82 84 89 Respiratory Rate 25 H 25 H 32 H Blood Pressure Pulse Oximetry Oxygen Flow Rate 10/14/24 15:33 10/14/24 15:33 10/14/24 15:34 Temperature Pulse Rate 84 Respiratory Rate 23 Blood Pressure 176/112 H 177/82 H Pulse Oximetry 98 Oxygen Flow Rate 10/14/24 15:34 10/14/24 16:00 Temperature Pulse Rate 81 82 Respiratory Rate 19 23 Blood Pressure Pulse Oximetry 98 Oxygen Flow Rate Oxygen Delivery Method Room Air Oxygen Flow Rate 0 Objective Labs 10/13/24 04:19 10/13/24 04:19 Labs: Laboratory Results - last 24 hr 10/13/24 10/13/24 10/14/24 16:36 20:50 07:44 POC Whole Bld Glucose 237 H 227 H 88 D 10/14/24 11:49 POC Whole Bld Glucose 181 H PFSH Social History household members: none Smoking Status: Never smoker alcohol intake: never Assessment & Plan Time-Based Coding :: [TOTAL MINUTES] spent with patient and on the chart (including review of chart, obtaining history, exam, reviewing outside data, placing orders, documenting exam and treatment plan, and counseling patient) on [DATE].
--- NOTE | 2024-10-14 16:56 | DI.RAD.S_ITS ---
PROCEDURE: XR CHEST 1V INDICATIONS: PICC Placement TECHNIQUE: One view of the chest was acquired. COMPARISON: [facility], CT, CT CHEST ABD PEL W CON, 10/09/2024, 18:38. [facility], CR, XR CHEST 1V, 09/05/2024, 10:40. FINDINGS: Surgical changes and devices: Right-sided PICC line with the catheter tip at the cavoatrial junction. Lungs and pleura: Lungs appear clear. No pleural effusions or pneumothorax. Mediastinum: Mediastinal contours appear normal. Heart size is normal. Bones and chest wall: No suspicious bony lesions. Overlying soft tissues appear unremarkable. IMPRESSION: Right-sided PICC line with the catheter tip at the cavoatrial junction. Dictated by: Gavin Alcaraz M.D. on 10/14/2024 at 17:42 Approved by: Gavin Alcaraz M.D. on 10/14/2024 at 17:53
[2024-10-14] MEDS: INSULIN LISPRO 100 UNIT/ML 3ML VIAL SUBCUT ×2 (16:57→21:06)
[2024-10-14] MEDS: INSULIN GLARGINE 100 UNIT/ML 3ML PEN 10 UNIT SUBCUT (21:07)
[2024-10-14] MEDS: MORPHINE 4 MG/ML INJ 3 MG IV (21:36)
[2024-10-14] MEDS: LOSARTAN 50 MG TABLET PO (22:31)
[2024-10-14] MEDS: AMLODIPINE 5 MG TABLET 10 MG PO (22:33)
[2024-10-15] VITALS (12 sets, daily range): BP systolic 155–167; BP diastolic 73–76; PULSE 71–82; RESP 18–22; TEMP 36.4; O2SAT 93
[2024-10-15] MEDS: AMPICILLIN 2,000 MG in SODIUM CHLORIDE 0.9% 100 ML 200 MG IV ×3 (00:58→09:17)
[2024-10-15] MEDS: GABAPENTIN 300 MG CAPSULE PO (08:06)
[2024-10-15] MEDS: HEPARIN 5,000 UNIT/ML VIAL 5000 UNIT SUBCUT (08:07)
[2024-10-15] MEDS: AMLODIPINE 5 MG TABLET 10 MG PO (08:07)
[2024-10-15] MEDS: SODIUM CHLORIDE 0.9% FLUSH 10 ML IV (08:07)
[2024-10-15] MEDS: LOSARTAN 50 MG TABLET PO (08:07)
--- NOTE | 2024-10-15 09:10 | PM.DS.1 ---
History of Present Illness History of Present Illness Date Patient Seen: 10/15/24 Chief complaint: Fall, down all night Narrative: Chief complaint: Sepsis secondary to UTI History of present illness: 10/09: 79-year-old female with past medical history of ggp-lzssvay-ptwrgkvbj diabetes, hypertension, neuropathy and obstructive nephrolithiasis presents with generalized weakness and a fall. 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 The patient subsequently had a ureteral stents placed on the right. Per report the patient slipped out the bed tonight and unable to get up on her own. The patient was on the ground for roughly 10 hours with 2 episodes of loose stools. The patient did complain of some right hip pain with her fall. The patient otherwise denies any fever, chills, nausea, vomiting, diarrhea, chest pain or shortness of breath. In the emergency room, the patient was hemodynamically stable. Labs however shows WBC of 17 normal lactic acid negative troponin elevated procalcitonin at 1.74 and positive UA. Viral respiratory panel were negative. CT scan of the abdomen pelvis shows right ureteral stent in place persistent moderate right palpable callus stasis delay nephrogram indicates obstructive uropathy. There is multiple nonobstructing stones seen in the right renal pelvis. Significantly distended urinary bladder. There is concern for perinephric periureteral fat stranding. The patient was given IV Zosyn, IV fluid and IV pain medication. Dr. Tapia from urology was consulted and recommended that we admit the patient for continuing IV fluid, IV antibiotic, pain control and he will consult in the morning for any intervention. Hospital course: 10/13: She is alert and oriented x3. No apparent distress. The white blood count is 12.6 with a hemoglobin of 10.9. The BMP is normal. She has facing a 14 day treatment. Of IV ampicillin versus daptomycin for Enterococcus faecalis pyelonephritis and bacteremia. ID has recommended a PICC line placement 48 hours after last negative blood culture. This would be at 10:48 a.m. tomorrow 10/14. She has decided to go to [facility] to complete the antibiotic treatment. 10/14: Patient seems to be doing well is having a PICC line placed for 14 days of IV ampicillin and plan to go to long term Review of systems: No fever or chills No nausea vomiting No cough wheezing shortness for breath no abdominal pain diarrhea Physical exam: No acute distress HEENT unremarkable Respirations unlabored Moves all extremities Urine culture and MAC 1. Enterococcus faecalis M.I.C. RX --------- --- * Ampicillin <=2 S * Vancomycin 1 S * Ciprofloxacin <=0.5 S * Gentamicin 500 SYN-S S * Levofloxacin 1 S * Linezolid 2 S * Nitrofurantoin <=16 S * Streptomycin 2000 SYN-S S * Tetracycline >=16 R Assessment and plan: 1. Pyelonephritis related to ureter stent. Present on admission and improving. She will have a delayed laser lithotripsy and right ureter stent exchange in 6 weeks. 2. Urine retention. This appears to be acute. Present on admission and active. 3. Leukocytosis. Present on admission and improving. 4. Bfm-nbcydzm-xaghedyew diabetes. Stable. Metformin and Ozempic on hold. 5. Hypertension. Stable, BP medicines on hold. 6. Blood cultures x2 10/09 Enterococcus bacteremia. Present on admission and active. PLAN: -per discussions with ID: Ampicillin 2 G Q4 for 14 days total and El (will discharge with this for retention). Alternatively daptomycin, which the patient is declining at this time. -Enterococcus in urine and blood. -monitor WBC. -El decompression -repeated blood cultures 10/12. If negative at 48 hours, 11:00 a.m. on 10/14, we will proceed with PICC line. KYRA: 10/14 if discharge to long term facility and PICC placement can be coordinated on the weekend. DVT prophylaxis: Heparin SQ Time-Based Coding :: 35 minute spent with patient and on the chart (including review of chart, obtaining history, exam, reviewing outside data, placing orders, documenting exam and treatment plan, and counseling patient) Discharge Providers Provider Date of admission: 10/09/24 22:03 Discharge Date: 10/15/24 Primary care physician: Cristian Peña ND Consults: 10/09/24 12:20 Consult to FLOWER GRADER - Recreation Therapist Stat Comment: Recreation Therapist Consult needed for:: Lives alone No caregiver at home Comment: ambulates w/ walker, fell and down at night 10+hrs covered in feces--family away on trip 10/10/24 01:07 Consult to Urology Routine Comment: Consulting Provider: Nain Tapia Reason for consultation: sepsis, pyelo, ureteral stent Has provider been notified: Yes 10/12/24 10:14 Consult to Occupational Therapy Evaluate & Treat Comment: Physician Instructions: Evaluate and treat Consult to Physical Therapy Evaluate & Treat Comment: Physician Instructions: Evaluate and Treat Discharge provider: Yuriy Horton MD Exam Vital Signs (past 8 hours): - 10/15/24 01:30 10/15/24 02:00 10/15/24 02:30 Temperature Pulse Rate 75 72 80 Respiratory Rate 21 19 22 Blood Pressure Pulse Oximetry 10/15/24 03:00 10/15/24 03:30 10/15/24 04:00 Temperature 97.5 F L Pulse Rate 74 71 Respiratory Rate 20 19 Blood Pressure Pulse Oximetry 10/15/24 04:00 10/15/24 04:01 10/15/24 04:01 Temperature Pulse Rate 75 75 Respiratory Rate 20 20 Blood Pressure 155/73 H Pulse Oximetry 10/15/24 08:00 Temperature Pulse Rate 82 Respiratory Rate 18 Blood Pressure 163/76 H Pulse Oximetry 93 Oxygen Delivery Method Room Air Oxygen Flow Rate 0 Objective Labs 10/13/24 04:19 10/13/24 04:19 Labs: Laboratory Results - last 24 hr 10/14/24 10/14/24 10/14/24 11:49 16:53 21:03 POC Whole Bld Glucose 181 H 256 H 294 H PFSH Social History household members: none Smoking Status: Never smoker alcohol intake: never Discharge Plan Discharge Plan Patient Disposition: SNF Discharge orders & Medications Prescriptions: New ampicillin sodium 2 gram recon soln 2 g IV Q4H lorazepam 0.5 mg Tablet 0.5 mg PO QPM Qty: 10 0RF insulin lispro [Admelog U-100 Insulin lispro] 100 unit/mL Solution 0 unit SUBCUT ACHS Qty: 10 0RF insulin glargine [Lantus Solostar U-100 Insulin] 100 unit/mL (3 mL) Insulin Pen 10 unit SUBCUT BEDTIME Qty: 10 0RF Continued promethazine 25 MG tablet 25 mg PO QPM Qty: 0 losartan 50 mg tablet 50 mg PO DAILY metformin 1,000 mg tablet 1,000 mg PO BID gabapentin 300 mg capsule 300 mg PO Q12H Patient Comments: 300mg BID Ozempic 0.25 mg or 0.5 mg (2 mg/3 mL) pen injector 0.5 mg SUBCUT .Q7 days Patient Comments: [NO ORIGINAL SIG] ondansetron 4 MG tablet,disintegrating 4 mg Sublingual Q6HP amlodipine 10 mg tablet 10 mg PO DAILY Qty: 30 0RF Patient Comments: patient is unclear if she is still taking this medication polyethylene glycol 3350 17 gram Powder In Packet 17 gm PO BID Qty: 30 0RF Slow-Mag 71.5 mg Tablet,Delayed Release (Dr/Ec) 128 mg PO Q8H Qty: 90 0RF lorazepam 0.5 MG tablet 0.5 mg PO QPM Qty: 14 0RF Follow up/Referrals: Cristian Peña ARNP [Primary Care Provider, Naturopathy] Visit Report/Discharge Packet Stand Alone Forms: Patient Portal/API Discharge Data Primary Care Provider: Cristian Peña
--- NOTE | 2024-10-15 09:31 | CM.DPC ---
DCP Discharge SNF Per MD, pt is medically stable to d/c to SNF today for ongoing IV abx and care and discharge orders completed. CESAR spoke to Lila at [facility] and confirmed they have cabulance scheduled for 1130 today and secure emailed PASRR, signed med list, scripts, d/c summary, MD orders, PICC note, labs and cultures, prog note and MAR to [facility] to review. CESAR updated pt and RN bedside on time of transport and pt remains agreeable and called pt's Dtr Ora and updated and she confirms she was expecting discharge today and will be bedside by 1100 with pt's belongings. 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 Plan: patient to d/c to [facility] today via [facility] cabulance at 1130 before safe return home with Dtr support. Sofie Gates MSW
== END 2024-10-15 11:53 | DRG 698 ==
LOC: ED 18:55 → AC 22:04 → ICU 10-10 07:52
PROVIDERS: Hospitalist; Student in an Organized Health Care Education/Training Program; Admitting Provider Internal Medicine; Emergency Provider Internal Medicine; Family Provider Registered Nurse; PCP Registered Nurse; Referring Provider Emergency Medicine; Visit Provider Internal Medicine
DX: T83.593A Infection and inflammatory reaction due to other urinary stents, initial encounter (principal); A41.9 Sepsis, unspecified organism; N13.6 Pyonephrosis; Z16.29 Resistance to other single specified antibiotic; I10 Essential (primary) hypertension; R33.9 Retention of urine, unspecified; B95.2 Enterococcus as the cause of diseases classified elsewhere; E11.40 Type 2 diabetes mellitus with diabetic neuropathy, unspecified; W06.XXXA Fall from bed, initial encounter; Y73.1 Therapeutic (nonsurgical) and rehabilitative gastroenterology and urology devices associated with adverse incidents; Z79.85 Long-term (current) use of injectable non-insulin antidiabetic drugs; Z66 Do not resuscitate; Z79.84 Long term (current) use of oral hypoglycemic drugs
CPT/HCPCS: 36415; 36573; 51798; 71045; 71260; 73502; 74177; 80048; 80053; 81001; 81015; 82550; 82962; 83605; 84145; 84484; 85025; 85027; 87040; 87077; 87086; 87154; 87186; 87637; 93005; 93010; 96361; 96365; 96366; 96375; 97116; 97129; 97162; 97166; 97530; 97535; 99284; 99291; J0290; J1644; J1815; J2270; J2405; J2543; J3010

== ENCOUNTER 2024-10-20 13:09 | Observation (INO) | payer OTHER, MEDICAID, SELFPAY ==
[2024-10-10 08:27] VITALS: BMI 30.1
[2024-10-20 13:21] VITALS: BP 118/56; PULSE 56; RESP 16; TEMP 36.6; O2SAT 96; BMI 30.1
--- NOTE | 2024-10-20 13:42 | ED_ITS ---
<Statement entered by Dakota Majano, - 10/21/24 01:26> Dr. Majano: I was immediately available in the department for consultation. I did not actually see the patient. HPI - Recheck/Abnormal Lab/Rx General Chief Complaint: Recheck/Abnormal Lab/Rx Stated Complaint: Access to Pic line of off , needs it reattached, Time Seen by Provider: 10/20/24 13:42 History of Present Illness HPI narrative: Ms. Stafford is a pleasant 79-year-old female with a past medical history of hypertension, diabetes, currently being treated with 2gm ampicillin q.4 hours via PICC line after admission on 10/09/2024 for urosepsis s/p ureteral stent placement, she was discharged from the hospital on 10/15/24 to SNF for 14 days of IV abx but returns to the ER today with her daughter from [facility] due to her PICC line accidentally being pulled out last night and needing a new PICC line placed. Daughter, Sandy, at bedside contributes to history. Patient states that she accidentally pulled out her right upper arm PICC line last night. Because of this she has missed 2 doses of her ampicillin. Patient's daughter states that she got a call from her mom today saying that she wanted to leave the nursing facility and that she needed a new PICC line. Patient overall has been feeling well since receiving her antibiotic infusions, denies fevers, chills, abdominal pain, nausea, vomiting. She does have a El catheter placed and reports that it is quite irritating and she is having increased bowel movements because of the antibiotics, otherwise she is doing well. She is unhappy with her care at the nursing facility and does not want to go back , facility called and pt did leave AMA. Picc team called in to replace her line. Related Data Home Medications ?Medication ?Instructions ?Recorded ?Confirmed promethazine 25 mg tablet 25 mg PO QPM ##0 05/09/17 gabapentin 300 mg capsule 300 mg PO Q12H 09/08/2411/27 losartan 50 mg tablet 50 mg PO DAILY 09/08/2411/27 metformin 1,000 mg tablet 1,000 mg PO BID 09/08/2411/27 ondansetron 4 mg disintegrating 4 mg sublingual Q6HP 0 09/08/24 10/10/24 tablet semaglutide 0.25 mg or 0.5 mg (2 0.5 mg SUBCUT .Q7 day s 09/08/24 10/10/24 mg/3 mL) subcutaneous pen injector (Ozempic) Previous Rx's ?Medication ?Instructions ?Recorded amlodipine 10 mg tablet 10 mg PO DAILY #30 tabs 09/03 0/25 lorazepam 0.5 mg tablet 0.5 mg PO QPM #14 tabs 09/12 magnesium chloride 71.5 mg 128 mg (1.7902 x 71.5 mg) P O Q8H 09/12/24 (magnesium chloride) #90 tabs tablet,delayed release (Slow-Mag) polyethylene glycol 3350 17 gram 17 gm PO BID #30 ea 0 09/12/24 oral powder packet ampicillin sodium 2 gram 2 g IV Q4H 10/15/24 intravenous solution insulin glargine 100 unit/mL (3 10 unit (0.1 mL) SUBCU T BEDTIME 10/15/24 mL) subcutaneous pen (Lantus #10 mL Solostar U-100 Insulin) insulin lispro 100 unit/mL 0 unit (0 mL) SUBCUT ACHS # 10 mL 10/15/24 subcutaneous solution (Admelog U-100 Insulin lispro) lorazepam 0.5 mg tablet 0.5 mg PO QPM #10 tabs 10/15 Allergies Allergy/AdvReac Type Severity Reaction Status Date / Time codeine (CODEINE) Allergy Intermediate NAUSEA / Verified 09/05/24 10:50 HIVES cortisone (CORTISONE) Allergy Intermediate LIGHT / Verified 09/05/24 10:50 SOUND SENSITIVITY Review of Systems Review of Systems ROS Unobtainable: All systems reviewed & are unremarkable except as noted in HPI and below Patient History Social History household members: none alcohol intake: never Exam Narrative Exam Narrative: GENERAL: 79 year old patient appears stated age. In no acute distress. HEAD: Atraumatic. Normocephalic. EYES: No scleral icterus. No injection or drainage. NECK: Trachea midline. Cervical ROM intact. CARDIOVASCULAR: Regular rate and rhythm. RESPIRATORY: ?Nonlabored respirations. ?Speaking in clear, full sentences. ?Clear to auscultation. Breath sounds equal bilaterally. No wheezes, rales, or rhonchi. ? GASTROINTESTINAL: Abdomen soft, non-tender, nondistended. BS present. El catheter in place with yellow urine in the bag. EXTREMITIES: No edema or joint tenderness of upper or lower extremities. BACK: Nontender without deformity or crepitance. No flank tenderness. NEURO: AOx3. ?Clear speech. ?Moves all 4 extremities appropriately. Is able to provide her own history. SKIN: No rash or erythema of visible areas Initial Vital Signs Initial Vital Signs: Vital Signs Temperature 97.9 F 10/20/24 13:21 Pulse Rate 56 L 10/20/24 13:21 Respiratory Rate 16 10/20/24 13:21 Blood Pressure 118/56 L 10/20/24 13:21 Pulse Oximetry 96 10/20/24 13:21 Oxygen Delivery Method Room Air 10/20/24 13:21 Course Orders Ordered: ED Orders 10/20/24 13:30 Consult to TOBACCO GROWER - Sqe Stat 10/20/24 15:25 XR chest for PICC 1V Stat 10/20/24 18:00 CBC Auto Diff [Complete Blood Count AUTO DIFF] Stat CMP [Comprehensive Metabolic Panel] Stat Ampicillin Sodium 2,000 mg/ (Sodium Chloride) 100 mls @ 200 mls/hr IV Q4H CORINNE POTASSIUM CHLORIDE IN WATER (Potassium Cl 10 Meq/100 Ml Anna) 10 meq in 100 mls @ 100 mls/hr IV Q1H CORINNE Stop: 10/20/24 22:44 Discontinued Medications Ampicillin Sodium 2,000 mg/ (Sodium Chloride) 100 mls @ 200 mls/hr IV NOW ONE Stop: 10/20/24 14:04 Last Infusion: 10/20/24 16:17 Dose: Infused Documented By: Admin: 10/20/24 15:37 Dose: 200 mls/hr Documented By: CASH Vital Signs Vital signs: Vital Signs - 8 hr 10/20/24 13:21 Temperature 97.9 F Pulse Rate 56 L Respiratory Rate 16 Blood Pressure 118/56 L Pulse Oximetry 96 Oxygen Delivery Method Room Air MDM - Recheck/Abnormal Lab/Rx Medical Records Attestation: I reviewed the patient's medical records. Lab Data 10/20/24 18:00 10/20/24 18:00 MDM Narrative Medical decision making narrative: 79-year-old female with a past medical history of hypertension, diabetes, currently being treated with 2gm ampicillin q.4 hours via PICC line after admission on 10/09/2024 for urosepsis s/p ureteral stent placement, she was discharged from the hospital on 10/15/24 to SNF for 14 days of IV abx but returns to the ER today with her daughter from [facility] due to her PICC line accidentally being pulled out last night and needing a new PICC line placed. Urine and blood cultures were positive for Enterococcus faecalis. Differential diagnosis includes but is not limited to accidental PICC line removal, need for new PICC line, bacteremia, UTI, medication side effect, etc. On exam patient is in no acute distress, nontoxic appearing, vital signs appropriate. She is here with her daughter, patient's PICC line needs to be replaced, she also is due for her IV ampicillin. Patient's abdomen is soft and nontender however she has been having increased stools. She has no complaints at this time of pain. PICC line team was consulted, PICC placed at bedside and x-ray ordered. Plan was for placement of PICC line and discharge back to SNF however patient states that she was unhappy with her care there and left Against Medical Advice and will not return there. Social work evaluated the patient and the patient is currently in the process of being place at a new SNF however this will take some time. Patient currently awaiting placement at a new SNF. She requires ampicillin every 4 hours. After discussion with the attending ED physician, this patient would benefit from admission so she can receive her continued infusions. 1750: Discussed case with hospitalist, Dr. Fong, who agrees to admit the patient to observation. CBC and CMP ordered. Diet ordered. Ampicillin q.4 hours ordered. Labs reveal improving WBC count, currently 9.8. She does have significant decrease in her potassium at 2.6. Forty mEq IV potassium ordered. This may be result of patient's increased bowel movements. She is stable for transfer to the floor and agreeable at this time. Discharge Plan Departure Patient Disposition: Admitted as Observation Clinical Impression: Status post peripherally inserted central catheter (PICC) central line placement, El catheter in place, Acute hypokalemia, Receiving intravenous antibiotic treatment as outpatient Admit Date/Time: 10/20/24 17:55 Admit Provider: Otis Fong
--- NOTE | 2024-10-20 15:25 | DI.RAD.S_ITS ---
PROCEDURE: XR CHEST FOR PICC 1V INDICATIONS: picc placement COMPARISON: [facility], [place], XR CHEST 1V, 10/14/2024, 16:53. [facility], [place], XR CHEST 1V, 09/05/2024, 10:40. FINDINGS: PICC was placed by the intravenous therapy team from the left side. Fluoroscopic spot film demonstrates the tip of PICC projecting to the area of azygos arch area of the superior vena cava. IMPRESSION: Tip of PICC projects to the area of azygos arch area of the superior vena cava. Dictated by: Yuriy Diaz M.D. on 10/20/2024 at 16:28 Approved by: Yuriy Diaz M.D. on 10/20/2024 at 16:29
[2024-10-20] MEDS: AMPICILLIN 2,000 MG in SODIUM CHLORIDE 0.9% 100 ML 200 MG IV ×2 (15:37→20:29)
--- NOTE | 2024-10-20 18:09 | CM.IDA ---
Initial ED CLINICAL EDUCATOR Assessment Patient is 79 y/o female who presents to ED via POV due to concern for PICC line removed, patient left SNF at [facility] today and needs currently being treated with 2gm ampicillin q.4 hours via PICC line. Patient came to seeking PICC replacement and to identify plan of care. Patient was admitted on 09/05-09/12 for sepsis and was discharged to [facility], most recently patient was admitted for GLF found down on the ground for 10 hours on 10/09/24-10/15/24 and discharged to [facility]. Pt's Primary Care Provider is CADEN Lyon and insurance is [employer] Medicare and Medicaid. Patient's daughter was present in the ED but is not currently present. This CLINICAL EDUCATOR and patient leave VM with patient. Patient presents as A/Ox4, patient endorses she did not like the care she was receiving at [facility] and states she was not getting medications as ordered and had a bowel movement accident when she was there. Patient states she requested to leave the facility. Patient states she accidentally pulled out her PICC line yesterday and it was caught on her wheelchair. Patient states her last abx dose was yesterday afternoon. In the ED, the DI nurse replaces patient's PICC line. CLINICAL EDUCATOR calls [facility], it is reported that patient left facility AMA and her PICC was pulled out unwitnessed. It is reported that there is some possibility of patient's return to facility but she left AMA. Patient endorses preference to not return to [facility] and CLINICAL EDUCATOR provides patient with lists of SNF rehab medicare choice list. Patient endorses preference for [facility]. Patient agrees for CLINICAL EDUCATOR to fax referral to [facility] as well. CLINICAL EDUCATOR calls [facility] and faxes referral for review. CLINICAL EDUCATOR calls [facility] and faxes referral for review. ED provider reviews patient with Hospitalist and patient is admitted as OBS. Patient is diagnosed with chronic UTI with varela in place and PICC in place. Plan: patient admitted as OBS, SNF rehabs reviewing patient for placement, patient requiring ongoing IV antibiotics every 4 hours. Chetna Fang [facility] Discharge Planning/Care Management CM Discharge Assessment Start: 10/20/24 18:01 Freq: Status: Active Protocol: Document 10/20/24 18:01 LIANNE (Rec: 10/20/24 18:08 LN [id number]) Discharge Planning Assessment Assigned Discharge JOHANA Basilio Hat Blocker DPOA/Assigned Sandy Hernandez, Daughter Designee Name Contact Information [phone] Advance Directives? No Advance Directives No on File History Provided By Patient,Medical Record Has Patient been Yes admitted in last 30 days? Comment 09/05/24-09/12/24: D/C to SNF [facility]) 10/09/24-10/15/24: D/C to SNF ([facility]) Prior Living House Arrangements Household Members none Type of Relies on Others transporation used prior to admit Independent with ADL Yes 's Is patient alert and Yes oriented? Patient/Family [facility] Facility Preference Comment [facility] is preference Discharge Plan [facility] Referrals Initiated [facility] Medicare Choice List Yes Provided Medicare choice list patient reviewed on electronic tablet with SNF/HH Preference [facility] Has Agency SNF been Yes contacted Review Status In Process Next Review Type Continued Stay Review
[2024-10-20 18:10] LABS: Add Manual Diff / Slide Review NO; Hematocrit 32.2 % (36-46); Hemoglobin 11.0 g/dL (12.0-16.0); Lymphocytes Absolute Auto 1900 /uL (1100-4500); Mean Corpuscular HGB Conc 34.3 % (30-36); Mean Corpuscular Hemoglobin 31.4 PG (26-34); Mean Corpuscular Volume 91.5 fL (80-100); Platelet Count 451 X10^3/uL (150-400)
[2024-10-20 18:22] LABS: Alanine Aminotransferase 15 IU/L (<35); Albumin 3.0 g/dL (3.5-5.0); Albumin Globulin Ratio 1.0 (1.0-2.8); Alkaline Phosphatase 64 U/L (38-126); Blood Urea Nitrogen 9 mg/dL (7-17); Calcium 9.2 mg/dL (8.4-10.2); Carbon Dioxide 33 mmol/L (22-32); Chloride 100 mmol/L (98-107); Estimated Glomerular Filt Rate > 60 mL/min (>60); Globulin 3.1 g/dL (1.7-4.1); Glucose 114 mg/dL (70-99); HEMOLYSIS < 15 (0-50); Sodium 139 mmol/L (137-145); Total Protein 6.1 g/dL (6.3-8.2)
[2024-10-20 18:33] LABS: Potassium 2.6 mmol/L (3.4-5.1)
[2024-10-20 18:51] VITALS: BP 145/80; PULSE 89; RESP 16; TEMP 36.3; O2SAT 93
[2024-10-20 20:00] VITALS: BP 150/72; PULSE 85; RESP 18; TEMP 36.2; O2SAT 93
[2024-10-20] MEDS: POTASSIUM CHLORIDE IN WATER 10 MEQ/100 ML PIGGYBACK 100 MEQ IV ×3 (20:21→23:02)
[2024-10-20] MEDS: HYDROCODONE/ACET 5/325 TABLET 1 TAB PO (21:22)
[2024-10-20] MEDS: HEPARIN 5,000 UNIT/ML VIAL 5000 UNIT SUBCUT (21:22)
--- NOTE | 2024-10-20 22:43 | PC.WOUNDPHOT ---
pictures downloaded for Chandu THOMAS
[2024-10-21] VITALS: BP 116/75; PULSE 82; RESP 17; TEMP 36.2; O2SAT 92
[2024-10-21] MEDS: AMPICILLIN 2,000 MG in SODIUM CHLORIDE 0.9% 100 ML 200 MG IV ×6 (00:05→19:55)
[2024-10-21] MEDS: POTASSIUM CHLORIDE IN WATER 10 MEQ/100 ML PIGGYBACK 100 MEQ IV ×5 (00:15→11:55)
[2024-10-21 04:00] VITALS: BP 129/69; PULSE 76; RESP 19; TEMP 36.4; O2SAT 92
[2024-10-21 06:40] LABS: Add Manual Diff / Slide Review NO; Hematocrit 29.2 % (36-46); Hemoglobin 10.0 g/dL (12.0-16.0); Lymphocytes Absolute Auto 1500 /uL (1100-4500); Mean Corpuscular HGB Conc 34.3 % (30-36); Mean Corpuscular Hemoglobin 31.4 PG (26-34); Mean Corpuscular Volume 91.6 fL (80-100); Platelet Count 422 X10^3/uL (150-400)
[2024-10-21 06:52] LABS: Alanine Aminotransferase 13 IU/L (<35); Albumin 2.8 g/dL (3.5-5.0); Albumin Globulin Ratio 1.0 (1.0-2.8); Alkaline Phosphatase 59 U/L (38-126); Blood Urea Nitrogen 11 mg/dL (7-17); Calcium 8.6 mg/dL (8.4-10.2); Carbon Dioxide 33 mmol/L (22-32); Chloride 100 mmol/L (98-107); Estimated Glomerular Filt Rate > 60 mL/min (>60); Globulin 2.8 g/dL (1.7-4.1); Glucose 102 mg/dL (70-99); HEMOLYSIS < 15 (0-50); Potassium 3.0 mmol/L (3.4-5.1); Sodium 136 mmol/L (137-145); Total Protein 5.6 g/dL (6.3-8.2)
[2024-10-21 07:44] LABS: Magnesium 1.1 mg/dL (1.6-2.3)
[2024-10-21 08:00] VITALS: BP 134/72; PULSE 85; RESP 16; TEMP 36.3; O2SAT 90
--- NOTE | 2024-10-21 08:05 | PM.HP.1 ---
History of Present Illness History of Present Illness Date Patient Seen: 10/20/24 Time Patient Seen: 21:09 Chief complaint: Access to Pic line is off , needs it reattached, Narrative: 79-year-old female with past medical history of hypertension, neuropathy, anxiety, non-insulin dependent diabetes with recent diagnosis of Enterococcus bacteremia and urosepsis was sent here from her care facility because she pulled out her PICC line. Of note the patient recently was admitted to our hospital due to urosepsis requiring a ureteral stent placement from an obstructive kidney stones and Enterococcus bacteremia on outpatient IV ampicillin. Per report the patient pulled out her PICC that was required for ongoing IV ampicillin today. It was reported that the patient accidentally pulled the PICC out from her right arm last night. Because of this the patient missed 2 doses of her ampicillin. Somehow the patient was very unsatisfied with her custodial facility that she was at. The patient requested that she be brought back to our ER for a new PICC line placement. Otherwise the patient denies any fever, chills, nausea, vomiting, diarrhea, chest pain, abdominal pain or shortness of breath. In the emergency room, patient remained hemodynamically stable. Labs were relatively benign except for a potassium of 2.6. The patient was given ampicillin along with potassium replacement. A new PICC line on the left side was also placed. However the patient refused to go back to her custodial facility and wanted us to admit the patient overnight for possible new placement in the morning. [facility] Social History household members: none Smoking Status: Current some day smoker alcohol intake: never Meds Home Medications and Allergies Home Medications ?Medication ?Instructions ?Recorded ?Confirmed ?Type gabapentin 300 mg capsule 300 mg PO Q12H 09/08/24 10/20/24 History losartan 50 mg tablet 50 mg PO DAILY 09/08/24 10/20/24 History metformin 1,000 mg tablet 1,000 mg PO BID 09/08/24 10/20/24 History semaglutide 0.25 mg or 0.5 mg (2 0.5 mg SUBCUT .Q7 days 09/08/24 10/20/24 History mg/3 mL) subcutaneous pen injector (ApplyMapempic) Held on 10/20/24. Instructions: been in hospital amlodipine 10 mg tablet 10 mg PO DAILY #30 tabs 09/12/24 10/20/24 Rx magnesium chloride 71.5 mg 128 mg (1.7902 x 71.5 mg) PO Q8H 09/12/24 10/20/24 Rx (magnesium chloride) #90 tabs tablet,delayed release (Slow-Mag) polyethylene glycol 3350 17 gram 17 gm PO BID #30 ea 09/12/24 10/20/24 Rx oral powder packet ampicillin sodium 2 gram 2 g IV Q4H 10/15/24 10/20/24 Rx intravenous solution lorazepam 0.5 mg tablet 0.5 mg PO QPM #10 tabs 10/15/24 10/20/24 Rx lorazepam 0.5 mg tablet 0.5 mg PO QAM 10/20/24 10/20/24 History Allergies Allergy/AdvReac Type Severity Reaction Status Date / Time codeine (CODEINE) Allergy Intermediate NAUSEA / Verified 09/05/24 10:50 HIVES cortisone (CORTISONE) Allergy Intermediate LIGHT / Verified 09/05/24 10:50 SOUND SENSITIVITY Review of Systems Review of Systems ROS: Yes All systems reviewed with the patient and are negative except as otherwise documented Exam Vital Signs (past 8 hours): - 10/21/24 04:00 Temperature 97.5 F L Pulse Rate 76 Respiratory Rate 19 Blood Pressure 129/69 Pulse Oximetry 92 Oxygen Delivery Method Room Air Oxygen Flow Rate 0 Narrative Exam Narrative: Physical Exam: GENERAL: The patient is not in any acute distressed. Awake and alert. New PICC on left upper arm. HEENT: Nonicteric sclerae, PERRLA, EOMI. Oropharynx clear. Moist mucous membranes. Conjunctivae appear well perfused. HEART: Regular rate and rhythm without murmurs. No lower extremities edema. LUNGS: Clear to auscultation bilaterally. No wheezing, crackles or rhonchi ABDOMEN: Soft, positive bowel sounds, nontender. SKIN: No rash, no excessive bruising, petechiae, or purpura. NEUROLOGIC: AxO x 3. Cranial nerves II-XII intact without motor/sensory deficit. Objective Labs 10/21/24 06:19 10/21/24 06:19 Labs: Laboratory Results - last 24 hr 10/20/24 10/20/24 10/21/24 18:00 20:59 06:19 WBC 9.8 7.7 RBC 3.52 L 3.18 L Hgb 11.0 L 10.0 L Hct 32.2 L 29.2 L MCV 91.5 91.6 MCH 31.4 31.4 MCHC 34.3 34.3 RDW 14.3 14.1 Plt Count 451 H 422 H Neut % (Auto) 71.9 70.6 Lymph % (Auto) 19.0 L 18.8 L [place] % (Auto) 5.7 6.7 Eos % (Auto) 2.5 2.8 Baso % (Auto) 0.9 1.1 Neut # (Auto) 7100 H 5500 Lymph # (Auto) 1900 1500 [place]ilion # (Auto) 600 500 Eos # (Auto) 200 200 Baso # (Auto) 100 100 Sodium 139 136 L Potassium 2.6 L* D 3.0 L Chloride 100 100 Carbon Dioxide 33 H 33 H BUN 9 11 Creatinine 0.79 0.84 Estimated GFR > 60 > 60 BUN/Creatinine Ratio 11.4 13.1 Glucose 114 H 102 H POC Whole Bld Glucose 172 H D Calcium 9.2 8.6 Magnesium 1.1 L Total Bilirubin 0.5 0.5 AST 21 20 ALT 15 13 Alkaline Phosphatase 64 59 Total Protein 6.1 L 5.6 L Albumin 3.0 L 2.8 L Globulin 3.1 2.8 Albumin/Globulin Ratio 1.0 1.0 10/21/24 07:54 WBC RBC Hgb Hct MCV MCH MCHC RDW Plt Count Neut % (Auto) Lymph % (Auto) Vermilion % (Auto) Eos % (Auto) Baso % (Auto) Neut # (Auto) Lymph # (Auto) [place] # (Auto) Eos # (Auto) Baso # (Auto) Sodium Potassium Chloride Carbon Dioxide BUN Creatinine Estimated GFR BUN/Creatinine Ratio Glucose POC Whole Bld Glucose 109 H Calcium Magnesium Total Bilirubin AST ALT Alkaline Phosphatase Total Protein Albumin Globulin Albumin/Globulin Ratio Assessment & Plan Assessment & Plan narrative: Enterococcus bacteremia. Admit the patient to medical telemetry under observation. Of note the patient will PICC line was placed. Continue ampicillin. Patient requested to have placement to new custodial facility. Will have mental health social worker to assist with this. Hypertension. Monitor blood pressure resume home medication accordingly. Neuropathy. Resume home gabapentin. Anxiety. As needed Ativan. [id number] diabetes. Monitor glucose and give subcu insulin as needed. DVT prophylaxis SCD due to observational status. CODE STATUS full code. Disposition likely to new custodial facility in 1 to 2 days - As the provider of this telehealth evaluation, requested by the patient's evaluating physician, I attest that I introduced myself to the patient, provided my credentials and determined that telemedicine via a real-time, 2 way interactive audio and video platform is an appropriate and effective means of providing this service. - I reviewed the patient's chart and had a discussion with the member of the patient's treatment team. - The patient and I mutually agreed with continuation of this evaluation via telemedicine. The patient consented for the telemedicine evaluation. - This virtual encounter was taken place from [place] by Dr. Cecil Acuna. The patient was evaluated at [facility]. The encounter was approximately 35 minutes. The nurse was present during the entire time of the encounter and was able to move the stethoscope in appropriate directions. Time-Based Coding :: [TOTAL MINUTES] spent with patient and on the chart (including review of chart, obtaining history, exam, reviewing outside data, placing orders, documenting exam and treatment plan, and counseling patient) on [DATE]. Quality VTE Deep Vein Thrombosis/Pulmonary Embolism Present on Admission: No
[2024-10-21] MEDS: MAGNESIUM SULFATE 4 GM/100 ML PIGGYBACK IV (09:01)
[2024-10-21] MEDS: LACTOBACILLUS ACIDOPHILUS TABLET 1 EACH PO (09:01)
[2024-10-21] MEDS: HEPARIN 5,000 UNIT/ML VIAL 5000 UNIT SUBCUT ×2 (09:01→20:11)
[2024-10-21] MEDS: SODIUM CHLORIDE 0.9% FLUSH 10 ML IV (09:01)
--- NOTE | 2024-10-21 10:20 | PT.IIE ---
Physical Therapy Inpatient Evaluation/Re-Eval M1 PT/OT-IP Prior Functional Status Start: 10/21/24 13:01 Freq: NEEDED Status: Active Protocol: Document 10/21/24 10:20 AB (Rec: 10/21/24 13:32 AB Desktop) Medical Review Prior Functional Status Medical History Yes Reviewed Communication able to make needs known Mobility and Gait pt with recent hospitalizations: 09/05/24 to 09/12/24 for hydronephrosis with stent placement and was d/c'd for SNF. pt was modified independent with all mobilities and ambulation using a hurrycane prior to that. pt eventually was d/c'd home but had a fall and was hospitalized again 10/09/24 to 10/15/24 for sepsis. pt stated that since her 09/05 hospitalization, she has been using a FWW. pt was d/c'd to SNF again afterwards. Social History Household Members none Living Arrangements House Number of Floors ( One Floor Floors) Number of Stairs To 2 steps R rail going down to enter the house Enter/Railing? Home Environment High Toilet,Tub/Shower Home Equipment Front Wheel Walker,Four Wheel Walker,Tub Transfer Bench Additional Social daughter lives ~ 1 mile away and may be able to assist History Comment but cannot provide / assist pt has a toilet safety frame, hurrycane M2 PT-IP Current Condition Start: 10/21/24 13:01 Freq: NEEDED Status: Active Protocol: Document 10/21/24 10:20 AB (Rec: 10/21/24 13:32 AB Desktop) Physical Therapy Current Condition Current Condition Evaluation Date 10/21/24 Treatment Diagnosis hypokalemia; PICC line placement; difficulty in walking Onset Date 10/20/24 M3 PT-IP Subjective Start: 10/21/24 13:01 Freq: NEEDED Status: Active Protocol: Document 10/21/24 10:20 AB (Rec: 10/21/24 13:32 AB Desktop) Subjective Physical Therapy Visit Type Type Initial Evaluation Visit Start Time 10:20 Visit Stop Time 11:00 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 0 Physical Therapy Visit Comments Patient Comments agreeable to do PT; stated that she is depressed and does not want to go to SNF and just wants to stay in the hospital M4 PT-IP Mobility and Gait Start: 10/21/24 13:01 Freq: NEEDED Status: Active Protocol: Document 10/21/24 10:20 AB (Rec: 10/21/24 13:32 AB Desktop) PT-Bed Mobility Assessment Supine to Sit Supine to Sit Standby Assistance Sit to Supine Sit to Supine Standby Assistance PT-Transfer Assessment Sit to and From Stand Sit to and from Contact Guard Assistance,1 Person Assistance,Use of Stand Upper Extremities Equipment Transfer Assistive Gait Belt,Front Wheeled Walker Device Orthotic/Prosthetic No Devices or Brace: Transfers Transfer Destination Bed,Chair Transfer Technique ambulated Transfer Ability Level of Assist Contact Guard Assistance,1 Person Assistance,Use of Upper Extremities Comments Mobility Comments pt sitting on the chair. pt stated that she is stressed out and does not want to go back to SNF. Pt aware that she has ongoing need for IV antibiotics at this time needing for SNF placement aside form mobility assistance needs. per EMR, pt left AMA from last SNF placement. pt agreeable to do PT. obtained PLOF and home set up. BP: 140/81. complete sit to stand CGA and ambulated to EOB using FWW CGA. completed bed mobility sit<>supine SBA. sit to stand from EOB CGA and ambulated more in room using FWW ~ 50 ft needing CGA with initial ambulation but midway requiring min A and cues. pt with increased stooped posture and slower placed gait midway of ambulation needing to sit back on chair. positioned pt on the chair. call light and table placed within reach. Gait Assessment Gait Gait Assistance Contact Guard Assist,Minimum Assistance Required: Distance (Feet) 50 Able to Maintain Yes Weight Bearing Status During Gait Assistive Devices Assistive Device Gait Belt,Front Wheeled Walker Orthotic/Prosthetic No Devices or Brace: Gait Deviations General Gait Pattern Antalgic,Decreased Stride Length,Decreased Feet Clearance Factors Limiting Gait Function Factors Limiting Decreased Activity Tolerance,Decreased Strength,Limited Gait Function Range of Motion,Pain,Poor Balance,Poor Safety Awareness PT-Balance Assessment Sitting Balance and Reactions Static Sitting Normal Balance Ability Dynamic Sitting Good Balance Ability Standing Balance and Reactions Static Standing Fair Balance Ability Dynamic Standing Fair Balance Ability Device Used FWW M5 PT-IP Objective Assessments Start: 10/21/24 13:01 Freq: NEEDED Status: Active Protocol: Document 10/21/24 10:20 AB (Rec: 10/21/24 13:32 AB Desktop) Orientation Orientation/Cognition Level of Alertness Alert Orientation Name,Place,Situation Safety Awareness Decreased Safety Awareness Memory Description No Deficits Noted Gross Range of Motion Lower Extremity ROM Assessment Within Functional Limits Strength Comments Strength Comments RLE: 4/5 LLE: 4-/5 Coordination Assessment Gross Coordination Gross Coordination WNL Sensation Assessment Sensation Gross Sensation WNL Muscle Tone Muscle Tone WNL Yes M6 PT-IP Treatment Start: 10/21/24 13:01 Freq: NEEDED Status: Active Protocol: Document 10/21/24 10:20 AB (Rec: 10/21/24 13:32 AB Desktop) Physical Therapy Treatment Education Education Provided Safety M7 PT-IP Assessment and Plan Start: 10/21/24 13:01 Freq: NEEDED Status: Active Protocol: Document 10/21/24 10:20 AB (Rec: 10/21/24 13:32 AB Desktop) PT Summary Assessment and Plan Potential Rehabilitation Good Potential Status of Condition Stable at Evaluation Summary Impairments Pain,ROM,Strength,Balance,Coordination,Sensation,Tone, Cognition,Bed Mobility,Transfers,Gait,Activity Tolerance Assessment Summary Pt is an 79 y/o F who has previous hospitalizations and was d/c'd to SNF. pt left SNF AMA and also had accidental pulling of her PICC line. pt in the hospital for PICC line placement and for hypokalemia. pt requiring CGA to min A with ambulation using FWW and presents with decrease activity tolerance needing more assistance with increase walking distance. pt will require SNF rehab to improve overall strength and mobility independence. Goals Bed Mobility Goal Independent Transfer Goal Independent,Front Wheeled Walker Gait Goal Independent,Front Wheel Walker Gait Distance 200 Other Goals up/down 2 steps R rail descending SBA Days to Meet Goals 10 Frequency of Treatment Frequency Of Once a Day Treatment Treatment Plan Physical Therapy Bed Mobility Training,Transfer Training,Gait Training, Treatment Plan Therapeutic Exercise,Balance Retraining,Discharge Planning,Hot or Cold Pack,Neuromuscular Re-ed, Coordination Retraining,Manual Therapy Other ambulation Recommendations and Next Treatment Focus Recommendations To Nursing Amount of Assist 1 Person Assist Needed Discharge Recommendations PT Discharge SNF Rehab Recommendations Transportation Needs Private Vehicle,Wheelchair/Cabulance at Discharge - PT assist 1
[2024-10-21 12:00] VITALS: BP 142/74; PULSE 80; RESP 16; TEMP 36.4; O2SAT 95
--- NOTE | 2024-10-21 13:49 | CM.DPNOTE ---
SVETLANA Smith Reviewed chart. Completed the following this morning: Spoke with Dr Perez who suggested either 1. Back to [facility] for continuation of IV abx through Tuesday 10/24 or 2. Home w/family and home infusion- IV dapto Placed call to Lila at [facility] who informed us that patient had signed out AMA and daughter drove her to the ER, Lila would need a new [employer] auth ( not available over the weekend) Placed call to [facility]; reviewed this case. IV dapto Q24 3g. [facility] does not have the nursing to staff this start of care until Wednesday or Wednesday...and patient's IV abx course will be completed by then It seems patient will need to remain admitted in order to complete her course of IV abx, expected to run through October 24 discharge likely late Wednesday or WednesdayOctober 25. Any SNF placement will need [employer] auth, Outpatient infusion at will need [employer] auth, and [facility] cannot staff this home infusion until Wednesday. SW team will continue to follow. FREDDY
--- NOTE | 2024-10-21 13:53 | P.PN_ITS ---
Subjective Subjective Interval history: 79-year-old female with hypertension, neuropathy, diabetes mellitus type 2 recently admitted with UTI and Enterococcus bacteremia. She was admitted October 10, 2024 through October 15, 2024. Plan was for her to remain at [facility] to complete a total of 14 days of IV antibiotics, which should be due to complete on October 24. Her PICC line was dislodged and she did miss 2 doses of ampicillin. She discharged Against Medical Advice from [facility] yesterday. She was brought to our emergency department and subsequently admitted for further care. Her PICC line was replaced this morning. Patient complains of being ?depressed and scared?. She tells me she is scared she will be forced to go back to a care facility. She states she is depressed because of her experience at [facility]. She notes she was having diarrhea and could not get any treatment. She ultimately had her daughter bring her Imodium and states today was the 1st day she woke up without diarrhea. She feels they did not have enough staff to care for her. She is happy to be back in the hospital where she feels the care is excellent. Exam Vital Signs (past 8 hours): - 10/21/24 08:00 10/21/24 08:00 10/21/24 12:00 Temperature 97.3 F L 97.6 F Pulse Rate 85 80 Respiratory Rate 16 16 Blood Pressure 134/72 142/74 H Pulse Oximetry 90 L 95 Oxygen Delivery Method Room Air Oxygen Flow Rate 0 0 Oxygen Delivery Method Room Air Oxygen Flow Rate 0 Narrative Exam Narrative: GEN: Elderly female, irritable, Alert and oriented x 3, NAD HEENT:NC, Face symmetric CHEST: Respiratory excursions symmetric, CTAB CV: RRR, no M/R/G ABD: Soft, NT/ND, BT present in all 4 quadrants, no organomegaly or masses EXTR: warm, well perfused, no C/C/E SKIN: warm and dry, no rash NEURO: Alert and oriented x 3, nonfocal Objective Labs 10/21/24 06:19 10/21/24 06:19 Labs: Laboratory Results - last 24 hr 10/20/24 10/20/24 10/21/24 18:00 20:59 06:19 WBC 9.8 7.7 RBC 3.52 L 3.18 L Hgb 11.0 L 10.0 L Hct 32.2 L 29.2 L MCV 91.5 91.6 MCH 31.4 31.4 MCHC 34.3 34.3 RDW 14.3 14.1 Plt Count 451 H 422 H Neut % (Auto) 71.9 70.6 Lymph % (Auto) 19.0 L 18.8 L [place] % (Auto) 5.7 6.7 Eos % (Auto) 2.5 2.8 Baso % (Auto) 0.9 1.1 Neut # (Auto) 7100 H 5500 Lymph # (Auto) 1900 1500 [place] # (Auto) 600 500 Eos # (Auto) 200 200 Baso # (Auto) 100 100 Sodium 139 136 L Potassium 2.6 L* D 3.0 L Chloride 100 100 Carbon Dioxide 33 H 33 H BUN 9 11 Creatinine 0.79 0.84 Estimated GFR > 60 > 60 BUN/Creatinine Ratio 11.4 13.1 Glucose 114 H 102 H POC Whole Bld Glucose 172 H D Calcium 9.2 8.6 Magnesium 1.1 L Total Bilirubin 0.5 0.5 AST 21 20 ALT 15 13 Alkaline Phosphatase 64 59 Total Protein 6.1 L 5.6 L Albumin 3.0 L 2.8 L Globulin 3.1 2.8 Albumin/Globulin Ratio 1.0 1.0 10/21/24 10/21/24 07:54 12:01 WBC RBC Hgb Hct MCV MCH MCHC RDW Plt Count Neut % (Auto) Lymph % (Auto) [place] % (Auto) Eos % (Auto) Baso % (Auto) Neut # (Auto) Lymph # (Auto) [place] # (Auto) Eos # (Auto) Baso # (Auto) Sodium Potassium Chloride Carbon Dioxide BUN Creatinine Estimated GFR BUN/Creatinine Ratio Glucose POC Whole Bld Glucose 109 H 175 H Calcium Magnesium Total Bilirubin AST ALT Alkaline Phosphatase Total Protein Albumin Globulin Albumin/Globulin Ratio [facility] Social History household members: none Smoking Status: Current some day smoker alcohol intake: never Assessment & Plan Assessment & Plan narrative: 1. Enterococcus bacteremia Patient remains on ampicillin and has an additional 72 hours of treatment left. We did pursue the option of home infusion but they do not have any openings until October 24. Patient does require prior authorization with her insurance. She did discharge Against Medical Advice from [facility] so can not return there. She will require insurance authorization to go to a skilled facility as well. She requires prior authorization for coming in for IV antibiotics to our infusion center as well. At this point, it appears the time it would take to receive authorization would essentially take the same amount of time as it would for her to complete her antibiotics. Care management continues to work on options for her. For now she will remain in the hospital to continue her IV antibiotics. 2. Kidney stones She states she is having lithotripsy on October 28. 3. Anxiety Continue as needed lorazepam 4. Neuropathy Continue gabapentin 5. Diabetes mellitus Blood sugars have ranged from 109-175. We will continue sliding scale. Hold Ozempic and metformin. 6. Anemia Hemoglobin is 10.0. No evidence of bleeding. 7. Hypokalemia Repleting Code status Full Prophylaxis On heparin Disposition Pending Time-Based Coding :: [TOTAL MINUTES] spent with patient and on the chart (including review of chart, obtaining history, exam, reviewing outside data, placing orders, documenting exam and treatment plan, and counseling patient) on [DATE]. Quality VTE Deep Vein Thrombosis/Pulmonary Embolism Present on Admission: No
[2024-10-21] MEDS: MAGNESIUM CHLORIDE 64 MG TABLET 128 MG PO ×2 (15:00→22:06)
[2024-10-21] MEDS: GABAPENTIN 300 MG CAPSULE PO (15:00)
[2024-10-21] MEDS: INSULIN LISPRO 100 UNIT/ML 3ML VIAL SUBCUT (16:57)
[2024-10-21 17:00] VITALS: BP 152/80; PULSE 86; RESP 17; TEMP 36.6; O2SAT 95
[2024-10-21 20:13] VITALS: BP 140/77; PULSE 82; RESP 16; TEMP 36.4; O2SAT 94
[2024-10-22] VITALS (9 sets, daily range): BP systolic 129–165; BP diastolic 74–119; PULSE 77–87; RESP 15–20; TEMP 36.2–36.8; O2SAT 93–96
[2024-10-22] MEDS: AMPICILLIN 2,000 MG in SODIUM CHLORIDE 0.9% 100 ML 200 MG IV ×7 (00:09→23:48)
[2024-10-22] MEDS: MAGNESIUM CHLORIDE 64 MG TABLET 128 MG PO ×2 (05:36→14:23)
[2024-10-22 05:49] LABS: Blood Urea Nitrogen 13 mg/dL (7-17); Calcium 8.6 mg/dL (8.4-10.2); Carbon Dioxide 31 mmol/L (22-32); Chloride 100 mmol/L (98-107); Estimated Glomerular Filt Rate > 60 mL/min (>60); Glucose 138 mg/dL (70-99); HEMOLYSIS < 15 (0-50); Potassium 3.3 mmol/L (3.4-5.1); Sodium 135 mmol/L (137-145)
[2024-10-22 05:51] LABS: Add Manual Diff / Slide Review NO; Hematocrit 29.3 % (36-46); Hemoglobin 10.1 g/dL (12.0-16.0); Lymphocytes Absolute Auto 1600 /uL (1100-4500); Mean Corpuscular HGB Conc 34.4 % (30-36); Mean Corpuscular Hemoglobin 31.4 PG (26-34); Mean Corpuscular Volume 91.4 fL (80-100); Platelet Count 414 X10^3/uL (150-400)
--- NOTE | 2024-10-22 07:35 | PM.PN.1 ---
Subjective Subjective Date Patient Seen: 10/22/24 Interval history: She is pleasantly waiting for her antibiotic course to end in 2 more days. The white count is 7.5 with a hemoglobin of 10.1. The potassium is 3.3. The blood pressure is 144/87. She tells me that she lives in her own home, by herself and her only pets are the wild birds. She can describe them in great detail. They seem to be quite [place] to her and she feeds them regularly. Exam Vital Signs (past 8 hours): - 10/22/24 00:26 10/22/24 04:10 Temperature 97.1 F L 97.3 F L Pulse Rate 77 Respiratory Rate 18 18 Blood Pressure 152/80 H 144/87 H Pulse Oximetry 93 93 Oxygen Flow Rate 0 0 Oxygen Delivery Method Room Air Oxygen Flow Rate 0 Narrative Exam Narrative: Alert and oriented x3. No apparent distress. Heart is regular rate and rhythm without murmur. Lungs are clear to auscultation bilaterally. There is trace bilateral pitting ankle edema. Objective Labs 10/22/24 05:30 10/22/24 05:30 Labs: Laboratory Results - last 24 hr 10/21/24 10/21/24 10/21/24 06:19 07:54 12:01 WBC RBC Hgb Hct MCV MCH MCHC RDW Plt Count Neut % (Auto) Lymph % (Auto) [place] % (Auto) Eos % (Auto) Baso % (Auto) Neut # (Auto) Lymph # (Auto) [place] # (Auto) Eos # (Auto) Baso # (Auto) Sodium Potassium Chloride Carbon Dioxide BUN Creatinine Estimated GFR BUN/Creatinine Ratio Glucose POC Whole Bld Glucose 109 H 175 H Calcium Magnesium 1.1 L 10/21/24 10/21/24 10/22/24 16:37 20:04 05:30 WBC 7.5 RBC 3.21 L Hgb 10.1 L Hct 29.3 L MCV 91.4 MCH 31.4 MCHC 34.4 RDW 14.1 Plt Count 414 H Neut % (Auto) 68.2 Lymph % (Auto) 21.5 L [place] % (Auto) 6.5 Eos % (Auto) 2.5 Baso % (Auto) 1.3 Neut # (Auto) 5100 Lymph # (Auto) 1600 [place] # (Auto) 500 Eos # (Auto) 200 Baso # (Auto) 100 Sodium 135 L Potassium 3.3 L Chloride 100 Carbon Dioxide 31 BUN 13 Creatinine 0.82 Estimated GFR > 60 BUN/Creatinine Ratio 15.9 Glucose 138 H POC Whole Bld Glucose 208 H 195 H Calcium 8.6 Magnesium PFSH Social History household members: none Smoking Status: Current some day smoker alcohol intake: never Assessment & Plan Assessment & Plan narrative: 1. Enterococcus bacteremia Patient remains on ampicillin and has an additional 48 hours of treatment left. We did pursue the option of home infusion but they do not have any openings until October 24. Patient does require prior authorization with her insurance. She left AMA from [facility] so can't return there. She will require insurance authorization to go to a skilled facility as well. She requires prior authorization for coming in for IV antibiotics to our infusion center as well. At this point, it appears the time it would take to receive authorization would essentially take the same amount of time as it would for her to complete her antibiotics. Care management continues to work on options for her. For now she will remain in the hospital to continue her IV antibiotics, ending on 10/24/24. 2. Kidney stones She is having lithotripsy on October 28. 3. Anxiety Continue as needed lorazepam 4. Neuropathy Continue gabapentin 5. Diabetes mellitus Blood sugars have ranged from 109-175. We will continue sliding scale. Hold Ozempic and metformin. 6. Anemia Hemoglobin is 10.0. No evidence of bleeding. 7. Hypokalemia/Hypomagnesemia Repleting Code status Full Prophylaxis On heparin Disposition Pending Time-Based Coding :: [TOTAL MINUTES] spent with patient and on the chart (including review of chart, obtaining history, exam, reviewing outside data, placing orders, documenting exam and treatment plan, and counseling patient) on [DATE]. Quality VTE Deep Vein Thrombosis/Pulmonary Embolism Present on Admission: No
[2024-10-22] MEDS: POTASSIUM CHLORIDE 20 MEQ TAB 40 MEQ PO (08:28)
[2024-10-22] MEDS: HEPARIN 5,000 UNIT/ML VIAL 5000 UNIT SUBCUT ×2 (08:30→20:32)
[2024-10-22] MEDS: LOSARTAN 50 MG TABLET PO (08:34)
[2024-10-22] MEDS: LACTOBACILLUS ACIDOPHILUS TABLET 1 EACH PO (08:35)
[2024-10-22] MEDS: INSULIN LISPRO 100 UNIT/ML 3ML VIAL SUBCUT ×6 (08:47→16:57)
[2024-10-22] MEDS: SODIUM CHLORIDE 0.9% FLUSH 10 ML IV ×2 (08:50→20:32)
[2024-10-22 08:55] LABS: Magnesium 1.5 mg/dL (1.6-2.3)
--- NOTE | 2024-10-22 12:24 | PT-IP ANOTE ---
PT checks in on pt who is eating and with visitors. Pt sitting up in chair and to d/c home with family tomorrow. Will check on again next date if she remains in the hospital.
[2024-10-22] MEDS: GABAPENTIN 300 MG CAPSULE PO (14:21)
[2024-10-22] MEDS: MAGNESIUM OXIDE 400 MG TABLET PO (16:03)
--- NOTE | 2024-10-22 18:52 | PC.NURSE ---
Day shift note: Patient up OOB to chair for meals, ambulating in room approximately 40 ft. SBA FWW. Calls appriately for staff assist.
[2024-10-23] VITALS (7 sets, daily range): BP systolic 125–137; BP diastolic 67–83; PULSE 70–85; RESP 16–20; TEMP 36.3–36.9; O2SAT 92–95
[2024-10-23] MEDS: AMPICILLIN 2,000 MG in SODIUM CHLORIDE 0.9% 100 ML 200 MG IV ×5 (03:32→20:05)
[2024-10-23 05:25] LABS: Add Manual Diff / Slide Review NO; Hematocrit 27.9 % (36-46); Hemoglobin 9.8 g/dL (12.0-16.0); Lymphocytes Absolute Auto 1700 /uL (1100-4500); Mean Corpuscular HGB Conc 35.1 % (30-36); Mean Corpuscular Hemoglobin 32.1 PG (26-34); Mean Corpuscular Volume 91.6 fL (80-100); Platelet Count 371 X10^3/uL (150-400)
[2024-10-23 05:34] LABS: Blood Urea Nitrogen 16 mg/dL (7-17); Calcium 9.0 mg/dL (8.4-10.2); Carbon Dioxide 30 mmol/L (22-32); Chloride 100 mmol/L (98-107); Estimated Glomerular Filt Rate > 60 mL/min (>60); Glucose 134 mg/dL (70-99); HEMOLYSIS < 15 (0-50); Magnesium 1.4 mg/dL (1.6-2.3); Potassium 4.1 mmol/L (3.4-5.1); Sodium 135 mmol/L (137-145)
[2024-10-23] MEDS: MAGNESIUM SULFATE 2 GM/50 ML PIGGYBACK IV (06:46)
--- NOTE | 2024-10-23 07:26 | P.PN_ITS ---
Subjective Subjective Interval history: S: She was doing well, no acute concerns or complaints. She was a left arm PICC for antibiotics. She worked with Physical therapy this morning and did ambulate with her walker. Exam Vital Signs (past 8 hours): - 10/23/24 03:00 Temperature 97.3 F L Pulse Rate 77 Respiratory Rate 18 Blood Pressure 135/70 Pulse Oximetry 92 Oxygen Flow Rate 0 Oxygen Delivery Method Room Air Oxygen Flow Rate 0 Narrative Exam Narrative: NAD, alert and oriented. Fluent speech. Lungs are clear, normal rate and effort. Heart is regular, no murmur gallop or rub. Abdomen is soft, non distended. Extremities are free of edema. Objective Labs 10/23/24 05:00 10/23/24 05:00 Labs: Laboratory Results - last 24 hr 10/22/24 10/22/24 10/22/24 07:50 08:18 11:36 WBC RBC Hgb Hct MCV MCH MCHC RDW Plt Count Neut % (Auto) Lymph % (Auto) [place] % (Auto) Eos % (Auto) Baso % (Auto) Neut # (Auto) Lymph # (Auto) [place] # (Auto) Eos # (Auto) Baso # (Auto) Sodium Potassium Chloride Carbon Dioxide BUN Creatinine Estimated GFR BUN/Creatinine Ratio Glucose POC Whole Bld Glucose 179 H 197 H Calcium Magnesium 1.5 L 10/22/24 10/22/24 10/23/24 16:37 21:31 05:00 WBC 7.1 RBC 3.04 L Hgb 9.8 L Hct 27.9 L MCV 91.6 MCH 32.1 MCHC 35.1 RDW 14.2 Plt Count 371 Neut % (Auto) 65.9 Lymph % (Auto) 24.0 L [place] % (Auto) 6.7 Eos % (Auto) 2.6 Baso % (Auto) 0.8 Neut # (Auto) 4700 Lymph # (Auto) 1700 [place] # (Auto) 500 Eos # (Auto) 200 Baso # (Auto) 100 Sodium 135 L Potassium 4.1 Chloride 100 Carbon Dioxide 30 BUN 16 Creatinine 0.82 Estimated GFR > 60 BUN/Creatinine Ratio 19.5 Glucose 134 H POC Whole Bld Glucose 192 H 184 H Calcium 9.0 Magnesium 1.4 L [facility] Social History household members: none Smoking Status: Current some day smoker alcohol intake: never Assessment & Plan Assessment & Plan narrative: 1. Enterococcus bacteremia Patient remains on ampicillin and has an additional 48 hours of treatment left. We did pursue the option of home infusion but they do not have any openings until October 24. Patient does require prior authorization with her insurance. She left AMA from [facility] so can't return there. She will require insurance authorization to go to a skilled facility as well. She requires prior authorization for coming in for IV antibiotics to our infusion center as well. At this point, it appears the time it would take to receive authorization would essentially take the same amount of time as it would for her to complete her antibiotics. Care management continues to work on options for her. For now she will remain in the hospital to continue her IV antibiotics, ending on 10/24/24. 2. Kidney stones She is having lithotripsy on October 28. 3. Anxiety Continue as needed lorazepam 4. Neuropathy Continue gabapentin 5. Diabetes mellitus Blood sugars have ranged from 109-175. We will continue sliding scale. Hold Ozempic and metformin. 6. Anemia Hemoglobin is 10.0. No evidence of bleeding. 7. Hypokalemia/Hypomagnesemia Repleting PLAN: -continue antibiotics to completion, then remove PICC and discharged to daughter's house. -monitor glucose and electrolytes. -increase PO mag today (1.4) Code status Testing Analyst-Based Coding :: [TOTAL MINUTES] spent with patient and on the chart (including review of chart, obtaining history, exam, reviewing outside data, placing orders, documenting exam and treatment plan, and counseling patient) on [DATE]. Quality VTE Deep Vein Thrombosis/Pulmonary Embolism Present on Admission: No
[2024-10-23] MEDS: LACTOBACILLUS ACIDOPHILUS TABLET 1 EACH PO (08:21)
[2024-10-23] MEDS: SODIUM CHLORIDE 0.9% FLUSH 10 ML IV ×3 (08:21→20:06)
[2024-10-23] MEDS: LOSARTAN 50 MG TABLET PO (08:21)
[2024-10-23] MEDS: AMLODIPINE 5 MG TABLET 10 MG PO (08:21)
[2024-10-23] MEDS: MAGNESIUM OXIDE 400 MG TABLET PO ×3 (08:21→20:05)
[2024-10-23] MEDS: HEPARIN 5,000 UNIT/ML VIAL 5000 UNIT SUBCUT ×2 (08:21→20:05)
[2024-10-23] MEDS: INSULIN LISPRO 100 UNIT/ML 3ML VIAL SUBCUT ×7 (08:32→21:31)
--- NOTE | 2024-10-23 09:28 | PT.IPTN ---
Physical Therapy Treatment Note M2 PT-IP Current Condition Start: 10/21/24 13:01 Freq: NEEDED Status: Active Protocol: Document 10/21/24 10:20 AB (Rec: 10/21/24 13:32 AB Desktop) Physical Therapy Current Condition Current Condition Evaluation Date 10/21/24 Treatment Diagnosis hypokalemia; PICC line placement; difficulty in walking Onset Date 10/20/24 M3 PT-IP Subjective Start: 10/21/24 13:01 Freq: NEEDED Status: Active Protocol: Document 10/23/24 09:08 MB (Rec: 10/23/24 09:28 MB Desktop) Subjective Physical Therapy Visit Type Type Treatment Note Visit Start Time 09:08 Visit Stop Time 09:22 Number of SQL CONSULTANT Visits 0 Physical Therapy Visit Comments Patient Comments Pt sitting up in chair and agreeable to PT. M4 PT-IP Mobility and Gait Start: 10/21/24 13:01 Freq: NEEDED Status: Active Protocol: Document 10/23/24 09:08 MB (Rec: 10/23/24 09:28 MB Desktop) PT-Transfer Assessment Sit to and From Stand Sit to and from Contact Guard Assistance,1 Person Assistance,Use of Stand Upper Extremities Equipment Transfer Assistive Gait Belt,4 Wheeled Walker Device Orthotic/Prosthetic No Devices or Brace: Transfers Transfer Destination Chair Transfer Technique Ambulation Transfer Ability Level of Assist Contact Guard Assistance,1 Person Assistance,Use of Upper Extremities Comments Mobility Comments PT locks rollator before pt stands up from the chair. Cues for hand placement and pt does reach back for the chair before sitting but does not lock her rollator. Gait Assessment Gait Gait Assistance Contact Guard Assist,1 Person Assist Required: Distance (Feet) 20 Able to Maintain Yes Weight Bearing Status During Gait Assistive Devices Assistive Device Gait Belt,4 Wheeled Walker Orthotic/Prosthetic No Devices or Brace: Gait Deviations General Gait Pattern Antalgic,Decreased Stride Length,Decreased Feet Clearance,Flexed Trunk Factors Limiting Gait Function Factors Limiting Decreased Activity Tolerance,Decreased Strength,Poor Gait Function Balance,Poor Safety Awareness Comments Gait Comments 20'x2 with her nitro rollator since plan is for pt to d /c home tomorrow. Pt does have to work to control gait speed and balance with the rollator PT-Balance Assessment Sitting Balance and Reactions Static Sitting Normal Balance Ability Dynamic Sitting Good Balance Ability Standing Balance and Reactions Static Standing Fair Balance Ability Dynamic Standing Fair Balance Ability Device Used Rollator M5 PT-IP Objective Assessments Start: 10/21/24 13:01 Freq: NEEDED Status: Active Protocol: Document 10/21/24 10:20 AB (Rec: 10/21/24 13:32 AB Desktop) Orientation Orientation/Cognition Level of Alertness Alert Orientation Name,Place,Situation Safety Awareness Decreased Safety Awareness Memory Description No Deficits Noted Gross Range of Motion Lower Extremity ROM Assessment Within Functional Limits Strength Comments Strength Comments RLE: 4/5 LLE: 4-/5 Coordination Assessment Gross Coordination Gross Coordination WNL Sensation Assessment Sensation Gross Sensation WNL Muscle Tone Muscle Tone WNL Yes M6 PT-IP Treatment Start: 10/21/24 13:01 Freq: NEEDED Status: Active Protocol: Document 10/21/24 10:20 AB (Rec: 10/21/24 13:32 AB Desktop) Physical Therapy Treatment Education Education Provided Safety M7 PT-IP Assessment and Plan Start: 10/21/24 13:01 Freq: NEEDED Status: Active Protocol: Document 10/23/24 09:08 MB (Rec: 10/23/24 09:28 MB Desktop) PT Summary Assessment and Plan Potential Rehabilitation Fair Potential Status of Condition Evolving at Evaluation Summary Impairments Pain,ROM,Strength,Balance,Bed Mobility,Transfers,Gait, Activity Tolerance Progress Towards Progressing Toward Goals Goals Assessment Summary Pt progresses with gait with rollator today. She states that she might go home to her own home before kidney stone procedure. PT ed pt that she will need to have 24 hour assistance at d/c, whether in her own home or at her daughter's. Pt states she does not want to be a burden and PT ed that it is better for safe d/c rather than risking a fall and another hospital adm. Pt has questionable acceptance/insight. Gait with rollator is less controlled than RW. She may benefit from use of her RW at home. Goals Bed Mobility Goal Independent Transfer Goal Independent,Front Wheeled Walker Gait Goal Independent,Front Wheel Walker Gait Distance 100 Other Goals up/down 2 steps R rail descending SBA Days to Meet Goals 10 Frequency of Treatment Frequency Of Once a Day Treatment Treatment Plan Physical Therapy Bed Mobility Training,Transfer Training,Gait Training, Treatment Plan Therapeutic Exercise,Balance Retraining,Discharge Planning,Hot or Cold Pack,Neuromuscular Re-ed, Coordination Retraining,Manual Therapy Other ambulation Recommendations and Next Treatment Focus Recommendations To Nursing Amount of Assist 1 Person Assist Needed Discharge Recommendations PT Discharge Home with 26/10 Assist Available,Home Health,Home vs SNF Recommendations Transportation Needs Private Vehicle,Wheelchair/Cabulance at Discharge - PT assist 14
--- NOTE | 2024-10-23 11:03 | OT.IP.EVAL ---
Occupational Therapy Inpatient Evaluation/Re-Eval M1 PT/OT-IP Prior Functional Status Start: 10/21/24 13:01 Freq: NEEDED Status: Active Protocol: Document 10/23/24 10:33 MIMI (Rec: 10/23/24 11:03 MIMI Desktop) Medical Review Prior Functional Status Medical History Yes Reviewed Communication able to make needs known Mobility and Gait pt with recent hospitalizations: 09/05/24 to 09/12/24 for hydronephrosis with stent placement and was d/c'd for SNF. pt was modified independent with all mobilities and ambulation using a hurrycane prior to that. pt eventually was d/c'd home but had a fall and was hospitalized again 10/09/24 to 10/15/24 for sepsis. pt stated that since her 09/05 hospitalization, she has been using a FWW. pt was d/c'd to SNF again afterwards. Activities of Daily pt reports that prior to recent hospitalizations she Living and IADL's was I with BADL, driving, IADLs, medication mgmt, preparing her meals, and that she would go to the gym 2x/wk. Pt reports she needed assistance with yard work. Social History Household Members none Living Arrangements House Number of Floors ( One Floor Floors) Number of Stairs To 2 steps R rail going down to enter the house Enter/Railing? Home Environment High Toilet,Tub/Shower Home Equipment Front Wheel Walker,Four Wheel Walker,Tub Transfer Bench Additional Social son lives ~ 1 mile away and may be able to assist but History Comment cannot provide 24/7 assist pt has a toilet safety frame, hurrycane M2 OT-IP Current Condition Start: 10/23/24 10:33 Freq: Status: Active Protocol: Document 10/23/24 10:33 MIMI (Rec: 10/23/24 11:03 MIMI Desktop) Occupational Therapy Current Condition Current Condition Evaluation Date 10/23/24 Treatment Diagnosis hypokalemia, PICC line placement, decreased self care M3 OT- IP Subjective and Pain Start: 10/23/24 10:33 Freq: Status: Active Protocol: Document 10/23/24 10:33 MIMI (Rec: 10/23/24 11:03 MIMI Desktop) OT- Subjective Occupational Therapy Visit Type Type Initial Evaluation Visit Start Time 08:40 Visit Stop Time 09:11 Notes Pt sitting up in chair eating breakfast on entrance of OT. Pt agreeable to participating in skilled OT eval. OT Pain Assessment Pain When Pain Assessed After Treatment Pain Present Pain Present Denied Pain M4 OT- IP ADL's Start: 10/23/24 10:33 Freq: Status: Active Protocol: Document 10/23/24 10:33 MIMI [facility]24 [facility] GWV-[id number]-[id number] General Evaluation Self-Feeding Ability Independent OT ADL-Grooming General Evaluation Grooming Ability Standby Assistance Areas Needing Retrieving/Set-up of Grooming Items Assistance Comments OT Grooming Comments pt performed face washing, hand washing, and hair grooming sink side on set up. pt leans UB on counter top when performing face wash and hand washing. OT ADL-Oral Care Comments Oral Care Comments pt decline OT ADL-Dressing General Eval Lower Body Dressing Moderate Assistance Ability Areas Needing Pants/Shorts,Socks Assistance Comments OT Dressing Comments pt pulls on her sock to cross her leg of her knee and then is able to don/doff sock. pt unable to perform without using the sock to pull her leg into position. Following assessment, OT educated pt on use of sock aid and shear grinder operator helper. Pt used sock aid with min A to don sock, shear grinder operator helper with min A to doff sock, and shear grinder operator helper with min A to start pants. Pt would benefit from additional LB AE education. OT ADL-Toileting General Evaluation Toileting Ability Total Assistance Areas Needing Empty Catheter or Colostomy Assistance Comments OT Toileting pt declines using commode for BM. pt is currently Comments dependent on catheter and brief. OT ADL-Bathing Comments OT Bathing Comments pt declined, stating she had a shower yesterday M5 OT- IP IADL's Start: 10/23/24 10:33 Freq: Status: Active Protocol: Document 10/23/24 10:33 MIMI (Rec: 10/23/24 11:03 [facility]-Instrumental Activities of Daily Living Home Safety Awareness Awareness of Need Decreased Awareness for Assistance at Home Ability to Problem Able to Problem Solve Solve Emergency Situations Medication Management Medication No Deficits Identified Management Money Management Money Management No Deficits Identified Meal Preparation Meal Preparation pt will need assist on d/c due to decreased activity Comments tolerance, balance, safety Accounting Coordinator Accounting Coordinator pt will need assist on d/c due to decreased activity Comments tolerance, balance, safety Driving Driving Comments pt will need assist on d/c due to decreased activity tolerance, safety M6 OT- IP Functional Cognition Start: 10/23/24 10:33 Freq: Status: Active Protocol: Document 10/23/24 10:33 MIMI (Rec: 10/23/24 11:03 [id number] Desktop) Cognitive Factors Limiting Selfcare Function Cognitive Ability Level of Alertness Alert Patient Orientation Name,Age,Birthday,Month,Date,Year,Place,Situation Attention Span Capable of Focused Attention,Capable of Sustained Ability Attention Ability to Follow Able to Follow One Step Commands,Able to Follow Multi- Commands Step Commands Memory Description No Deficits Noted Safety Awareness Underestimates Need for Assistance Problem Solving No deficits Noted Ability Executive Function No Deficits Noted Ability Abstract Thinking No Deficits Noted Ability OT- Vision and Hearing OT- Hearing Assessment OT- Hearing WFL Assessment OT- Vision Assessment Visual Acuity WFL,Glasses All The Time M7 OT- IP Mobility and Balance Start: 10/23/24 10:33 Freq: Status: Active Protocol: Document 10/23/24 10:33 MIMI (Rec: 10/23/24 11:03 [email or web address]-Transfer Assessment Sit to and From Stand Sit to and from Contact Guard Assistance,1 Person Assistance Stand Transfers Transfer Ability Contact Guard Assistance,1 Person Assistance Technique Transfer Destination Chair Transfer Technique Stand Step Pivot Devices Transfer Assistive Gait Belt,Front Wheeled Walker Devices Comments Mobility Comments OT maneuvers IV pole while pt manages FWW. Pt requires vcs to step back until feeling chair behind her LEs prior to reaching back to sit. OT- Gait Assessment Gait Gait Assistance Contact Guard Assist Required: Distance (Feet) 10 Assistive Devices Assistive Device Gait Belt,Front Wheeled Walker Comments Gait Ability Pt amb to/from sink for sink side ADLs while OT manages Comments IV pole. OT- Balance Assessment Sitting Balance and Reactions Static Sitting Normal Balance Ability Dynamic Sitting Good Balance Ability Standing Balance and Reactions Static Standing Good Balance Ability Dynamic Standing Fair Balance Ability M8 OT- IP Objective Assessments Start: 10/23/24 10:33 Freq: Status: Active Protocol: Document 10/23/24 10:33 MIMI (Rec: 10/23/24 11:03 [facility] Desktop) OT Gross Range of Motion Upper Extremity Range of Motion Assessment Bilaterally Impaired ROM Impairments Pt has limitations in B shoulder with R UE ~90 deg and L UE ~120 OT Strength Upper Extremity Strength Assessment Bilaterally Impaired Hand Bus Driver/Monitor Strength Hand Dominance Left Comments Strength Comments PT B shoulders 3-/5, otherwise 3+5 OT-Muscle Tone Assessment Muscle Tone WNL Yes OT Sensation Assessment Edema Edema Absent M9 OT- IP Assessment and Plan Start: 10/23/24 10:33 Freq: Status: Active Protocol: Document 10/23/24 10:33 [id number] (Rec: 10/23/24 11:03 [facility] Desktop) OT Summary Assessment and Plan Potential Rehabilitation Good Potential Analytic Complexity Low at Evaluation Summary OT Impairments Range of Motion,Strength,Balance,Functional Mobility, Dressing,Toileting,Bathing,Toilet Transfers,Shower Transfers,Activity Tolerance Progress Towards Progressing Toward Goals Goals Assessment Summary Pt is an 79 yo F with previous hospitalizations and as d/c to SNF. Pt left SNF AMA and accidently pulled out her PICC line. Pt was readmitted for new PICC line placement and hypokalemia. Pt required CGA for functional mobility, mod A for LB dressing, and total A for toileting at time of eval. Pt lives alone and would like to return to I living. Per rounds, the plan is for pt to d/c to dt house for a period of time prior to returning home. Pt will need 24/7 assistance on d/c. OT recommends d/c to dtr with HH services. Pt would benefit from skilled OT services to address BADLs , functional t/fs, UE strengthening, balance, and to educate on possible AE for LB dressing. Goals Grooming Goal Independent Dressing Goal Standby Assistance,Biometric Fingerprinting Technician Toileting Goal Independent Bathing Goal Independent,Grab Bars,Hand Held Shower Sprayer Toilet Transfer Goal Independent,Grab Bars Shower Transfer Goal Independent,Shower Chair,Grab Bars Days to Meet Goals 10 Frequency of Treatment Other frequency 5x/wk Treatment Plan OT Treatment Plan ADL Training,Functional Mobility,Therapeutic Exercises, Patient/Family Education,Discharge Planning Other Treatment ADLs, functional t/fs, LB AE (sock aid) Recommendations and Next Treatment Focus
--- NOTE | 2024-10-23 11:27 | CM.DPC ---
Addendum entered by SANDER Parrish 10/23/24 13:52: ADD: [facility] confirms [facility] can accept the referral but will need new F2F and orders. F2F completed but not sent yet. BF Original Note: DCP Home Planning Cont: Per MD, will try to determine and confirm tomorrow 10/24 is the last day pt needs her IV abx dosing and then plan of discharge home after final dose. Pharmacist reviewing as well. Per RN, pt was ambulating halls today with FWW and SBA in room. Per PT/OT yesterday, pt mostly CGA to 1PA and would benefit from SNF vs 26/10. SW met bedside with pt and explained role and discussed likely discharge tomorrow after final IV abx dose and pt confirms she is aware and Dtr called while in room and updated and Dtr waiting to hear when pt can discharge the hospital tomorrow so she can provide transport for pt home. Pt confirms her preference is home, refusing SNF, and wants [facility] as she had just started with them prior to one of her hospital admissions. SW made new referral to [facility] and waiting to confirm if likely new F2F and orders needed for discharge although pt admitted OBS Status so maybe only needs Resumption Orders. SANDER Parrish
[2024-10-23] MEDS: GABAPENTIN 300 MG CAPSULE PO (13:31)
[2024-10-24] MEDS: AMPICILLIN 2,000 MG in SODIUM CHLORIDE 0.9% 100 ML 200 MG IV ×4 (00:02→12:38)
[2024-10-24 03:00] VITALS: BP 143/82; PULSE 74; RESP 20; TEMP 36.9; O2SAT 92
[2024-10-24 08:00] VITALS: BP 126/73; PULSE 80; RESP 21; TEMP 36.8; O2SAT 92
[2024-10-24] MEDS: AMLODIPINE 5 MG TABLET 10 MG PO (08:22)
[2024-10-24] MEDS: LOSARTAN 50 MG TABLET PO (08:22)
[2024-10-24] MEDS: LACTOBACILLUS ACIDOPHILUS TABLET 1 EACH PO (08:22)
[2024-10-24] MEDS: HEPARIN 5,000 UNIT/ML VIAL 5000 UNIT SUBCUT (08:22)
[2024-10-24] MEDS: INSULIN LISPRO 100 UNIT/ML 3ML VIAL SUBCUT ×4 (08:24→12:31)
[2024-10-24] MEDS: MAGNESIUM OXIDE 400 MG TABLET PO (08:29)
[2024-10-24] MEDS: SODIUM CHLORIDE 0.9% FLUSH 10 ML IV (08:33)
--- NOTE | 2024-10-24 09:05 | P.DS_ITS ---
History of Present Illness History of Present Illness Date Patient Seen: 10/24/24 Chief complaint: Access to PICC line is off, needs it reattached Narrative: 79-year-old female with past medical history of hypertension, neuropathy, anxiety, non-insulin dependent diabetes with recent diagnosis of Enterococcus bacteremia and urosepsis was sent here from her care facility because she pulled out her PICC line. Of note the patient recently was admitted to our hospital due to urosepsis requiring a ureteral stent placement from an obstructive kidney stones and Enterococcus bacteremia on outpatient IV ampicillin. Per report the patient pulled out her PICC that was required for ongoing IV ampicillin today. It was reported that the patient accidentally pulled the PICC out from her right arm last night. Because of this the patient missed 2 doses of her ampicillin. Somehow the patient was very unsatisfied with her senior living facility that she was at. The patient requested that she be brought back to our ER for a new PICC line placement. Otherwise the patient denies any fever, chills, nausea, vomiting, diarrhea, chest pain, abdominal pain or shortness of breath. In the emergency room, patient remained hemodynamically stable. Labs were relatively benign except for a potassium of 2.6. The patient was given ampicillin along with potassium replacement. A new PICC line on the left side was also placed. However the patient refused to go back to her senior living facility and wanted us to admit the patient overnight for possible new placement in the morning. Discharge Providers Provider Date of admission: 10/20/24 17:55 Discharge Date: 10/24/24 Primary care physician: Cristian Peña ND Consults: 10/20/24 13:30 Consult to [facility] - [employer] Stat Comment: [employer] Consult needed for:: Other reason (Comment) Comment: home health for home infusion of abx. set up with community flotation tender helper 10/20/24 19:43 Consult to Occupational Therapy Evaluate & Treat Comment: Physician Instructions: Evaluate and treat 10/20/24 19:44 Consult to Physical Therapy Evaluate & Treat Comment: Physician Instructions: Evaluate and Treat Discharge provider: Yolanda Garcia MD Summary Hospital Course Hospital Course: 1. Enterococcus bacteremia Completed 2 week IV ampicillin course on 10/24/24. 2. Kidney stones/Dysfunctional Bladder 1,500 ml PVR on initial presentation. Has had a El Catheter since then. Trial of removing catheter today at her request. Will replace if not able to urinate or if PVR is >100 ml. Would add Levofloxacin 500 mg QD until seen by Urology in 3 days. She is having lithotripsy on October 28. 3. Anxiety Continue as needed lorazepam 4. Neuropathy Continue gabapentin 5. Diabetes mellitus Resume home Ozempic and metformin. 6. Anemia Hemoglobin is 9.8. No evidence of bleeding. 7. Hypokalemia/Hypomagnesemia K 4.1 and Mag 1.4 on 10/23 Add Mag Oxide 400 mg BID at home. PICC to be removed. Full Code Status at Discharge Cognitive/behavioral status at discharge: oriented Functional status at discharge: independent ambulation Overall status at discharge: patient is back to baseline Exam Vital Signs (past 8 hours): - 10/24/24 03:00 10/24/24 08:00 Temperature 98.5 F 98.2 F Pulse Rate 74 80 Respiratory Rate 20 21 Blood Pressure 143/82 H 126/73 Pulse Oximetry 92 92 Oxygen Flow Rate 0 Oxygen Delivery Method Room Air Oxygen Flow Rate 0 Narrative Exam Narrative: Alert and oriented x3. No apparent distress. Heart is regular rate and rhythm without murmur Lungs are clear to auscultation bilaterally Extremities have no ankle edema. Objective Labs 10/23/24 05:00 10/23/24 05:00 Labs: Laboratory Results - last 24 hr 10/23/24 10/23/24 10/23/24 11:58 16:54 21:07 POC Whole Bld Glucose 182 H 223 H 274 H 10/24/24 08:15 POC Whole Bld Glucose 165 H D [facility] Medical History (Updated 10/24/24 @ 08:31 by Susannah Inman RN) Amputation of toe Neuropathy Depression Arthritis HTN (hypertension) Diabetes Surgical History (Updated 10/24/24 @ 08:31 by Susannah Inman RN) Hx of hernia repair S/P cystoscopy with ureteral stent placement (09/05/24) Social History household members: none Smoking Status: Current some day smoker alcohol intake: never Discharge Plan Discharge Plan Patient Disposition: Home Provider Discharge Comment: Follow up with Dr. Tapia for your next procedure on Wednesday10/27/24. Discharge orders & Medications Prescriptions: New magnesium oxide 400 mg (241.3 mg magnesium) Tablet 400 mg PO BID Qty: 60 0RF Continued losartan 50 mg tablet 50 mg PO DAILY metformin 1,000 mg tablet 1,000 mg PO BID gabapentin 300 mg capsule 300 mg PO Q12H Patient Comments: 300mg BID Ozempic 0.25 mg or 0.5 mg (2 mg/3 mL) pen injector 0.5 mg SUBCUT .Q7 days Patient Comments: [NO ORIGINAL SIG] amlodipine 10 mg tablet 10 mg PO DAILY Qty: 30 0RF Patient Comments: patient is unclear if she is still taking this medication polyethylene glycol 3350 17 gram Powder In Packet 17 gm PO BID Qty: 30 0RF lorazepam 0.5 MG tablet 0.5 mg PO QAM lorazepam 0.5 mg Tablet 0.5 mg PO QPM Qty: 10 0RF Discontinued Slow-Mag 71.5 mg Tablet,Delayed Release (Dr/Ec) 128 mg PO Q8H Qty: 90 0RF ampicillin sodium 2 gram recon soln 2 g IV Q4H Follow up/Referrals: Cristian Peña ARNP [Primary Care Provider, Naturopathy] Diet/Activity/Treatments Diet: Carb-consistent/Diabetic Visit Report/Discharge Packet Stand Alone Forms: Patient Portal/API, Stroke Signs & Symptoms Discharge Data Primary Care Provider: Cristian Peña Attending Provider: Otis Fong Admit Date/Time: 10/20/24 17:55 Quality VTE Deep Vein Thrombosis/Pulmonary Embolism Present on Admission: No
--- NOTE | 2024-10-24 10:06 | PT.IPTN ---
Physical Therapy Treatment Note M2 PT-IP Current Condition Start: 10/21/24 13:01 Freq: NEEDED Status: Active Protocol: Document 10/21/24 10:20 AB (Rec: 10/21/24 13:32 AB Desktop) Physical Therapy Current Condition Current Condition Evaluation Date 10/21/24 Treatment Diagnosis hypokalemia; PICC line placement; difficulty in walking Onset Date 10/20/24 M3 PT-IP Subjective Start: 10/21/24 13:01 Freq: NEEDED Status: Active Protocol: Document 10/24/24 10:06 AB (Rec: 10/24/24 12:10 AB [id number]) Subjective Physical Therapy Visit Type Type Treatment Note Visit Start Time 10:06 Visit Stop Time 10:40 Number of TUNG NUT GROWER Visits 0 Physical Therapy Visit Comments Patient Comments agreeable to do PT M4 PT-IP Mobility and Gait Start: 10/21/24 13:01 Freq: NEEDED Status: Active Protocol: Document 10/24/24 10:06 AB (Rec: 10/24/24 12:10 AB [id number]) PT-Transfer Assessment Sit to and From Stand Sit to and from Contact Guard Assistance,1 Person Assistance,Use of Stand Upper Extremities Equipment Transfer Assistive Gait Belt,Front Wheeled Walker,4 Wheeled Walker Device Orthotic/Prosthetic No Devices or Brace: Transfers Transfer Destination Chair Transfer Technique ambulated Transfer Ability Level of Assist Contact Guard Assistance,Minimal Assistance,Use of Upper Extremities Comments Mobility Comments pt sitting on the chair and agreeable to do PT. sit to stand from chair CGA and ambulated using 4WW min A and cues. increase forward lean after a few feet of walking with 4WW and cues for managing 4WW. pt completed up/down steps using B rails min A and also able to complete holding on to R rail with B hands min A. assisted pt back to her room. sit to stand from w/c CGA and ambulated using FWW ~ 20 ft to chair CGA. positioned pt on chair. call light and table placed within reach. informed pt to continue using FWW for safety due to unsteadiness and increase assistance with use of 4WW. pt agreed. Gait Assessment Gait Gait Assistance Contact Guard Assist,Minimum Assistance Required: Distance (Feet) 45 Able to Maintain Yes Weight Bearing Status During Gait Assistive Devices Assistive Device Gait Belt,Front Wheeled Walker,4 Wheeled Walker Orthotic/Prosthetic No Devices or Brace: Gait Deviations General Gait Pattern Antalgic,Decreased Stride Length,Decreased Feet Clearance,Lateral Trunk Lean,Step-to Gait Factors Limiting Gait Function Factors Limiting Decreased Activity Tolerance,Decreased Strength, Gait Function Difficulty Following Directions,Limited Range of Motion ,Pain,Poor Balance,Poor Safety Awareness Stair Climbing Assessment Evaluation Level of Assist On Minimal Assistance Stairs Devices Stair Climbing Left Railing,Right Railing Assistive Devices Technique/Endurance Stair Climbing Ascend and Descend Direction Stair Climbing Step to Step Technique Number of Steps 3 Climbed Stair Climbing Set # 2 Repetitions (reps) Comments Stair Climbing pls refer to mobility section for details Comments M5 PT-IP Objective Assessments Start: 10/21/24 13:01 Freq: NEEDED Status: Active Protocol: Document 10/21/24 10:20 AB (Rec: 10/21/24 13:32 AB Desktop) Orientation Orientation/Cognition Level of Alertness Alert Orientation Name,Place,Situation Safety Awareness Decreased Safety Awareness Memory Description No Deficits Noted Gross Range of Motion Lower Extremity ROM Assessment Within Functional Limits Strength Comments Strength Comments RLE: 4/5 LLE: 4-/5 Coordination Assessment Gross Coordination Gross Coordination WNL Sensation Assessment Sensation Gross Sensation WNL Muscle Tone Muscle Tone WNL Yes M6 PT-IP Treatment Start: 10/21/24 13:01 Freq: NEEDED Status: Active Protocol: Document 10/24/24 10:06 AB (Rec: 10/24/24 12:10 [id number]) Physical Therapy Treatment Education Education Provided Safety M7 PT-IP Assessment and Plan Start: 10/21/24 13:01 Freq: NEEDED Status: Active Protocol: Document 10/24/24 10:06 AB (Rec: 10/24/24 12:10 [id number]) PT Summary Assessment and Plan Potential Rehabilitation Fair Potential Summary Impairments Pain,ROM,Strength,Balance,Coordination,Sensation,Tone, Cognition,Bed Mobility,Transfers,Gait,Activity Tolerance Progress Towards Slow Progress due to Activity Tolerance,Slow Progress - Goals Other Assessment Summary pt requiring CGA to min A with mobility using FWW/4WW. Recommending use of FWW for safety and pt will benefit from HHPT vs outpt PT. pt plans to go to her daughter's house and daughter to assist pt. Goals Bed Mobility Goal Independent Transfer Goal Independent,Front Wheeled Walker Gait Goal Independent,Front Wheel Walker Gait Distance 100 Other Goals up/down 2 steps R rail descending SBA Days to Meet Goals 10 Frequency of Treatment Frequency Of Once a Day Treatment Treatment Plan Physical Therapy Bed Mobility Training,Transfer Training,Gait Training, Treatment Plan Therapeutic Exercise,Balance Retraining,Discharge Planning,Hot or Cold Pack,Neuromuscular Re-ed, Coordination Retraining,Manual Therapy Recommendations To Nursing Amount of Assist 1 Person Assist Needed Discharge Recommendations PT Discharge Home with 26/10 Assist Available,Home Health,Home vs SNF Recommendations Transportation Needs Private Vehicle,Wheelchair/Cabulance at Discharge - PT assist 1
--- NOTE | 2024-10-24 10:26 | CM.DPC ---
DCP Cont. Reviewed EMR and team rounds for pt's medical status and updates. Pt has been medically cleared for home d/c. Family will transport at d/c, [facility] orders faxed. No further CM needs are identified at this time.
--- NOTE | 2024-10-24 12:11 | OT.IP.TRT ---
Occupational Therapy Treatment Note M2 OT-IP Current Condition Start: 10/23/24 10:33 Freq: Status: Active Protocol: Document 10/23/24 10:33 MIMI (Rec: 10/23/24 11:03 MIMI Desktop) Occupational Therapy Current Condition Current Condition Evaluation Date 10/23/24 Treatment Diagnosis hypokalemia, PICC line placement, decreased self care M3 OT- IP Subjective and Pain Start: 10/23/24 10:33 Freq: Status: Active Protocol: Document 10/24/24 12:06 [facility] (Rec: 10/24/24 12:11 [facility] Desktop) OT- Subjective Occupational Therapy Visit Type Type Treatment Note Visit Start Time 11:48 Visit Stop Time 12:01 Occupational Therapy Visit Comments Patient Comments Pt agreed to go over ADL equipment needs. Patient/Caregiver TO go home. 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 Spoke of making sure to how surfaces/FWW with one hand while use of the other hand for clothing management needs. OT ADL-Toileting Comments OT Toileting Suggested BSC to place over the toilet as RTS at times Comments not stable depending on the symmetry of weight placed on the handles of the RTS when getting up. IN addition the BSC can be placed next to the bed. Pt has good awareness to wiipe from front to back for hygiene needs. M5 OT- IP IADL's Start: 10/23/24 10:33 Freq: Status: Active Protocol: Document 10/23/24 10:33 MIMI (Rec: 10/23/24 11:03 MIMI Desktop) OT-Instrumental Activities of Daily Living Home Safety Awareness Awareness of Need Decreased Awareness for Assistance at Home Ability to Problem Able to Problem Solve Solve Emergency Situations Medication Management Medication No Deficits Identified Management Money Management Money Management No Deficits Identified Meal Preparation Meal Preparation pt will need assist on d/c due to decreased activity Comments tolerance, balance, safety Director Of Consumer Marketing Director Of Consumer Marketing pt will need assist on d/c due to decreased activity Comments tolerance, balance, safety Driving Driving Comments pt will need assist on d/c due to decreased activity tolerance, safety M6 OT- IP Functional Cognition Start: 10/23/24 10:33 Freq: Status: Active Protocol: Document 10/24/24 12:06 [facility] (Rec: 10/24/24 12:11 [facility] Desktop) Cognitive Factors Limiting Selfcare Function Cognitive Comments Cognitive Assessment Spoke of benefit for a LIFe Alert or having a michelle Comments pack to put her cell phone in. Also talked about a fww tray/basket, etc.. and best for home health to assess for safety to manage items in the house. M7 OT- IP Mobility and Balance Start: 10/23/24 10:33 Freq: Status: Active Protocol: Document 10/23/24 10:33 MIMI (Rec: 10/23/24 11:03 MIMI Desktop) OT-Transfer Assessment Sit to and From Stand Sit to and from Contact Guard Assistance,1 Person Assistance Stand Transfers Transfer Ability Contact Guard Assistance,1 Person Assistance Technique Transfer Destination Chair Transfer Technique Stand Step Pivot Devices Transfer Assistive Gait Belt,Front Wheeled Walker Devices Comments Mobility Comments OT maneuvers IV pole while pt manages FWW. Pt requires vcs to step back until feeling chair behind her LEs prior to reaching back to sit. OT- Gait Assessment Gait Gait Assistance Contact Guard Assist Required: Distance (Feet) 10 Assistive Devices Assistive Device Gait Belt,Front Wheeled Walker Comments Gait Ability Pt amb to/from sink for sink side ADLs while OT manages Comments IV pole. OT- Balance Assessment Sitting Balance and Reactions Static Sitting Normal Balance Ability Dynamic Sitting Good Balance Ability Standing Balance and Reactions Static Standing Good Balance Ability Dynamic Standing Fair Balance Ability M8 OT- IP Objective Assessments Start: 10/23/24 10:33 Freq: Status: Active Protocol: Document 10/23/24 10:33 MIMI (Rec: 10/23/24 11:03 MIMI Desktop) OT Gross Range of Motion Upper Extremity Range of Motion Assessment Bilaterally Impaired ROM Impairments Pt has limitations in B shoulder with R UE ~90 deg and L UE ~120 OT Strength Upper Extremity Strength Assessment Bilaterally Impaired Hand Drilling Engineering Manager Strength Hand Dominance Left Comments Strength Comments PT B shoulders 3-/5, otherwise 3+5 OT-Muscle Tone Assessment Muscle Tone WNL Yes OT Sensation Assessment Edema Edema Absent M9 OT- IP Assessment and Plan Start: 10/23/24 10:33 Freq: Status: Active Protocol: Document 10/24/24 12:06 [facility] (Rec: 10/24/24 12:11 [facility] Desktop) OT Summary Assessment and Plan Potential Rehabilitation Good Potential Analytic Complexity Low at Evaluation Summary OT Impairments Range of Motion,Strength,Balance,Functional Mobility, Dressing,Toileting,Bathing,Toilet Transfers,Shower Transfers,Activity Tolerance Progress Towards Progressing Toward Goals Goals Assessment Summary Pt to be going home to her daughter's house with home health . Able to go over ADL and safety suggestions for pt.
[2024-10-24 13:00] VITALS: BP 115/75; PULSE 75; RESP 18; TEMP 36.4; O2SAT 94
--- NOTE | 2024-10-24 15:08 | PC.NURSE ---
Addendum entered by Fang Lou R.N. 10/24/24 16:36: Patient is escorted via w/ch to private vehicle for discharge home today with daughter at [email or web address] Original Note: Patient d/c teaching done at bedside. PICC line removed without difficulty. Leg bag teaching done with patient at bedside. Patient had Urine collection bag changed out for leg bag. Pt states she understands how to empty urine collection bag. Pt was encouraged to call Dr. Tapia office this afternoon to clarify on what time she is sched. for in office procedure. Call was placed to daughter for pick and shovel man arrangements.
== END 2024-10-24 16:05 | disposition home or self-care (01) ==
LOC: ED 17:53 → AC 17:56
PROVIDERS: Family Medicine; Internal Medicine; Admitting Provider Hospitalist; Emergency Provider Physician Assistant; Family Provider Registered Nurse; PCP Registered Nurse; Referring Provider Physician Assistant; Visit Provider Hospitalist
DX: T82.524A Displacement of infusion catheter, initial encounter (principal); N39.0 Urinary tract infection, site not specified; R78.81 Bacteremia; B95.2 Enterococcus as the cause of diseases classified elsewhere; I10 Essential (primary) hypertension; E11.40 Type 2 diabetes mellitus with diabetic neuropathy, unspecified; Z79.84 Long term (current) use of oral hypoglycemic drugs; F41.9 Anxiety disorder, unspecified; F17.210 Nicotine dependence, cigarettes, uncomplicated; Z79.85 Long-term (current) use of injectable non-insulin antidiabetic drugs
CPT/HCPCS: 36569; 80048; 80053; 82962; 83735; 85025; 96365; 96366; 96367; 96368; 96372; 97116; 97162; 97165; 97530; 97535; 99283; 99284; G0378; J0290; J1642; J1644; J1815; J3475

== ENCOUNTER 2024-10-27 07:59 | Day surgery (SDC) | payer OTHER, MEDICAID, SELFPAY ==
[2024-10-10 08:27] VITALS: BMI 30.1
[2024-10-24 08:13] VITALS: BMI 29.4
[2024-10-27] VITALS (7 sets, daily range): BP systolic 116–141; BP diastolic 54–75; PULSE 81–88; RESP 16–21; TEMP 36.5–36.7; O2SAT 92–96; BMI 29.4
--- NOTE | 2024-10-27 08:52 | PM.PREOP ---
Pre-operative Note COVID-19 COVID-19 status: Not tested Interval Note History & Physical reviewed/Exam performed by Physician: Yes Changes to H&P: No H&P completed within 30 days and has changed as indicated here:: Please see full consult note on 11 October 2024
[2024-10-27] MEDS: FAMOTIDINE 20 MG/2 ML VIAL IV (09:01)
[2024-10-27] MEDS: LACTATED RINGERS 1,000 ML 42 ML IV (09:01)
[2024-10-27] MEDS: levoFLOXacin 500 MG/100 ML PIGGYBACK 100 MG IV (09:48)
--- NOTE | 2024-10-27 10:06 | SUR.OPER ---
Lithotomy on padded OR bed, head on pillow, arms secured on padded arm boards at <90 degrees abduction. Legs secured in padded yellow fins stirrups.
[2024-10-27] MEDS: LACTATED RINGERS 1,000 ML 21 ML IV (10:30)
--- NOTE | 2024-10-27 10:42 | P.OP_ITS ---
Operative Date/Time/Diagnoses Date of procedure: 10/27/24 Time of procedure: 09:45 Pre-op diagnosis: Large right nephroliths Post-op diagnosis: same Procedure & Clinicians Procedure: Cystoscopy Right retrograde ureteropyelogram Right ureteroscopy, laser lithotripsy Right ureteral stent exchange Intraoperative interpretation of fluoroscopic images, total time < 1 hour Same procedure(s) as scheduled: Yes Indications: 79 y/o F presented to ER for evaluation of severe right sided abdominal pain, dysuria and nausea with vomiting in early September of 2024. Of note, she has no h/o nephrolithiasis or prior UTI's. Her evaluation was notable for a WBC of 20.1, sCr of 1.4 (baseline ~0.8) and an infected appearing UA. She was noted to be tachycardic and febrile at that time. Her CT Abd/Pel was notable for an 8mm right UPJ calculus with resultant upstream moderate hydroureteronephrosis, significant perinephric fat stranding and an additionl 10mm right lower pole calculus. She was started on antibiotics and managed acutely with a cystoscopy and right ureteral stent placement. She returns today for a cystoscopy, right ureteroscopy, laser lithotripsy and right ureteral stent exchange for definitive stone management. Surgeon: Nain Tapia Click Yes if Unassisted: Yes Anesthesia Type: General Operative Notes Findings: Two large right nephroliths Closure Type: not applicable Specimen(s): none sent Applied: none Estimated Blood Loss (mL): 2 Blood products transfused: none Procedure in detail: Procedures: 1) Cystoscopy 2) Right retrograde ureteropyelogram 3) Right ureteroscopy, laser lithotripsy 4) Right ureteral stent exchange 5) Intraoperative interpretation of fluoroscopic images, < 1 hour, all images saved to PACS Indication: Patient was identified in the preoperative holding area and consent confirmed. S he was then brought to the operating room where general anesthesia was induced.? She was placed in the low lithotomy position. She was then prepped and draped in the usual sterile fashion. A surgical timeout was conducted and all were in agreement. ?Access to the bladder was obtained via a 30 degree cystoscope.? Complete cystoscopy was then performed and no concerning bladder masses or lesions were appreciated.? Bilateral ureteral orifices were easily identified and noted to be orthotopic in nature.? The previously placed right ureteral stent was easily visualized and externalized using the stent grasper.? A 0.035 sensor tip ureteral guidewire was advanced through the stent and into the right renal pelvis.? A 12/14Fr ureteral access sheath was then advanced over the ureteral guidewire and into the proximal right ureter.? The ureteral guidewire and inner obturator were then removed.? The flexible ureteroscope was then advanced through the ureteral access sheath and into the right renal collecting system. A large calculus was appreciated within a right midpole and right lower pole calyx. Laser lithotripsy was then performed utilizing the 200 micron laser fiber.? After lasering for an extended period of time, visibility became very poor and the decision was made to return for a second look ureteroscopy in the near future.? The ureteral guidewire was then readvanced through the ureteroscope and into the right renal pelvis.? The ureter was then directly visualized upon removal of the ureteroscope and ureteral access sheath and noted to be stone free.? The cystoscope was then backloaded over the ureteral guidewire and advanced into the bladder.? A 6Fr multi-length JJ ureteral stent without strings was then advanced over the ureteral guidewire.? Upon removal of the guidewire, a good curl was noted within the right renal pelvis upon fluoroscopy and visually within the bladder.? The bladder was then drained and the cystoscope was removed.? Anesthesia was reversed, she was extubated in the OR and transferred to the PACU in stable condition for recovery. Complications: none Post-operative Condition: stable Disposition: PACU Plan for aftercare: Discharge home from PACU. Will return to OR for a second look ureteroscopy in the near future.
--- NOTE | 2024-10-27 12:03 | SUR.PHASEII ---
Pt due to void; 2nd bag IVF currently infusing, pt drinking 3rd cup of ice water. Will monitor for feelings of need to urinate
== END 2024-10-27 12:20 | disposition home or self-care (01) ==
PROVIDERS: Family Provider Registered Nurse; PCP Registered Nurse; Referring Provider Urology; Visit Provider Urology
PROC: 0TF68ZZ Fragmentation in Right Ureter, Via Natural or Artificial Opening Endoscopic (ICD-10-PCS; CPT 52353; principal; 2024-10-27 09:30)
DX: N20.0 Calculus of kidney (principal)
CPT/HCPCS: 52356; 74018; 76000; 82962; C2617; J1100; J1956; J2405; J2704; J3010; J3490; Q9967

== ENCOUNTER 2024-11-02 13:52 | Observation (INO) | payer OTHER, MEDICAID, SELFPAY ==
[2024-11-02] VITALS (8 sets, daily range): BP systolic 95–100; BP diastolic 49–67; PULSE 78–86; RESP 14–22; TEMP 36.1–37.3; O2SAT 94–98; BMI 32.1; BMI 33.7
--- NOTE | 2024-11-02 16:56 | ED.AMS ---
HPI - Altered Mental Status General Chief Complaint: Altered Mental Status Stated Complaint: AMS, somnolence, hypoxia Time Seen by Provider: 11/02/24 16:09 Source: patient and EMS Mode of arrival: EMS History of Present Illness HPI narrative: Patient here with daughter. Has decline in mental status and health in the past 2 months. Patient was at home with family and then admitted here for ICU and then discharged to [facility] al[facility] rehab for 2 weeks and then returned back to daughter's home. However patient is declining in health. She was vibrant talkative ambulatory but now bed ridden. Daughter is trying to pursue hospice care. No fall or injury. Daughter does not want any blood work or imaging done. Related Data Home Medications ?Medication ?Instructions ?Recorded ?Confirmed gabapentin 300 mg capsule 300 mg PO Q12H 09/08/24 10/27/24 losartan 50 mg tablet 50 mg PO DAILY 09/08/24 10/27/24 metformin 1,000 mg tablet 1,000 mg PO BID 09/08/24 10/27/24 semaglutide 0.25 mg or 0.5 mg (2 0.5 mg SUBCUT .Q7 days 09/08/24 10/27/24 mg/3 mL) subcutaneous pen injector (Ozempic) lorazepam 0.5 mg tablet 0.5 mg PO QAM 10/20/24 10/27/24 Previous Rx's ?Medication ?Instructions ?Recorded amlodipine 10 mg tablet 10 mg PO DAILY #30 tabs 09/12/24 polyethylene glycol 3350 17 gram 17 gm PO BID #30 ea 09/12/24 oral powder packet lorazepam 0.5 mg tablet 0.5 mg PO QPM #10 tabs 10/15/24 levofloxacin 500 mg tablet 500 mg PO DAILY #3 tabs 10/24/24 magnesium oxide 400 mg (241.3 mg 400 mg PO BID #60 tabs 10/24/24 magnesium) tablet Allergies Allergy/AdvReac Type Severity Reaction Status Date / Time codeine (CODEINE) Allergy Intermediate NAUSEA / Verified 11/02/24 13:55 HIVES cortisone (CORTISONE) Allergy Intermediate LIGHT / Verified 11/02/24 13:55 SOUND SENSITIVITY Review of Systems Review of Systems Narrative: GENERAL: Negative chills, positive fatigue, malaise, negative fever, sweats. HEENT: Negative sinus pain, ear pain, sore throat RESPIRATORY: Negative dyspnea, cough CARDIOVASCULAR: Negative chest pain, palpitations GASTROINTESTINAL: Negative vomiting, nausea, abdominal pain : Negative dysuria, frequency, hematuria MUSCULOSKELETAL: Negative muscle or bony pain SKIN: Negative rash, skin lesions NEUROLOGIC: Positive weakness, negative numbness ROS Unobtainable: All systems reviewed & are unremarkable except as noted in HPI and below Patient History Medical History (Updated 11/02/24 @ 18:26 by Maximo Porter MD) Amputation of toe Neuropathy Depression Arthritis HTN (hypertension) Diabetes Surgical History (Updated 10/24/24 @ 08:31 by Susannah Inman RN) Hx of hernia repair S/P cystoscopy with ureteral stent placement (09/05/24) Social History household members: children and none Smoking Status: Former smoker alcohol intake: never Exam Narrative Exam Narrative: GENERAL: in no distress, not toxic not dyspneic HEAD: Normocephalic. EYES: Pupils equal round ENT: Mucous membranes moist. NECK: Trachea midline. CARDIOVASCULAR: Regular rate and rhythm RESPIRATORY: Clear to auscultation. Breath sounds equal bilaterally. No wheezes, rales, or rhonchi. GASTROINTESTINAL: Abdomen soft, non-tender EXTREMITIES: No gross deformities. BACK: No flank tenderness. NEURO: AOx 1. Soft but Clear speech, very weak with limb movements but able to move all 4 limbs. 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 SKIN: Warm and dry PSYCH: Not anxious, is cooperative Initial Vital Signs Initial Vital Signs: Vital Signs Temperature 99.1 F 11/02/24 14:09 Pulse Rate 86 11/02/24 14:09 Respiratory Rate 22 11/02/24 14:09 Blood Pressure 98/67 11/02/24 14:09 Pulse Oximetry 94 11/02/24 14:09 Oxygen Delivery Method Nasal Cannula 11/02/24 14:09 Oxygen Flow Rate 4 11/02/24 14:09 Course Orders Ordered: ED Orders 11/02/24 16:55 Consult to BOTTLING LINE ATTENDANT - Evp Managing Director Stat Atropine Sulfate (Atropine 1% Ophth) 2 drops SL Q2HR PRN PRN Reason: Secretions Lorazepam (Lorazepam 2 Mg/Ml Oral Anna) 1 mg PO Q1HR PRN PRN Reason: Anxiety Morphine Sulfate (Morphine 10 Mg/0.5 Ml Oral Syringe) 10 mg SL Q1H PRN PRN Reason: Pain, Mild (1-3) Naloxone HCl (Naloxone 0.4 Mg/Ml Vial) 0.2 mg IV Q2MIN PRN PRN Reason: Opiate Reversal Scopolamine (Scopolamine 1 Patch) 1 patch TOP Q72H PRN PRN Reason: Secretions Vital Signs Vital signs: Vital Signs - 8 hr 11/02/24 14:09 11/02/24 15:22 11/02/24 15:30 Temperature 99.1 F Pulse Rate 86 78 Respiratory Rate 22 17 Blood Pressure 98/67 97/50 L Pulse Oximetry 94 95 Oxygen Delivery Method Nasal Cannula Nasal Cannula Oxygen Flow Rate 4 4 11/02/24 15:30 11/02/24 16:00 11/02/24 16:01 Temperature Pulse Rate 78 84 Respiratory Rate 17 17 Blood Pressure 100/59 L Pulse Oximetry 95 98 Oxygen Delivery Method Oxygen Flow Rate 11/02/24 16:01 11/02/24 16:30 11/02/24 16:30 Temperature Pulse Rate 83 82 Respiratory Rate 19 16 Blood Pressure 95/51 L Pulse Oximetry 98 97 Oxygen Delivery Method Nasal Cannula Oxygen Flow Rate 4 11/02/24 17:00 11/02/24 17:00 Temperature Pulse Rate 81 Respiratory Rate 14 Blood Pressure 95/52 L Pulse Oximetry 96 Oxygen Delivery Method Nasal Cannula Oxygen Flow Rate 4 MDM - Altered Mental Status Lab Data Labs: Lab Results 11/02/24 Range/Units 15:52 POC Whole Bld Glucose 150 H (70-99) mg/dL MDM Narrative Medical decision making narrative: Patient here with daughter. Has decline in mental status and health in the past 2 months. Patient was at home with family and then admitted here for ICU and then discharged to [facility] alf rehab for 2 weeks and then returned back to daughter's home. However patient is declining in health. She was vibrant talkative ambulatory but now bed ridden. Daughter is trying to pursue hospice care. No fall or injury. Daughter does not want any blood work or imaging done. MDM After history and exam, social work consult, daughter does not want any respiratory evaluation or workup. It does not bladder changer and desire to advanced towards hospice care Differential considered: Includes but not limited to failure to thrive dehydration kidney failure Medical records reviewed: Discharge summary October 24, 2024 from this hospital Consultations: 6:15 p.m.. [place] social work has tried to get patient home with hospice, daughter agrees. However patient requiring supplemental oxygen and able to send patient home. I did speak with hospitalist, Dr. Horton, will admit Re-evaluations: 6:00 p.m.. Social work seeing daughter and at this time agreeable for home hospice. Patient drops down to 84% room air when oxygen removed. Discussion: Appropriate for admission. Patient will acquire social work and assessment of respiratory needs at home for supplemental oxygen. Hospitalist has seen patient and will admit Diagnosis: Failure to thrive, respiratory failure Discharge Plan Departure Patient Disposition: Admitted as Observation Clinical Impression: Respiratory failure Qualifiers: Chronicity: unspecified Respiratory failure complication: hypoxia Qualified Code(s): J96.91 - Respiratory failure, unspecified with hypoxia Admit Date/Time: 11/02/24 18:23 Admit Provider: Yuriy Horton
--- NOTE | 2024-11-02 18:01 | PC.NURSE ---
Provider ordered road test off of oxygen, this RN takes patient off oxygen and patient desatts to 84% on RA while lying in the bed. This RN places patient back on oxygen and makes provider Charlotte aware
--- NOTE | 2024-11-02 18:09 | CM.DANOTE ---
ED CERTIFIED FRAUD EXAMINER DCP Assessment Note: Pt is a 79yo female, resident of [place], is seen in the ED for altered mental status, somnolence and hypoxia. Pt lives in a house alone but has been staying with her daughter and her family the last few weeks. Pt's Primary Care Provider is CADEN Lyon and insurance is [employer] Medicare and Medicaid. Reviewed chart and discussed with multidisciplinary team pt's medical status and initial discharge needs. Per EMR review, pt was admitted on 10/20-10/24 after leaving a SNF Rehab against medical advice; she was then discharged home with Suzanna GUADARRAMA in the care of her family. ED CERTIFIED FRAUD EXAMINER met w/patient at bedside; introduced self and role. Pt was asleep and pt's daughter is at bedside, Sandy Wolfe ph# [phone]. Pt daughter states a preference for a home plan with Hospice, states she will be primary caregiver in pt's home. Provided informational brochure of [facility] to daughter and educated on informational call. Daughter provided Healthcare Advanced Directive and Healthcare POA paperwork; CERTIFIED FRAUD EXAMINER uploaded to EMR. ED CERTIFIED FRAUD EXAMINER sent initial referral via eFax to [facility]. ED CERTIFIED FRAUD EXAMINER discussed home with hospice plan with ED Provider, Dr. Porter, who now deems inpatient admission is necessary due to pt's new hypoxia. Plan: Acute care admission, anticipating dc home with hospice when medically stable. CM team will follow closely for coordination of discharge plans. JOHANA Siddiqi Discharge Planning/Care Management CM Discharge Assessment Start: 11/02/24 18:02 Freq: Status: Active Protocol: Document 11/02/24 18:02 (Rec: 11/02/24 18:09 [id number]) Discharge Planning Assessment Assigned Discharge SANDER Neri Missile Mechanic DPOA/Assigned Sandy Wolfe, Daughter Designee Name Contact Information [phone] Advance Directives? Yes Advance Directives No on File History Provided By Patient,Medical Record Has Patient been Yes admitted in last 30 days? Comment 10/20/2024-10/24/2024 - discharged home with Suzanna GUADARRAMA Prior Living House Arrangements Comment Staying with daughter and her family, will be returning to her own home in [place] Household Members none Type of Relies on Others transporation used prior to admit Independent with ADL No 's Is patient alert and Yes oriented? Needs Assistance Bathing,Grooming,Meal Prep,Toileting,Managing With Medications,Home Chores / Shopping Caregiver for No Another DME Already Rented / Elevated Toilet Seat,FWW / Walker Owned Patient/Family Home with Home Health Preference Barriers to No Discharge Discharge Plan Hospice Referrals Initiated Other Additional Comment [facility] Review Status In Process Please Provide Date 11/02/24 Initial DC Assessment Was Performed Next Review Type Continued Stay Review
--- NOTE | 2024-11-02 18:29 | PM.HP.1 ---
History of Present Illness History of Present Illness Date Patient Seen: 11/02/24 Chief complaint: AMS, somnolence, hypoxia Narrative: Chief complaint: Progressive cognitive and functional decline hospice service requested with shortness for breath and hypoxia History of present illness: 11/02: 79-year-old female recently with an extensive hospitalization and ICU stay followed by rehab at [facility] and then discharge home. Patient did not do well at home and became bed-bound minimal liquid and food intake becoming less and less responsive and more and more somnolent. Patient was noticeably having some labored respirations and was brought to the emergency department. No diagnostic testing was performed and the nurse department at the request of the daughter with request for referral to hospice services patient. Review of systems: Unable to obtain patient is not verbally responsive Physical exam: Minimally responsive nonverbal elderly female premorbid in appearance HEENT unremarkable No labored respirations on oxygen minimally responsive No signs of abdominal tenderness no response to palpation no bowel sounds appreciated Extremities no cyanosis Assessment and Plan: Patient minimally responsive bed-bound not eating or drinking after recent bout with severe sepsis recurrent urinary tract infections and chronic urinary stones. Suspect patient is either septic again and an acute multiorgan system failure. Comfort measure Consultation with hospice Code status: Do not resuscitate 35 minutes were involved in the evaluation of this patient discussion with daughter review of records of the chart and discussion with emergency physician [facility] Medical History (Updated 11/02/24 @ 18:26 by Maximo Porter MD) Amputation of toe Neuropathy Depression Arthritis HTN (hypertension) Diabetes Surgical History (Updated 10/24/24 @ 08:31 by Susannah Inman RN) Hx of hernia repair S/P cystoscopy with ureteral stent placement (09/05/24) Social History household members: none alcohol intake: never Meds Home Medications and Allergies Home Medications ?Medication ?Instructions ?Recorded ?Confirmed ?Type gabapentin 300 mg capsule 300 mg PO Q12H 09/08/24 10/27/24 History losartan 50 mg tablet 50 mg PO DAILY 09/08/24 10/27/24 History metformin 1,000 mg tablet 1,000 mg PO BID 09/08/24 10/27/24 History semaglutide 0.25 mg or 0.5 mg (2 0.5 mg SUBCUT .Q7 days 09/08/24 10/27/24 History mg/3 mL) subcutaneous pen injector (Ozempic) amlodipine 10 mg tablet 10 mg PO DAILY #30 tabs 09/12/24 10/27/24 Rx polyethylene glycol 3350 17 gram 17 gm PO BID #30 ea 09/12/24 10/20/24 Rx oral powder packet lorazepam 0.5 mg tablet 0.5 mg PO QPM #10 tabs 10/15/24 10/27/24 Rx lorazepam 0.5 mg tablet 0.5 mg PO QAM 10/20/24 10/27/24 History levofloxacin 500 mg tablet 500 mg PO DAILY #3 tabs 10/24/24 10/27/24 Rx magnesium oxide 400 mg (241.3 mg 400 mg PO BID #60 tabs 10/24/24 Rx magnesium) tablet Allergies Allergy/AdvReac Type Severity Reaction Status Date / Time codeine (CODEINE) Allergy Intermediate NAUSEA / Verified 11/02/24 13:55 HIVES cortisone (CORTISONE) Allergy Intermediate LIGHT / Verified 11/02/24 13:55 SOUND SENSITIVITY Exam Vital Signs (past 8 hours): - 11/02/24 14:09 11/02/24 15:22 11/02/24 15:30 Temperature 99.1 F Pulse Rate 86 78 Respiratory Rate 22 17 Blood Pressure 98/67 97/50 L Pulse Oximetry 94 95 Oxygen Delivery Method Nasal Cannula Nasal Cannula Oxygen Flow Rate 4 4 11/02/24 15:30 11/02/24 16:00 11/02/24 16:01 Temperature Pulse Rate 78 84 Respiratory Rate 17 17 Blood Pressure 100/59 L Pulse Oximetry 95 98 Oxygen Delivery Method Oxygen Flow Rate 11/02/24 16:01 11/02/24 16:30 11/02/24 16:30 Temperature Pulse Rate 83 82 Respiratory Rate 19 16 Blood Pressure 95/51 L Pulse Oximetry 98 97 Oxygen Delivery Method Nasal Cannula Oxygen Flow Rate 4 11/02/24 17:00 11/02/24 17:00 Temperature Pulse Rate 81 Respiratory Rate 14 Blood Pressure 95/52 L Pulse Oximetry 96 Oxygen Delivery Method Nasal Cannula Oxygen Flow Rate 4 Oxygen Delivery Method Nasal Cannula Oxygen Flow Rate 4 Objective Labs Labs: Laboratory Results - last 24 hr 11/02/24 15:52 POC Whole Bld Glucose 150 H Assessment & Plan Time-Based Coding :: [TOTAL MINUTES] spent with patient and on the chart (including review of chart, obtaining history, exam, reviewing outside data, placing orders, documenting exam and treatment plan, and counseling patient) on [DATE].
[2024-11-02] MEDS: SCOPOLAMINE 1 PATCH TOP (22:08)
[2024-11-03 07:00] VITALS: BP 114/55; PULSE 88; RESP 16; TEMP 36.5; O2SAT 95
[2024-11-03 09:00] VITALS: O2SAT 95
--- NOTE | 2024-11-03 14:09 | CM.DPNOTE ---
DCP Continued: Reviewed EMR and team rounds for pt?s medical status. Per hospitalist, pt will be able to discharge with home O2 in place for comfort as well as Hospice services/DME established. DCP conferred with Respiratory Therapy for request for home O2 evaluation. [facility] calls [facility] to inquire of referral sent. Oxana Nelia states they have plans to open services 2-3pm on Wednesday, 11/05. DME can be delivered tomorrow after informational call with pt daughter. DCP notified pt RN and hospitalist. [facility] BLS form initiated by [facility] and will need transport dispatched prior to discharge. Plan: Anticipating dc home with [facility], BLS transport needed. CM Team will continue to follow for coordination of discharge plans. JOHANA Siddiqi
--- NOTE | 2024-11-03 14:11 | P.PN_ITS ---
Subjective Subjective Date Patient Seen: 11/03/24 Time Patient Seen: 08:23 Interval history: Chief complaint: Progressive cognitive and functional decline hospice service requested with shortness for breath and hypoxia History of present illness: 11/02: 79-year-old female recently with an extensive hospitalization and ICU stay followed by rehab at [facility] and then discharge home. Patient did not do well at home and became bed-bound minimal liquid and food intake becoming less and less responsive and more and more somnolent. Patient was noticeably having some labored respirations and was brought to the emergency department. No diagnostic testing was performed and the nurse department at the request of the daughter with request for referral to hospice services patient. 11/03: The patient opens her eyes to voice, states no pain at this point, othe rwise minimally interactive. Discussion with family for hospice care, with plan to return home tomorrow with home oxygen. Exam Vital Signs (past 8 hours): - 11/03/24 07:00 11/03/24 07:40 Temperature 97.7 F Pulse Rate 88 Respiratory Rate 16 Blood Pressure 114/55 L Pulse Oximetry 95 Oxygen Delivery Method Nasal Cannula Oxygen Flow Rate 2.5 Oxygen Delivery Method Nasal Cannula Oxygen Flow Rate 2.5 Narrative Exam Narrative: Minimally responsive nonverbal elderly female premorbid in appearance HEENT unremarkable No labored respirations on oxygen minimally responsive No signs of abdominal tenderness no response to palpation no bowel sounds appreciated Extremities no cyanosis Objective Labs Labs: Laboratory Results - last 24 hr 11/02/24 15:52 POC Whole Bld Glucose 150 H PFSH Medical History Amputation of toe Arthritis Depression Diabetes HTN (hypertension) Neuropathy Surgical History Hx of hernia repair S/P cystoscopy with ureteral stent placement (09/05/24) Social History household members: children and none Smoking Status: Former smoker alcohol intake: never Assessment & Plan Assessment & Plan narrative: Patient minimally responsive bed-bound not eating or drinking after recent bout with severe sepsis recurrent urinary tract infections and chronic urinary stones. Suspect patient is either septic again and an acute multiorgan system failure. * Comfort measures * Consultation with hospice * Home oxygen Code status: * Do not resuscitate Plan to discharge home tomorrow with home oxygen therapy on hospice Quality VTE Deep Vein Thrombosis/Pulmonary Embolism Present on Admission: No IH PROFEE Professional Fighter Document charge(s): No Charge Codes Subsequent inpatient/observation care: [id number]
[2024-11-03] MEDS: MORPHINE 10 MG/0.5 ML ORAL SYRINGE SL (17:44)
[2024-11-03] MEDS: LORazepam 2 MG/ML ORAL SOL 1 MG PO (19:09)
[2024-11-03] MEDS: NYSTATIN POWDER 15GM 1 APPLIC TOP (20:11)
--- NOTE | 2024-11-03 21:12 | PC.WOUNDPHOT ---
Left alejandro right alejandro Right knee buttocks
[2024-11-04 07:34] VITALS: BP 134/56; PULSE 92; RESP 14; TEMP 36.6; O2SAT 93
[2024-11-04 09:15] VITALS: O2SAT 93
--- NOTE | 2024-11-04 10:39 | P.PN_ITS ---
Subjective Subjective Date Patient Seen: 11/04/24 Time Patient Seen: 09:23 Interval history: Chief complaint: Progressive cognitive and functional decline hospice service requested with shortness for breath and hypoxia History of present illness: 11/02: 79-year-old female recently with an extensive hospitalization and ICU stay followed by rehab at [facility] and then discharge home. Patient did not do well at home and became bed-bound minimal liquid and food intake becoming less and less responsive and more and more somnolent. Patient was noticeably having some labored respirations and was brought to the emergency department. No diagnostic testing was performed and the nurse department at the request of the daughter with request for referral to hospice services patient. 11/03: The patient opens her eyes to voice, states no pain at this point, othe rwise minimally interactive. Discussion with family for hospice care, with plan to return home tomorrow with home oxygen. 11/04: The patient is alert, oriented to month, year and hospital, though states she is in [place]. She is sitting up eating breakfast. Appears weak. Exam Vital Signs (past 8 hours): - 11/04/24 07:34 11/04/24 09:15 Temperature 97.8 F Pulse Rate 92 H Respiratory Rate 14 Blood Pressure 134/56 L Pulse Oximetry 93 93 Oxygen Delivery Method Nasal Cannula Oxygen Flow Rate 2 2 Oxygen Delivery Method Nasal Cannula Oxygen Flow Rate 2 Narrative Exam Narrative: Alert, appears calm, appears weak HEENT: Unremarkable Respiratory: No labored respirations, clear anteriorly Cardiac: Regular rate and rhythm Abdomen: Soft, nontender Extremities: No edema Objective Labs Labs: Laboratory Results - last 24 hr 11/02/24 15:52 POC Whole Bld Glucose 150 H PFSH Medical History Amputation of toe Arthritis Depression Diabetes HTN (hypertension) Neuropathy Surgical History Hx of hernia repair S/P cystoscopy with ureteral stent placement (09/05/24) Social History household members: children and none Smoking Status: Former smoker alcohol intake: never Assessment & Plan Assessment & Plan narrative: Patient with failure to thrive following severe sepsis recurrent urinary tract infections and chronic urinary stones. Suspect patient is either septic again and an acute multiorgan system failure. * Comfort measures * Consultation with hospice * Home oxygen Code status: * Do not resuscitate Plan to discharge home when home arrangements made for DME with home oxygen therapy on hospice Quality VTE Deep Vein Thrombosis/Pulmonary Embolism Present on Admission: No IH PROFEE Valve And Regulator Repairer Document charge(s): No Charge Codes Subsequent inpatient/observation care: [id number]
[2024-11-04] MEDS: NYSTATIN POWDER 15GM 1 APPLIC TOP (12:31)
--- NOTE | 2024-11-04 15:26 | CM.DPNOTE ---
DC Note Discharge home with daughter Ora today; DME has been delivered. [facility] Sunday 11/05 2-3p. Daughter agreeable to discharge plan. [facility] has been arranged to pick patient up at 4:30P. FS and BLS certification of medical necessity form completed, signed. Dr Gay updating patient's POLST with daughter. Plan: Discharge home to [address] [place] [address] via BLS (with O2), daughter to meet patient at home, Hosp bed and O2 have been delivered, [facility] 11/05. JW
--- NOTE | 2024-11-04 15:50 | PM.DS.IH.1 ---
History of Present Illness History of Present Illness Date Patient Seen: 11/04/24 Time Patient Seen: 09:23 Chief complaint: AMS, somnolence, hypoxia Narrative: 79-year-old female recently with an extensive hospitalization and ICU stay followed by rehab at [facility] and then discharge home. Patient did not do well at home and became bed-bound minimal liquid and food intake becoming less and less responsive and more and more somnolent. Patient was noticeably having some labored respirations and was brought to the emergency department. No diagnostic testing was performed and the nurse department at the request of the daughter with request for referral to hospice services patient. Discharge Providers Provider Date of admission: 11/02/24 18:23 Discharge Date: 11/04/24 Primary care physician: Cristian Peña ND Consults: 11/02/24 16:55 Consult to [facility] - Refrigeration Plant Operator Stat Comment: Refrigeration Plant Operator Consult needed for:: Unable to care for self 11/02/24 18:35 Consult to Discharge Planning Routine Comment: Discharge provider: Bill Gay MD Summary Hospital Course Discharge Diagnosis: 1. Failure to thrive following severe sepsis recurrent urinary tract infections and chronic urinary stones, recurrent sepsis suspected. 2. Comfort care 3. Do not resuscitate Hospital Course: 11/03: The patient opens her eyes to voice, states no pain at this point, otherwise minimally interactive. Discussion with family for hospice care, with plan to return home tomorrow with home oxygen. 11/04: The patient is alert, oriented to month, year and hospital, though states she is in [place]. She is sitting up eating breakfast. Appears weak. Case management and family and physician discussions coordinated with hospice for discharge home on home oxygen. Status at Discharge Cognitive/behavioral status at discharge: oriented Functional status at discharge: bed bound Overall status at discharge: patient is not back to baseline Time Spent with Patient Time spent: Greater than 30 minutes Exam Vital Signs (past 8 hours): - 11/04/24 09:15 Pulse Oximetry 93 Oxygen Delivery Method Nasal Cannula Oxygen Flow Rate 2 Oxygen Delivery Method Nasal Cannula Oxygen Flow Rate 2 Narrative Exam Narrative: Alert, appears calm, appears weak HEENT: Unremarkable Respiratory: No labored respirations, clear anteriorly Cardiac: Regular rate and rhythm Abdomen: Soft, nontender Extremities: No edema Objective Labs Labs: Laboratory Results - last 24 hr 11/02/24 15:52 POC Whole Bld Glucose 150 H PFSH Medical History Amputation of toe Arthritis Depression Diabetes HTN (hypertension) Neuropathy Surgical History Hx of hernia repair S/P cystoscopy with ureteral stent placement (09/05/24) Social History household members: children and none Smoking Status: Former smoker alcohol intake: never Discharge Plan Discharge Plan Patient Disposition: Home Provider Discharge Comment: Home oxygen at 2l/min per RT; home with Hospice Discharge orders & Medications Prescriptions: Continued losartan 50 mg tablet 50 mg PO DAILY metformin 1,000 mg tablet 1,000 mg PO BID gabapentin 300 mg capsule 300 mg PO Q12H Patient Comments: 300mg BID Ozempic 0.25 mg or 0.5 mg (2 mg/3 mL) pen injector 0.5 mg SUBCUT .Q7 days Patient Comments: [NO ORIGINAL SIG] amlodipine 10 mg tablet 10 mg PO DAILY Qty: 30 0RF Patient Comments: patient is unclear if she is still taking this medication polyethylene glycol 3350 17 gram Powder In Packet 17 gm PO BID Qty: 30 0RF lorazepam 0.5 MG tablet 0.5 mg PO QAM magnesium oxide 400 mg (241.3 mg magnesium) Tablet 400 mg PO BID Qty: 60 0RF levofloxacin 500 mg tablet 500 mg PO DAILY Qty: 3 0RF lorazepam 0.5 mg Tablet 0.5 mg PO QPM Qty: 10 0RF Follow up/Referrals: Cristian Peña ARNP [Primary Care Provider, Naturopathy] Visit Report/Discharge Packet Stand Alone Forms: Patient Portal/API, Stroke Signs & Symptoms Discharge Data Primary Care Provider: Cristian Peña Attending Provider: Yuriy Horton Admit Date/Time: 11/02/24 18:23 Quality VTE Deep Vein Thrombosis/Pulmonary Embolism Present on Admission: No MIPS - Admit I confirm the patient?s Advance Care Plan is present, Code status is documented, Surrogate decision maker is in patient?s record [If Yes, STOP here]: Yes MIPS - Meds 'Current medications' to include all prescriptions, krri-dio-tvkuycy products, herbals, cannabis/cannabidiol products, and vitamin/mineral/dietary (nutritional) supplements. I have utilized all available resources to obtain, update, or review the patient?s current medications. [If Yes, STOP here]: Yes MIPS - DC The patient has a history of heart transplant or Left Ventricular Assist Device (LVAD). If yes, STOP here.: No The patient has current or prior documentation of left ventricular ejection fraction (LVEF) less than or equal to 40%, or moderate or severely depressed left ventricular systolic function.: No A. The patient was prescribed or already taking an Angiotensin-Converting Enzyme (ZION) Inhibitor, or Angiotensin Receptor Francis (ARB).: Yes B. The patient was prescribed or already taking a beta-francis. [If Yes to Both A & B, STOP here]: No Patient not prescribed/taking ZION or ARB, no reason given.: No Patient not prescribed/taking beta-francis, no reason given.: No PROFEE Charge Codes Discharge inpatient/observation: [id number]
[2024-11-04] MEDS: MORPHINE 10 MG/0.5 ML ORAL SYRINGE SL (17:03)
--- NOTE | 2024-11-04 19:54 | PC.NURSE ---
Transfer to home. Dtr did speak with patient and she convinced her to have a varela placed to gravity. Same was done. Pt had had 600mls out in the external cath for shift output. Varela placed and had return of 1500mls. Dr. Gay made aware, ok to d/c to home. Reviewed d/c instructions with dtr as well as discussed O2 and wound care. Pt's dtr was given some supplies to off load the pressure. Pt received morphine prior to d/c and dtr was instructed on how to give pt meds buccal. Dtr verb understanding. Pt discharged to home via bls support. Report given to amb crew. POLST was filled out between pt and MD. She is more awake and lucid at this time. Pt transfered to home.
== END 2024-11-04 17:20 | disposition home or self-care (01) ==
LOC: ED 18:01 → AC 18:23
PROVIDERS: Admitting Provider Internal Medicine; Emergency Provider Emergency Medicine; Family Provider Registered Nurse; PCP Registered Nurse; Referring Provider Emergency Medicine; Visit Provider Internal Medicine
DX: J96.01 Acute respiratory failure with hypoxia (principal); R41.82 Altered mental status, unspecified; R62.7 Adult failure to thrive; Z87.891 Personal history of nicotine dependence; Z66 Do not resuscitate
CPT/HCPCS: 82962; 99283; 99284; G0378